=== PATIENT | female | born 1975 | race Caucasian/White ===

== ENCOUNTER 2017-08-19 08:02 | Inpatient (IN) | payer BC, OTHER ==
[2017-08-19 08:35] LABS: BASO % 0.8 % (0-2.0); EOS % 3.9 % (0-4.5); HEMATOCRIT 33.3 % (32.4-45.2); HEMOGLOBIN 10.4 GM/dL (10.7-15.3); LYMPH % 37.3 % (8-40); MCH 23.3 pg (25.7-33.7); MCHC 31.4 g/dl (32.0-36.0); MEAN CELL VOLUME 74.4 fl (80-96); MEAN PLT VOLUME 7.4 fl (7.5-11.1); MONO % 9.4 % (3.8-10.2); NEUT % 48.6 % (42.8-82.8); PLATELET COUNT 346 K/MM3 (134-434); RBC 4.48 M/mm3 (3.60-5.2); RDW 17.7 % (11.6-15.6); WHITE BLOOD COUNT 4.8 K/mm3 (4.0-10.0)
[2017-08-19 08:45] LABS: HCG,QUALITATIVE URINE NEGATIVE
[2017-08-19 08:53] LABS: URINE APPEARANCE CLEAR; URINE BILIRUBIN NEGATIVE (<2.0 mg/dL); URINE BLOOD 1+ (NEGATIVE); URINE COLOR YELLOW; URINE GLUCOSE (UA) NEGATIVE (NEGATIVE); URINE KETONE NEGATIVE (NEGATIVE); URINE LEUK ESTERASE TRACE (NEGATIVE); URINE NITRITE NEGATIVE (NEGATIVE); URINE PROTEIN NEGATIVE (NEGATIVE)
[2017-08-19 08:55] LABS: EPI CELLS RARE /HPF (FEW); INR 0.97 (0.82-1.09); URINE MUCUS RARE
[2017-08-19 08:59] LABS: ALBUMIN 3.3 g/dl (3.4-5.0); ALK PHOS 99 U/L (45-117); ANION GAP 4 (8-16); BILIRUBIN,TOTAL 0.3 mg/dL (0.2-1.0); BLOOD UREA NITROGEN 12 mg/dL (7-18); CHLORIDE 105 mmol/L (98-107); CO2 28 mmol/L (21-32); CREATININE 0.8 mg/dL (0.55-1.02); GLUCOSE,RANDOM 90 mg/dL (74-106); POTASSIUM 4.7 mmol/L (3.5-5.1); SGOT/AST 8 U/L (15-37); SGPT/ALT 10 U/L (12-78); SODIUM 137 mmol/L (136-145); TOT PROT 6.7 g/dl (6.4-8.2)
[2017-08-19] MEDS ORDERED: ROPIVACAINE HCL 0.5% 30ML VIAL ONE (09:32)
[2017-08-19] MEDS ORDERED: DEXAMETHASONE SOD PHOSPHATE/PF 10 MG/ML SDV ONE (09:32)
[2017-08-19] MEDS ORDERED: MIDAZOLAM HCL 2 MG/2 ML SINGLE DOSE VIAL ONE ×3 (09:35→10:29)
[2017-08-19] MEDS ORDERED: fentaNYL CITRATE 250 MCG/5 ML VIAL ONE ×2 (10:28)
[2017-08-19] MEDS ORDERED: ROCURONIUM BROMIDE 50 MG/5 ML VIAL ONE ×4 (10:29→13:02)
[2017-08-19] MEDS ORDERED: PROPOFOL 20 ML ONE ×2 (10:29)
[2017-08-19] MEDS ORDERED: ALBUTEROL SO4 18 GM HFA INHALER IH ONE (10:30)
[2017-08-19] MEDS ORDERED: KETOROLAC TROMETHAMINE 30 MG/1 ML VIAL ONE (10:32)
[2017-08-19] MEDS ORDERED: DEXAMETHASONE SOD PHOSPHATE 4 MG/1 ML VIAL ONE ×2 (10:32→16:07)
[2017-08-19] MEDS ORDERED: LIDOCAINE HCL/PF 2% SDV 5ML VIAL ONE (10:32)
[2017-08-19] MEDS ORDERED: ceFAZolin SODIUM 1 GM VIAL IVPB ONE (11:25)
--- NOTE | 2017-08-19 11:55 | EKG ---
Test Reason : Blood Pressure : / mmHG Vent. Rate : 073 BPM Atrial Rate : 073 BPM P-R Int : 132 ms QRS Dur : 084 ms QT Int : 408 ms P-R-T Axes : 074 078 056 degrees QTc Int : 449 ms NORMAL SINUS RHYTHM NORMAL ECG NO PREVIOUS ECGS AVAILABLE Confirmed by SAVANA ROWLAND, FERNANDO ([id number]) on 08/19/2017 11:55:04 AM Referred By: Atif Lehman Confirmed By:FERNANDO SAWANT MD
[2017-08-19] MEDS ORDERED: PHENYLEPHRINE HCL 10 MG/1 ML SINGLE DOSE VIAL ONE (14:28)
[2017-08-19] MEDS ORDERED: DESFLURANE GAS 240 ML BOTTLE IH ONE (14:50)
[2017-08-19] MEDS ORDERED: GLYCOPYRROLATE 0.2 MG/1 ML VIAL ONE ×2 (15:44→16:11)
[2017-08-19] MEDS ORDERED: NEOSTIGMINE METHYLSULFATE 0.5 MG/ML - 10 ML MDV ONE ×2 (15:44→16:09)
[2017-08-19] MEDS ORDERED: FUROSEMIDE 40 MG/4 ML INJECTABLE VIAL ONE (15:59)
[2017-08-19] MEDS ORDERED: ONDANSETRON 4 MG/2 ML VIAL IVPUSH PRN (16:34)
--- NOTE | 2017-08-19 16:44 | OP ---
Operative Note - Note: Operative Date: 08/19/17 Pre-Operative Diagnosis: Small Bowel Intussusception. Partial small dowel obstruction. Abdominal Pain Operation: Small Bowel Resection plus multiple anastomoses. Revision of Gastric Bypass. Resection of necrotic small bowel. Lysis of Adhesions. Feeding Jejunostomy. Exploratory Laparotomy. Placement of Abdominal drains Findings: Large amount of adhesions noted Small Bowel with multiple internal hernias and twisting of Biliary limb Dilated small bowel noted in biliary limb Necrotic Small bowel in multiple areas Post-Operative Diagnosis: Same as Pre-op (Necrotic Small bowel; Multiple internal hernias) Surgeon: Atif Lehman Apprentice/Lineman: Jacob Montes Anesthesia: General Specimens Removed: Small bowel anastomosis with intussusception from gastric bypass. necrotic biliary limb of small bowel Estimated Blood Loss (mls): 1,200 Blood Volume Replaced (mls): 4,200 Operative Report Dictated: Yes
[2017-08-19] MEDS ORDERED: PROMETHAZINE HCL 25 MG/1 ML VIAL IVPB PRN (16:47)
[2017-08-19] MEDS ORDERED: PROMETHAZINE HCL 25 MG/1 ML VIAL IVPUSH PRN (17:00)
[2017-08-19] MEDS ORDERED: HYDROmorphone *PCA* 10MG/50ML DISP.SYRIN PCA SCH ×2 (17:15→19:15)
[2017-08-19] MEDS ORDERED: DEXAMETHASONE SOD PHOSPHATE 4 MG/1 ML VIAL IVPUSH ONE (17:15)
[2017-08-19] MEDS ORDERED: ACETAMINOPHEN 1000 MG/100 ML VIAL (NON FORMULARY) IVPB ONE (17:15)
[2017-08-19 17:20] LABS: HEMATOCRIT 35.4 % (32.4-45.2); HEMOGLOBIN 11.4 GM/dL (10.7-15.3); MCH 24.1 pg (25.7-33.7); MCHC 32.1 g/dl (32.0-36.0); MEAN CELL VOLUME 75.1 fl (80-96); MEAN PLT VOLUME 7.7 fl (7.5-11.1); PLATELET COUNT 437 K/MM3 (134-434); RBC 4.71 M/mm3 (3.60-5.2); RDW 17.5 % (11.6-15.6)
[2017-08-19] MEDS ORDERED: HYDROmorphone *PCA* 10MG/50ML DISP.SYRIN PCA ONE (17:27)
[2017-08-19] MEDS: SODIUM CHLORIDE 1,000 ML IV SCH (17:35)
[2017-08-19 18:01] LABS: ALBUMIN 2.3 g/dl (3.4-5.0); ANION GAP 8 (8-16); BILIRUBIN,TOTAL 0.7 mg/dL (0.2-1.0); BLOOD UREA NITROGEN 13 mg/dL (7-18); CHLORIDE 108 mmol/L (98-107); CO2 24 mmol/L (21-32); GLUCOSE,RANDOM 180 mg/dL (74-106); POTASSIUM 5.3 mmol/L (3.5-5.1); SGPT/ALT 10 U/L (12-78); SODIUM 140 mmol/L (136-145); TOT PROT 4.9 g/dl (6.4-8.2)
[2017-08-19 18:04] LABS: ALK PHOS 74 U/L (45-117); SGOT/AST 15 U/L (15-37)
--- NOTE | 2017-08-19 19:50 | OP ---
DATE OF OPERATION: 08/19/2017 PREOPERATIVE DIAGNOSIS: 1. Small bowel intussusception. 2. Partial small bowel obstruction. 3. Abdominal pain. POSTOPERATIVE DIAGNOSIS: 1. Small bowel intussusception. 2. Small bowel obstruction. 3. Abdominal pain. 4. Necrotic small bowel. 5. Multiple internal hernias of small bowel. PROCEDURE PERFORMED: 1. Small bowel resection plus multiple anastomoses. 2. Revision of gastric bypass. 3. Resection of necrotic small bowel. 4. Lysis of adhesions. 5. . 6. Exploratory laparotomy. 7. Placement of abdominal drain. OPERATING SURGEON: Atif Lehman M.D. CONCRETE BATCHER SURGEON: Jacob Montes M.D. ANESTHESIA: General. OPERATIVE PROCEDURE: The patient was brought to the operating room, placed on OR table in supine position. All precautions were taken initially including padding for the back and the feet, and Venodyne boots placed on both lower extremities. At that point, the abdomen was prepped and draped in the usual manner. A midline incision was made extending from where her last incision left off in the upper abdomen around the umbilicus and below the umbilicus for about 6 cm. The incision was carried down through the skin and subcutaneous tissue. At that point, the assistant professor of archaeology surgeon and operating surgeon retracted the subcutaneous tissue to both sides, and this led to exposure of the midline fascia. The linea alba was then opened below the umbilicus with electrocautery, and the operating and assistant professor of archaeology surgeon both put their fingers in and swept away any scar tissue to the abdominal wall. With care being taken, the abdominal wall was opened more inferiorly and then also superiorly up towards the previous incision from the open gastric bypass. This continued carefully sweeping away any scar tissue, mostly omentum, until the transverse colon and the mesocolon were then identified. There were noted to be adhesions between the omentum and the anterior abdominal wall, and these were lysed in order to provide exposure to the rest of the abdominal cavity. At this point, the small bowel was noted, and there were adhesions between loops of bowel which were dissected free with sharp dissection with Metzenbaum scissors. Care was taken not to cause any injury to the bowel wall during this dissection. The small bowel then was run distally and the cecum and ileocecal valve were noted in the right lower quadrant. At that point, the small bowel was run retrograde, following all the way up to the right upper quadrant, where there appeared to be the anastomosis from the gastric bypass. There was noted what appeared to be the gastrojejunostomy limb and also the biliary limb, although it was difficult to tell each one apart. Attention was now directed to the mesocolon to lift it up to try to find the ligament of Treitz and the gastrojejunal limb going in a retrocolic, retrogastric direction up to the stomach. It was unsuccessful, because the patient was very deep, and exposure was difficult. There was noted to be a loop of small bowel which was extremely distended, and this appeared to be the bowel that had been partially or completely obstructed from the intussusception. Attempts to lift this bowel with the abdominal wall were difficult, as the bowel was stuck in many areas, first superiorly by the mesocolon, secondarily stuck laterally, especially in the left side of the abdomen, and then it was stuck posteriorly at the base of the mesentery. Attempts were made to lift this bowel up in a blunt dissection, but there was bleeding noted, and the bleeding was usually controlled with suture ligature. At this point, attention was now directed to the jejunojejunostomy. There was noted to be opening in the mesentery and piece of small bowel was through this, significant for an internal hernia. The adhesions between the small bowel and the internal hernia were lysed, and then the small bowel was reduced. Attention was now directed to the small bowel on the left side of the root of mesentery. This was attempted to be lifted up and followed to the jejunojejunostomy anastomosis where the intussusception was. However, it was difficult, and it was done mostly bluntly, and when it was lifted up, there was noted to be ischemia of the bowel as the mesentery was now devascularized. This small bowel was followed proximally until it led to what appeared to be the ligament of Treitz. This apparently was the biliary limb of the anastomosis, and this bowel was now defunctionalized and needed to be resected. A GIA60 stapler was placed across this biliary limb of the small bowel, and it was transected. The small bowel then ran proximally through which also went through an internal hernia, which could have been a partial cause of the partial obstruction and led to the root of the mesocolon. At this stage, the duodenum was identified, and a Karie maneuver was performed, so that the 4th and 3rd portion of the duodenum was now exposed, and that is where anastomosis would be. At this point, the necrotic small bowel which was the proximal jejunum link to the anastomosis was now resected with a TA55 staple, sent off the field as specimen to pathology. At this point, GIA60 blaire were placed across the gastrojejunal limb, the common limb, and also the biliary limb, and these were fired, and transecting the gastric bypass anastomosis. The Ligasure device was then used to dissect the mesentery off the small bowel, and the entire anastomosis was sent off the field as specimen to pathology. At this point, it was time for reconstruction, to reconstruct the anastomosis with the gastric bypass. First the alimentary limb was connected to the common channel which led distally to the ileocecal valve. These 2 limbs were brought together side by side and held with 3-0 silk sutures on the serosa. An opening was made with the electrocautery on both limbs, and then the GIA60 stapler was placed into the lumen and fired. When it was removed, the staple line was checked, and it was intact, and no bleeding was noted. A TIA55 was then placed across the opening, and the enterotomy was now closed. At this point, the piece of small bowel that was viable from the biliary limb was now connected distal to the proximal anastomosis between the common channel and the alimentary limb. This limb was placed side by side with 3-0 silk sutures, and in similar fashion, electrocautery was used to open up into the lumen of both limbs, and the GIA60 stapler was placed inside it. This staple line was checked, and it was intact, and the enterotomy was closed with the TA55 stapler. Attention was now directed to the biliary limb which needed to be anastomosed to the duodenum. The duodenum was exposed, and then a 2-layer anastomosis was performed with the piece of small bowel to the duodenum. First the first row with a 3-0 silk suture between the duodenum and the jejunum, and this was done in interrupted fashion for the posterior serosal layer. An opening of about 2 to 2.5 cm was made with electrocautery on both jejunum and on the duodenum. At that point, the inner layer was sewn with 3-0 Vicryl sutures in interrupted fashion first on the posterior wall, and then on the anterior wall connecting both the duodenum and the proximal small bowel. A final serosal layer was done with 3-0 silk in interrupted fashion on anterior wall. When it was completed, the repair was checked with 2 fingers that it was intact, no signs of biliary leakage was noted. At that point, a number 14 red rubber catheter was placed in the left lower quadrant and placed in the common channel as a feeding tube. A 2-0 silk suture was placed on the jejunum, and then electrocautery was used to open the lumen, and the red rubber catheter was placed. A Witzel technique was then used to close the serosa over the red rubber catheter for approximately 4 cm. The red rubber catheter was then tacked to the anterior abdominal wall. At that point, 2 Reiiner-Phillips drains were placed, 1 by the biliary jejunal anastomosis, and a 2nd one by the 3 anastomoses with the common channel, the biliary limb, and the alimentary limb . At that point, irrigation was placed throughout the abdominal cavity and suctioned until clear, and closure was performed with number 1 PDS in a continuous fashion on the fascia. This was followed by blaire placed a good distance apart in between the blaire. Packing was placed in order to prevent wound infection. Dressings were applied, patient woken from anesthesia and transferred out of the operating room to the recovery room in stable condition. Anesthesia in the case was general, surgeon Dr. Lehman, assistant professor of archaeology Dr. Jacob Montes, expected blood loss was 1200 mL. Patient transferred to recovery room, and then to be transferred to the ICU in stable condition. Juana [id number]
[2017-08-19] MEDS ORDERED: FAMOTIDINE 20 MG/50 ML IVPB 20 MG/50 ML MG IVPB ONE (20:48)
[2017-08-19] MEDS: FAMOTIDINE 20 MG/50 ML IVPB 20 MG/50 ML MG IVPB SCH (20:52)
--- NOTE | 2017-08-19 23:16 | CONSULT ---
Consult Consult Specialty:: Pulm/CCM Reason for Consultation:: s/p revision of gastric bypass - History of Present Illness Chief Complaint: Surgical site pain History of Present Illness: 41yow with PMHx of morbid obesity s/p gastric bypass c/b small bowel intussusception, partial small bowel obstruction and abdominal pain. Today she is s/p small bowel resection, revision of gastric bypass, resection of necrotic small bowel, lysis of adhesions, exploratory lap and feeding Jejunostomy tube placement. In the OR her EBL 1200cc, she received 4.2L, 2U PRBC, [id number]. She was transferred to ICU for further management. In ICU rec'd lethargic, easily aroused and oriented. HR 87, BP 97/59, o2 sat (3 % on 2lNC O2. c/o 9/10 pain. Dilaudid RESTAURANT SHIFT LEADER in place. Abd soft. Mid line abd incision with dressing d/i. Bilat BON to buld draing sero sang fluid. JT to bag drain with minimal drainage. - History Source History Provided By: Medical Record - Past Medical History ...LMP: 08/14/17 ...: No - Past Surgical History Past Surgical History: Yes: Bariatric Surgery - Alcohol/Substance Use Hx Alcohol Use: No (very rarely) - Smoking History Smoking history: Never smoked Home Medications - Allergies Allergies/Adverse Reactions: Allergies Allergy/AdvReac Type Severity Reaction Status Date / Time NSAIDS (Non-Steroidal Allergy Mild Verified 08/18/17 12:25 Anti-Inflamma metoclopramide [From Reglan] AdvReac Severe Verified 08/18/17 12:24 aspirin AdvReac Mild Verified 08/18/17 12:40 - Home Medications Home Medications: Ambulatory Orders Carisoprodol [Soma] 250 mg PO HS 08/18/17 Oxycodone HCl 15 mg PO BID 08/18/17 Pantoprazole Sodium [Protonix] 40 mg PO DAILY 08/18/17 Rizatriptan Benzoate [Maxalt] 10 mg PO PRN 08/18/17 oxyCODONE SR [Oxycontin] 10 mg PO BID 08/18/17 Eszopiclone [Lunesta] 3 mg PO HS 08/19/17 Family Disease History - Family Disease History Family History: Unremarkable Review of Systems Unable to obtain ROS, reason: Unable-lethargic Physical Exam Vital Signs: Vital Signs Temperature 99.2 F 08/19/17 22:30 Pulse Rate 89 08/19/17 22:30 Respiratory Rate 14 08/19/17 22:30 Blood Pressure 109/62 08/19/17 22:30 O2 Sat by Pulse Oximetry (%) 98 08/19/17 22:30 Intake & Output 08/16/17 08/17/17 08/18/17 08/19/17 23:59 23:59 23:59 23:59 Intake Total 6400 Output Total 2910 Balance 3490 Weight 115.666 kg Constitutional: Yes: Obese, Other (in pain) Eyes: Yes: Conjunctiva Clear, PERRL HENT: Yes: Atraumatic, Pharyngeal Erythema Neck: Yes: Supple, Trachea Midline Cardiovascular: Yes: Regular Rate and Rhythm, S1, S2 Respiratory: Yes: Regular, CTA Bilaterally Gastrointestinal: Yes: Soft, Hypoactive Bowel Sounds Renal/: Yes: Garcia Present Extremities: Yes: WNL Edema: No Peripheral Pulses WNL: Yes Integumentary: Yes: WNL Wound/Incision: Yes: Dressing Dry and Intact (Bilat BON to bulb with serosang fluid) Neurological: Yes: Oriented, Lethargy ...Motor Strength: WNL Labs: CBC,CMP WBC 10.0 K/mm3 (4.0-10.0) D 08/19/17 16:50 Corrected WBC (auto) Cancelled 08/19/17 22:50 RBC 4.71 M/mm3 (3.60-5.2) 08/19/17 16:50 Hgb 11.4 GM/dL (10.7-15.3) 08/19/17 16:50 Hct 35.4 % (32.4-45.2) 08/19/17 16:50 MCV 75.1 fl (80-96) L 08/19/17 16:50 MCH 24.1 pg (25.7-33.7) L 08/19/17 16:50 MCHC 32.1 g/dl (32.0-36.0) 08/19/17 16:50 RDW 17.5 % (11.6-15.6) H 08/19/17 16:50 Plt Count 437 K/MM3 (134-434) H D 08/19/17 16:50 MPV 7.7 fl (7.5-11.1) 08/19/17 16:50 Neutrophils % 48.6 % (42.8-82.8) 08/19/17 08:27 Lymphocytes % 37.3 % (8-40) 08/19/17 08:27 Monocytes % 9.4 % (3.8-10.2) 08/19/17 08:27 Eosinophils % 3.9 % (0-4.5) 08/19/17 08:27 Basophils % 0.8 % (0-2.0) 08/19/17 08:27 Manual Slide Review Cancelled 08/19/17 22:50 Platelet Comment Cancelled 08/19/17 22:50 Sodium 140 mmol/L (136-145) 08/19/17 16:50 Potassium 5.3 mmol/L (3.5-5.1) H 08/19/17 16:50 Chloride 108 mmol/L (98-107) H 08/19/17 16:50 Carbon Dioxide 24 mmol/L (21-32) 08/19/17 16:50 Anion Gap 8 (8-16) 08/19/17 16:50 BUN 13 mg/dL (7-18) 08/19/17 16:50 Creatinine 1.0 mg/dL (0.55-1.02) 08/19/17 16:50 Creat Clearance w eGFR > 60 (>60) 08/19/17 16:50 Random Glucose 180 mg/dL (74-106) H 08/19/17 16:50 Calcium 7.0 mg/dL (8.5-10.1) L 08/19/17 16:50 Total Bilirubin 0.7 mg/dL (0.2-1.0) D 08/19/17 16:50 AST 15 U/L (15-37) 08/19/17 16:50 ALT 10 U/L (12-78) L 08/19/17 16:50 Alkaline Phosphatase 74 U/L (45-117) 08/19/17 16:50 Total Protein 4.9 g/dl (6.4-8.2) L 08/19/17 16:50 Albumin 2.3 g/dl (3.4-5.0) L 08/19/17 16:50 Current Medications Hydromorphone HCl (Dilaudid Per Diem -) 10 mg RESTAURANT SHIFT LEADER RESTAURANT SHIFT LEADER CAROLINE PRN Reason: Protocol Stop: 08/26/17 19:06 Famotidine/Sodium Chloride (Pepcid 20 Mg Premixed Ivpb -) 20 mg in 50 mls @ 100 mls/hr IVPB BID CAROLINE Last Admin: 08/19/17 20:52 Dose: 50 mls Sodium Chloride (Normal Saline -) 1,000 mls @ 150 mls/hr IV ASDIR CAROLINE Last Admin: 08/19/17 17:35 Dose: 650 mls Lactated Ringer's (Lactated Ringers Solution) 1,000 mls @ 125 mls/hr IV ASDIR CAROLINE Ondansetron HCl (Zofran Injection) 4 mg IVPUSH Q4H PRN PRN Reason: NAUSEA AND/OR VOMITING Promethazine HCl (Phenergan Injection -) 12.5 mg IVPB Q6H PRN PRN Reason: NAUSEA AND/OR VOMITING Last Admin: 08/19/17 17:10 Dose: 12.5 mg Problem List - Problems (1) Obese Code(s): E66.9 - OBESITY, UNSPECIFIED (2) Status post gastric banding surgery Code(s): Z98.84 - BARIATRIC SURGERY STATUS Assessment/Plan 1yow with PMHx of morbid obesity s/p gastric bypass c/b small bowel intussusception, partial small bowel obstruction and abdominal pain. Today she is s/p small bowel resection, revision of gastric bypass, resection of necrotic small bowel, lysis of adhesions, exploratory lap and feeding Jejunostomy tube placement. In the OR her EBL 1200cc, she received 4.2L, 2U PRBC, UOP 600cc. She was transferred to ICU for further management. Plan: -Post op management as per surgery -Monitor BON output for bleeding -Pain management with RESTAURANT SHIFT LEADER dilaudid as per anesthesia -NPO -JT to bag drain -Continue IVF -Post op antibiotics -NC O2 for O2 sat >93% -Aspiration precautions -Incentive spirometer -SCDs MIKE Sprague CC time 35mins
[2017-08-20] LABS: HEMATOCRIT 35.4 % (32.4-45.2); HEMOGLOBIN 11.2 GM/dL (10.7-15.3); MCH 23.5 pg (25.7-33.7); MCHC 31.6 g/dl (32.0-36.0); MEAN CELL VOLUME 74.5 fl (80-96); MEAN PLT VOLUME 8.2 fl (7.5-11.1); PLATELET COUNT 301 K/MM3 (134-434); RBC 4.75 M/mm3 (3.60-5.2); RDW 17.2 % (11.6-15.6); WHITE BLOOD COUNT 13.7 K/mm3 (4.0-10.0)
[2017-08-20 00:06] LABS: ALBUMIN 2.5 g/dl (3.4-5.0); ANION GAP 9 (8-16); BILIRUBIN,TOTAL 0.5 mg/dL (0.2-1.0); BLOOD UREA NITROGEN 16 mg/dL (7-18); CALCIUM 7.1 mg/dL (8.5-10.1); CHLORIDE 108 mmol/L (98-107); CO2 23 mmol/L (21-32); CREATININE 0.9 mg/dL (0.55-1.02); GLUCOSE,RANDOM 155 mg/dL (74-106); POTASSIUM 4.9 mmol/L (3.5-5.1); SGOT/AST 19 U/L (15-37); SODIUM 140 mmol/L (136-145); TOT PROT 5.2 g/dl (6.4-8.2)
[2017-08-20 00:24] LABS: ALK PHOS 67 U/L (45-117); SGPT/ALT 11 U/L (12-78)
[2017-08-20] MEDS: ACETAMINOPHEN 1000 MG/100 ML VIAL (NON FORMULARY) IVPB PRN (01:07)
[2017-08-20] MEDS: ONDANSETRON 4 MG/2 ML VIAL IVPUSH PRN (07:24)
[2017-08-20] MEDS: HYDROmorphone *PCA* 10MG/50ML DISP.SYRIN PCA SCH (07:28)
--- NOTE | 2017-08-20 08:47 | PN ---
Progress Note (short form) - Note Progress Note: Anesthesia postop note and pain management follow up 41 y/o F s/p GA for gastric sleeve redo, dilaudid field education director for postop pain management. POD#1, admitted to ICU postop for monitoring, vss this am, aaox3, sitting in chair, no complaints, using field education director, settings increased by the icu team. Will continue field education director today. No anesthesia complications.
[2017-08-20] MEDS: FAMOTIDINE 20 MG/50 ML IVPB 20 MG/50 ML MG IVPB SCH ×2 (10:17→21:51)
[2017-08-20 10:18] LABS: HEMATOCRIT 38.3 % (32.4-45.2); MCH 23.7 pg (25.7-33.7); MCHC 31.4 g/dl (32.0-36.0); MEAN CELL VOLUME 75.2 fl (80-96); MEAN PLT VOLUME 8.1 fl (7.5-11.1); PLATELET COUNT 312 K/MM3 (134-434); RBC 5.09 M/mm3 (3.60-5.2); RDW 18.1 % (11.6-15.6)
[2017-08-20 10:42] LABS: ALBUMIN 2.5 g/dl (3.4-5.0); ALK PHOS 70 U/L (45-117); ANION GAP 8 (8-16); BILIRUBIN,TOTAL 0.3 mg/dL (0.2-1.0); BLOOD UREA NITROGEN 21 mg/dL (7-18); CALCIUM 7.3 mg/dL (8.5-10.1); CHLORIDE 109 mmol/L (98-107); CO2 22 mmol/L (21-32); CREATININE 1.1 mg/dL (0.55-1.02); GLUCOSE,RANDOM 117 mg/dL (74-106); POTASSIUM 4.8 mmol/L (3.5-5.1); SGOT/AST 26 U/L (15-37); SGPT/ALT 13 U/L (12-78); SODIUM 139 mmol/L (136-145); TOT PROT 5.5 g/dl (6.4-8.2)
--- NOTE | 2017-08-20 12:04 | PN ---
Progress Note (short form) - Note Progress Note: POD#1 Afebrile; P-90-95 BP-95/65 Pt c/o abdominal/incisional pain No N/V On AUDIOPROSTHOLOGIST WBC-16.0 H/H-12.0/38.3 BUN/Cr-21/1.1 (slight increase) J-P drain-240 cc/8 hours (sero-sanguinous) UO-approximately 40 cc/hr P- Begin IV antibiotics (secondary to SB necrosis)-discussed with ICU team, ID to be called Continue NPO Follow labs, WBC, H/H, BUN/Cr closely Cont Incentive spirometer Cont OOB-chair Cont SCD
--- NOTE | 2017-08-20 13:46 | PN ---
Teaching Attending Note Name of Resident: Marcela Johnson ATTENDING PHYSICIAN STATEMENT I saw and evaluated the patient. I reviewed the resident's note and discussed the case with the resident. I agree with the resident's findings and plan as documented. SUBJECTIVE: Patient seen and examined in the ICU. Awake and alert. Reports abdominal pain , but better than last night. No CP or SOB. Intake & Output 08/17/17 08/18/17 08/19/17 08/20/17 23:59 23:59 23:59 23:59 Intake Total 6400 1300 Output Total 2960 550 Balance 3440 750 Weight 255 lb Last Vital Signs Temp Pulse Resp BP Pulse Ox 99.2 F 95 H 18 95/65 98 08/19/17 22:30 08/20/17 03:30 08/20/17 09:00 08/20/17 03:30 08/20/17 09:00 Active Medications Acetaminophen (Ofirmev Injection -) 1,000 mg IVPB Q6H PRN PRN Reason: MODERATE PAIN Last Admin: 08/20/17 01:07 Dose: 1,000 mg Hydromorphone HCl (Dilaudid Quality Improvement Coordinator -) 10 mg PICCOLO MECHANIC PICCOLO MECHANIC CAROLINE PRN Reason: Protocol Stop: 08/26/17 19:06 Last Admin: 08/20/17 07:28 Dose: 10 mg Famotidine/Sodium Chloride (Pepcid 20 Mg Premixed Ivpb -) 20 mg in 50 mls @ 100 mls/hr IVPB BID CAROLINE Last Admin: 08/20/17 10:17 Dose: 100 mls/hr Sodium Chloride (Normal Saline -) 1,000 mls @ 150 mls/hr IV ASDIR CAROLINE Last Admin: 08/19/17 17:35 Dose: 650 mls Lactated Ringer's (Lactated Ringers Solution) 1,000 mls @ 125 mls/hr IV ASDIR CAROLINE Piperacillin Sod/Tazobactam (Sod 4.5 gm/ Dextrose) 100 mls @ 200 mls/hr IVPB ONCE ONE PRN Reason: Protocol Stop: 08/20/17 14:29 Ondansetron HCl (Zofran Injection) 4 mg IVPUSH Q4H PRN PRN Reason: NAUSEA AND/OR VOMITING Last Admin: 08/20/17 07:24 Dose: 4 mg Promethazine HCl (Phenergan Injection -) 12.5 mg IVPB Q6H PRN PRN Reason: NAUSEA AND/OR VOMITING Last Admin: 08/19/17 17:10 Dose: 12.5 mg Constitutional: Yes: Awake and alert, NAD, Obese Eyes: Yes: Conjunctiva Clear HENT: Yes: Atraumatic Neck: Yes: Supple, Trachea Midline Cardiovascular: Yes: Regular Rate and Rhythm, S1, S2 Respiratory: Yes: CTA Bilaterally, diminished at the bases Gastrointestinal: Yes: Soft, Hypoactive Bowel Sounds, intact dressings, (+) JTube Renal/: Yes: Garcia Present Extremities: Yes: WNL Edema: No Peripheral Pulses WNL: Yes Integumentary: Yes: WNL Wound/Incision: Yes: Dressing Dry and Intact (Bilat BON to bulb with serosang fluid) Neurological: Yes: Oriented, Non-focal ...Motor Strength: WNL Labs: Laboratory Results - last 24 hr 08/19/17 08/19/17 08/19/17 08:27 09:03 16:50 WBC 10.0 D Corrected WBC (auto) RBC 4.71 Hgb 11.4 Hct 35.4 MCV 75.1 L MCH 24.1 L MCHC 32.1 RDW 17.5 H Plt Count 437 H D MPV 7.7 Manual Slide Review Platelet Comment Sodium Potassium Chloride Carbon Dioxide Anion Gap BUN Creatinine Creat Clearance w eGFR Random Glucose Calcium Total Bilirubin AST ALT Alkaline Phosphatase Total Protein Albumin Blood Type A POSITIVE Antibody Screen Negative Crossmatch See Detail Crossmatch IS Only See Detail 08/19/17 08/19/17 08/19/17 16:50 22:50 22:50 WBC Cancelled Corrected WBC (auto) Cancelled RBC Cancelled Hgb Cancelled Hct Cancelled MCV Cancelled MCH Cancelled MCHC Cancelled RDW Cancelled Plt Count Cancelled MPV Cancelled Manual Slide Review Cancelled Platelet Comment Cancelled Sodium 140 140 Potassium 5.3 H 4.9 Chloride 108 H 108 H Carbon Dioxide 24 23 Anion Gap 8 9 BUN 13 16 Creatinine 1.0 0.9 Creat Clearance w eGFR > 60 > 60 Random Glucose 180 H 155 H Calcium 7.0 L 7.1 L Total Bilirubin 0.7 D 0.5 D AST 15 19 ALT 10 L 11 L Alkaline Phosphatase 74 67 Total Protein 4.9 L 5.2 L Albumin 2.3 L 2.5 L Blood Type Antibody Screen Crossmatch Crossmatch IS Only 08/19/17 08/20/17 08/20/17 23:49 09:45 09:45 WBC 13.7 H D 16.0 H Corrected WBC (auto) RBC 4.75 5.09 Hgb 11.2 12.0 Hct 35.4 38.3 MCV 74.5 L 75.2 L MCH 23.5 L 23.7 L MCHC 31.6 L 31.4 L RDW 17.2 H 18.1 H Plt Count 301 D 312 MPV 8.2 8.1 Manual Slide Review Platelet Comment Sodium 139 Potassium 4.8 Chloride 109 H Carbon Dioxide 22 Anion Gap 8 BUN 21 H Creatinine 1.1 H Creat Clearance w eGFR 54.21 Random Glucose 117 H Calcium 7.3 L Total Bilirubin 0.3 D AST 26 ALT 13 Alkaline Phosphatase 70 Total Protein 5.5 L Albumin 2.5 L Blood Type Antibody Screen Crossmatch Crossmatch IS Only Problem List - Problems (1) Obese Code(s): E66.9 - OBESITY, UNSPECIFIED (2) Status post gastric banding surgery Code(s): Z98.84 - BARIATRIC SURGERY STATUS Assessment/Plan POD #1: repair of a small bowel intussusception, partial small bowel obstruction , small bowel resection, revision of gastric bypass, resection of necrotic small bowel, lysis of adhesions, and feeding Jejunostomy tube placement PO when OK with surgery O2 as needed Incentive Spirometry VTE prophylaxis IVF ABX per ID: received Zosyn x 1 Pain control Aspiration precautions ICU monitoring Dr Escobar Critical care time spent in reviewing chart, evaluating patient and formulating plan - 36 minutes.
--- NOTE | 2017-08-20 13:52 | PN ---
Physical Exam: SUBJECTIVE: Patient awake, pain well controlled, IS @ bedside. Last BM pre- operative, patient passing flatus. OBJECTIVE: Vital Signs Period Temp Pulse Resp BP Sys/Lugo Pulse Ox Last 24 Hr 98.7 F-99.2 F 59-95 10-19 74-109/36-80 95-100 GENERAL: The patient is awake, A&O x3 Abdomen: soft, (+) bowel sounds CV: S1/S2, RRR Respiratory: CLTA B/L, no wheezes/crackles Extremities: 2+ DP pulses, SCD's in place Laboratory Results - last 24 hr 08/19/17 08/19/17 08/19/17 08:27 09:03 16:50 WBC 10.0 D Corrected WBC (auto) RBC 4.71 Hgb 11.4 Hct 35.4 MCV 75.1 L MCH 24.1 L MCHC 32.1 RDW 17.5 H Plt Count 437 H D MPV 7.7 Manual Slide Review Platelet Comment Sodium Potassium Chloride Carbon Dioxide Anion Gap BUN Creatinine Creat Clearance w eGFR Random Glucose Calcium Total Bilirubin AST ALT Alkaline Phosphatase Total Protein Albumin Blood Type A POSITIVE Antibody Screen Negative Crossmatch See Detail Crossmatch IS Only See Detail 08/19/17 08/19/17 08/19/17 16:50 22:50 22:50 WBC Cancelled Corrected WBC (auto) Cancelled RBC Cancelled Hgb Cancelled Hct Cancelled MCV Cancelled MCH Cancelled MCHC Cancelled RDW Cancelled Plt Count Cancelled MPV Cancelled Manual Slide Review Cancelled Platelet Comment Cancelled Sodium 140 140 Potassium 5.3 H 4.9 Chloride 108 H 108 H Carbon Dioxide 24 23 Anion Gap 8 9 BUN 13 16 Creatinine 1.0 0.9 Creat Clearance w eGFR > 60 > 60 Random Glucose 180 H 155 H Calcium 7.0 L 7.1 L Total Bilirubin 0.7 D 0.5 D AST 15 19 ALT 10 L 11 L Alkaline Phosphatase 74 67 Total Protein 4.9 L 5.2 L Albumin 2.3 L 2.5 L Blood Type Antibody Screen Crossmatch Crossmatch IS Only 08/19/17 08/20/17 08/20/17 23:49 09:45 09:45 WBC 13.7 H D 16.0 H Corrected WBC (auto) RBC 4.75 5.09 Hgb 11.2 12.0 Hct 35.4 38.3 MCV 74.5 L 75.2 L MCH 23.5 L 23.7 L MCHC 31.6 L 31.4 L RDW 17.2 H 18.1 H Plt Count 301 D 312 MPV 8.2 8.1 Manual Slide Review Platelet Comment Sodium 139 Potassium 4.8 Chloride 109 H Carbon Dioxide 22 Anion Gap 8 BUN 21 H Creatinine 1.1 H Creat Clearance w eGFR 54.21 Random Glucose 117 H Calcium 7.3 L Total Bilirubin 0.3 D AST 26 ALT 13 Alkaline Phosphatase 70 Total Protein 5.5 L Albumin 2.5 L Blood Type Antibody Screen Crossmatch Crossmatch IS Only Active Medications Generic Name Dose Route Start Last Admin Trade Name Freq PRN Reason Stop Dose Admin Acetaminophen 1,000 mg 08/20/17 00:49 08/20/17 01:07 Ofirmev Injection - IVPB 1,000 mg Q6H PRN Administration MODERATE PAIN Hydromorphone HCl 10 mg 08/20/17 07:18 08/20/17 07:28 Dilaudid [employer] - ELECTRICAL CONTINUITY INSPECTOR 08/26/17 19:06 10 mg ELECTRICAL CONTINUITY INSPECTOR CAROLINE Administration Protocol Famotidine/Sodium Chloride 20 mg in 50 mls @ 100 mls/hr 08/19/17 22:00 10:17 Pepcid 20 Mg Premixed Ivpb - IVPB 100 mls/hr BID CAROLINE Administration Sodium Chloride 1,000 mls @ 150 mls/hr 08/19/17 16:45 08/19/17 17:35 Normal Saline - IV 650 mls ASDIR CAROLINE Administration Lactated Ringer's 1,000 mls @ 125 mls/hr 08/19/17 17:00 Lactated Ringers Solution IV ASDIR CAROLINE Piperacillin Sod/Tazobactam 100 mls @ 200 mls/hr 08/20/17 14:00 Sod 4.5 gm/ Dextrose IVPB 08/20/17 14:29 ONCE ONE Protocol Ondansetron HCl 4 mg 08/19/17 17:13 08/20/17 07:24 Zofran Injection IVPUSH 4 mg Q4H PRN Administration NAUSEA AND/OR VOMITING Promethazine HCl 12.5 mg 08/19/17 16:47 08/19/17 17:10 Phenergan Injection - IVPB 12.5 mg Q6H PRN Administration NAUSEA AND/OR VOMITING ASSESSMENT/PLAN: 41 year old female with a PMH of gastric bypass (2003) c/o 6 week h/o abdominal pain presents for elective ex-lap. POD #1 resection of necrotic bowel, adhesion lysis, small bowel intussusception , and J tube placement. - Leukocytosis 16.4 - likely reactive as per written records no operative steroids - Continue Zosyn - Diet as per surgery - IS @ bedside - Pain control w/Dilaudid and Tylenol - Encourage ambulation - ID following, appreciate recs NEETU - likely 2/2 to hypoperfusion likely 2/2 to scheduled NPO - Cr 1.1 today <-- 0.8 @ presentation - Likely 2/2 to NPO - Continue IV hydration FEN - Monitor electrolytes - Currently NPO, diet as per surgery PROPHYLAXIS - SCD's, A/C as per surgery - GI prophylaxis not clinically indicated at this time. DISPOSITION: Patient stable for transfer to inpatient medicine floors Visit type - Emergency Visit Emergency Visit: No - New Patient This patient is new to me today: Yes Date on this admission: 08/20/17 - Critical Care Critical Care patient: No
[2017-08-20] MEDS ORDERED: PIPERACILLIN/TAZOB 4.5 GM 4.5 GM in DEXTROSE 5%-WATER 100 ML IVPB ONE (14:00)
--- NOTE | 2017-08-20 14:27 | PN ---
Teaching Attending Note Name of Resident: Moncho Cohen ATTENDING PHYSICIAN STATEMENT I saw and evaluated the patient. I reviewed the resident's note and discussed the case with the resident. I agree with the resident's findings and plan as documented. SUBJECTIVE: seen in ICU for perioperative antiibotics she has been having abdominal symptoms of pain, vomiting, and constipation/ diarrhea for last 6 weeks had a gastric bypass 14 years ago no fevers admitted yesterday for ex lap-s/p small bowel resectin, revision gastric bypas , resection necrotic small bowel IZABEL and feeding jejunostomy feels well OOB in chair OBJECTIVE: Vital Signs Period Temp Pulse Resp BP Sys/Lugo Pulse Ox Last 24 Hr 98.7 F-99.2 F 59-95 10-19 74-109/36-80 95-100 cor-rrr lungs clear abd soft, nt dressing intact 2 brandon drains third to nolan bag ext no edema +nolan CBC, BMP 08/20/ 09:45 08/20/18 09:45 ASSESSMENT AND PLAN: POD #1- s/p sb resection -necrotic small bowel and gastric bypass revision- cover for peritonitis leukocytosis noted blood cultures zosyn Problem List - Problems (1) Ischemic necrosis of small bowel Code(s): K55.029 - ACUTE INFARCTION OF SMALL INTESTINE, EXTENT UNSPECIFIED (2) S/P small bowel resection Code(s): Z90.49 - ACQUIRED ABSENCE OF OTHER SPECIFIED PARTS OF DIGESTIVE TRACT (3) H/O gastric bypass Code(s): Z98.84 - BARIATRIC SURGERY STATUS
--- NOTE | 2017-08-20 15:52 | CON.ID ---
Consult Consult Specialty:: Infectious disease Referred by:: Dr. Escobar Reason for Consultation:: ABX for bowel necrosis - History of Present Illness Chief Complaint: abdominal pain History of Present Illness: The patient is a 41 yo f w/PMH Morbid obesity s/p gastric bypass 14 yrs ago who is admitted to ICU POD1 Exlap for intussusception, SBO and bowel ischemia w/ lysis of adhesions and bowel resection. We were called to assess the patient for post-surgical ABX. Upon assessment, patient is A&O x3 c/o mild pain at incision site. Patient denies fevers, chills, diarrhea, constipation. - History Source History Provided By: Patient, Medical Record Limitations to Obtaining History: No Limitations - Past Medical History ...LMP: 08/14/17 ...: No - Past Surgical History Past Surgical History: Yes: Bariatric Surgery - Alcohol/Substance Use Hx Alcohol Use: No (very rarely) - Smoking History Smoking history: Never smoked Home Medications - Allergies Allergies/Adverse Reactions: Allergies Allergy/AdvReac Type Severity Reaction Status Date / Time NSAIDS (Non-Steroidal Allergy Mild Verified 08/18/17 12:25 Anti-Inflamma metoclopramide [From Reglan] AdvReac Severe Verified 08/18/17 12:24 aspirin AdvReac Mild Verified 08/18/17 12:40 - Home Medications Home Medications: Ambulatory Orders Carisoprodol [Soma] 250 mg PO HS 08/18/17 Oxycodone HCl 15 mg PO BID 08/18/17 Pantoprazole Sodium [Protonix] 40 mg PO DAILY 08/18/17 Rizatriptan Benzoate [Maxalt] 10 mg PO PRN 08/18/17 oxyCODONE SR [Oxycontin] 10 mg PO BID 08/18/17 Eszopiclone [Lunesta] 3 mg PO HS 08/19/17 Review of Systems - Review of Systems Constitutional: denies: Chills, Diaphoresis, Fever, Unintentional Wgt. Loss, Weakness Cardiovascular: denies: Chest Pain, Edema, Palpitations, Shortness of Breath Respiratory: denies: Cough, SOB, SOB on Exertion, Wheezing Gastrointestinal: reports: Abdominal Pain. denies: Constipation, Diarrhea, Nausea, Rectal Bleeding, Vomiting Genitourinary: denies: Burning, Discharge, Dysuria Physical Exam Vital Signs: Vital Signs Temperature 99.2 F 08/19/17 22:30 Pulse Rate 95 H 08/20/17 03:30 Respiratory Rate 18 08/20/17 09:00 Blood Pressure 95/65 08/20/17 03:30 O2 Sat by Pulse Oximetry (%) 98 08/20/17 09:00 Constitutional: Yes: Well Nourished, No Distress, Calm HENT: Yes: Atraumatic, Normocephalic Neck: Yes: Supple, Trachea Midline Cardiovascular: Yes: Regular Rate and Rhythm, S1, S2. No: JVD, Gallop, Murmur, Rub Respiratory: Yes: Regular, CTA Bilaterally Gastrointestinal: Yes: Normal Bowel Sounds, Soft, Other (surgical dressing in place; is clean dry and intact). No: Tenderness Edema: No Neurological: Yes: Alert, Oriented Psychiatric: Yes: Alert, Oriented Labs: CBC, BMP 08/20/17 09:45 08/20/17 09:45 Imaging - Results Chest X-ray: Report Reviewed, Image Reviewed Cat Scan: Report Reviewed Assessment/Plan The patient is a 41 yo f admitted to the ICU s/p bowel resection and lysing of adhesions. -Patient afebrile, well appearing. -will cover empirically with Zosyn 4.5g Q8h to cover gut microbes. -will order blood cultures -case d/w Dr. Damon
[2017-08-20] MEDS ORDERED: PT OWN MED DRAWER 7, Y5N ONE (16:49)
[2017-08-20] MEDS: SODIUM CHLORIDE 1,000 ML IV SCH ×2 (17:00→21:51)
[2017-08-20] MEDS ORDERED: PIPERACILLIN/TAZOB 4.5 GM 4.5 GM in DEXTROSE 5%-WATER 100 ML IVPB SCH (18:00)
[2017-08-20] MEDS ORDERED: PIPERACILLIN/TAZOBACTAM 4.5 GM VIAL IVPB ONE (18:06)
[2017-08-20] MEDS: PIPERACILLIN/TAZOB 4.5 GM 4.5 GM in DEXTROSE 5%-WATER 100 ML IVPB SCH (18:08)
[2017-08-21] MEDS ORDERED: DEXTROSE 5%-WATER 100 ML IVPB ONE ×3 (01:46→16:15)
[2017-08-21] MEDS ORDERED: PIPERACILLIN/TAZOBACTAM 4.5 GM VIAL IVPB ONE ×3 (01:46→16:15)
[2017-08-21] MEDS: PIPERACILLIN/TAZOB 4.5 GM 4.5 GM in DEXTROSE 5%-WATER 100 ML IVPB SCH ×3 (02:09→17:19)
[2017-08-21] MEDS: ONDANSETRON 4 MG/2 ML VIAL IVPUSH PRN (02:13)
[2017-08-21] MEDS: HYDROmorphone *PCA* 10MG/50ML DISP.SYRIN PCA SCH ×2 (02:13→09:14)
[2017-08-21 06:06] LABS: HEMATOCRIT 30.4 % (32.4-45.2); HEMOGLOBIN 9.8 GM/dL (10.7-15.3); MCH 24.1 pg (25.7-33.7); MCHC 32.2 g/dl (32.0-36.0); MEAN CELL VOLUME 74.8 fl (80-96); MEAN PLT VOLUME 8.1 fl (7.5-11.1); PLATELET COUNT 232 K/MM3 (134-434); RBC 4.06 M/mm3 (3.60-5.2); RDW 17.6 % (11.6-15.6); WHITE BLOOD COUNT 12.3 K/mm3 (4.0-10.0)
[2017-08-21 06:36] LABS: CHLORIDE 108 mmol/L (98-107); POTASSIUM 4.6 mmol/L (3.5-5.1); SODIUM 139 mmol/L (136-145)
[2017-08-21 06:49] LABS: ALBUMIN 2.1 g/dl (3.4-5.0); ALK PHOS 70 U/L (45-117); ANION GAP 6 (8-16); BILIRUBIN,TOTAL 0.5 mg/dL (0.2-1.0); BLOOD UREA NITROGEN 27 mg/dL (7-18); CALCIUM 7.2 mg/dL (8.5-10.1); CO2 25 mmol/L (21-32); CREATININE 1.1 mg/dL (0.55-1.02); GLUCOSE,RANDOM 108 mg/dL (74-106); SGOT/AST 20 U/L (15-37); SGPT/ALT 11 U/L (12-78)
--- NOTE | 2017-08-21 07:48 | PN ---
Progress Note, Physician Chief Complaint: ID Day 2 post op Stable pain adequately managed Zosyn - Current Medication List Current Medications: Active Medications Acetaminophen (Ofirmev Injection -) 1,000 mg IVPB Q6H PRN PRN Reason: MODERATE PAIN Last Admin: 08/20/17 01:07 Dose: 1,000 mg Hydromorphone HCl (Dilaudid Inspector Floor Sub Assembly -) 10 mg UNIVERSITY ADMINISTRATOR UNIVERSITY ADMINISTRATOR CAROLINE PRN Reason: Protocol Stop: 08/26/17 19:06 Last Admin: 08/21/17 02:13 Dose: 10 mg Famotidine/Sodium Chloride (Pepcid 20 Mg Premixed Ivpb -) 20 mg in 50 mls @ 100 mls/hr IVPB BID CAROLINE Last Admin: 08/20/17 21:51 Dose: 100 mls/hr Sodium Chloride (Normal Saline -) 1,000 mls @ 150 mls/hr IV ASDIR CAROLINE Last Admin: 08/20/17 21:51 Dose: 150 mls/hr Lactated Ringer's (Lactated Ringers Solution) 1,000 mls @ 125 mls/hr IV ASDIR CAROLINE Piperacillin Sod/Tazobactam (Sod 4.5 gm/ Dextrose) 100 mls @ 200 mls/hr IVPB Q8H-IV CAROLINE PRN Reason: Protocol Last Admin: 08/21/17 02:09 Dose: 200 mls/hr Ondansetron HCl (Zofran Injection) 4 mg IVPUSH Q4H PRN PRN Reason: NAUSEA AND/OR VOMITING Last Admin: 08/21/17 02:13 Dose: 4 mg Promethazine HCl (Phenergan Injection -) 12.5 mg IVPB Q6H PRN PRN Reason: NAUSEA AND/OR VOMITING Last Admin: 08/19/17 17:10 Dose: 12.5 mg - Objective Vital Signs: Vital Signs Temperature 98.7 F 08/21/17 06:00 Pulse Rate 94 H 08/21/17 06:00 Respiratory Rate 18 08/21/17 06:00 Blood Pressure 118/70 08/21/17 06:00 O2 Sat by Pulse Oximetry (%) 98 08/20/17 20:30 Constitutional: Yes: Well Nourished, No Distress Neck: Yes: WNL, Supple Cardiovascular: Yes: S1, S2 Respiratory: Yes: WNL, Regular, CTA Bilaterally Gastrointestinal: Yes: Soft, Other (surgical wound with drains) Labs: CBC, BMP 08/21/17 05:50 08/21/17 05:50 INR, PTT INR 0.97 (0.82-1.09) 08/19/17 08:27 Assessment/Plan Microbiology Laboratory Tests 08/21/17 08/21/17 05:50 05:50 WBC 12.3 H Plt Count 232 D BUN 27 H Assessment Small bowel resection necrotic bowel lysis of adhesions Plan Continue empiric intrabd coverage as ordered few more days Melvin ROWLAND
[2017-08-21] MEDS: FAMOTIDINE 20 MG/50 ML IVPB 20 MG/50 ML MG IVPB SCH ×2 (09:18→21:07)
--- NOTE | 2017-08-21 10:18 | PN ---
Progress Note (short form) - Note Progress Note: POD #2 on dilaudid TALENT DEVELOPMENT CONSULTANT for postop pain management. VSS. Pt. doing well, resting comfortably in bed. TALENT DEVELOPMENT CONSULTANT was increased yesterday with good response. Will continue present settings.
--- NOTE | 2017-08-21 11:13 | PN ---
Progress Note (short form) - Note Progress Note: PULMONARY/CCM Pt seen and examined in the ICU. Pain relative controlled on TELECOMMUNICATIONS EQUIPMENT INSTALLER. Some mild nausea but no vomiting. +belching, no flatus or BM. No fevers or chills. No shortness of breath or chest pain. Last Vital Signs Temp Pulse Resp BP Pulse Ox 98.7 F 98 H 15 110/69 98 08/21/17 06:00 08/21/17 09:14 08/21/17 09:14 08/21/17 09:14 08/20/17 20:30 Intake & Output 08/18/17 08/19/17 08/20/17 08/21/17 23:59 23:59 23:59 23:59 Intake Total 6400 3850 1050 Output Total 2960 1280 150 Balance 3440 2570 900 Weight 115.666 kg Gen: NAD at rest Heart: RRR Lung: decreased breath sounds at the bases Abd: soft, nontender, +BON with serosanguinous fluid Ext: no edema CBC, BMP 08/21/17 05:50 08/21/17 05:50 Active Medications Acetaminophen (Ofirmev Injection -) 1,000 mg IVPB Q6H PRN PRN Reason: MODERATE PAIN Last Admin: 08/20/17 01:07 Dose: 1,000 mg Hydromorphone HCl (Dilaudid Oil Well Perforator Operator -) 10 mg TELECOMMUNICATIONS EQUIPMENT INSTALLER TELECOMMUNICATIONS EQUIPMENT INSTALLER CAROLINE PRN Reason: Protocol Stop: 08/26/17 19:06 Last Admin: 08/21/17 09:14 Dose: 10 mg Famotidine/Sodium Chloride (Pepcid 20 Mg Premixed Ivpb -) 20 mg in 50 mls @ 100 mls/hr IVPB BID CAROLINE Last Admin: 08/21/17 09:18 Dose: 100 mls/hr Sodium Chloride (Normal Saline -) 1,000 mls @ 150 mls/hr IV ASDIR CAROLINE Last Admin: 08/20/17 21:51 Dose: 150 mls/hr Lactated Ringer's (Lactated Ringers Solution) 1,000 mls @ 125 mls/hr IV ASDIR CAROLINE Piperacillin Sod/Tazobactam (Sod 4.5 gm/ Dextrose) 100 mls @ 200 mls/hr IVPB Q8H-IV CAROLINE PRN Reason: Protocol Last Admin: 08/21/17 09:21 Dose: 200 mls/hr Ondansetron HCl (Zofran Injection) 4 mg IVPUSH Q4H PRN PRN Reason: NAUSEA AND/OR VOMITING Last Admin: 08/21/17 02:13 Dose: 4 mg Promethazine HCl (Phenergan Injection -) 12.5 mg IVPB Q6H PRN PRN Reason: NAUSEA AND/OR VOMITING Last Admin: 08/19/17 17:10 Dose: 12.5 mg A/P Small Bowel Intussusception/Partial Small Bowel Obstruction s/p ex-lap/necrotic bowel resection/IZABEL/J tube placement h/o Gastric Bypass Acute Kidney Injury Acute Blood Loss Anemia - continue empiric antibiotics - f/u cultures - pain control - incentive spirometry - monitor drain output - OOB to chair - IVF - monitor urine output, creatinine - await return of bowel function - DVT prophylaxis - disposition per surgery
--- NOTE | 2017-08-21 13:59 | PN ---
Progress Note (short form) - Note Progress Note: POD#2 Afebrile; P-95-102 BP-110/69 Pt with nolan removed Was OOB in bathroom Using incentive spirometer UO-1800 cc/24 hours J tube with drainage, slight liquid stool, possible bilious in nature P/E-Abd- dressing changed serous drainage between blaire with packing in place no cellulitis WBC-12.3 H/H-9.8/34 (decreased but baseline for patient BUN/CR- 27/1.1 (BUN increased, Cr-stable) P- PO sips of water slowly Cont SCD, OOB, incentive spirometer Renal consult for rising BUN, slightly elevated CR Moniter WBC, H/H , all labs closely
[2017-08-21] MEDS: SODIUM CHLORIDE 1,000 ML IV SCH (17:20)
[2017-08-22] MEDS ORDERED: DEXTROSE 5%-WATER 100 ML IVPB ONE ×2 (02:30→17:31)
[2017-08-22] MEDS ORDERED: PIPERACILLIN/TAZOBACTAM 4.5 GM VIAL IVPB ONE ×3 (02:30→17:31)
[2017-08-22] MEDS: PIPERACILLIN/TAZOB 4.5 GM 4.5 GM in DEXTROSE 5%-WATER 100 ML IVPB SCH ×3 (02:43→17:33)
[2017-08-22 06:08] LABS: BASO % 0.3 % (0-2.0); EOS % 0.8 % (0-4.5); HEMATOCRIT 24.5 % (32.4-45.2); HEMOGLOBIN 8.1 GM/dL (10.7-15.3); LYMPH % 11.1 % (8-40); MCH 24.3 pg (25.7-33.7); MCHC 32.9 g/dl (32.0-36.0); MONO % 5.4 % (3.8-10.2); NEUT % 82.4 % (42.8-82.8); PLATELET COUNT 201 K/MM3 (134-434); RBC 3.31 M/mm3 (3.60-5.2); RDW 17.8 % (11.6-15.6); WHITE BLOOD COUNT 8.5 K/mm3 (4.0-10.0)
[2017-08-22 06:41] LABS: CHLORIDE 106 mmol/L (98-107); SODIUM 137 mmol/L (136-145)
[2017-08-22 06:51] LABS: ALK PHOS 67 U/L (45-117); ANION GAP 7 (8-16); BILIRUBIN,TOTAL 0.4 mg/dL (0.2-1.0); BLOOD UREA NITROGEN 14 mg/dL (7-18); CALCIUM 7.2 mg/dL (8.5-10.1); CO2 24 mmol/L (21-32); CREATININE 0.7 mg/dL (0.55-1.02); GLUCOSE,RANDOM 86 mg/dL (74-106); PHOSPHOROUS 1.7 mg/dL (2.5-4.9); SGOT/AST 14 U/L (15-37); SGPT/ALT 11 U/L (12-78); TOT PROT 5.1 g/dl (6.4-8.2)
--- NOTE | 2017-08-22 07:23 | PN ---
Progress Note, Physician Chief Complaint: ID Post op day 3 Zosyn - Current Medication List Current Medications: Active Medications Acetaminophen (Ofirmev Injection -) 1,000 mg IVPB Q6H PRN PRN Reason: MODERATE PAIN Last Admin: 08/20/17 01:07 Dose: 1,000 mg Hydromorphone HCl (Dilaudid Sap Bw Developer -) 10 mg ACADEMIC ADVISER ACADEMIC ADVISER CAROLINE PRN Reason: Protocol Stop: 08/26/17 19:06 Last Admin: 08/21/17 09:14 Dose: 10 mg Famotidine/Sodium Chloride (Pepcid 20 Mg Premixed Ivpb -) 20 mg in 50 mls @ 100 mls/hr IVPB BID CAROLINE Last Admin: 08/21/17 21:07 Dose: 100 mls/hr Sodium Chloride (Normal Saline -) 1,000 mls @ 150 mls/hr IV ASDIR CAROLINE Last Admin: 08/21/17 17:20 Dose: 150 mls/hr Lactated Ringer's (Lactated Ringers Solution) 1,000 mls @ 125 mls/hr IV ASDIR CAROLINE Piperacillin Sod/Tazobactam (Sod 4.5 gm/ Dextrose) 100 mls @ 200 mls/hr IVPB Q8H-IV CAROLINE PRN Reason: Protocol Last Admin: 08/22/17 02:43 Dose: 200 mls/hr Ondansetron HCl (Zofran Injection) 4 mg IVPUSH Q4H PRN PRN Reason: NAUSEA AND/OR VOMITING Last Admin: 08/21/17 02:13 Dose: 4 mg Promethazine HCl (Phenergan Injection -) 12.5 mg IVPB Q6H PRN PRN Reason: NAUSEA AND/OR VOMITING Last Admin: 08/19/17 17:10 Dose: 12.5 mg - Objective Vital Signs: Vital Signs Temperature 98.1 F 08/22/17 07:08 Pulse Rate 101 H 08/22/17 07:08 Respiratory Rate 22 08/22/17 07:08 Blood Pressure 114/76 08/22/17 07:08 O2 Sat by Pulse Oximetry (%) 98 08/21/17 20:16 Constitutional: Yes: Well Nourished, No Distress Neck: Yes: WNL, Supple Cardiovascular: Yes: Regular Rate and Rhythm, S1, S2 Respiratory: Yes: WNL, Regular, CTA Bilaterally Gastrointestinal: Yes: Soft, Other (incision completely saturated dressing serous dark not pus no erythema or cellulitis) Labs: CBC, BMP 08/22/17 05:55 08/22/17 05:55 INR, PTT INR 0.97 (0.82-1.09) 08/19/17 08:27 Assessment/Plan Microbiology 08/20/17 17:15 Blood - Peripheral Venous Blood Culture - Preliminary NO GROWTH OBTAINED AFTER 24 HOURS, INCUBATION TO CONTINUE FOR 4 DAYS. 08/20/17 17:00 Blood - Peripheral Venous Blood Culture - Preliminary NO GROWTH OBTAINED AFTER 24 HOURS, INCUBATION TO CONTINUE FOR 4 DAYS. Laboratory Tests 08/22/17 08/22/17 05:55 05:55 WBC 8.5 D Hgb 8.1 L D Hct 24.5 L D Plt Count 201 BUN 14 Creatinine 0.7 Assessment Day 3 post op small bowel resections "necrotic bowel " per op note Plan Continue current antibiotics No fever normal WBC count
--- NOTE | 2017-08-22 09:12 | CONSULT ---
Consult - text type - Consultation Consultation Note: Renal Consult for NEETU This is a 41 year old woman with PMhx of Morbid obesity s/p gastric bypass (14 year ag0) who presented with complaints of abd distension and pain and found to have small bowel intussusception, partial small bowel obstruction with NEETU during the hospital course. Pt has about 1200 of blood loss during the procedure and has had blood transfusions. Garcia catheter was in place and removed yesterday. On advancing oral diet. No N/V/D. No flank pain. No fever, chills. Making urine. No NSAID administration. on IV contrast exposure. No sob, chest pain. has mild abd pain at the incision site. PMhx: As above Allergies: NSIAD, Reglan, ASA Family Hx: NC Social Hx: No T/A/D ROS: as per HPI Home Medications Medication Instructions Recorded Carisoprodol [Soma] 250 mg PO HS 08/18/17 Oxycodone HCl 15 mg PO BID 08/18/17 Pantoprazole Sodium [Protonix] 40 mg PO DAILY 08/18/17 Rizatriptan Benzoate [Maxalt] 10 mg PO PRN 08/18/17 oxyCODONE SR [Oxycontin] 10 mg PO BID 08/18/17 Eszopiclone [Lunesta] 3 mg PO HS 08/19/17 Vital Signs Temperature 98.1 F 08/22/17 07:08 Pulse Rate 101 H 08/22/17 07:08 Respiratory Rate 22 08/22/17 07:08 Blood Pressure 114/76 08/22/17 07:08 O2 Sat by Pulse Oximetry (%) 98 08/21/17 20:16 Intake & Output 08/19/17 08/20/17 08/21/17 08/22/17 23:59 23:59 23:59 23:59 Intake Total 6400 3850 3150 1050 Output Total 2960 1280 550 150 Balance 3440 2570 2600 900 Weight 115.666 kg NAD awake and alert RRR, No M/R CTA, no rales abd dressing in place, [address] No LE edema, cyanosis or clubbing no focal neurologic defects CBC, BMP 08/22/17 05:55 08/22/17 05:55 Laboratory Tests 08/19/17 08/19/17 08/19/17 08:27 08:27 22:50 Creatinine 0.8 0.9 Calcium Phosphorus Magnesium Urine Blood 1+ H Urine Urobilinogen 2.0 H 08/20/17 08/21/17 08/22/17 09:45 05:50 05:55 Creatinine 1.1 H 1.1 H 0.7 Calcium 7.2 L Phosphorus 1.7 L Magnesium 2.0 Urine Blood Urine Urobilinogen Current Medications Acetaminophen (Ofirmev Injection -) 1,000 mg IVPB Q6H PRN PRN Reason: MODERATE PAIN Last Admin: 08/20/17 01:07 Dose: 1,000 mg Hydromorphone HCl (Dilaudid It Audit Manager -) 10 mg WEB PROJECT MANAGER WEB PROJECT MANAGER CAROLINE PRN Reason: Protocol Stop: 08/26/17 19:06 Last Admin: 08/21/17 09:14 Dose: 10 mg Famotidine/Sodium Chloride (Pepcid 20 Mg Premixed Ivpb -) 20 mg in 50 mls @ 100 mls/hr IVPB BID CAROLINE Last Admin: 08/21/17 21:07 Dose: 100 mls/hr Sodium Chloride (Normal Saline -) 1,000 mls @ 150 mls/hr IV ASDIR CAROLINE Last Admin: 08/21/17 17:20 Dose: 150 mls/hr Lactated Ringer's (Lactated Ringers Solution) 1,000 mls @ 125 mls/hr IV ASDIR CAROLINE Piperacillin Sod/Tazobactam (Sod 4.5 gm/ Dextrose) 100 mls @ 200 mls/hr IVPB Q8H-IV CAROLINE PRN Reason: Protocol Last Admin: 08/22/17 02:43 Dose: 200 mls/hr Potassium Phosphate 30 mm/ (Dextrose) 260 mls @ 62.5 mls/hr IVPB ONCE ONE Stop: 08/22/17 14:09 Ondansetron HCl (Zofran Injection) 4 mg IVPUSH Q4H PRN PRN Reason: NAUSEA AND/OR VOMITING Last Admin: 08/21/17 02:13 Dose: 4 mg Promethazine HCl (Phenergan Injection -) 12.5 mg IVPB Q6H PRN PRN Reason: NAUSEA AND/OR VOMITING Last Admin: 08/19/17 17:10 Dose: 12.5 mg 41 year old woman with PMhx of Morbid obesity s/p gastric bypass who presented with complaints of abd distension and pain and found to have small bowel intussusception, partial small bowel obstruction with NEETU during the hospital course. #NEETU (likely due to intravascular volume depletion from blood loss +/- hemodynamic changes post surgery) #Necrotic bowel s/p resection #Acute Anemia #Hypophosphatemia #Hypocalcemia Renal function now improved to baseline Continue isotonic saline at present rate and titrate down as oral intake improved no acute indication for imaging studies of the abd UA showed some hematuria but likely due to catheter insertion/removal check UPCR Trend CBC and transfuse as needed will give IV K-phos x 1 today Corrected Ca is WNL thank you will follow Reinier Turcios DO
[2017-08-22] MEDS ORDERED: DEXTROSE 5%-WATER 200 ML IVPB ONE (09:13)
[2017-08-22] MEDS: FAMOTIDINE 20 MG/50 ML IVPB 20 MG/50 ML MG IVPB SCH ×2 (09:49→23:21)
[2017-08-22] MEDS ORDERED: POTASSIUM PHOSPHATE 30 MM in DEXTROSE 5%-WATER - 250 ML IVPB ONE (10:00)
--- NOTE | 2017-08-22 10:15 | PN ---
Progress Note (short form) - Note Progress Note: PULMONARY/CCM Pt seen and examined in the ICU. Pain controlled on EDGERMAN. Nausea improving. + belching, no flatus or BM. No fevers or chills. No shortness of breath or chest pain. Has been OOB. Last Vital Signs Temp Pulse Resp BP Pulse Ox 98.1 F 101 H 22 114/76 98 08/22/17 07:08 08/22/17 07:08 08/22/17 07:08 08/22/17 07:08 08/21/17 20:16 Intake & Output 08/19/17 08/20/17 08/21/17 08/22/17 23:59 23:59 23:59 23:59 Intake Total 6400 3850 3150 1050 Output Total 2960 1280 550 150 Balance 3440 2570 2600 900 Weight 115.666 kg Gen: NAD at rest Heart: RRR Lung: decreased breath sounds at the bases Abd: soft, nontender, +BON with serosanguinous fluid Ext: no edema CBC, BMP 08/22/17 05:55 08/22/17 05:55 Active Medications Acetaminophen (Ofirmev Injection -) 1,000 mg IVPB Q6H PRN PRN Reason: MODERATE PAIN Last Admin: 08/20/17 01:07 Dose: 1,000 mg Hydromorphone HCl (Dilaudid Pocketed Spring Machine Operator -) 10 mg EDGERMAN EDGERMAN CAROLINE PRN Reason: Protocol Stop: 08/26/17 19:06 Last Admin: 08/21/17 09:14 Dose: 10 mg Famotidine/Sodium Chloride (Pepcid 20 Mg Premixed Ivpb -) 20 mg in 50 mls @ 100 mls/hr IVPB BID CAROLINE Last Admin: 08/22/17 09:49 Dose: 100 mls/hr Sodium Chloride (Normal Saline -) 1,000 mls @ 150 mls/hr IV ASDIR CAROLINE Last Admin: 08/21/17 17:20 Dose: 150 mls/hr Lactated Ringer's (Lactated Ringers Solution) 1,000 mls @ 125 mls/hr IV ASDIR CAROLINE Piperacillin Sod/Tazobactam (Sod 4.5 gm/ Dextrose) 100 mls @ 200 mls/hr IVPB Q8H-IV CAROLINE PRN Reason: Protocol Last Admin: 08/22/17 09:49 Dose: 200 mls/hr Potassium Phosphate 30 mm/ (Dextrose) 260 mls @ 62.5 mls/hr IVPB ONCE ONE Stop: 08/22/17 14:09 Ondansetron HCl (Zofran Injection) 4 mg IVPUSH Q4H PRN PRN Reason: NAUSEA AND/OR VOMITING Last Admin: 08/21/17 02:13 Dose: 4 mg Promethazine HCl (Phenergan Injection -) 12.5 mg IVPB Q6H PRN PRN Reason: NAUSEA AND/OR VOMITING Last Admin: 08/19/17 17:10 Dose: 12.5 mg A/P Small Bowel Intussusception/Partial Small Bowel Obstruction s/p ex-lap/necrotic bowel resection/IZABEL/J tube placement h/o Gastric Bypass Acute Kidney Injury Acute Blood Loss Anemia - continue empiric antibiotics - f/u cultures - pain control - incentive spirometry - monitor drain output - OOB to chair - IVF - monitor urine output, creatinine - await return of bowel function - DVT prophylaxis - can transfer to floor when ok with surgery
[2017-08-22] MEDS: HYDROmorphone *PCA* 10MG/50ML DISP.SYRIN PCA SCH ×5 (14:03→23:47)
--- NOTE | 2017-08-22 17:10 | PN ---
Progress Note, Physician Chief Complaint: Patient seen at bedside s/p open revision of gastric bypass post op day 3 - Current Medication List Current Medications: Active Medications Acetaminophen (Ofirmev Injection -) 1,000 mg IVPB Q6H PRN PRN Reason: MODERATE PAIN Last Admin: 08/20/17 01:07 Dose: 1,000 mg Hydromorphone HCl (Dilaudid Photographer Assistant -) 10 mg CHOKER SETTER CHOKER SETTER CAROLINE PRN Reason: Protocol Stop: 08/26/17 19:06 Famotidine/Sodium Chloride (Pepcid 20 Mg Premixed Ivpb -) 20 mg in 50 mls @ 100 mls/hr IVPB BID CAROLINE Last Admin: 08/22/17 09:49 Dose: 100 mls/hr Sodium Chloride (Normal Saline -) 1,000 mls @ 150 mls/hr IV ASDIR CAROLINE Last Admin: 08/21/17 17:20 Dose: 150 mls/hr Lactated Ringer's (Lactated Ringers Solution) 1,000 mls @ 125 mls/hr IV ASDIR CAROLINE Piperacillin Sod/Tazobactam (Sod 4.5 gm/ Dextrose) 100 mls @ 200 mls/hr IVPB Q8H-IV CAROLINE PRN Reason: Protocol Last Admin: 08/22/17 09:49 Dose: 200 mls/hr Ondansetron HCl (Zofran Injection) 4 mg IVPUSH Q4H PRN PRN Reason: NAUSEA AND/OR VOMITING Last Admin: 08/21/17 02:13 Dose: 4 mg Promethazine HCl (Phenergan Injection -) 12.5 mg IVPB Q6H PRN PRN Reason: NAUSEA AND/OR VOMITING Last Admin: 08/19/17 17:10 Dose: 12.5 mg - Objective Vital Signs: Vital Signs Temperature 99.0 F 08/22/17 13:59 Pulse Rate 100 H 08/22/17 14:03 Respiratory Rate 20 08/22/17 14:03 Blood Pressure 131/80 08/22/17 14:03 O2 Sat by Pulse Oximetry (%) 97 08/22/17 09:00 Constitutional: Yes: Moderate Distress Cardiovascular: Yes: Tachycardia Respiratory: Yes: WNL Gastrointestinal: Yes: Tenderness Labs: CBC, BMP 08/22/17 05:55 08/22/17 05:55 INR, PTT INR 0.97 (0.82-1.09) 08/19/17 08:27 Assessment/Plan Patient complaining of recent increase in abdominal pain from the incision. Dressing clean and dry, BON drains with serous fluid, no obvious cause for increase in pain. Advised nurse to consult surgeon. Advised nurse to administer bolus dose of CHOKER SETTER andincreased boluses to 1mg and 4 hour limit to 12 mg. dept of anesthesia will continue to follow
--- NOTE | 2017-08-22 19:06 | PN ---
Progress Note (short form) - Note Progress Note: POD#3 Renal, ID, ICU notes appreciated Afebrile; P-100-106 BP-112/79 Pt unchanged No flatus, + belching P/E-Abd- dressing changed- incision clean, dry no cellulitis packing removed and replaced no purulent drainage no odor noted Ext- no swelling or edema WBC-8.5 H/H-8.1/24.5 BUN/CR-14/0.7 R,L drains- 200 cc/24 hours J tube- dark, bilious liquid drainage P- Encourage OOB, incentive spirometer Cont SCD Transfuse 2 units PRBC PO clear liquids
[2017-08-22] MEDS ORDERED: HYDROmorphone *PCA* 10MG/50ML DISP.SYRIN PCA ONE ×2 (19:16→23:28)
[2017-08-22] MEDS: SODIUM CHLORIDE 1,000 ML IV SCH (20:00)
[2017-08-23] MEDS ORDERED: PIPERACILLIN/TAZOBACTAM 4.5 GM VIAL IVPB ONE ×3 (01:25→17:50)
[2017-08-23] MEDS ORDERED: DEXTROSE 5%-WATER 100 ML IVPB ONE ×3 (01:25→17:50)
[2017-08-23] MEDS: PIPERACILLIN/TAZOB 4.5 GM 4.5 GM in DEXTROSE 5%-WATER 100 ML IVPB SCH ×3 (01:25→17:59)
[2017-08-23] MEDS ORDERED: HYDROmorphone *PCA* 10MG/50ML DISP.SYRIN PCA ONE (06:53)
[2017-08-23] MEDS: HYDROmorphone *PCA* 10MG/50ML DISP.SYRIN PCA SCH ×2 (07:36→17:59)
[2017-08-23 08:11] LABS: BASO % 0.3 % (0-2.0); EOS % 0.3 % (0-4.5); HEMATOCRIT 32.8 % (32.4-45.2); HEMOGLOBIN 10.6 GM/dL (10.7-15.3); LYMPH % 6.2 % (8-40); MCH 24.4 pg (25.7-33.7); MCHC 32.4 g/dl (32.0-36.0); MEAN CELL VOLUME 75.5 fl (80-96); MEAN PLT VOLUME 8.5 fl (7.5-11.1); MONO % 7.8 % (3.8-10.2); NEUT % 85.4 % (42.8-82.8); PLATELET COUNT 218 K/MM3 (134-434); RBC 4.34 M/mm3 (3.60-5.2); RDW 17.5 % (11.6-15.6); WHITE BLOOD COUNT 9.8 K/mm3 (4.0-10.0)
--- NOTE | 2017-08-23 08:12 | PN ---
Progress Note (short form) - Note Progress Note: Anesthesia Post op Pt seen and examined S:Alert and awake Comfortable O: Vital Signs Temperature 98.4 F 08/23/17 06:00 Pulse Rate 90 08/23/17 07:36 Respiratory Rate 18 08/23/17 07:36 Blood Pressure 146/82 08/23/17 07:36 O2 Sat by Pulse Oximetry (%) 97 08/22/17 22:00 A/P:Current Active Problems H/O gastric bypass (Acute) Intussusception of small intestine (Acute) Ischemic necrosis of small bowel (Acute) Obese (Acute) S/P small bowel resection (Acute) Status post gastric banding surgery (Acute) Doing well post op Continue MEDIA ASSOCIATE in reduced dose Anthony Bo MD
[2017-08-23 08:33] LABS: CHLORIDE 104 mmol/L (98-107); POTASSIUM 3.9 mmol/L (3.5-5.1); SODIUM 137 mmol/L (136-145)
[2017-08-23] MEDS ORDERED: HYDROmorphone *PCA* 10MG/50ML DISP.SYRIN PCA SCH ×2 (08:45→13:21)
[2017-08-23 08:47] LABS: ALBUMIN 2.1 g/dl (3.4-5.0); ALK PHOS 207 U/L (45-117); ANION GAP 8 (8-16); BILIRUBIN,TOTAL 2.7 mg/dL (0.2-1.0); BLOOD UREA NITROGEN 7 mg/dL (7-18); CALCIUM 7.7 mg/dL (8.5-10.1); CO2 25 mmol/L (21-32); CREATININE 0.6 mg/dL (0.55-1.02); GLUCOSE,RANDOM 98 mg/dL (74-106); PHOSPHOROUS 2.3 mg/dL (2.5-4.9); SGOT/AST 16 U/L (15-37); SGPT/ALT 13 U/L (12-78); TOT PROT 5.3 g/dl (6.4-8.2)
--- NOTE | 2017-08-23 08:52 | PN ---
Progress Note, Physician Chief Complaint: ID Pip Tazobactam - Current Medication List Current Medications: Active Medications Acetaminophen (Ofirmev Injection -) 1,000 mg IVPB Q6H PRN PRN Reason: MODERATE PAIN Last Admin: 08/20/17 01:07 Dose: 1,000 mg Hydromorphone HCl (Dilaudid Lead Rider -) 10 mg WET ROOM WORKER WET ROOM WORKER CAROLINE PRN Reason: Protocol Stop: 08/26/17 08:44 Famotidine/Sodium Chloride (Pepcid 20 Mg Premixed Ivpb -) 20 mg in 50 mls @ 100 mls/hr IVPB BID CAROLINE Last Admin: 08/22/17 23:21 Dose: 100 mls/hr Sodium Chloride (Normal Saline -) 1,000 mls @ 150 mls/hr IV ASDIR CAROLINE Last Admin: 08/22/17 20:00 Dose: 150 mls/hr Lactated Ringer's (Lactated Ringers Solution) 1,000 mls @ 125 mls/hr IV ASDIR CAROLINE Piperacillin Sod/Tazobactam (Sod 4.5 gm/ Dextrose) 100 mls @ 200 mls/hr IVPB Q8H-IV CAROLINE PRN Reason: Protocol Last Admin: 08/23/17 01:25 Dose: 200 mls/hr Ondansetron HCl (Zofran Injection) 4 mg IVPUSH Q4H PRN PRN Reason: NAUSEA AND/OR VOMITING Last Admin: 08/21/17 02:13 Dose: 4 mg Promethazine HCl (Phenergan Injection -) 12.5 mg IVPB Q6H PRN PRN Reason: NAUSEA AND/OR VOMITING Last Admin: 08/19/17 17:10 Dose: 12.5 mg - Objective Vital Signs: Vital Signs Temperature 98.4 F 08/23/17 06:00 Pulse Rate 96 H 08/23/17 08:00 Respiratory Rate 16 08/23/17 08:00 Blood Pressure 152/80 08/23/17 08:00 O2 Sat by Pulse Oximetry (%) 97 08/22/17 22:00 Constitutional: Yes: No Distress Cardiovascular: Yes: S1, S2 Respiratory: Yes: WNL, Regular, CTA Bilaterally Gastrointestinal: Yes: WNL, Normal Bowel Sounds, Soft, Other (wound clean). No : Tenderness Labs: CBC, BMP 08/23/17 07:40 INR, PTT INR 0.97 (0.82-1.09) 08/19/17 08:27 Assessment/Plan Microbiology 08/20/17 17:15 Blood - Peripheral Venous Blood Culture - Preliminary NO GROWTH OBTAINED AFTER 48 HOURS, INCUBATION TO CONTINUE FOR 3 DAYS. 08/20/17 17:00 Blood - Peripheral Venous Blood Culture - Preliminary NO GROWTH OBTAINED AFTER 48 HOURS, INCUBATION TO CONTINUE FOR 3 DAYS. Laboratory Tests 08/22/17 08/23/17 05:55 07:40 WBC 9.8 Hgb 10.6 L D Plt Count 218 BUN 14 Creatinine 0.7 Assessment Day 4 post op doing well on antibiotic Plan Will check with surgery but I would consider stopping antibiotic by tomorrow if Dr Lehman in agreement Kindly recall as needed Melvin ROWLAND
[2017-08-23] MEDS: FAMOTIDINE 20 MG/50 ML IVPB 20 MG/50 ML MG IVPB SCH ×2 (09:16→21:21)
[2017-08-23] MEDS: ACETAMINOPHEN 1000 MG/100 ML VIAL (NON FORMULARY) IVPB PRN (11:24)
[2017-08-23] MEDS: ONDANSETRON 4 MG/2 ML VIAL IVPUSH PRN (11:24)
--- NOTE | 2017-08-23 13:26 | PN ---
Physical Exam: SUBJECTIVE: Patient awake, continue to c/o abdominal pain. Ambulatory. IS @ bedside. OBJECTIVE: GENERAL: The patient is awake, A&O x3 Abdomen: soft, (+) bowel sounds, clear serosangineous fluid in drains CV: S1/S2, RRR Respiratory: CLTA B/L, no wheezes/crackles Extremities: 2+ DP pulses, SCD's in place Vital Signs Period Temp Pulse Resp BP Sys/Lugo Pulse Ox Last 24 Hr 98.4 F-99.2 F 89-106 12-22 112-163/79-95 97 Laboratory Results - last 24 hr 08/19/17 08/22/17 08/23/17 08:27 20:10 07:40 WBC 9.8 RBC 4.34 D Hgb 10.6 L D Hct 32.8 D MCV 75.5 L MCH 24.4 L MCHC 32.4 RDW 17.5 H Plt Count 218 MPV 8.5 Neutrophils % 85.4 H Lymphocytes % 6.2 L D Monocytes % 7.8 Eosinophils % 0.3 Basophils % 0.3 Sodium Potassium Chloride Carbon Dioxide Anion Gap BUN Creatinine Creat Clearance w eGFR Random Glucose Calcium Phosphorus Magnesium Total Bilirubin AST ALT Alkaline Phosphatase Total Protein Albumin Blood Type A POSITIVE A POSITIVE Antibody Screen Negative Negative Crossmatch See Detail See Detail 08/23/17 07:40 WBC RBC Hgb Hct MCV MCH MCHC RDW Plt Count MPV Neutrophils % Lymphocytes % Monocytes % Eosinophils % Basophils % Sodium 137 Potassium 3.9 Chloride 104 Carbon Dioxide 25 Anion Gap 8 BUN 7 Creatinine 0.6 Creat Clearance w eGFR > 60 Random Glucose 98 Calcium 7.7 L Phosphorus 2.3 L Magnesium 2.0 Total Bilirubin 2.7 H D AST 16 ALT 13 Alkaline Phosphatase 207 H Total Protein 5.3 L Albumin 2.1 L Blood Type Antibody Screen Crossmatch Active Medications Generic Name Dose Route Start Last Admin Trade Name Freq PRN Reason Stop Dose Admin Acetaminophen 1,000 mg 08/20/17 00:49 08/23/17 11:24 Ofirmev Injection - IVPB 1,000 mg Q6H PRN Administration MODERATE PAIN Acetaminophen 325 mg 08/23/17 13:45 Tylenol - PO 08/23/17 13:46 ONCE ONE Hydromorphone HCl 10 mg 08/23/17 13:21 Dilaudid Licensed Clinical Psychologist - ANIMAL SITTER 08/26/17 08:44 ANIMAL SITTER CAROLINE Protocol Famotidine/Sodium Chloride 20 mg in 50 mls @ 100 mls/hr 08/19/17 22:00 09:16 Pepcid 20 Mg Premixed Ivpb - IVPB 100 mls/hr BID CAROLINE Administration Sodium Chloride 1,000 mls @ 150 mls/hr 08/19/17 16:45 08/22/17 20:00 Normal Saline - IV 150 mls/hr ASDIR CAROLINE Administration Lactated Ringer's 1,000 mls @ 125 mls/hr 08/19/17 17:00 Lactated Ringers Solution IV ASDIR CAROLINE Piperacillin Sod/Tazobactam 100 mls @ 200 mls/hr 08/20/17 18:00 08/23/17 09: 16 Sod 4.5 gm/ Dextrose IVPB 200 mls/hr Q8H-IV CAROLINE Administration Protocol Ondansetron HCl 4 mg 08/19/17 17:13 08/23/17 11:24 Zofran Injection IVPUSH 4 mg Q4H PRN Administration NAUSEA AND/OR VOMITING Oxycodone HCl 5 mg 08/23/17 13:45 Roxicodone - PO 08/23/17 13:46 ONCE ONE Promethazine HCl 12.5 mg 08/19/17 16:47 08/19/17 17:10 Phenergan Injection - IVPB 12.5 mg Q6H PRN Administration NAUSEA AND/OR VOMITING ASSESSMENT/PLAN: 41 year old female with a PMH of gastric bypass (2003) c/o 6 week h/o abdominal pain presents for elective ex-lap. POD # 4 resection of necrotic bowel, adhesion lysis, small bowel intussusception, and J tube placement. - Patient s/p 2 unit PRBC following Hb 8, repeat Hb 9 today (08/23) - Leukocytosis (likely post-operative reactive) resolved, afebrile, tolerating CLD, ambulatory. - Continue Zosyn - Diet as per surgery - IS @ bedside - Pain control w/Dilaudid and Tylenol; OTD of Percocet this a.m. (08/23) - ID following, appreciate recs FEN - Monitor electrolytes - CLD diet as per surgery PROPHYLAXIS - SCD's, A/C as per surgery - GI prophylaxis not clinically indicated at this time. DISPOSITION: Patient stable for transfer to inpatient medicine floors pending approval by surgery Visit type - Emergency Visit Emergency Visit: No - New Patient This patient is new to me today: No - Critical Care Critical Care patient: No
[2017-08-23] MEDS ORDERED: ACETAMINOPHEN 325 MG TABLET (FP) PO ONE (13:45)
--- NOTE | 2017-08-23 14:22 | PN ---
Teaching Attending Note Name of Resident: Marcela Johnson ATTENDING PHYSICIAN STATEMENT I saw and evaluated the patient. I reviewed the resident's note and discussed the case with the resident. I agree with the resident's findings and plan as documented. SUBJECTIVE: Patient seen and examined in the ICU. Pain upon moving, but better than yesterday. No CP or SOB. Noted that she received 2 units pRBCs. (+) belching. No flatus or BM. Intake & Output 08/20/17 08/21/17 08/22/17 08/23/17 23:59 23:59 23:59 23:59 Intake Total 3850 3150 2830 1150 Output Total 1280 550 735 270 Balance 2570 2600 2095 880 Weight 255 lb 301 lb Last Vital Signs Temp Pulse Resp BP Pulse Ox 99.2 F 96 H 18 150/90 97 08/23/17 10:00 08/23/17 12:00 08/23/17 12:00 08/23/17 12:00 08/22/17 22:00 Active Medications Acetaminophen (Ofirmev Injection -) 1,000 mg IVPB Q6H PRN PRN Reason: MODERATE PAIN Last Admin: 08/23/17 11:24 Dose: 1,000 mg Hydromorphone HCl (Dilaudid Joint Cleaning Machine Operator -) 10 mg TINT LAYER TINT LAYER CAROLINE PRN Reason: Protocol Stop: 08/26/17 08:44 Famotidine/Sodium Chloride (Pepcid 20 Mg Premixed Ivpb -) 20 mg in 50 mls @ 100 mls/hr IVPB BID CAROLINE Last Admin: 08/23/17 09:16 Dose: 100 mls/hr Sodium Chloride (Normal Saline -) 1,000 mls @ 150 mls/hr IV ASDIR CAROLINE Last Admin: 08/22/17 20:00 Dose: 150 mls/hr Lactated Ringer's (Lactated Ringers Solution) 1,000 mls @ 125 mls/hr IV ASDIR CAROLINE Piperacillin Sod/Tazobactam (Sod 4.5 gm/ Dextrose) 100 mls @ 200 mls/hr IVPB Q8H-IV CAROLINE PRN Reason: Protocol Last Admin: 08/23/17 09:16 Dose: 200 mls/hr Ondansetron HCl (Zofran Injection) 4 mg IVPUSH Q4H PRN PRN Reason: NAUSEA AND/OR VOMITING Last Admin: 08/23/17 11:24 Dose: 4 mg Promethazine HCl (Phenergan Injection -) 12.5 mg IVPB Q6H PRN PRN Reason: NAUSEA AND/OR VOMITING Last Admin: 08/19/17 17:10 Dose: 12.5 mg Gen: NAD at rest Heart: RRR Lung: decreased breath sounds at the bases Abd: soft, nontender, +BON with serosanguinous fluid Ext: no edema Laboratory Results - last 24 hr 08/22/17 08/23/17 08/23/17 20:10 07:40 07:40 WBC 9.8 RBC 4.34 D Hgb 10.6 L D Hct 32.8 D MCV 75.5 L MCH 24.4 L MCHC 32.4 RDW 17.5 H Plt Count 218 MPV 8.5 Neutrophils % 85.4 H Lymphocytes % 6.2 L D Monocytes % 7.8 Eosinophils % 0.3 Basophils % 0.3 Sodium 137 Potassium 3.9 Chloride 104 Carbon Dioxide 25 Anion Gap 8 BUN 7 Creatinine 0.6 Creat Clearance w eGFR > 60 Random Glucose 98 Calcium 7.7 L Phosphorus 2.3 L Magnesium 2.0 Total Bilirubin 2.7 H D AST 16 ALT 13 Alkaline Phosphatase 207 H Total Protein 5.3 L Albumin 2.1 L Blood Type A POSITIVE Antibody Screen Negative Crossmatch See Detail A/P Small Bowel Intussusception/Partial Small Bowel Obstruction s/p ex-lap/necrotic bowel resection/IZABEL/J tube placement h/o Gastric Bypass Acute Kidney Injury Acute Blood Loss Anemia - ABX per ID - f/u final cultures - pain control - incentive spirometry - monitor drain output - OOB to chair - IVF - monitor urine output, creatinine - await return of bowel function - DVT prophylaxis - Transfer to floor when ok with surgery Dr Escobar Critical care time spent in reviewing chart, evaluating patient and formulating plan - 36 minutes.
[2017-08-23] MEDS ORDERED: oxyCODONE HCL 5 MG TABLET PO PRN (14:43)
[2017-08-23] MEDS ORDERED: SODIUM CHLORIDE 0.45% 1,000 ML IV SCH (14:45)
[2017-08-23] MEDS: oxyCODONE HCL 5 MG TABLET PO ONE (14:51)
--- NOTE | 2017-08-23 14:52 | PROC ---
Procedure Note Procedure: POD#4 Afebrile; P-90-98 BP-146-160/80-90 Pt doing better + flatus Still with incisional pain, worse when moving P/E-Abd- dressing changed, packing removed and replaced incision clean,dry slight drainage on dressing dependant position drainage is serous, not purulent no cellulitis WBC-9.8 H/H-10.6/32.8 BUN/CR-7/0.6 Jacob-2.7 AP-[address] Charles- if WBC down and no fever, will stop antibiotics 08/24 P- Continue PO clear liquids Decrease IV fluid to 75 ml/hr Cont [id number] Transfer to floor
--- NOTE | 2017-08-23 17:27 | PATH ---
Surgical Pathology Report Patient Name: CORI KELLEY [facility]. Rec. #: [id number] /Age/Gender: 1975 (Age: 41) / F Account: [id number] Location: ICU CONSULTING HR PROFESSIONAL Taken: 08/19/2017 Received: 08/20/2017 Reported: 08/23/2017 Physicians: Atif Lehman M.D. Specimen(s) Received A: SMALL BOWEL B: JEJUNO ANASTOMOSIS Clinical History Partial intestinal obstruction Final Diagnosis A. SMALL BOWEL, RESECTION: SEGMENT OF SMALL BOWEL WITH VASCULAR CONGESTION, MUCOSAL ISCHEMIC NECROSIS, AND SEROSAL ADHESIONS. SURGICAL MARGINS ARE VIABLE. B. JEJUNO-JEJUNO ANASTOMOSIS, RESECTION: SEGMENT OF SMALL BOWEL WITH VASCULAR CONGESTION, MILD CHRONIC INFLAMMATION CONSISTENT WITH ANASTOMOTIC SITE, AND SEROSAL ADHESIONS. SURGICAL MARGINS ARE VIABLE. Electronically Signed Katt Ordonez M.D. Gross Description A. Received in formalin labeled "small bowel," is a 25 cm in length portion of small bowel with one stapled and one open mucosal margin. The specimen displays minimal attached fat. The serosa is house purple with a dusky appearance. The mucosa is brown and dusky with focally flattened folds. No mucosal masses are identified. Inventory Taker sections are submitted in 5 cassettes as follows: 1-open mucosal margin; 2-stapled mucosal margin; 1-6-obxsrfrxijxlcq mucosa. B. Received in formalin labeled "jejuno-jejuno anastomosis," is a 13 cm in length small bowel anastomosis specimen with 3 stapled mucosal margins and minimal attached fat. The serosa is roberson-shipley with a focal dusky appearance. The mucosa is hyperemic with normal folds. No mucosal masses are identified. There is a staple line at the anastomosis site. Inventory Taker sections are submitted in 6 cassettes as follows: 0-2-qwlwajmibuwu stapled mucosal margins; 4-anastomosis site; 3-3-rkzancmmepolub bowel. 08/20/201708/20/2017
[2017-08-23] MEDS ORDERED: ONDANSETRON 4 MG/2 ML VIAL IVPUSH PRN (17:31)
[2017-08-23] MEDS ORDERED: PROMETHAZINE HCL 25 MG/1 ML VIAL IVPB PRN (17:31)
[2017-08-23] MEDS: SODIUM CHLORIDE 0.45% 1,000 ML IV SCH (17:59)
[2017-08-23] MEDS: oxyCODONE HCL 5 MG TABLET PO PRN (20:19)
[2017-08-24] MEDS: oxyCODONE HCL 5 MG TABLET PO PRN ×4 (00:54→16:43)
[2017-08-24] MEDS ORDERED: DEXTROSE 5%-WATER 100 ML IVPB ONE ×3 (02:22→17:43)
[2017-08-24] MEDS ORDERED: PIPERACILLIN/TAZOBACTAM 4.5 GM VIAL IVPB ONE ×3 (02:22→17:43)
[2017-08-24] MEDS: PIPERACILLIN/TAZOB 4.5 GM 4.5 GM in DEXTROSE 5%-WATER 100 ML IVPB SCH ×3 (02:27→18:00)
[2017-08-24] MEDS ORDERED: HYDROmorphone *PCA* 10MG/50ML DISP.SYRIN PCA ONE (04:11)
[2017-08-24] MEDS: HYDROmorphone *PCA* 10MG/50ML DISP.SYRIN PCA SCH ×4 (05:32→16:54)
[2017-08-24 07:20] LABS: HEMATOCRIT 28.1 % (32.4-45.2); HEMOGLOBIN 9.3 GM/dL (10.7-15.3); MCH 24.9 pg (25.7-33.7); MCHC 32.9 g/dl (32.0-36.0); MEAN CELL VOLUME 75.6 fl (80-96); MEAN PLT VOLUME 8.1 fl (7.5-11.1); PLATELET COUNT 204 K/MM3 (134-434); RBC 3.72 M/mm3 (3.60-5.2); RDW 17.9 % (11.6-15.6); WHITE BLOOD COUNT 9.1 K/mm3 (4.0-10.0)
[2017-08-24 07:58] LABS: CHLORIDE 100 mmol/L (98-107); SODIUM 135 mmol/L (136-145)
[2017-08-24 08:16] LABS: ALBUMIN 1.8 g/dl (3.4-5.0); ALK PHOS 284 U/L (45-117); ANION GAP 10 (8-16); BILIRUBIN,TOTAL 1.8 mg/dL (0.2-1.0); BLOOD UREA NITROGEN 5 mg/dL (7-18); CALCIUM 7.5 mg/dL (8.5-10.1); CO2 25 mmol/L (21-32); CREATININE 0.5 mg/dL (0.55-1.02); GLUCOSE,RANDOM 67 mg/dL (74-106); SGPT/ALT 11 U/L (12-78); TOT PROT 4.9 g/dl (6.4-8.2)
[2017-08-24 08:19] LABS: POTASSIUM 3.6 mmol/L (3.5-5.1)
[2017-08-24 08:20] LABS: SGOT/AST 20 U/L (15-37)
[2017-08-24] MEDS: FAMOTIDINE 20 MG/50 ML IVPB 20 MG/50 ML MG IVPB SCH ×2 (10:37→23:04)
[2017-08-24] MEDS: SODIUM CHLORIDE 0.45% 1,000 ML IV SCH ×2 (10:38→12:32)
--- NOTE | 2017-08-24 12:23 | PN ---
Teaching Attending Note Name of Resident: Marcela Johnson ATTENDING PHYSICIAN STATEMENT I saw and evaluated the patient. I reviewed the resident's note and discussed the case with the resident. I agree with the resident's findings and plan as documented. SUBJECTIVE: Patient seen and examined in the ICU. Pain is better today. (+) BM No CP or SOB. No occult bleeding. Intake & Output 08/21/17 08/22/17 08/23/17 08/24/17 23:59 23:59 23:59 23:59 Intake Total 3150 2830 1750 1000 Output Total 550 735 585 275 Balance 2600 2095 1165 725 Weight 255 lb 301 lb 300 lb 4 oz Last Vital Signs Temp Pulse Resp BP Pulse Ox 98.8 F 94 H 18 162/98 98 08/24/17 10:00 08/24/17 11:47 08/24/17 10:00 08/24/17 10:00 08/24/17 11:47 Active Medications Hydromorphone HCl (Dilaudid Svp Group Director -) 10 mg PACKING INSPECTOR PACKING INSPECTOR CAROLINE PRN Reason: Protocol Stop: 08/26/17 08:44 Last Admin: 08/24/17 05:32 Dose: 10 mg Famotidine/Sodium Chloride (Pepcid 20 Mg Premixed Ivpb -) 20 mg in 50 mls @ 100 mls/hr IVPB BID CAROLINE Last Admin: 08/24/17 10:37 Dose: 100 mls/hr Piperacillin Sod/Tazobactam (Sod 4.5 gm/ Dextrose) 100 mls @ 200 mls/hr IVPB Q8H-IV CAROLINE PRN Reason: Protocol Last Admin: 08/24/17 10:37 Dose: 200 mls/hr Sodium Chloride (1/2 Normal Saline) 1,000 mls @ 42 mls/hr IV ASDIR CAROLINE Ondansetron HCl (Zofran Injection) 4 mg IVPUSH Q4H PRN PRN Reason: NAUSEA AND/OR VOMITING Oxycodone HCl (Roxicodone -) 5 mg PO Q4H PRN PRN Reason: PAIN LEVEL 6-10 Last Admin: 08/24/17 10:42 Dose: 5 mg Promethazine HCl (Phenergan Injection -) 12.5 mg IVPB Q6H PRN PRN Reason: NAUSEA AND/OR VOMITING Gen: NAD at rest Heart: RRR Lung: decreased breath sounds at the bases Abd: soft, nontender, +BON with serosanguinous fluid Ext: no edema Laboratory Results - last 24 hr 08/24/17 08/24/17 06:17 06:17 WBC 9.1 RBC 3.72 Hgb 9.3 L D Hct 28.1 L MCV 75.6 L MCH 24.9 L MCHC 32.9 RDW 17.9 H Plt Count 204 MPV 8.1 Sodium 135 L Potassium 3.6 Chloride 100 Carbon Dioxide 25 Anion Gap 10 BUN 5 L Creatinine 0.5 L Creat Clearance w eGFR > 60 Random Glucose 67 L Calcium 7.5 L Total Bilirubin 1.8 H D AST 20 ALT 11 L Alkaline Phosphatase 284 H Total Protein 4.9 L Albumin 1.8 L A/P Small Bowel Intussusception/Partial Small Bowel Obstruction s/p ex-lap/necrotic bowel resection/IZABEL/J tube placement h/o Gastric Bypass Acute Kidney Injury Acute Blood Loss Anemia - ABX per ID - pain control - incentive spirometry - monitor drain output - OOB to chair - Decrease IVF - monitor urine output, creatinine - Advance diet - DVT prophylaxis - Transfer to floor when ok with surgery Dr Escobar Critical care time spent in reviewing chart, evaluating patient and formulating plan - 36 minutes.
--- NOTE | 2017-08-24 12:29 | PN ---
Progress Note (short form) - Note Progress Note: Renal follow up for NEETU Pt seen and examined in the ICU awake and alert no acute complaints making urine no sob, chest pain Vital Signs Temperature 98.8 F 08/24/17 10:00 Pulse Rate 94 H 08/24/17 11:47 Respiratory Rate 18 08/24/17 10:00 Blood Pressure 162/98 08/24/17 10:00 O2 Sat by Pulse Oximetry (%) 98 08/24/17 11:47 Intake & Output 08/21/17 08/22/17 08/23/17 08/24/17 23:59 23:59 23:59 23:59 Intake Total 3150 2830 1750 1000 Output Total 550 735 585 275 Balance 2600 2095 1165 725 Weight 115.666 kg 136.531 kg 136.191 kg NAD awake and alert No Le edema CBC, BMP 08/24/17 06:17 08/24/17 06:17 Current Medications Hydromorphone HCl (Dilaudid Escalator Installer -) 10 mg SLOPE HOIST OPERATOR SLOPE HOIST OPERATOR CAROLINE PRN Reason: Protocol Stop: 08/26/17 08:44 Last Admin: 08/24/17 05:32 Dose: 10 mg Famotidine/Sodium Chloride (Pepcid 20 Mg Premixed Ivpb -) 20 mg in 50 mls @ 100 mls/hr IVPB BID CAROLINE Last Admin: 08/24/17 10:37 Dose: 100 mls/hr Piperacillin Sod/Tazobactam (Sod 4.5 gm/ Dextrose) 100 mls @ 200 mls/hr IVPB Q8H-IV CAROLINE PRN Reason: Protocol Last Admin: 08/24/17 10:37 Dose: 200 mls/hr Sodium Chloride (1/2 Normal Saline) 1,000 mls @ 42 mls/hr IV ASDIR CAROLINE Ondansetron HCl (Zofran Injection) 4 mg IVPUSH Q4H PRN PRN Reason: NAUSEA AND/OR VOMITING Oxycodone HCl (Roxicodone -) 5 mg PO Q4H PRN PRN Reason: PAIN LEVEL 6-10 Last Admin: 08/24/17 10:42 Dose: 5 mg Promethazine HCl (Phenergan Injection -) 12.5 mg IVPB Q6H PRN PRN Reason: NAUSEA AND/OR VOMITING 41 year old woman with PMhx of Morbid obesity s/p gastric bypass who presented with complaints of abd distension and pain and found to have small bowel intussusception, partial small bowel obstruction with NEETU during the hospital course. #NEETU (likely due to intravascular volume depletion from blood loss +/- hemodynamic changes post surgery) #Necrotic bowel s/p resection #Acute Anemia #Hypophosphatemia #Hypocalcemia Renal function is improved and stable continue IVF at low rate as needed per surgery Hgb improved s/p transfusion Phos levels added to am labs, supplement as needed with oral Neutra-phos Corrected Ca is WNL Will sign off case at this time please call back with any questions or concerns Reinier Turcios DO
--- NOTE | 2017-08-24 12:34 | PN ---
Physical Exam: SUBJECTIVE: Patient awake, notes soft bowel movement this morning. Pain well controlled. Ambulatory. Tolerating CLD. OBJECTIVE: GENERAL: The patient is awake, A&O x3 Abdomen: soft, (+) bowel sounds, mostly serosangineous some bile tinged fluid in drains CV: S1/S2, RRR Respiratory: CLTA B/L, no wheezes/crackles Extremities: 2+ DP pulses, SCD's in place Vital Signs Period Temp Pulse Resp BP Sys/Lugo Pulse Ox Last 24 Hr 98.7 F-99.9 F 80-109 16-21 130-162/81-101 98-99 Laboratory Results - last 24 hr 08/24/17 08/24/17 06:17 06:17 WBC 9.1 RBC 3.72 Hgb 9.3 L D Hct 28.1 L MCV 75.6 L MCH 24.9 L MCHC 32.9 RDW 17.9 H Plt Count 204 MPV 8.1 Sodium 135 L Potassium 3.6 Chloride 100 Carbon Dioxide 25 Anion Gap 10 BUN 5 L Creatinine 0.5 L Creat Clearance w eGFR > 60 Random Glucose 67 L Calcium 7.5 L Total Bilirubin 1.8 H D AST 20 ALT 11 L Alkaline Phosphatase 284 H Total Protein 4.9 L Albumin 1.8 L Active Medications Generic Name Dose Route Start Last Admin Trade Name Freq PRN Reason Stop Dose Admin Hydromorphone HCl 10 mg 08/23/17 17:31 08/24/17 05:32 Dilaudid Lozenge Dough Mixer - TAXICAB STARTER 08/26/17 08:44 10 mg TAXICAB STARTER CAROLINE Administration Protocol Famotidine/Sodium Chloride 20 mg in 50 mls @ 100 mls/hr 08/23/17 22:00 10:37 Pepcid 20 Mg Premixed Ivpb - IVPB 100 mls/hr BID CAROLINE Administration Piperacillin Sod/Tazobactam 100 mls @ 200 mls/hr 08/23/17 18:00 08/24/17 10: 37 Sod 4.5 gm/ Dextrose IVPB 200 mls/hr Q8H-IV CAROLINE Administration Protocol Sodium Chloride 1,000 mls @ 42 mls/hr 08/24/17 12:08 1/2 Normal Saline IV ASDIR CAROLINE Ondansetron HCl 4 mg 08/23/17 17:31 Zofran Injection IVPUSH Q4H PRN NAUSEA AND/OR VOMITING Oxycodone HCl 5 mg 08/23/17 17:31 08/24/17 10:42 Roxicodone - PO 5 mg Q4H PRN Administration PAIN LEVEL 6-10 Promethazine HCl 12.5 mg 08/23/17 17:31 Phenergan Injection - IVPB Q6H PRN NAUSEA AND/OR VOMITING ASSESSMENT/PLAN: 41 year old female with a PMH of gastric bypass (2003) c/o 6 week h/o abdominal pain presents for elective ex-lap. POD # 5 resection of necrotic bowel, adhesion lysis, small bowel intussusception, and J tube placement. - Patient s/p 2 unit PRBC following Hb 8, repeat Hb 9 today (08/23) - BON drain 275 overnight (08/23) - Leukocytosis (likely post-operative reactive) resolved, afebrile, tolerating CLD, ambulatory. - Continue Zosyn - S/p BM, will advance diet from CL to soft - IS @ bedside - Pain control w/Dilaudid and Tylenol; OTD of Percocet this a.m. (08/23) - ID following, appreciate recs FEN - Monitor electrolytes - Advance diet to soft as tolerated PROPHYLAXIS - SCD's, A/C as per surgery - GI prophylaxis not clinically indicated at this time. DISPOSITION: Patient to be transferred to inpatient medical floor today. Visit type - Emergency Visit Emergency Visit: No - New Patient This patient is new to me today: No - Critical Care Critical Care patient: No
--- NOTE | 2017-08-24 12:45 | PN ---
Progress Note (short form) - Note Progress Note: POD#5 Afebrile; P-92-102 BP-142-160/90-98 Pt unchanged Had BM No N/V P/E-ABD- dressing, packing changed dressing with serous drainage and bile tint J-P drain- Right with 275 cc overnight (sero-sanguinous plus bile-tinged) WBC-9.1 H/H-9.3/28.1(decreased from 10.6) Jacob-1.8(decreased from 2.7) BUN/CR- 10/0.5 P- Cont PO clear liquids Nutrition consult to start J-tube feedings in AM-08/25/17 Encourage OOB Cont SCD
[2017-08-24 13:27] LABS: PHOSPHOROUS 2.3 mg/dL (2.5-4.9)
[2017-08-24] MEDS ORDERED: PROMETHAZINE HCL 25 MG/1 ML VIAL IVPB PRN (15:53)
[2017-08-24] MEDS: LACTATED RINGERS SOLUTION 1,000 ML IV SCH (16:02)
[2017-08-24] MEDS ORDERED: ONDANSETRON 4 MG/2 ML VIAL IVPUSH PRN (16:06)
--- NOTE | 2017-08-24 23:44 | PN ---
Progress Note (short form) - Note Progress Note: Anesthesia/pain management Patient on printing specialist, pod#5, tolerating po liquids now but would like to keep printing specialist one more day, no nausea/vomiting, had bowel movement this morning. Patient encouraged to walk and explained the side effects of opioid pain medication, seems to understand. Will reevaluate tomorrow planning to discontinue printing specialist, patient tolerating po pain meds now.
[2017-08-25] MEDS ORDERED: PIPERACILLIN/TAZOBACTAM 4.5 GM VIAL IVPB ONE ×4 (01:11→21:18)
[2017-08-25] MEDS ORDERED: DEXTROSE 5%-WATER 100 ML IVPB ONE ×4 (01:11→21:18)
[2017-08-25] MEDS: PIPERACILLIN/TAZOB 4.5 GM 4.5 GM in DEXTROSE 5%-WATER 100 ML IVPB SCH ×3 (01:56→17:09)
[2017-08-25] MEDS: oxyCODONE HCL 5 MG TABLET PO PRN ×5 (01:58→21:21)
[2017-08-25 08:00] LABS: HEMATOCRIT 26.9 % (32.4-45.2); HEMOGLOBIN 8.9 GM/dL (10.7-15.3); MCH 24.6 pg (25.7-33.7); MEAN CELL VOLUME 74.6 fl (80-96); MEAN PLT VOLUME 7.7 fl (7.5-11.1); PLATELET COUNT 240 K/MM3 (134-434); RDW 17.5 % (11.6-15.6); WHITE BLOOD COUNT 8.9 K/mm3 (4.0-10.0)
[2017-08-25 08:33] LABS: ALBUMIN 1.6 g/dl (3.4-5.0); ANION GAP 7 (8-16); BLOOD UREA NITROGEN 4 mg/dL (7-18); CALCIUM 7.3 mg/dL (8.5-10.1); CHLORIDE 99 mmol/L (98-107); CO2 29 mmol/L (21-32); GLUCOSE,RANDOM 78 mg/dL (74-106); POTASSIUM 3.3 mmol/L (3.5-5.1); SODIUM 135 mmol/L (136-145)
[2017-08-25 08:36] LABS: ALK PHOS 330 U/L (45-117); BILIRUBIN,TOTAL 0.9 mg/dL (0.2-1.0); CREATININE 0.6 mg/dL (0.55-1.02); SGOT/AST 11 U/L (15-37); SGPT/ALT 11 U/L (12-78); TOT PROT 4.7 g/dl (6.4-8.2)
[2017-08-25] MEDS: FAMOTIDINE 20 MG/50 ML IVPB 20 MG/50 ML MG IVPB SCH ×2 (10:40→21:22)
[2017-08-25] MEDS: SODIUM CHLORIDE 0.45% 1,000 ML IV SCH ×2 (12:41→17:09)
[2017-08-25] MEDS: HYDROmorphone *PCA* 10MG/50ML DISP.SYRIN PCA SCH (12:41)
[2017-08-25] MEDS ORDERED: POTASSIUM CHLORIDE TABS 10 MEQ TABLET.ER (FP) PO ONE (12:45)
--- NOTE | 2017-08-25 13:52 | PN ---
Progress Note (short form) - Note Progress Note: Anesthesia post op Pt seen and examined S:alert and awake comfortable O: Vital Signs Temperature 99.0 F 08/25/17 10:00 Pulse Rate 100 H 08/25/17 10:00 Respiratory Rate 20 08/25/17 10:00 Blood Pressure 150/98 08/25/17 10:00 O2 Sat by Pulse Oximetry (%) 98 08/25/17 09:00 CBC, BMP 08/25/17 07:00 08/25/17 07:00 A/P:Laparotomy, revision of gastric bypass On DENTISTRY PROFESSOR Doing well Takes PO Pt wants to d/c IV DENTISTRY PROFESSOR Will d/c DENTISTRY PROFESSOR Pt on oxycodone Continue current care Anthony Bo MD
[2017-08-25] MEDS ORDERED: ALBUTEROL SO4 18 GM HFA INHALER IH PRN ×2 (19:34→19:35)
[2017-08-26] MEDS: PIPERACILLIN/TAZOB 4.5 GM 4.5 GM in DEXTROSE 5%-WATER 100 ML IVPB SCH ×3 (01:38→17:07)
[2017-08-26] MEDS: oxyCODONE HCL 5 MG TABLET PO PRN ×6 (02:11→23:43)
[2017-08-26 08:37] LABS: HEMATOCRIT 29.1 % (32.4-45.2); HEMOGLOBIN 9.5 GM/dL (10.7-15.3); MCH 24.6 pg (25.7-33.7); MCHC 32.7 g/dl (32.0-36.0); MEAN CELL VOLUME 75.1 fl (80-96); MEAN PLT VOLUME 7.9 fl (7.5-11.1); PLATELET COUNT 300 K/MM3 (134-434); RBC 3.87 M/mm3 (3.60-5.2); RDW 17.8 % (11.6-15.6); WHITE BLOOD COUNT 8.8 K/mm3 (4.0-10.0)
[2017-08-26 08:52] LABS: CHLORIDE 98 mmol/L (98-107); POTASSIUM 3.5 mmol/L (3.5-5.1); SODIUM 137 mmol/L (136-145)
[2017-08-26 09:11] LABS: ALBUMIN 1.9 g/dl (3.4-5.0); ALK PHOS 270 U/L (45-117); ANION GAP 9 (8-16); BILIRUBIN,TOTAL 0.7 mg/dL (0.2-1.0); BLOOD UREA NITROGEN 3 mg/dL (7-18); CALCIUM 7.4 mg/dL (8.5-10.1); CO2 30 mmol/L (21-32); CREATININE 0.7 mg/dL (0.55-1.02); GLUCOSE,RANDOM 79 mg/dL (74-106); SGOT/AST 12 U/L (15-37); SGPT/ALT 11 U/L (12-78); TOT PROT 5.2 g/dl (6.4-8.2)
[2017-08-26] MEDS ORDERED: PIPERACILLIN/TAZOBACTAM 4.5 GM VIAL IVPB ONE ×3 (09:24→21:34)
[2017-08-26] MEDS ORDERED: PT OWN MED DRAWER 7, Y5N ONE (09:24)
[2017-08-26] MEDS ORDERED: DEXTROSE 5%-WATER 100 ML IVPB ONE ×3 (09:24→21:34)
[2017-08-26] MEDS: FAMOTIDINE 20 MG/50 ML IVPB 20 MG/50 ML MG IVPB SCH ×2 (09:30→21:54)
--- NOTE | 2017-08-26 11:47 | PN ---
Progress Note (short form) - Note Progress Note: POD#7 Afebrile;VSS P-96-106 BP-111/63 Pt doing well Tolerating PO clear liquids P/E-Abd- dressing, packing changed slight drainage (clear) lower part of incision packing re-applied no cellulitis WBC-8.8 H/H-9.5/29.1 Ap-270 (decreased) Jacob-0.7 (decreased) P- Cont SCD, incentive Check labs daily Advance diet slowly
[2017-08-26] MEDS ORDERED: POTASSIUM CHLORIDE TABS 10 MEQ TABLET.ER (FP) PO ONE (12:30)
[2017-08-26 16:27] LABS: HEMOGLOBIN 9.3 GM/dL (10.7-15.3); MCHC 31.8 g/dl (32.0-36.0); MEAN CELL VOLUME 75.2 fl (80-96); MEAN PLT VOLUME 8.2 fl (7.5-11.1); PLATELET COUNT 327 K/MM3 (134-434); RBC 3.86 M/mm3 (3.60-5.2); RDW 17.8 % (11.6-15.6); WHITE BLOOD COUNT 9.3 K/mm3 (4.0-10.0)
[2017-08-26 16:50] LABS: ALBUMIN 1.8 g/dl (3.4-5.0); ALK PHOS 231 U/L (45-117); ANION GAP 8 (8-16); BILIRUBIN,TOTAL 0.6 mg/dL (0.2-1.0); BLOOD UREA NITROGEN 3 mg/dL (7-18); CALCIUM 7.6 mg/dL (8.5-10.1); CHLORIDE 100 mmol/L (98-107); CO2 31 mmol/L (21-32); CREATININE 0.6 mg/dL (0.55-1.02); GLUCOSE,RANDOM 87 mg/dL (74-106); POTASSIUM 3.7 mmol/L (3.5-5.1); SGOT/AST 9 U/L (15-37); SGPT/ALT 10 U/L (12-78); SODIUM 139 mmol/L (136-145); TOT PROT 5.2 g/dl (6.4-8.2)
[2017-08-26] MEDS ORDERED: METHOCARBAMOL 750 MG TABLET PO SCH (22:00)
[2017-08-27] MEDS: PIPERACILLIN/TAZOB 4.5 GM 4.5 GM in DEXTROSE 5%-WATER 100 ML IVPB SCH ×2 (01:09→10:42)
[2017-08-27] MEDS: oxyCODONE HCL 5 MG TABLET PO PRN ×4 (04:36→21:57)
[2017-08-27] MEDS ORDERED: PIPERACILLIN/TAZOBACTAM 4.5 GM VIAL IVPB ONE (10:36)
[2017-08-27] MEDS ORDERED: DEXTROSE 5%-WATER 100 ML IVPB ONE (10:37)
[2017-08-27] MEDS ORDERED: PT OWN MED DRAWER 7, Y5N ONE (10:37)
[2017-08-27] MEDS: METHOCARBAMOL 500 MG TABLET PO SCH ×2 (10:41→21:56)
[2017-08-27] MEDS: FAMOTIDINE 20 MG/50 ML IVPB 20 MG/50 ML MG IVPB SCH ×2 (10:43→21:56)
[2017-08-27 14:17] LABS: HEMATOCRIT 26.5 % (32.4-45.2); HEMOGLOBIN 8.5 GM/dL (10.7-15.3); MCH 24.2 pg (25.7-33.7); MEAN CELL VOLUME 75.7 fl (80-96); MEAN PLT VOLUME 7.8 fl (7.5-11.1); PLATELET COUNT 328 K/MM3 (134-434); RBC 3.51 M/mm3 (3.60-5.2); RDW 17.6 % (11.6-15.6); WHITE BLOOD COUNT 9.2 K/mm3 (4.0-10.0)
[2017-08-27 14:24] LABS: AMYLASE-BF 16
[2017-08-27 14:32] LABS: GLUCOSE,BODY FLUID 83 mg/dl
[2017-08-27 14:39] LABS: WBC & OTHER NUCLEATED CELLS 318 /mm3
[2017-08-27 14:45] LABS: ALBUMIN 1.8 g/dl (3.4-5.0); ANION GAP 5 (8-16); BILIRUBIN,TOTAL 0.9 mg/dL (0.2-1.0); BLOOD UREA NITROGEN 4 mg/dL (7-18); CALCIUM 7.5 mg/dL (8.5-10.1); CHLORIDE 100 mmol/L (98-107); CO2 33 mmol/L (21-32); CREATININE 0.6 mg/dL (0.55-1.02); GLUCOSE,RANDOM 86 mg/dL (74-106); SGOT/AST 8 U/L (15-37); SGPT/ALT 8 U/L (12-78); SODIUM 138 mmol/L (136-145)
[2017-08-27 14:46] LABS: ALK PHOS 188 U/L (45-117)
[2017-08-27 15:35] LABS: PLEURAL FLD EOSINOPHIL 14 %; PLEURAL FLUID BASOPHIL 5 %; PLEURAL FLUID MONOCYTE 13 %
[2017-08-28] MEDS: oxyCODONE HCL 5 MG TABLET PO PRN ×5 (03:49→21:34)
[2017-08-28 07:50] LABS: HEMATOCRIT 27.5 % (32.4-45.2); HEMOGLOBIN 8.8 GM/dL (10.7-15.3); MCHC 31.8 g/dl (32.0-36.0); MEAN CELL VOLUME 75.4 fl (80-96); MEAN PLT VOLUME 8.1 fl (7.5-11.1); PLATELET COUNT 319 K/MM3 (134-434); RBC 3.65 M/mm3 (3.60-5.2); RDW 18.8 % (11.6-15.6); WHITE BLOOD COUNT 10.4 K/mm3 (4.0-10.0)
[2017-08-28 08:01] LABS: ALBUMIN 1.8 g/dl (3.4-5.0); ANION GAP 8 (8-16); BLOOD UREA NITROGEN 4 mg/dL (7-18); CALCIUM 7.6 mg/dL (8.5-10.1); CHLORIDE 101 mmol/L (98-107); CO2 31 mmol/L (21-32); GLUCOSE,RANDOM 76 mg/dL (74-106); SODIUM 140 mmol/L (136-145)
[2017-08-28 08:06] LABS: ALK PHOS 172 U/L (45-117); BILIRUBIN,TOTAL 0.8 mg/dL (0.2-1.0); CREATININE 0.6 mg/dL (0.55-1.02); SGOT/AST 12 U/L (15-37); SGPT/ALT 9 U/L (12-78); TOT PROT 5.3 g/dl (6.4-8.2)
[2017-08-28] MEDS: METHOCARBAMOL 500 MG TABLET PO SCH ×2 (09:29→21:35)
[2017-08-28] MEDS: FAMOTIDINE 20 MG/50 ML IVPB 20 MG/50 ML MG IVPB SCH ×2 (09:29→21:34)
--- NOTE | 2017-08-28 12:19 | PN ---
Progress Note (short form) - Note Progress Note: POD#9 Afebrile P-85-97 BP-126/71 Pt unchanged; on PO clear liquids No N/V P/E-Abd- dressing and packing changed drainage from incision- not purulent J-P drain-227 cc/24 hours (decreasing) appears bile-stained on Tube feedings-will increase WBC-10.4 H/H-8.8/27.5 Jacob-0.8 P- Increase tube feedings Continue daily dressing changes PO clear liquids
[2017-08-29] MEDS: oxyCODONE HCL 5 MG TABLET PO PRN ×5 (02:43→21:51)
[2017-08-29 07:53] LABS: HEMATOCRIT 26.9 % (32.4-45.2); HEMOGLOBIN 8.6 GM/dL (10.7-15.3); MCH 24.1 pg (25.7-33.7); MCHC 31.8 g/dl (32.0-36.0); MEAN CELL VOLUME 75.8 fl (80-96); MEAN PLT VOLUME 7.6 fl (7.5-11.1); PLATELET COUNT 354 K/MM3 (134-434); RBC 3.55 M/mm3 (3.60-5.2)
[2017-08-29 08:59] LABS: CHLORIDE 102 mmol/L (98-107); POTASSIUM 3.8 mmol/L (3.5-5.1); SODIUM 137 mmol/L (136-145)
[2017-08-29 09:14] LABS: ALBUMIN 1.8 g/dl (3.4-5.0); ALK PHOS 150 U/L (45-117); ANION GAP 8 (8-16); BLOOD UREA NITROGEN 6 mg/dL (7-18); CALCIUM 7.5 mg/dL (8.5-10.1); CO2 27 mmol/L (21-32); CREATININE 0.7 mg/dL (0.55-1.02); GLUCOSE,RANDOM 82 mg/dL (74-106); SGOT/AST 12 U/L (15-37); SGPT/ALT 8 U/L (12-78)
[2017-08-29] MEDS ORDERED: PT OWN MED DRAWER 7, Y5N ONE ×2 (10:01→20:42)
[2017-08-29] MEDS: METHOCARBAMOL 500 MG TABLET PO SCH ×2 (10:06→21:06)
[2017-08-29] MEDS: FAMOTIDINE 20 MG/50 ML IVPB 20 MG/50 ML MG IVPB SCH ×2 (10:06→21:06)
--- NOTE | 2017-08-29 12:24 | PN ---
Progress Note (short form) - Note Progress Note: POD#10 T-100.3-100.6 VSS Pt unchaged Tolerating TF- now up to 30 /hr P/E-Abd- slight decreased drainage packing re-applied WBC-12.0 (increased) H/H-8.6/26.9 (no change) P- Re-consult ID Blood cultures Cont TF
--- NOTE | 2017-08-29 14:27 | PN ---
Progress Note (short form) - Note Progress Note: zosyn d/mirza two days ago now with low grade temps and leukocytosis feels well no cough normal BM no dysuria no nolan Vital Signs Period Temp Pulse Resp BP Sys/Lugo Pulse Ox Last 24 Hr 98.6 F-100.6 F 85-101 18-20 112-137/67-89 98 cor-rrr lungs clear no phlebitis abd wound 2 brandon drains one with clear yellow fluid, one with dark brown fluid incision with minimal dranage serous lower aspect no erythema no purulence ext no edema, no tenderness CBC, BMP 08/29/17 06:00 08/29/17 06:00 a/p fevers/leukocytosis- ?intraabdominal abscess s/p surgery 08/19 d/w Dr Lehman- will send cultures of brandon drains (left and right), also wound culture blood cultures sent Ct scan abd/pelvis per Dr Lehman cxray resume zosyn esr/crp Problem List - Problems (1) Ischemic necrosis of small bowel Code(s): K55.029 - ACUTE INFARCTION OF SMALL INTESTINE, EXTENT UNSPECIFIED (2) S/P small bowel resection Code(s): Z90.49 - ACQUIRED ABSENCE OF OTHER SPECIFIED PARTS OF DIGESTIVE TRACT (3) H/O gastric bypass Code(s): Z98.84 - BARIATRIC SURGERY STATUS
[2017-08-29] MEDS ORDERED: DEXTROSE 5%-WATER 100 ML IVPB ONE (15:24)
[2017-08-29] MEDS ORDERED: PIPERACILLIN/TAZOBACTAM 4.5 GM VIAL IVPB ONE (15:24)
[2017-08-29] MEDS: PIPERACILLIN/TAZOB 4.5 GM 4.5 GM in DEXTROSE 5%-WATER 100 ML IVPB SCH ×2 (16:14→18:31)
[2017-08-29 17:10] LABS: ALBUMIN 1.9 g/dl (3.4-5.0); ALK PHOS 152 U/L (45-117); ANION GAP 6 (8-16); BILIRUBIN,TOTAL 0.9 mg/dL (0.2-1.0); BLOOD UREA NITROGEN 7 mg/dL (7-18); CALCIUM 7.6 mg/dL (8.5-10.1); CHLORIDE 101 mmol/L (98-107); CO2 30 mmol/L (21-32); CREATININE 0.7 mg/dL (0.55-1.02); GLUCOSE,RANDOM 97 mg/dL (74-106); POTASSIUM 4.1 mmol/L (3.5-5.1); SGOT/AST 12 U/L (15-37); SGPT/ALT 9 U/L (12-78); SODIUM 137 mmol/L (136-145); TOT PROT 5.4 g/dl (6.4-8.2)
[2017-08-29] MEDS: ZOLPIDEM TARTRATE 5 MG TABLET PO PRN (21:51)
[2017-08-30] MEDS ORDERED: PIPERACILLIN/TAZOBACTAM 4.5 GM VIAL IVPB ONE ×3 (00:36→17:27)
[2017-08-30] MEDS ORDERED: DEXTROSE 5%-WATER 100 ML IVPB ONE ×3 (00:36→17:27)
[2017-08-30] MEDS: PIPERACILLIN/TAZOB 4.5 GM 4.5 GM in DEXTROSE 5%-WATER 100 ML IVPB SCH ×3 (01:04→18:29)
[2017-08-30] MEDS ORDERED: oxyCODONE HCL 5 MG TABLET PO ONE (03:24)
[2017-08-30 07:46] LABS: HEMATOCRIT 26.3 % (32.4-45.2); HEMOGLOBIN 8.4 GM/dL (10.7-15.3); MCH 24.2 pg (25.7-33.7); MCHC 32.2 g/dl (32.0-36.0); MEAN CELL VOLUME 75.1 fl (80-96); MEAN PLT VOLUME 7.8 fl (7.5-11.1); PLATELET COUNT 372 K/MM3 (134-434); RDW 18.8 % (11.6-15.6); WHITE BLOOD COUNT 12.6 K/mm3 (4.0-10.0)
[2017-08-30 08:01] LABS: CHLORIDE 102 mmol/L (98-107); POTASSIUM 4.3 mmol/L (3.5-5.1); SODIUM 136 mmol/L (136-145)
[2017-08-30 08:06] LABS: ALBUMIN 1.9 g/dl (3.4-5.0); ALK PHOS 134 U/L (45-117); ANION GAP 7 (8-16); BILIRUBIN,TOTAL 0.9 mg/dL (0.2-1.0); BLOOD UREA NITROGEN 9 mg/dL (7-18); CALCIUM 7.4 mg/dL (8.5-10.1); CO2 27 mmol/L (21-32); CREATININE 0.7 mg/dL (0.55-1.02); GLUCOSE,RANDOM 83 mg/dL (74-106); SGOT/AST 17 U/L (15-37); SGPT/ALT 9 U/L (12-78); TOT PROT 5.1 g/dl (6.4-8.2)
--- NOTE | 2017-08-30 08:19 | PN ---
Progress Note (short form) - Note Progress Note: low grade temp overnight feels well no cough normal BM no dysuria no nolan Vital Signs Period Temp Pulse Resp BP Sys/Lugo Pulse Ox Last 24 Hr 98.6 F-100.3 F 94-103 18-20 90-137/65-89 98-100 cor-rrr lungs clear abd soft, dressing and JPs intact ext no edema CBC, BMP 08/30/17 07:00 Microbiology 08/20/17 17:15 Blood - Peripheral Venous Blood Culture - Final NO GROWTH AFTER 5 DAYS INCUBATION 08/20/17 17:00 Blood - Peripheral Venous Blood Culture - Final NO GROWTH AFTER 5 DAYS INCUBATION a/p fevers/leukocytosis- ?intraabdominal abscess s/p surgery 08/19 d/w Dr Lehman- will send cultures of brandon drains (left and right), also wound culture blood cultures sent Ct scan abd/pelvis per Dr Lehman cxray-NAD resume zosyn esr/crp Problem List - Problems (1) Ischemic necrosis of small bowel Code(s): K55.029 - ACUTE INFARCTION OF SMALL INTESTINE, EXTENT UNSPECIFIED (2) S/P small bowel resection Code(s): Z90.49 - ACQUIRED ABSENCE OF OTHER SPECIFIED PARTS OF DIGESTIVE TRACT (3) H/O gastric bypass Code(s): Z98.84 - BARIATRIC SURGERY STATUS
[2017-08-30] MEDS: FAMOTIDINE 20 MG/50 ML IVPB 20 MG/50 ML MG IVPB SCH ×2 (09:00→21:57)
[2017-08-30] MEDS ORDERED: oxyCODONE HCL 5 MG TABLET ONE ×2 (09:21→09:54)
[2017-08-30] MEDS: oxyCODONE HCL 5 MG TABLET PO ONE ×2 (09:29→09:56)
[2017-08-30] MEDS: METHOCARBAMOL 500 MG TABLET PO SCH ×2 (09:30→22:00)
[2017-08-30] MEDS ORDERED: oxyCODONE HCL 5 MG TABLET PO PRN (09:52)
--- NOTE | 2017-08-30 13:56 | PN ---
Progress Note (short form) - Note Progress Note: POD#11 Afebrile this AM P-92-103 BP-130/81 Pt with no change ON TF @30 ml/hr P/E-Abd- dressing changed- no cellulitis no purulent drainage incision re-packed with iodoform packing WBC-12.6 -Slight increase H/H-8.4/26.3 J-p drains- RLQ-80/24 hours LLQ-135 /24 hours- bilious in color and increased drainage P- CT scan in AM of Abdomen Cont antibiotics Cont TF
[2017-08-30] MEDS: oxyCODONE HCL 5 MG TABLET PO PRN ×3 (14:20→22:49)
[2017-08-30] MEDS ORDERED: PT OWN MED DRAWER 7, Y5N ONE ×2 (21:56→21:59)
[2017-08-30] MEDS: ZOLPIDEM TARTRATE 5 MG TABLET PO PRN (21:57)
[2017-08-31] MEDS ORDERED: PIPERACILLIN/TAZOBACTAM 4.5 GM VIAL IVPB ONE ×2 (01:34→09:05)
[2017-08-31] MEDS ORDERED: DEXTROSE 5%-WATER 100 ML IVPB ONE ×3 (01:35→12:06)
[2017-08-31] MEDS: PIPERACILLIN/TAZOB 4.5 GM 4.5 GM in DEXTROSE 5%-WATER 100 ML IVPB SCH ×2 (02:01→09:50)
[2017-08-31] MEDS: oxyCODONE HCL 5 MG TABLET PO PRN ×4 (06:52→21:37)
[2017-08-31 08:31] LABS: HEMATOCRIT 25.1 % (32.4-45.2); HEMOGLOBIN 7.9 GM/dL (10.7-15.3); MCH 24.1 pg (25.7-33.7); MCHC 31.6 g/dl (32.0-36.0); MEAN CELL VOLUME 76.1 fl (80-96); MEAN PLT VOLUME 8.1 fl (7.5-11.1); PLATELET COUNT 394 K/MM3 (134-434); RDW 19.4 % (11.6-15.6); WHITE BLOOD COUNT 11.6 K/mm3 (4.0-10.0)
[2017-08-31 08:49] LABS: CHLORIDE 103 mmol/L (98-107); POTASSIUM 4.2 mmol/L (3.5-5.1); SODIUM 137 mmol/L (136-145)
[2017-08-31] MEDS: FAMOTIDINE 20 MG/50 ML IVPB 20 MG/50 ML MG IVPB SCH ×2 (09:00→21:40)
[2017-08-31 09:01] LABS: ALBUMIN 1.9 g/dl (3.4-5.0); ALK PHOS 119 U/L (45-117); ANION GAP 5 (8-16); BILIRUBIN,TOTAL 0.7 mg/dL (0.2-1.0); BLOOD UREA NITROGEN 8 mg/dL (7-18); CALCIUM 7.5 mg/dL (8.5-10.1); CO2 29 mmol/L (21-32); CREATININE 0.7 mg/dL (0.55-1.02); GLUCOSE,RANDOM 77 mg/dL (74-106); SGOT/AST 18 U/L (15-37); SGPT/ALT 9 U/L (12-78); TOT PROT 5.1 g/dl (6.4-8.2)
[2017-08-31] MEDS: METHOCARBAMOL 500 MG TABLET PO SCH ×2 (09:58→21:39)
--- NOTE | 2017-08-31 10:53 | PN ---
Progress Note (short form) - Note Progress Note: intermittent low grade temps feels well no cough, no sob normal BM no dysuria no nolan drinking contrast for ct scan today Vital Signs Period Temp Pulse Resp BP Sys/Lugo Pulse Ox Last 24 Hr 98.7 F-100.4 F 90-100 20-20 96-128/58-74 100 cor-rrr lungs clear abd soft,nt lower part of incision with minimal drainage serous, +malodor right BON clear fluid, left BON with bilious fluid that remains cloudy CBC, BMP 08/31/17 06:43 08/31/17 06:43 Microbiology 08/29/17 14:15 Abdomen Gram Stain - Final 08/29/17 14:15 Abdomen Body Fluid Culture - Preliminary NO AEROBIC GROWTH, 24 HRS 08/29/17 14:15 Abdomen Gram Stain - Final 08/29/17 14:15 Abdomen Wound Culture - Preliminary Group D Strep Or Entero Coccus Yeast Like Organism Pending Organism 08/29/17 14:15 Abdomen Gram Stain - Final 08/29/17 14:15 Abdomen Body Fluid Culture - Preliminary Escherichia Coli Group D Strep Or Entero Coccus Pending Organism 08/29/17 12:50 Blood - Peripheral Venous Blood Culture - Preliminary NO GROWTH OBTAINED AFTER 24 HOURS, INCUBATION TO CONTINUE FOR 4 DAYS. 08/29/17 12:25 Blood - Peripheral Venous Blood Culture - Preliminary NO GROWTH OBTAINED AFTER 24 HOURS, INCUBATION TO CONTINUE FOR 4 DAYS. 08/20/17 17:15 Blood - Peripheral Venous Blood Culture - Final NO GROWTH AFTER 5 DAYS INCUBATION 08/20/17 17:00 Blood - Peripheral Venous Blood Culture - Final NO GROWTH AFTER 5 DAYS INCUBATION Laboratory Tests 08/30/17 08/30/17 07:00 07:00 ESR 56 H C-Reactive Protein 11.1 H a/p fevers/leukocytosis- ?intraabdominal abscess s/p surgery 08/19 Ct scan abd/pelvis today cxray-NAD ecoli is zosyn resistant, switch to rocephin/flagyl/vanco/cancidas- wound culture with yeast Problem List - Problems (1) Ischemic necrosis of small bowel Code(s): K55.029 - ACUTE INFARCTION OF SMALL INTESTINE, EXTENT UNSPECIFIED (2) S/P small bowel resection Code(s): Z90.49 - ACQUIRED ABSENCE OF OTHER SPECIFIED PARTS OF DIGESTIVE TRACT (3) H/O gastric bypass Code(s): Z98.84 - BARIATRIC SURGERY STATUS
[2017-08-31] MEDS: CEFTRIAXONE 2 GM in DEXTROSE 5%-WATER 100 ML IVPB SCH (12:08)
[2017-08-31] MEDS: VANCOMYCIN 1,250 MG in DEXTROSE 5%-WATER - 250 ML IVPB SCH ×2 (13:35→23:04)
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
[2017-08-31] MEDS ORDERED: CASPOFUNGIN ACETATE 70 MG in SODIUM CHLORIDE 250 ML IVPB ONE (17:00)
--- NOTE | 2017-08-31 17:32 | PROC ---
Procedure Note Procedure: POD#12 Afebrile P-77-100 BP-104/54 Pt unchanged ID, GI notes appreciated remains on tube feedings Right J-P-115 cc (gold color) Left BON- 275 cc (bile color) CT scan results reviewed WBC-11.6 (decreased) H/H-7.9/25.1 P- Resume TF Will F/U CT scan with UGI, HIDA Scan Cont abx per ID
[2017-08-31] MEDS ORDERED: PT OWN MED DRAWER 7, Y5N ONE (21:25)
[2017-08-31] MEDS: ZOLPIDEM TARTRATE 5 MG TABLET PO PRN (21:36)
[2017-08-31] MEDS: OCTREOTIDE ACETATE 50 MCG/1 ML - 1 ML VIAL SQ SCH (21:43)
[2017-09-01] MEDS: oxyCODONE HCL 5 MG TABLET PO PRN ×4 (04:02→23:45)
[2017-09-01] MEDS: OCTREOTIDE ACETATE 50 MCG/1 ML - 1 ML VIAL SQ SCH ×3 (06:26→22:54)
[2017-09-01 07:16] LABS: HEMATOCRIT 25.9 % (32.4-45.2); HEMOGLOBIN 8.4 GM/dL (10.7-15.3); MCH 24.6 pg (25.7-33.7); MCHC 32.4 g/dl (32.0-36.0); MEAN CELL VOLUME 75.9 fl (80-96); MEAN PLT VOLUME 7.7 fl (7.5-11.1); PLATELET COUNT 443 K/MM3 (134-434); RBC 3.42 M/mm3 (3.60-5.2); RDW 19.7 % (11.6-15.6); WHITE BLOOD COUNT 8.4 K/mm3 (4.0-10.0)
[2017-09-01 07:58] LABS: CHLORIDE 102 mmol/L (98-107); POTASSIUM 4.4 mmol/L (3.5-5.1); SODIUM 136 mmol/L (136-145)
[2017-09-01 08:14] LABS: ALBUMIN 2.1 g/dl (3.4-5.0); ALK PHOS 118 U/L (45-117); ANION GAP 7 (8-16); BILIRUBIN,TOTAL 0.5 mg/dL (0.2-1.0); BLOOD UREA NITROGEN 6 mg/dL (7-18); CO2 27 mmol/L (21-32); CREATININE 0.8 mg/dL (0.55-1.02); GLUCOSE,RANDOM 107 mg/dL (74-106); SGOT/AST 15 U/L (15-37); SGPT/ALT 9 U/L (12-78); TOT PROT 5.7 g/dl (6.4-8.2)
[2017-09-01] MEDS ORDERED: DEXTROSE 5%-WATER 100 ML IVPB ONE (08:41)
[2017-09-01] MEDS: VANCOMYCIN 1,250 MG in DEXTROSE 5%-WATER - 250 ML IVPB SCH (11:40)
[2017-09-01] MEDS ORDERED: PT OWN MED DRAWER 7, Y5N ONE ×5 (11:44→22:48)
[2017-09-01] MEDS: METHOCARBAMOL 500 MG TABLET PO SCH ×2 (11:47→22:43)
[2017-09-01] MEDS: FAMOTIDINE 20 MG/50 ML IVPB 20 MG/50 ML MG IVPB SCH ×2 (11:57→22:44)
[2017-09-01] MEDS: CEFTRIAXONE 2 GM in DEXTROSE 5%-WATER 100 ML IVPB SCH (11:57)
--- NOTE | 2017-09-01 16:51 | PN ---
Progress Note (short form) - Note Progress Note: no fevers feels well no cough, no sob normal BM no dysuria no nolan up and walking Laboratory Tests 08/30/17 08/30/17 07:00 07:00 ESR 56 H C-Reactive Protein 11.1 H cor-rrr llungs clear abd soft,nt bilious fluid in brandon no longer malodorous other drain with clear fluid midline dressing intact ext no edema CBC, BMP 09/01/17 06:00 09/01/17 06:00 Microbiology 08/29/17 14:15 Abdomen Gram Stain - Final 08/29/17 14:15 Abdomen Body Fluid Culture - Preliminary Escherichia Coli Enterococcus Faecium Staphylococcus Epidermidis 08/29/17 14:15 Abdomen Anaerobic Culture - Preliminary Pending Organism 08/29/17 14:15 Abdomen Gram Stain - Final 08/29/17 14:15 Abdomen Wound Culture - Final Enterococcus Durans/Hirae Yeast Like Organism Morganella Morganii 08/29/17 12:50 Blood - Peripheral Venous Blood Culture - Preliminary NO GROWTH OBTAINED AFTER 72 HOURS, INCUBATION TO CONTINUE FOR 2 DAYS. 08/29/17 12:25 Blood - Peripheral Venous Blood Culture - Preliminary NO GROWTH OBTAINED AFTER 72 HOURS, INCUBATION TO CONTINUE FOR 2 DAYS. 08/29/17 14:15 Abdomen Gram Stain - Final 08/29/17 14:15 Abdomen Body Fluid Culture - Final NO GROWTH OF AEROBIC ORGANISMS AFTER 48 HOURS INCUBATION 08/29/17 14:15 Abdomen Anaerobic Culture - Final NO ANAEROBES WERE ISOLATED 08/20/17 17:15 Blood - Peripheral Venous Blood Culture - Final NO GROWTH AFTER 5 DAYS INCUBATION 08/20/17 17:00 Blood - Peripheral Venous Blood Culture - Final NO GROWTH AFTER 5 DAYS INCUBATION a/p fevers/leukocytosis- ?bile leak, ?superficial wound infection s/p surgery 08/19 Ct scan abd/pelvis noted- further management per dr angie quintana is zosyn resistant, switch to rocephin/flagyl/vanco/cancidas- wound culture with yeast continue antibiotics-fevers and wbc are resolving consider picc line as peripheral ivs are becoming difficult Problem List - Problems (1) Ischemic necrosis of small bowel Code(s): K55.029 - ACUTE INFARCTION OF SMALL INTESTINE, EXTENT UNSPECIFIED (2) S/P small bowel resection Code(s): Z90.49 - ACQUIRED ABSENCE OF OTHER SPECIFIED PARTS OF DIGESTIVE TRACT (3) H/O gastric bypass Code(s): Z98.84 - BARIATRIC SURGERY STATUS
[2017-09-01] MEDS: CASPOFUNGIN ACETATE 50 MG in SODIUM CHLORIDE 250 ML IVPB SCH (22:44)
[2017-09-01] MEDS ORDERED: oxyCODONE HCL 5 MG TABLET PO PRN (23:22)
[2017-09-01] MEDS: ZOLPIDEM TARTRATE 5 MG TABLET PO PRN (23:46)
[2017-09-02] MEDS: VANCOMYCIN 1,250 MG in DEXTROSE 5%-WATER - 250 ML IVPB SCH ×3 (01:27→22:59)
[2017-09-02] MEDS: oxyCODONE HCL 5 MG TABLET PO PRN ×4 (05:58→19:54)
[2017-09-02] MEDS: OCTREOTIDE ACETATE 50 MCG/1 ML - 1 ML VIAL SQ SCH ×3 (06:05→21:58)
[2017-09-02] MEDS ORDERED: DEXTROSE 5%-WATER 100 ML IVPB ONE (09:00)
[2017-09-02] MEDS: FAMOTIDINE 20 MG/50 ML IVPB 20 MG/50 ML MG IVPB SCH ×2 (09:08→21:54)
[2017-09-02] MEDS: CEFTRIAXONE 2 GM in DEXTROSE 5%-WATER 100 ML IVPB SCH (09:15)
[2017-09-02] MEDS: METHOCARBAMOL 500 MG TABLET PO SCH ×2 (09:24→21:57)
--- NOTE | 2017-09-02 11:48 | PN ---
Progress Note, Physician Chief Complaint: ID vancomycin Cancidas Metronidazole Ceftriaxone - Current Medication List Current Medications: Active Medications Albuterol Sulfate (Ventolin Hfa Inhaler -) 1 puff IH Q8H PRN PRN Reason: SHORTNESS OF BREATH Albuterol Sulfate (Ventolin Hfa Inhaler -) 2 puff IH Q8H PRN PRN Reason: SHORTNESS OF BREATH Famotidine/Sodium Chloride (Pepcid 20 Mg Premixed Ivpb -) 20 mg in 50 mls @ 100 mls/hr IVPB BID [facility] Last Admin: 09/02/17 09:08 Dose: 100 mls/hr Ceftriaxone Sodium 2 gm/ (Dextrose) 100 mls @ 100 mls/hr IVPB DAILY [facility]; Protocol Last Admin: 09/02/17 09:15 Dose: 100 mls/hr Metronidazole (Flagyl 500mg Premixed Ivpb -) 500 mg in 100 mls @ 100 mls/hr IVPB Q8H-IV CAROLINE Last Admin: 09/02/17 09:14 Dose: 100 mls/hr Vancomycin HCl 1,250 mg/ (Dextrose) 250 mls @ 166.667 mls/hr IVPB Q12H [facility]; Protocol Last Admin: 09/02/17 01:27 Dose: 166.667 mls/hr Caspofungin 50 mg/ Sodium (Chloride) 250 mls @ 250 mls/hr IVPB Q24H [facility] Last Admin: 09/01/17 22:44 Dose: 250 mls/hr Methocarbamol (Robaxin -) 750 mg PO BID [facility] Last Admin: 09/02/17 09:24 Dose: 750 mg Octreotide Acetate (Sandostatin -) 50 mcg SQ TID [facility] Last Admin: 09/02/17 06:05 Dose: 50 mcg Ondansetron HCl (Zofran Injection) 4 mg IVPUSH Q4H PRN PRN Reason: NAUSEA AND/OR VOMITING Oxycodone HCl (Roxicodone -) 5 mg PO Q4H PRN PRN Reason: PAIN LEVEL 3-5 Oxycodone HCl (Roxicodone -) 10 mg PO Q4H PRN PRN Reason: PAIN LEVEL 5-8 Last Admin: 09/02/17 09:05 Dose: 10 mg Promethazine HCl (Phenergan Injection -) 12.5 mg IVPB Q6H PRN PRN Reason: NAUSEA AND/OR VOMITING Zolpidem Tartrate (Ambien -) 10 mg PO HS PRN PRN Reason: INSOMNIA Last Admin: 09/01/17 23:46 Dose: 10 mg - Objective Vital Signs: Vital Signs Temperature 98.5 F 09/02/17 05:52 Pulse Rate 88 09/02/17 05:52 Respiratory Rate 18 09/02/17 05:52 Blood Pressure 110/60 09/02/17 05:52 O2 Sat by Pulse Oximetry (%) 97 08/31/17 21:00 Constitutional: Yes: Well Nourished, No Distress Neck: Yes: WNL, Supple Cardiovascular: Yes: Regular Rate and Rhythm, S1, S2 Respiratory: Yes: WNL, Regular, CTA Bilaterally Gastrointestinal: Yes: Soft, Tenderness (Drain greeninsh copious amount of drainage) Labs: CBC, BMP 09/01/17 06:00 09/01/17 06:00 INR, PTT INR 0.97 (0.82-1.09) 08/19/17 08:27 Assessment/Plan Microbiology 08/29/17 14:15 Abdomen Gram Stain - Final 08/29/17 14:15 Abdomen Wound Culture - Final Enterococcus Durans/Hirae Yeast Like Organism Morganella Morganii Laboratory Tests 08/30/17 09/01/17 09/01/17 07:00 06:00 06:00 WBC 8.4 RBC 3.42 L Hgb 8.4 L Plt Count 443 H ESR 56 H BUN 6 L Creatinine 0.8 Creat Clearance w eGFR > 60 Assessment 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 The infection well controlled and basically treating a polymicrobial culture with no signs of active infection Dr Lehman in agreement that surgery may have to be performed Will await his recommendations as to how to proceed For now continue current meds
[2017-09-02] MEDS ORDERED: PT OWN MED DRAWER 7, Y5N ONE (15:59)
--- NOTE | 2017-09-02 17:58 | PN ---
Progress Note (short form) - Note Progress Note: POD#14 Afebrile; VSS Pt unchanged TLC in place on TF @ 30ml/hr P/E- Abd- incision clean, dry, healing well Ext- no swelling noted WBC-8.4 H/H-8.4/25.9 LLQ drain- 885 cc/24 hours (Bilious) Rec- increase TF to 45 cc/hr Cont abx Cont OOB, ambulate
[2017-09-02] MEDS: CASPOFUNGIN ACETATE 50 MG in SODIUM CHLORIDE 250 ML IVPB SCH (19:30)
[2017-09-02] MEDS: ZOLPIDEM TARTRATE 5 MG TABLET PO PRN (22:58)
[2017-09-03] MEDS: oxyCODONE HCL 5 MG TABLET PO PRN ×5 (05:20→21:59)
[2017-09-03] MEDS: OCTREOTIDE ACETATE 50 MCG/1 ML - 1 ML VIAL SQ SCH ×3 (05:21→21:26)
[2017-09-03 07:29] LABS: HEMATOCRIT 24.7 % (32.4-45.2); HEMOGLOBIN 8.1 GM/dL (10.7-15.3); MCH 24.8 pg (25.7-33.7); MCHC 32.7 g/dl (32.0-36.0); MEAN CELL VOLUME 75.6 fl (80-96); MEAN PLT VOLUME 7.6 fl (7.5-11.1); PLATELET COUNT 482 K/MM3 (134-434); RBC 3.27 M/mm3 (3.60-5.2); RDW 20.6 % (11.6-15.6); WHITE BLOOD COUNT 5.8 K/mm3 (4.0-10.0)
--- NOTE | 2017-09-03 08:07 | PN ---
Progress Note, Physician Chief Complaint: ID Feels well NO signs of infection or sepsis Antibiotics as outline includes antifungal therapy Discussed with Dr Lehman - Current Medication List Current Medications: Active Medications Albuterol Sulfate (Ventolin Hfa Inhaler -) 1 puff IH Q8H PRN PRN Reason: SHORTNESS OF BREATH Albuterol Sulfate (Ventolin Hfa Inhaler -) 2 puff IH Q8H PRN PRN Reason: SHORTNESS OF BREATH Famotidine/Sodium Chloride (Pepcid 20 Mg Premixed Ivpb -) 20 mg in 50 mls @ 100 mls/hr IVPB BID [facility] Last Admin: 09/02/17 21:54 Dose: 100 mls/hr Ceftriaxone Sodium 2 gm/ (Dextrose) 100 mls @ 100 mls/hr IVPB DAILY [facility]; Protocol Last Admin: 09/02/17 09:15 Dose: 100 mls/hr Metronidazole (Flagyl 500mg Premixed Ivpb -) 500 mg in 100 mls @ 100 mls/hr IVPB Q8H-IV CAROLINE Last Admin: 09/03/17 01:29 Dose: 100 mls/hr Vancomycin HCl 1,250 mg/ (Dextrose) 250 mls @ 166.667 mls/hr IVPB Q12H [facility]; Protocol Last Admin: 09/02/17 22:59 Dose: 166.667 mls/hr Caspofungin 50 mg/ Sodium (Chloride) 250 mls @ 250 mls/hr IVPB Q24H [facility] Last Admin: 09/02/17 19:30 Dose: 250 mls/hr Methocarbamol (Robaxin -) 750 mg PO BID [facility] Last Admin: 09/02/17 21:57 Dose: 750 mg Octreotide Acetate (Sandostatin -) 50 mcg SQ TID [facility] Last Admin: 09/03/17 05:21 Dose: 50 mcg Ondansetron HCl (Zofran Injection) 4 mg IVPUSH Q4H PRN PRN Reason: NAUSEA AND/OR VOMITING Oxycodone HCl (Roxicodone -) 5 mg PO Q4H PRN PRN Reason: PAIN LEVEL 3-5 Oxycodone HCl (Roxicodone -) 10 mg PO Q4H PRN PRN Reason: PAIN LEVEL 5-8 Last Admin: 09/03/17 05:20 Dose: 10 mg Promethazine HCl (Phenergan Injection -) 12.5 mg IVPB Q6H PRN PRN Reason: NAUSEA AND/OR VOMITING Zolpidem Tartrate (Ambien -) 10 mg PO HS PRN PRN Reason: INSOMNIA Last Admin: 09/02/17 22:58 Dose: 10 mg - Objective Vital Signs: Vital Signs Temperature 98 F 09/03/17 06:00 Pulse Rate 92 H 09/03/17 06:00 Respiratory Rate 18 09/03/17 06:00 Blood Pressure 119/68 09/03/17 06:00 O2 Sat by Pulse Oximetry (%) 97 08/31/17 21:00 Constitutional: Yes: No Distress, Obese Neck: Yes: Other (Centralline) Cardiovascular: Yes: S1, S2 Respiratory: Yes: WNL, Regular, CTA Bilaterally Gastrointestinal: Yes: Soft, Other (2 drains bilious drainage and othe with ellow colored drainage) Labs: CBC, BMP 09/03/17 07:00 INR, PTT INR 0.97 (0.82-1.09) 08/19/17 08:27 Assessment/Plan Microbiology 08/29/17 14:15 Abdomen Gram Stain - Final 08/29/17 14:15 Abdomen Wound Culture - Final Enterococcus Durans/Hirae Yeast Like Organism Morganella Morganii Laboratory Tests 09/01/17 09/03/17 06:00 07:00 WBC 5.8 D RBC 3.27 L Hgb 8.1 L Plt Count 482 H BUN 6 L Creat Clearance w eGFR > 60 Assessment Abd fistulae post op. Polymicrobial rodolfo suggest bowel origin No evidence for active infection Plan For now continue current therapy Surgical management plan being worked on by Dr Lehman regarding surgery and best options for the patient Melvin ROWLAND
[2017-09-03] MEDS ORDERED: DEXTROSE 5%-WATER 100 ML IVPB ONE (09:36)
[2017-09-03] MEDS ORDERED: PT OWN MED DRAWER 7, Y5N ONE ×3 (09:36→17:04)
[2017-09-03] MEDS: METHOCARBAMOL 500 MG TABLET PO SCH ×2 (09:40→21:25)
[2017-09-03 10:23] LABS: ALBUMIN 2.1 g/dl (3.4-5.0); ANION GAP 8 (8-16); BILIRUBIN,TOTAL 0.3 mg/dL (0.2-1.0); BLOOD UREA NITROGEN 5 mg/dL (7-18); CALCIUM 7.8 mg/dL (8.5-10.1); CHLORIDE 104 mmol/L (98-107); CO2 26 mmol/L (21-32); CREATININE 0.8 mg/dL (0.55-1.02); GLUCOSE,RANDOM 130 mg/dL (74-106); POTASSIUM 3.9 mmol/L (3.5-5.1); SGOT/AST 6 U/L (15-37); SODIUM 138 mmol/L (136-145); TOT PROT 5.3 g/dl (6.4-8.2)
[2017-09-03 10:45] LABS: ALK PHOS 93 U/L (45-117); SGPT/ALT 9 U/L (12-78)
[2017-09-03] MEDS: FAMOTIDINE 20 MG/50 ML IVPB 20 MG/50 ML MG IVPB SCH ×2 (12:01→21:25)
[2017-09-03 12:05] VITALS: BMI 41.3
[2017-09-03] MEDS: CEFTRIAXONE 2 GM in DEXTROSE 5%-WATER 100 ML IVPB SCH (12:46)
[2017-09-03] MEDS: VANCOMYCIN 1,250 MG in DEXTROSE 5%-WATER - 250 ML IVPB SCH (12:46)
--- NOTE | 2017-09-03 13:42 | PN ---
GI Progress Note Subjective: No acute events Left BON drain draining 1170 of turbid bilious fluid over the last 24 hours No abdominal pain HIDA - Objective Vital Signs: Vital Signs Temperature 98.8 F 09/03/17 09:31 Pulse Rate 88 09/03/17 09:31 Respiratory Rate 20 09/03/17 09:31 Blood Pressure 143/52 09/03/17 09:31 O2 Sat by Pulse Oximetry (%) 96 09/03/17 09:00 Constitutional: Calm Cardiovascular: Yes: Regular Rate and Rhythm Respiratory: Yes: Diminished (at bases bilaterally with poor insp effort) Gastrointestinal Inspection: Yes: Other (surgical dressing in mid abdomen, midline BON drain with minimal drainage, left sided BON drain as noted above) ...Auscultate: Yes: Normoactive Bowel Sounds Labs: CBC, BMP 09/03/17 07:00 09/03/17 07:00 INR, PTT INR 0.97 (0.82-1.09) 08/19/17 08:27 Problem List - Problems (1) Duodenal anastomotic leak Assessment/Plan: HIDA negative however still with significant high output drainage from BON drain. Leak still suspected. Octreotide did not seem to help decrease output Ms. Fernandez stated that she was told of potential transfer to tertiary care center by Dr. Lehman. Agree with transfer as noted in previous note. On Abx per ID UGIS/SBS Care per surgery Code(s): K91.89 - OTH POSTPROCEDURAL COMPLICATIONS AND DISORDERS OF DGSTV SYS
--- NOTE | 2017-09-03 17:26 | PN ---
Progress Note (short form) - Note Progress Note: POD#15 Afebrile; VSS ID, GI notes appreciated Pt unchanged P/E- Abd- packing changed- incision clean,dry packing placed into lower abd incision WBC-5.8 H/H-8.1/24.7 UGI- no leak, no obstruction J-P- drain-right- 45 cc/24 hours Left JP_ 1080 cc (increasing) remains bilious Rec- Cont abx [facility] contacted for possible transfer (awaiting response) Cont dressing changes Cont tube feedings
[2017-09-03] MEDS: CASPOFUNGIN ACETATE 50 MG in SODIUM CHLORIDE 250 ML IVPB SCH (18:03)
[2017-09-03] MEDS: ZOLPIDEM TARTRATE 5 MG TABLET PO PRN (21:59)
[2017-09-04] MEDS: OCTREOTIDE ACETATE 50 MCG/1 ML - 1 ML VIAL SQ SCH ×3 (05:56→21:30)
[2017-09-04] MEDS ORDERED: PT OWN MED DRAWER 7, Y5N ONE (08:02)
[2017-09-04] MEDS: oxyCODONE HCL 5 MG TABLET PO PRN ×3 (08:18→20:18)
[2017-09-04 08:23] LABS: HEMATOCRIT 25.2 % (32.4-45.2); HEMOGLOBIN 8.2 GM/dL (10.7-15.3); MCH 24.6 pg (25.7-33.7); MCHC 32.4 g/dl (32.0-36.0); MEAN PLT VOLUME 7.7 fl (7.5-11.1); PLATELET COUNT 461 K/MM3 (134-434); RBC 3.32 M/mm3 (3.60-5.2); RDW 21.4 % (11.6-15.6)
[2017-09-04 08:32] LABS: CHLORIDE 104 mmol/L (98-107); POTASSIUM 4.1 mmol/L (3.5-5.1); SODIUM 139 mmol/L (136-145)
[2017-09-04 08:41] LABS: ALBUMIN 2.2 g/dl (3.4-5.0); ALK PHOS 88 U/L (45-117); ANION GAP 8 (8-16); BILIRUBIN,TOTAL 0.2 mg/dL (0.2-1.0); BLOOD UREA NITROGEN 6 mg/dL (7-18); CO2 27 mmol/L (21-32); CREATININE 0.7 mg/dL (0.55-1.02); GLUCOSE,RANDOM 100 mg/dL (74-106); SGOT/AST 8 U/L (15-37); SGPT/ALT 7 U/L (12-78); TOT PROT 5.3 g/dl (6.4-8.2)
[2017-09-04 09:02] LABS: CALCIUM 8.1 mg/dL (8.5-10.1)
[2017-09-04] MEDS ORDERED: DEXTROSE 5%-WATER 100 ML IVPB ONE (09:12)
--- NOTE | 2017-09-04 09:13 | PN ---
Progress Note (short form) - Note Progress Note: ID In good spiritis Vancomycin Cancidas Metrodnidazole Ceftriaxone Selected Entries 09/03/17 09/04/17 22:00 06:00 Temperature 100.1 F H 98.1 F Pulse Rate 85 Respiratory 20 Rate Blood Pressure 102/53 Abd Drains x 2 Wound clean Microbiology 08/29/17 14:15 Abdomen Gram Stain - Final 08/29/17 14:15 Abdomen Anaerobic Culture - Final Escherichia Coli Enterococcus Faecium Staphylococcus Epidermidis Bacteroides Fragilis Laboratory Tests 09/03/17 09/04/17 09/04/17 09:30 06:50 06:50 WBC 6.0 Hgb 8.2 L Hct 25.2 L Plt Count 461 H BUN 6 L Creatinine 0.7 Vancomycin Pre-Dose 17.978 H* Assessment Bile leak plus 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
[2017-09-04] MEDS: CEFTRIAXONE 2 GM in DEXTROSE 5%-WATER 100 ML IVPB SCH (09:19)
[2017-09-04] MEDS: METHOCARBAMOL 500 MG TABLET PO SCH ×2 (09:20→21:30)
[2017-09-04] MEDS ORDERED: VANCOMYCIN 1,250 MG in DEXTROSE 5%-WATER - 250 ML IVPB SCH (10:00)
[2017-09-04] MEDS: FAMOTIDINE 20 MG/50 ML IVPB 20 MG/50 ML MG IVPB SCH ×2 (10:41→21:30)
[2017-09-04] MEDS: VANCOMYCIN 1 GM PREMIX - 1 GM/200 ML BAG IVPB SCH ×2 (11:32→21:30)
--- NOTE | 2017-09-04 14:56 | PN ---
Progress Note (short form) - Note Progress Note: POD#16 Afebrile; VSS Pt unchanged Sondra PO clear liquids P/E-Abd- dressing dry packing re-applied WBC-6.0 H/H-8.2/25.2 Right J-P-190 cc/24 hours (decreased) P- cont po liquids cont abx cont daily labs
[2017-09-04] MEDS: CASPOFUNGIN ACETATE 50 MG in SODIUM CHLORIDE 250 ML IVPB SCH (17:06)
[2017-09-04] MEDS: ZOLPIDEM TARTRATE 5 MG TABLET PO PRN (23:54)
[2017-09-05] MEDS: OCTREOTIDE ACETATE 50 MCG/1 ML - 1 ML VIAL SQ SCH ×3 (06:22→23:12)
[2017-09-05] MEDS: oxyCODONE HCL 5 MG TABLET PO PRN ×3 (08:33→19:46)
[2017-09-05 08:49] LABS: HEMATOCRIT 28.3 % (32.4-45.2); HEMOGLOBIN 9.1 GM/dL (10.7-15.3); MCH 24.7 pg (25.7-33.7); MCHC 32.2 g/dl (32.0-36.0); MEAN CELL VOLUME 76.7 fl (80-96); MEAN PLT VOLUME 7.7 fl (7.5-11.1); PLATELET COUNT 560 K/MM3 (134-434); RBC 3.68 M/mm3 (3.60-5.2); RDW 22.1 % (11.6-15.6); WHITE BLOOD COUNT 6.1 K/mm3 (4.0-10.0)
[2017-09-05 09:09] LABS: ALBUMIN 2.5 g/dl (3.4-5.0); ANION GAP 7 (8-16); BLOOD UREA NITROGEN 4 mg/dL (7-18); CHLORIDE 103 mmol/L (98-107); CO2 27 mmol/L (21-32); CREATININE 0.8 mg/dL (0.55-1.02); GLUCOSE,RANDOM 112 mg/dL (74-106); POTASSIUM 4.3 mmol/L (3.5-5.1); SGOT/AST 8 U/L (15-37); SGPT/ALT 8 U/L (12-78); SODIUM 137 mmol/L (136-145)
[2017-09-05 09:10] LABS: ALK PHOS 96 U/L (45-117); BILIRUBIN,TOTAL 0.4 mg/dL (0.2-1.0); TOT PROT 5.8 g/dl (6.4-8.2)
[2017-09-05] MEDS: FAMOTIDINE 20 MG/50 ML IVPB 20 MG/50 ML MG IVPB SCH ×2 (09:30→22:08)
[2017-09-05] MEDS ORDERED: DEXTROSE 5%-WATER 100 ML IVPB ONE (09:39)
[2017-09-05] MEDS: METHOCARBAMOL 500 MG TABLET PO SCH ×2 (09:50→22:08)
[2017-09-05] MEDS: CEFTRIAXONE 2 GM in DEXTROSE 5%-WATER 100 ML IVPB SCH (09:55)
[2017-09-05] MEDS: VANCOMYCIN 1 GM PREMIX - 1 GM/200 ML BAG IVPB SCH ×2 (11:15→22:08)
[2017-09-05] MEDS: CASPOFUNGIN ACETATE 50 MG in SODIUM CHLORIDE 250 ML IVPB SCH ×2 (14:57→16:48)
--- NOTE | 2017-09-05 19:50 | PN ---
Progress Note (short form) - Note Progress Note: POD#17 Afebrile;VSS Pt doing well Ambulating well TF-on held secondary to clogged J-tube (just unclogged at bedside) P/E-Abd- clean, dry incision re-packed WBC-6.1 H/H-9.1/28.3 Left J-P-175 ml/24 hours (decreased from 37 ml) P-Restart TF Cont abx Check labs daily
[2017-09-05] MEDS: ZOLPIDEM TARTRATE 5 MG TABLET PO PRN (22:09)
[2017-09-06] MEDS: OCTREOTIDE ACETATE 50 MCG/1 ML - 1 ML VIAL SQ SCH ×2 (05:42→14:24)
[2017-09-06] MEDS: oxyCODONE HCL 5 MG TABLET PO PRN ×3 (08:29→17:43)
[2017-09-06 08:56] LABS: HEMATOCRIT 25.3 % (32.4-45.2); HEMOGLOBIN 8.2 GM/dL (10.7-15.3); MCH 24.8 pg (25.7-33.7); MCHC 32.2 g/dl (32.0-36.0); MEAN CELL VOLUME 76.9 fl (80-96); MEAN PLT VOLUME 7.1 fl (7.5-11.1); PLATELET COUNT 435 K/MM3 (134-434); RBC 3.29 M/mm3 (3.60-5.2)
[2017-09-06] MEDS: FAMOTIDINE 20 MG/50 ML IVPB 20 MG/50 ML MG IVPB SCH (09:04)
[2017-09-06] MEDS: METHOCARBAMOL 500 MG TABLET PO SCH (09:04)
[2017-09-06 09:22] LABS: ALBUMIN 2.1 g/dl (3.4-5.0); ALK PHOS 84 U/L (45-117); ANION GAP 6 (8-16); BILIRUBIN,TOTAL 0.3 mg/dL (0.2-1.0); BLOOD UREA NITROGEN 4 mg/dL (7-18); CALCIUM 7.7 mg/dL (8.5-10.1); CHLORIDE 104 mmol/L (98-107); CO2 29 mmol/L (21-32); CREATININE 0.8 mg/dL (0.55-1.02); GLUCOSE,RANDOM 128 mg/dL (74-106); POTASSIUM 3.8 mmol/L (3.5-5.1); SGOT/AST 7 U/L (15-37); SGPT/ALT 8 U/L (12-78); SODIUM 139 mmol/L (136-145); TOT PROT 5.1 g/dl (6.4-8.2)
[2017-09-06] MEDS ORDERED: DEXTROSE 5%-WATER 100 ML IVPB ONE (09:48)
[2017-09-06] MEDS: CEFTRIAXONE 2 GM in DEXTROSE 5%-WATER 100 ML IVPB SCH (09:50)
[2017-09-06] MEDS: VANCOMYCIN 1 GM PREMIX - 1 GM/200 ML BAG IVPB SCH (12:30)
--- NOTE | 2017-09-06 13:33 | PN ---
Progress Note (short form) - Note Progress Note: no fevers feels well no cough, no sob ambulating Vital Signs Period Temp Pulse Resp BP Sys/Lugo Pulse Ox Last 24 Hr 97.6 F-98.9 F 79-88 18-20 96-110/56-68 98-98 cor-rrr lungs clear abd soft, open incision lower aspect, clean [address] CBC, BMP 09/06/17 08:20 09/06/17 08:20 Microbiology 08/29/17 12:50 Blood - Peripheral Venous Blood Culture - Final NO GROWTH AFTER 5 DAYS INCUBATION 08/29/17 12:25 Blood - Peripheral Venous Blood Culture - Final NO GROWTH AFTER 5 DAYS INCUBATION 08/29/17 14:15 Abdomen Gram Stain - Final 08/29/17 14:15 Abdomen Body Fluid Culture - Final Escherichia Coli Enterococcus Faecium Staphylococcus Epidermidis 08/29/17 14:15 Abdomen Anaerobic Culture - Final Bacteroides Fragilis 08/29/17 14:15 Abdomen Gram Stain - Final 08/29/17 14:15 Abdomen Wound Culture - Final Enterococcus Durans/Hirae Yeast Like Organism Morganella Morganii 08/29/17 14:15 Abdomen Gram Stain - Final 08/29/17 14:15 Abdomen Body Fluid Culture - Final NO GROWTH OF AEROBIC ORGANISMS AFTER 48 HOURS INCUBATION 08/29/17 14:15 Abdomen Anaerobic Culture - Final NO ANAEROBES WERE ISOLATED 08/20/17 17:15 Blood - Peripheral Venous Blood Culture - Final NO GROWTH AFTER 5 DAYS INCUBATION 08/20/17 17:00 Blood - Peripheral Venous Blood Culture - Final NO GROWTH AFTER 5 DAYS INCUBATION a/p fevers/leukocytosis-resolved on antibiotics ?bile leak, ?superficial wound infection s/p surgery 08/19 Ct scan abd/pelvis noted- further management per dr adams continue vancomycin, rocephin/flagyl cancidas repeat vancomycin trough Problem List - Problems (1) Ischemic necrosis of small bowel Code(s): K55.029 - ACUTE INFARCTION OF SMALL INTESTINE, EXTENT UNSPECIFIED (2) S/P small bowel resection Code(s): Z90.49 - ACQUIRED ABSENCE OF OTHER SPECIFIED PARTS OF DIGESTIVE TRACT (3) H/O gastric bypass Code(s): Z98.84 - BARIATRIC SURGERY STATUS
--- NOTE | 2017-09-06 13:59 | PN ---
GI Progress Note Subjective: 915cc dark brown / bilious output from left BON drain since wednesday including 100cc from today No focal complaints HIDA and UGIS/SBS unrevealing - Objective Vital Signs: Vital Signs Temperature 98.6 F 09/06/17 10:00 Pulse Rate 84 09/06/17 10:00 Respiratory Rate 20 09/06/17 10:00 Blood Pressure 100/56 09/06/17 10:00 O2 Sat by Pulse Oximetry (%) 98 09/06/17 09:00 Constitutional: Calm Eyes: No: Sclera Icterus Cardiovascular: Yes: Regular Rate and Rhythm Respiratory: Yes: CTA Bilaterally Gastrointestinal Inspection: No: Distention ...Auscultate: Yes: Normoactive Bowel Sounds Neurological: Yes: Alert, Oriented Labs: CBC, BMP 09/06/17 08:20 09/06/17 08:20 INR, PTT INR 0.97 (0.82-1.09) 08/19/17 08:27 Problem List - Problems (1) Duodenal anastomotic leak Assessment/Plan: Some decreased output from BON drain: Continue octreotide for now ? Transfer to [facility] in the works for continued treatment and evaluation. Plan per Dr. Lehman Code(s): K91.89 - OTH POSTPROCEDURAL COMPLICATIONS AND DISORDERS OF DGSTV SYS
[2017-09-06] MEDS ORDERED: PT OWN MED DRAWER 7, Y5N ONE (14:14)
[2017-09-06 14:59] VITALS: BP 96/57; PULSE 92; TEMP 99.1
[2017-09-06] MEDS ORDERED: ALPRAZolam 0.25 MG TABLET PO PRN (15:22)
[2017-09-06] MEDS: CASPOFUNGIN ACETATE 50 MG in SODIUM CHLORIDE 250 ML IVPB SCH (16:26)
== END 2017-09-06 19:00 | disposition short-term general hospital (02) | DRG 326 ==
LOC: JSAMEDAYSX 08:02 → EDSTATUS 12:00 → JICU 22:30 → J8W 08-24 15:48
PROVIDERS: ADMIT Surgery; ATTEND Surgery
PROC: 0D160ZA Bypass Stomach to Jejunum, Open Approach (ICD-10-PCS; 2017-08-19)
PROC: 0DNU0ZZ Release Omentum, Open Approach (ICD-10-PCS; 2017-08-19)
PROC: 0W9F00Z Drainage of Abdominal Wall with Drainage Device, Open Approach (ICD-10-PCS; 2017-08-19)
PROC: 0DQV0ZZ Repair Mesentery, Open Approach (ICD-10-PCS; 2017-08-19)
PROC: 0DHA3UZ Insertion of Feeding Device into Jejunum, Percutaneous Approach (ICD-10-PCS; 2017-08-19)
PROC: 3E0H76Z Introduction of Nutritional Substance into Lower GI, Via Natural or Artificial Opening (ICD-10-PCS; 2017-08-19)
PROC: 30233N1 Transfusion of Nonautologous Red Blood Cells into Peripheral Vein, Percutaneous Approach (ICD-10-PCS; 2017-08-19)
PROC: 0DT80ZZ Resection of Small Intestine, Open Approach (ICD-10-PCS; principal; 2017-08-19 10:00)
PROC: 02HV33Z Insertion of Infusion Device into Superior Vena Cava, Percutaneous Approach (ICD-10-PCS; 2017-09-02)
PROC: B548ZZA Ultrasonography of Superior Vena Cava, Guidance (ICD-10-PCS; 2017-09-02)
DX: K91.31 Postprocedural partial intestinal obstruction (principal); K55.029 Acute infarction of small intestine, extent unspecified; N17.9 Acute kidney failure, unspecified; Z68.41 Body mass index [BMI] 40.0-44.9, adult; D62 Acute posthemorrhagic anemia; K91.89 Other postprocedural complications and disorders of digestive system; K46.0 Unspecified abdominal hernia with obstruction, without gangrene; E66.01 Morbid (severe) obesity due to excess calories; E83.39 Other disorders of phosphorus metabolism; E83.51 Hypocalcemia; Y83.8 Other surgical procedures as the cause of abnormal reaction of the patient, or of later complication, without mention of misadventure at the time of the procedure; Z98.84 Bariatric surgery status
CPT/HCPCS: 36415; 36430; 36556; 71045-TC-FY; 74176-TC; 74247-TC-FY; 74251-TC-FY; 77001-TC-FY; 78226-TC; 80053; 81003; 81015; 82150; 82945; 83615; 83735; 84100; 84157; 84703; 85025; 85027; 85610; 85651; 86140; 86850; 86860; 86870; 86880; 86900; 86901; 86902; 86922; 87040; 87070; 87075; 87186; 87205; 88307-TC; 89050; 93005; 93010; 94010; 94760; A9537; C1751; G0480; J0131; J0637; J7030; P9038; P9058

== ENCOUNTER 2018-09-13 13:56 | Inpatient (IN) | payer BC, OTHER ==
[2018-09-14] MEDS ORDERED: oxyCODONE HCL 5 MG TABLET PO PRN (12:31)
[2018-09-14] MEDS ORDERED: SUMAtriptan SUCCINATE 25 MG TABLET PO PRN (12:41)
[2018-09-14] MEDS: LACTATED RINGERS SOLUTION 1,000 ML IV SCH (14:16)
[2018-09-14] MEDS: SUCRALFATE 1 GM/10 ML UNIT DOSE CUPS PO SCH ×3 (14:16→21:50)
[2018-09-14] MEDS: PANTOPRAZOLE SODIUM 40 MG VIAL IVPUSH SCH ×2 (14:17→21:50)
[2018-09-14] MEDS: morphine SO4 SUSTAINED ACTING 15 MG TABLET.SA PO SCH ×2 (14:18→21:49)
[2018-09-14 14:38] LABS: BASO % 0.6 % (0-2.0); EOS % 4.5 % (0-4.5); HEMOGLOBIN 9.1 GM/dL (10.7-15.3); MCH 28.1 pg (25.7-33.7); MCHC 32.5 g/dl (32.0-36.0); MEAN CELL VOLUME 86.6 fl (80-96); MEAN PLT VOLUME 9.1 fl (7.5-11.1); MONO % 5.7 % (3.8-10.2); NEUT % 56.2 % (42.8-82.8); PLATELET COUNT 281 K/MM3 (134-434); RBC 3.23 M/mm3 (3.60-5.2); WHITE BLOOD COUNT 5.1 K/mm3 (4.0-10.0)
[2018-09-14 14:39] LABS: INR 1.21 (0.83-1.09); PROTHROMBIN TIME (PATIENT) 14.3 SEC (9.7-13.0)
[2018-09-14 15:15] LABS: ALBUMIN 1.6 g/dl (3.4-5.0); BILIRUBIN,TOTAL 0.3 mg/dL (0.2-1); CALCIUM 7.7 mg/dL (8.5-10.1); CREATININE 0.5 mg/dL (0.55-1.3); POTASSIUM 4.8 mmol/L (3.5-5.1); TOT PROT 4.5 g/dl (6.4-8.2)
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
[2018-09-14] MEDS: CHOLESTYRAMINE/ASPARTAME 4 GM PACKET PO SCH ×2 (16:31→21:50)
[2018-09-14] MEDS: HYDROmorphone HCl 2 MG/ML VIAL IVPUSH PRN ×2 (16:32→20:32)
[2018-09-14] MEDS ORDERED: PT OWN MED DRAWER 7, Y5N ONE (18:26)
[2018-09-14] MEDS: TOPIRAMATE 25 MG TABLET (FP) PO SCH (21:50)
[2018-09-14] MEDS: ZOLPIDEM TARTRATE 5 MG TABLET PO PRN (21:50)
[2018-09-15] MEDS: HYDROmorphone HCl 2 MG/ML VIAL IVPUSH PRN ×6 (01:33→21:17)
[2018-09-15] MEDS: LACTATED RINGERS SOLUTION 1,000 ML IV SCH ×2 (03:10→17:16)
[2018-09-15] MEDS: CHOLESTYRAMINE/ASPARTAME 4 GM PACKET PO SCH ×3 (05:22→21:16)
[2018-09-15 08:44] LABS: BASO % 0.6 % (0-2.0); HEMATOCRIT 31.6 % (32.4-45.2); HEMOGLOBIN 10.6 GM/dL (10.7-15.3); LYMPH % 34.1 % (8-40); MCH 29.2 pg (25.7-33.7); MCHC 33.5 g/dl (32.0-36.0); MEAN CELL VOLUME 87.2 fl (80-96); MEAN PLT VOLUME 8.3 fl (7.5-11.1); MONO % 5.5 % (3.8-10.2); NEUT % 55.8 % (42.8-82.8); RBC 3.62 M/mm3 (3.60-5.2); RDW 15.1 % (11.6-15.6)
[2018-09-15 08:57] LABS: ALBUMIN 1.8 g/dl (3.4-5.0); BILIRUBIN,TOTAL 0.4 mg/dL (0.2-1); BLOOD UREA NITROGEN 5.6 mg/dL (7-18); CALCIUM 7.7 mg/dL (8.5-10.1); CREATININE 0.6 mg/dL (0.55-1.3); POTASSIUM 4.2 mmol/L (3.5-5.1)
[2018-09-15] MEDS: PANTOPRAZOLE SODIUM 40 MG VIAL IVPUSH SCH ×2 (09:05→21:15)
[2018-09-15 09:18] LABS: PLATELET COUNT 372 K/MM3 (134-434)
[2018-09-15] MEDS: morphine SO4 SUSTAINED ACTING 15 MG TABLET.SA PO SCH ×3 (10:22→21:16)
[2018-09-15] MEDS: SUCRALFATE 1 GM/10 ML UNIT DOSE CUPS PO SCH ×4 (10:22→21:16)
--- NOTE | 2018-09-15 11:47 | PN ---
Progress Note, Physician Chief Complaint: patient seen and examined awaiting to go to OR for surgery just got pain medication and says abdominal pain in LLQ is better - Current Medication List Current Medications: Active Medications Cholestyramine Resin (Questran Light Packet -) 4 gm PO TID [facility] Last Admin: 09/15/18 05:22 Dose: Not Given Hydromorphone HCl (Dilaudid Vial -) 1 mg IVPUSH Q3H PRN PRN Reason: PAIN LEVEL 7 - 10 Last Admin: 09/15/18 09:00 Dose: 1 mg Lactated Ringer's (Lactated Ringers Solution) 1,000 mls @ 75 mls/hr IV ASDIR [facility] Last Admin: 09/15/18 03:10 Dose: 75 mls/hr Morphine Sulfate (Ms Contin -) 15 mg PO BID [facility] Last Admin: 09/15/18 10:22 Dose: Not Given Ondansetron HCl (Zofran Injection) 8 mg IVPUSH Q8H PRN PRN Reason: NAUSEA Oxycodone HCl (Roxicodone -) 10 mg PO TID PRN PRN Reason: PAIN LEVEL 6-10 Pantoprazole Sodium (Protonix Iv) 40 mg IVPUSH BID [facility] Last Admin: 09/15/18 09:05 Dose: 40 mg Sucralfate (Carafate Oral Suspension -) 1 gm PO QID [facility] Last Admin: 09/15/18 10:22 Dose: Not Given Sumatriptan Succinate (Imitrex -) 25 mg PO BID PRN PRN Reason: MIGRAINE HEADACHE Topiramate (Topamax -) 25 mg PO HS [facility] Last Admin: 09/14/18 21:50 Dose: 25 mg Zolpidem Tartrate (Ambien -) 10 mg PO HS PRN PRN Reason: INSOMNIA Last Admin: 09/14/18 21:50 Dose: 10 mg - Objective Vital Signs: Vital Signs Temperature 97.8 F 09/15/18 09:00 Pulse Rate 67 09/15/18 09:00 Respiratory Rate 20 09/15/18 09:00 Blood Pressure 111/71 09/15/18 09:00 O2 Sat by Pulse Oximetry (%) Constitutional: Yes: Calm Cardiovascular: Yes: Regular Rate and Rhythm, S1, S2 Respiratory: Yes: CTA Bilaterally Gastrointestinal: Yes: Soft, Hypoactive Bowel Sounds Edema: No Neurological: Yes: Alert, Oriented Labs: CBC, BMP 09/15/18 06:35 09/15/18 06:35 INR, PTT INR 1.21 (0.83-1.09) H 09/14/18 13:48 Problem List - Problems (1) Abdominal pain Assessment/Plan: NPO to go to OR today pain medication IV PPI Code(s): R10.9 - UNSPECIFIED ABDOMINAL PAIN (2) Peptic ulcer disease Assessment/Plan: sucralfate iv ppi Code(s): K27.9 - PEPTIC ULC, SITE UNSP, UNSP AC OR CHR, W/O HEMOR OR PERF (3) Migraine Assessment/Plan: imitrex and topiramate Code(s): G43.909 - MIGRAINE, UNSP, NOT INTRACTABLE, WITHOUT STATUS MIGRAINOSUS
[2018-09-15] MEDS ORDERED: HYDROmorphone HCl 2 MG/ML VIAL IVPB ONE (13:06)
--- NOTE | 2018-09-15 16:40 | PN ---
Progress Note (short form) - Note Progress Note: Pt well-known to me. 15 years S/P open Gastric Bypass and 1 year S/P reconstruction of jejuno-jejunostomy for intussusception. Pt has 6 month history of worsening Gastro-jejunal ulcer. Ulcer has bled intermittently requiring multiple ER visits for transfusions and has caused pain and vomiting leading to dehydration and weight loss. Pt transferred from [facility] for definitive care of Anastomotic ulcer. PMH- Back Pain, Anastomotic Ulcer PSH- L4-L5;L5-S1 fusion Gastric Bypass Small Bowel resection plus anastomosis Meds- Oxycodone Oxycontin Ambien Protonix Maxalt Zofran Octrotide Robaxin Xanax Lunesta Albuterol inhaler ALL- NSAID Aspirin Reglan P/E- Gen- Awake, alert, pale-looking, NAD Abd- midline incision well-healed soft, non-tender on palpation Ext- no swelling (TEDS in place) WBC-5.0 H/H-10.6/31.6 ALB-1.8 I- Gastro-jejunal anastomotic ulcer S/P Gastric Bypass P- OR to be scheduled early next week Resection of anastomotic ulcer and Reversal of Gastric Bypass Pt to be on PO regular diet with protein supplements to improve nutritional status prior to surgery Discussed with pt, , and family and all agree.
[2018-09-15] MEDS: TOPIRAMATE 25 MG TABLET (FP) PO SCH (21:16)
[2018-09-15] MEDS: ONDANSETRON 4 MG/2 ML VIAL IVPUSH PRN (21:42)
[2018-09-15] MEDS: ZOLPIDEM TARTRATE 5 MG TABLET PO PRN (21:59)
[2018-09-16] MEDS: HYDROmorphone HCl 2 MG/ML VIAL IVPUSH PRN ×5 (04:06→21:30)
[2018-09-16 04:20] LABS: SERUM IRON SATURATION 22 % (15-55); TOTAL IRON BINDING CAPACITY 151 ug/dL (250-450); UIBC 118 ug/dL (131-425)
[2018-09-16] MEDS: ONDANSETRON 4 MG/2 ML VIAL IVPUSH PRN ×2 (07:57→20:18)
[2018-09-16] MEDS: CHOLESTYRAMINE/ASPARTAME 4 GM PACKET PO SCH ×3 (08:06→21:28)
[2018-09-16 08:09] LABS: ALBUMIN 1.8 g/dl (3.4-5.0); BILIRUBIN,TOTAL 0.3 mg/dL (0.2-1); BLOOD UREA NITROGEN 6.6 mg/dL (7-18); CALCIUM 7.9 mg/dL (8.5-10.1); CREATININE 0.6 mg/dL (0.55-1.3); POTASSIUM 4.2 mmol/L (3.5-5.1); TOT PROT 4.9 g/dl (6.4-8.2)
[2018-09-16 08:16] LABS: BASO % 0.3 % (0-2.0); EOS % 3.4 % (0-4.5); HEMATOCRIT 29.2 % (32.4-45.2); HEMOGLOBIN 9.8 GM/dL (10.7-15.3); LYMPH % 29.7 % (8-40); MCH 28.7 pg (25.7-33.7); MCHC 33.6 g/dl (32.0-36.0); MEAN CELL VOLUME 85.6 fl (80-96); MEAN PLT VOLUME 7.9 fl (7.5-11.1); NEUT % 60.6 % (42.8-82.8); PLATELET COUNT 354 K/MM3 (134-434); RDW 15.3 % (11.6-15.6); WHITE BLOOD COUNT 4.4 K/mm3 (4.0-10.0)
[2018-09-16] MEDS: morphine SO4 SUSTAINED ACTING 15 MG TABLET.SA PO SCH ×2 (09:23→21:29)
[2018-09-16] MEDS: SUCRALFATE 1 GM/10 ML UNIT DOSE CUPS PO SCH ×4 (09:24→21:29)
[2018-09-16] MEDS: PANTOPRAZOLE SODIUM 40 MG VIAL IVPUSH SCH ×2 (09:24→21:28)
--- NOTE | 2018-09-16 13:45 | PROC ---
Procedure Note Procedure: Pt doing well No N/V Tolerating PO regular diet plus protein supplements Pt ambulating well P/E- Abd- midline incision well-healed WBC-4.4 H/H- 9.8/29.2 Alb-1.8 P- Continue regular diet plus protein supplements to improve nutrition prior to surgery Continue pain meds for continuous pain from anastomotic ulcer Continue anti-nausea meds as needed
--- NOTE | 2018-09-16 14:26 | PN ---
Progress Note, Physician Chief Complaint: patient to get surgery next week - Current Medication List Current Medications: Active Medications Amino Acids (Prosource No Carb Liquid Pkt) 30 ml PO BID@0800,1730 [facility] Cholestyramine Resin (Questran Light Packet -) 4 gm PO TID [facility] Last Admin: 09/16/18 13:11 Dose: 4 gm Hydromorphone HCl (Dilaudid Vial -) 2 mg IVPUSH Q4H PRN PRN Reason: PAIN LEVEL 6-10 Last Admin: 09/16/18 12:38 Dose: 2 mg Lactated Ringer's (Lactated Ringers Solution) 1,000 mls @ 75 mls/hr IV ASDIR [facility] Last Admin: 09/15/18 17:16 Dose: 75 mls/hr Morphine Sulfate (Ms Contin -) 15 mg PO BID [facility] Last Admin: 09/16/18 09:23 Dose: 15 mg Ondansetron HCl (Zofran Injection) 8 mg IVPUSH Q8H PRN PRN Reason: NAUSEA Last Admin: 09/16/18 07:57 Dose: 8 mg Oxycodone HCl (Roxicodone -) 10 mg PO TID PRN PRN Reason: PAIN LEVEL 6-10 Pantoprazole Sodium (Protonix Iv) 40 mg IVPUSH BID [facility] Last Admin: 09/16/18 09:24 Dose: 40 mg Sucralfate (Carafate Oral Suspension -) 1 gm PO QID [facility] Last Admin: 09/16/18 13:11 Dose: 1 gm Sumatriptan Succinate (Imitrex -) 25 mg PO BID PRN PRN Reason: MIGRAINE HEADACHE Topiramate (Topamax -) 25 mg PO HS [facility] Last Admin: 09/15/18 21:16 Dose: 25 mg Zolpidem Tartrate (Ambien -) 10 mg PO HS PRN PRN Reason: INSOMNIA Last Admin: 09/15/18 21:59 Dose: 10 mg - Objective Vital Signs: Vital Signs Temperature 98.0 F 09/16/18 14:04 Pulse Rate 70 09/16/18 14:04 Respiratory Rate 20 09/16/18 09:00 Blood Pressure 107/67 09/16/18 14:04 O2 Sat by Pulse Oximetry (%) Constitutional: Yes: Calm Cardiovascular: Yes: Regular Rate and Rhythm, S1, S2 Respiratory: Yes: CTA Bilaterally Gastrointestinal: Yes: Normal Bowel Sounds, Soft Neurological: Yes: Alert, Oriented Labs: CBC, BMP 09/16/18 06:58 09/16/18 06:58 INR, PTT INR 1.21 (0.83-1.09) H 09/14/18 13:48 Problem List - Problems (1) Abdominal pain Assessment/Plan: regular diet to go to OR next week pain control Code(s): R10.9 - UNSPECIFIED ABDOMINAL PAIN (2) Peptic ulcer disease Assessment/Plan: sucralfate iv ppi Code(s): K27.9 - PEPTIC ULC, SITE UNSP, UNSP AC OR CHR, W/O HEMOR OR PERF (3) Migraine Assessment/Plan: imitrex and topiramate Code(s): G43.909 - MIGRAINE, UNSP, NOT INTRACTABLE, WITHOUT STATUS MIGRAINOSUS
[2018-09-16] MEDS: AMINO ACIDS/PROTEIN HYDROLYS 30 ML LIQUID.PKT PO SCH (18:09)
[2018-09-16] MEDS: LACTATED RINGERS SOLUTION 1,000 ML IV SCH (21:29)
[2018-09-16] MEDS: ZOLPIDEM TARTRATE 5 MG TABLET PO PRN (21:29)
[2018-09-16] MEDS: TOPIRAMATE 25 MG TABLET (FP) PO SCH (21:29)
[2018-09-17] MEDS: HYDROmorphone HCl 2 MG/ML VIAL IVPUSH PRN (03:42)
[2018-09-17] MEDS: CHOLESTYRAMINE/ASPARTAME 4 GM PACKET PO SCH ×3 (06:04→21:18)
[2018-09-17 07:51] LABS: ALBUMIN 1.5 g/dl (3.4-5.0); BILIRUBIN,TOTAL 0.3 mg/dL (0.2-1); BLOOD UREA NITROGEN 8.5 mg/dL (7-18); CALCIUM 7.7 mg/dL (8.5-10.1); CREATININE 0.7 mg/dL (0.55-1.3); TOT PROT 4.2 g/dl (6.4-8.2)
[2018-09-17 08:07] LABS: BASO % 0.5 % (0-2.0); EOS % 2.4 % (0-4.5); HEMATOCRIT 26.5 % (32.4-45.2); LYMPH % 37.7 % (8-40); MCH 29.1 pg (25.7-33.7); MCHC 34.1 g/dl (32.0-36.0); MEAN CELL VOLUME 85.3 fl (80-96); MEAN PLT VOLUME 7.9 fl (7.5-11.1); MONO % 7.5 % (3.8-10.2); NEUT % 51.9 % (42.8-82.8); PLATELET COUNT 259 K/MM3 (134-434); RDW 15.2 % (11.6-15.6); WHITE BLOOD COUNT 3.5 K/mm3 (4.0-10.0)
[2018-09-17] MEDS: AMINO ACIDS/PROTEIN HYDROLYS 30 ML LIQUID.PKT PO SCH ×2 (08:47→17:06)
[2018-09-17] MEDS: HYDROmorphone HCl 2 MG/ML VIAL IVPB PRN ×4 (08:51→23:02)
[2018-09-17] MEDS: morphine SO4 SUSTAINED ACTING 15 MG TABLET.SA PO SCH ×2 (09:30→21:17)
[2018-09-17] MEDS: SUCRALFATE 1 GM/10 ML UNIT DOSE CUPS PO SCH ×4 (09:30→23:02)
[2018-09-17] MEDS: PANTOPRAZOLE SODIUM 40 MG VIAL IVPUSH SCH ×2 (09:31→21:18)
--- NOTE | 2018-09-17 09:39 | PN ---
Progress Note, Physician Chief Complaint: AWAKE ALERT DENIES CP OR SOB NO N/V EVENTS AND NOTES REVIEWED - Current Medication List Current Medications: Active Medications Amino Acids (Prosource No Carb Liquid Pkt) 30 ml PO BID@0800,1730 [facility] Last Admin: 09/17/18 08:47 Dose: 30 ml Cholestyramine Resin (Questran Light Packet -) 4 gm PO TID [facility] Last Admin: 09/17/18 06:04 Dose: 4 gm Hydromorphone HCl (Dilaudid Vial -) 2 mg IVPB Q4H PRN PRN Reason: PAIN LEVEL 6-10 Last Admin: 09/17/18 08:51 Dose: 2 mg Lactated Ringer's (Lactated Ringers Solution) 1,000 mls @ 75 mls/hr IV ASDIR [facility] Last Admin: 09/16/18 21:29 Dose: 75 mls/hr Morphine Sulfate (Ms Contin -) 15 mg PO BID [facility] Last Admin: 09/17/18 09:30 Dose: 15 mg Ondansetron HCl (Zofran Injection) 8 mg IVPUSH Q8H PRN PRN Reason: NAUSEA Last Admin: 09/16/18 20:18 Dose: 8 mg Oxycodone HCl (Roxicodone -) 10 mg PO TID PRN PRN Reason: PAIN LEVEL 6-10 Last Admin: 09/16/18 20:20 Dose: 10 mg Pantoprazole Sodium (Protonix Iv) 40 mg IVPUSH BID [facility] Last Admin: 09/17/18 09:31 Dose: 40 mg Sucralfate (Carafate Oral Suspension -) 1 gm PO QID [facility] Last Admin: 09/17/18 09:30 Dose: 1 gm Sumatriptan Succinate (Imitrex -) 25 mg PO BID PRN PRN Reason: MIGRAINE HEADACHE Topiramate (Topamax -) 25 mg PO HS [facility] Last Admin: 09/16/18 21:29 Dose: 25 mg Zolpidem Tartrate (Ambien -) 10 mg PO HS PRN PRN Reason: INSOMNIA Last Admin: 09/16/18 21:29 Dose: 10 mg - Objective Vital Signs: Vital Signs Temperature 98.6 F 09/17/18 05:23 Pulse Rate 62 09/17/18 05:23 Respiratory Rate 18 09/17/18 05:23 Blood Pressure 96/54 L 09/17/18 05:23 O2 Sat by Pulse Oximetry (%) Constitutional: Yes: No Distress Eyes: Yes: WNL HENT: Yes: WNL Neck: Yes: WNL Cardiovascular: Yes: WNL Respiratory: Yes: WNL Gastrointestinal: Yes: WNL Genitourinary: Yes: WNL Musculoskeletal: Yes: WNL Extremities: Yes: WNL Edema: No Peripheral Pulses WNL: Yes Integumentary: Yes: WNL Wound/Incision: Yes: Clean/Dry Neurological: Yes: WNL ...Motor Strength: WNL Psychiatric: Yes: WNL Labs: CBC, BMP 09/17/18 06:40 09/17/18 06:40 INR, PTT INR 1.21 (0.83-1.09) H 09/14/18 13:48 Problem List - Problems (1) Abdominal pain Code(s): R10.9 - UNSPECIFIED ABDOMINAL PAIN (2) Anemia Code(s): D64.9 - ANEMIA, UNSPECIFIED (3) Peptic ulcer disease Code(s): K27.9 - PEPTIC ULC, SITE UNSP, UNSP AC OR CHR, W/O HEMOR OR PERF (4) Duodenal anastomotic leak Code(s): K91.89 - OTH POSTPROCEDURAL COMPLICATIONS AND DISORDERS OF DGSTV SYS (5) H/O gastric bypass Code(s): Z98.84 - BARIATRIC SURGERY STATUS Assessment/Plan SURGERY NEXT WEEK REVERSE GASTRIC BYPASS WITH DR PHILIP IV PPI IVF PAIN CONTROL DVT PROPHYLAXIS
[2018-09-17] MEDS: ONDANSETRON 4 MG/2 ML VIAL IVPUSH PRN ×2 (12:58→23:05)
[2018-09-17] MEDS: LACTATED RINGERS SOLUTION 1,000 ML IV SCH ×2 (15:35→15:40)
[2018-09-17 18:46] LABS: URINE APPEARANCE CLEAR; URINE BILIRUBIN NEGATIVE (NEGATIVE); URINE COLOR YELLOW; URINE GLUCOSE (UA) NEGATIVE (NEGATIVE); URINE KETONE NEGATIVE (NEGATIVE); URINE LEUK ESTERASE NEGATIVE (NEGATIVE); URINE NITRITE NEGATIVE (NEGATIVE); URINE PROTEIN NEGATIVE (NEGATIVE); URINE UROBILINOGEN 0.2 mg/dL (0.2-1.0)
[2018-09-17] MEDS: TOPIRAMATE 25 MG TABLET (FP) PO SCH (21:17)
[2018-09-17] MEDS: ZOLPIDEM TARTRATE 5 MG TABLET PO PRN (23:56)
[2018-09-18] MEDS: CHOLESTYRAMINE/ASPARTAME 4 GM PACKET PO SCH ×3 (05:16→21:12)
[2018-09-18] MEDS: HYDROmorphone HCl 2 MG/ML VIAL IVPB PRN ×5 (05:16→20:41)
[2018-09-18] MEDS: LACTATED RINGERS SOLUTION 1,000 ML IV SCH ×2 (05:18→13:23)
[2018-09-18] MEDS: AMINO ACIDS/PROTEIN HYDROLYS 30 ML LIQUID.PKT PO SCH ×2 (09:07→17:01)
[2018-09-18] MEDS: PANTOPRAZOLE SODIUM 40 MG VIAL IVPUSH SCH ×2 (10:05→21:10)
[2018-09-18] MEDS: SUCRALFATE 1 GM/10 ML UNIT DOSE CUPS PO SCH ×4 (10:06→21:10)
[2018-09-18] MEDS: morphine SO4 SUSTAINED ACTING 15 MG TABLET.SA PO SCH ×2 (10:07→21:11)
--- NOTE | 2018-09-18 11:26 | PN ---
Progress Note, Physician Chief Complaint: AWAKE FAMILY BEDSIDE REPORTS PAIN OVERNIGHT RELIEVED WITH DILAUDID NO FEVER, N/V - Current Medication List Current Medications: Active Medications Amino Acids (Prosource No Carb Liquid Pkt) 30 ml PO BID@0800,1730 [facility] Last Admin: 09/18/18 09:07 Dose: 30 ml Cholestyramine Resin (Questran Light Packet -) 4 gm PO TID [facility] Last Admin: 09/18/18 05:16 Dose: 4 gm Hydromorphone HCl (Dilaudid Vial -) 2 mg IVPB Q3H PRN PRN Reason: PAIN LEVEL 6-10 Lactated Ringer's (Lactated Ringers Solution) 1,000 mls @ 75 mls/hr IV ASDIR [facility] Last Admin: 09/18/18 05:18 Dose: 75 mls/hr Morphine Sulfate (Ms Contin -) 15 mg PO BID [facility] Last Admin: 09/18/18 10:07 Dose: 15 mg Ondansetron HCl (Zofran Injection) 8 mg IVPUSH Q8H PRN PRN Reason: NAUSEA Last Admin: 09/17/18 23:05 Dose: 8 mg Oxycodone HCl (Roxicodone -) 10 mg PO TID PRN PRN Reason: PAIN LEVEL 6-10 Last Admin: 09/16/18 20:20 Dose: 10 mg Pantoprazole Sodium (Protonix Iv) 40 mg IVPUSH BID [facility] Last Admin: 09/18/18 10:05 Dose: 40 mg Sucralfate (Carafate Oral Suspension -) 1 gm PO QID [facility] Last Admin: 09/18/18 10:06 Dose: 1 gm Sumatriptan Succinate (Imitrex -) 25 mg PO BID PRN PRN Reason: MIGRAINE HEADACHE Topiramate (Topamax -) 25 mg PO HS [facility] Last Admin: 09/17/18 21:17 Dose: 25 mg Zolpidem Tartrate (Ambien -) 10 mg PO HS PRN PRN Reason: INSOMNIA Last Admin: 09/17/18 23:56 Dose: 10 mg - Objective Vital Signs: Vital Signs Temperature 98.5 F 09/18/18 06:00 Pulse Rate 69 09/18/18 06:00 Respiratory Rate 18 09/18/18 06:00 Blood Pressure 100/59 L 09/18/18 06:00 O2 Sat by Pulse Oximetry (%) 98 09/17/18 22:00 Constitutional: Yes: Mild Distress Eyes: Yes: WNL HENT: Yes: WNL Neck: Yes: WNL Cardiovascular: Yes: Regular Rate and Rhythm Respiratory: Yes: WNL Gastrointestinal: Yes: Tenderness Genitourinary: Yes: WNL Musculoskeletal: Yes: WNL Extremities: Yes: WNL Edema: No Peripheral Pulses WNL: Yes Integumentary: Yes: WNL Wound/Incision: Yes: Clean/Dry Neurological: Yes: WNL ...Motor Strength: WNL Psychiatric: Yes: WNL Labs: CBC, BMP 09/17/18 06:40 09/17/18 06:40 INR, PTT INR 1.21 (0.83-1.09) H 09/14/18 13:48 Problem List - Problems (1) Abdominal pain Code(s): R10.9 - UNSPECIFIED ABDOMINAL PAIN (2) Anemia Code(s): D64.9 - ANEMIA, UNSPECIFIED (3) Peptic ulcer disease Code(s): K27.9 - PEPTIC ULC, SITE UNSP, UNSP AC OR CHR, W/O HEMOR OR PERF (4) Duodenal anastomotic leak Code(s): K91.89 - OTH POSTPROCEDURAL COMPLICATIONS AND DISORDERS OF DGSTV SYS (5) H/O gastric bypass Code(s): Z98.84 - BARIATRIC SURGERY STATUS Assessment/Plan SURGERY NEXT WEEK REVERSE GASTRIC BYPASS WITH DR PHILIP IV PPI IVF PAIN CONTROL EVERY 3HRS DVT PROPHYLAXIS
[2018-09-18] MEDS: TOPIRAMATE 25 MG TABLET (FP) PO SCH (21:10)
[2018-09-18] MEDS: ZOLPIDEM TARTRATE 5 MG TABLET PO PRN (21:11)
[2018-09-19] MEDS: HYDROmorphone HCl 2 MG/ML VIAL IVPB PRN ×7 (00:24→21:27)
[2018-09-19] MEDS: LACTATED RINGERS SOLUTION 1,000 ML IV SCH ×3 (03:46→12:51)
[2018-09-19] MEDS: CHOLESTYRAMINE/ASPARTAME 4 GM PACKET PO SCH ×3 (05:47→21:26)
[2018-09-19] MEDS: AMINO ACIDS/PROTEIN HYDROLYS 30 ML LIQUID.PKT PO SCH ×2 (07:54→17:12)
[2018-09-19] MEDS: morphine SO4 SUSTAINED ACTING 15 MG TABLET.SA PO SCH ×2 (09:28→21:26)
[2018-09-19] MEDS: ONDANSETRON 4 MG/2 ML VIAL IVPUSH PRN (09:28)
[2018-09-19] MEDS: PANTOPRAZOLE SODIUM 40 MG VIAL IVPUSH SCH ×2 (09:28→21:26)
[2018-09-19] MEDS: SUCRALFATE 1 GM/10 ML UNIT DOSE CUPS PO SCH ×4 (09:28→21:25)
--- NOTE | 2018-09-19 13:19 | PN ---
Progress Note (short form) - Note Progress Note: Afebrile;VSS Pt unchanged C/O pain near epigastrium, receiving IV Dilaudid Tolerating PO diet, protein shakes WBC-3.5 H/H- 9.0/26.5 Alb-1.5 P- Discussed with pt surgical procedure tomorrow. All questions answered. Discussed intra-operative technique and post-op recovery. Pt understands and agrees.
--- NOTE | 2018-09-19 14:01 | PN ---
Progress Note, Physician Chief Complaint: patient seen and examined NPO midnight for OR in AM - Current Medication List Current Medications: Active Medications Amino Acids (Prosource No Carb Liquid Pkt) 30 ml PO BID@0800,1730 [facility] Last Admin: 09/19/18 07:54 Dose: 30 ml Cholestyramine Resin (Questran Light Packet -) 4 gm PO TID [facility] Last Admin: 09/19/18 13:55 Dose: 4 gm Hydromorphone HCl (Dilaudid Vial -) 2 mg IVPB Q3H PRN PRN Reason: PAIN LEVEL 6-10 Last Admin: 09/19/18 12:18 Dose: 2 mg Lactated Ringer's (Lactated Ringers Solution) 1,000 mls @ 75 mls/hr IV ASDIR [facility] Last Admin: 09/19/18 12:51 Dose: Not Given Morphine Sulfate (Ms Contin -) 15 mg PO BID [facility] Last Admin: 09/19/18 09:28 Dose: 15 mg Ondansetron HCl (Zofran Injection) 8 mg IVPUSH Q8H PRN PRN Reason: NAUSEA Last Admin: 09/19/18 09:28 Dose: 8 mg Oxycodone HCl (Roxicodone -) 10 mg PO TID PRN PRN Reason: PAIN LEVEL 6-10 Last Admin: 09/16/18 20:20 Dose: 10 mg Pantoprazole Sodium (Protonix Iv) 40 mg IVPUSH BID [facility] Last Admin: 09/19/18 09:28 Dose: 40 mg Sucralfate (Carafate Oral Suspension -) 1 gm PO QID [facility] Last Admin: 09/19/18 13:55 Dose: 1 gm Sumatriptan Succinate (Imitrex -) 25 mg PO BID PRN PRN Reason: MIGRAINE HEADACHE Topiramate (Topamax -) 25 mg PO HS [facility] Last Admin: 09/18/18 21:10 Dose: 25 mg Zolpidem Tartrate (Ambien -) 10 mg PO HS PRN PRN Reason: INSOMNIA Last Admin: 09/18/18 21:11 Dose: 10 mg - Objective Vital Signs: Vital Signs Temperature 98.5 F 09/19/18 10:00 Pulse Rate 70 09/19/18 10:00 Respiratory Rate 20 09/19/18 10:00 Blood Pressure 97/55 L 09/19/18 10:00 O2 Sat by Pulse Oximetry (%) 98 09/18/18 21:00 Constitutional: Yes: Calm Cardiovascular: Yes: Regular Rate and Rhythm, S1, S2 Respiratory: Yes: CTA Bilaterally Gastrointestinal: Yes: Normal Bowel Sounds, Soft Edema: No Neurological: Yes: Alert, Oriented Labs: CBC, BMP 09/17/18 06:40 09/17/18 06:40 INR, PTT INR 1.21 (0.83-1.09) H 09/14/18 13:48 Problem List - Problems (1) Abdominal pain Assessment/Plan: NPO tonight OR in AM on iv dilaudid and ms contin Code(s): R10.9 - UNSPECIFIED ABDOMINAL PAIN (2) Peptic ulcer disease Assessment/Plan: sucralfate iv ppi Code(s): K27.9 - PEPTIC ULC, SITE UNSP, UNSP AC OR CHR, W/O HEMOR OR PERF (3) Migraine Assessment/Plan: imitrex and topiramate Code(s): G43.909 - MIGRAINE, UNSP, NOT INTRACTABLE, WITHOUT STATUS MIGRAINOSUS
[2018-09-19] MEDS: TOPIRAMATE 25 MG TABLET (FP) PO SCH (21:26)
[2018-09-19] MEDS: ZOLPIDEM TARTRATE 5 MG TABLET PO PRN (23:58)
[2018-09-20] MEDS: HYDROmorphone HCl 2 MG/ML VIAL IVPB PRN ×7 (00:17→21:41)
[2018-09-20] MEDS: LACTATED RINGERS SOLUTION 1,000 ML IV SCH ×3 (02:41→15:37)
[2018-09-20] MEDS: CHOLESTYRAMINE/ASPARTAME 4 GM PACKET PO SCH ×3 (06:14→21:41)
[2018-09-20 07:51] LABS: BASO % 0.8 % (0-2.0); EOS % 3.1 % (0-4.5); HEMATOCRIT 29.9 % (32.4-45.2); HEMOGLOBIN 9.9 GM/dL (10.7-15.3); MCH 28.6 pg (25.7-33.7); MEAN CELL VOLUME 86.5 fl (80-96); MEAN PLT VOLUME 7.9 fl (7.5-11.1); NEUT % 47.1 % (42.8-82.8); PLATELET COUNT 267 K/MM3 (134-434); RBC 3.46 M/mm3 (3.60-5.2); RDW 15.8 % (11.6-15.6); WHITE BLOOD COUNT 4.3 K/mm3 (4.0-10.0)
[2018-09-20 08:04] LABS: ALBUMIN 1.6 g/dl (3.4-5.0); BILIRUBIN,TOTAL 0.2 mg/dL (0.2-1); CALCIUM 8.2 mg/dL (8.5-10.1); CREATININE 0.7 mg/dL (0.55-1.3); POTASSIUM 4.8 mmol/L (3.5-5.1); TOT PROT 4.5 g/dl (6.4-8.2)
[2018-09-20] MEDS: AMINO ACIDS/PROTEIN HYDROLYS 30 ML LIQUID.PKT PO SCH ×2 (08:32→16:36)
--- NOTE | 2018-09-20 09:26 | PN ---
Progress Note (short form) - Note Progress Note: Patient going to OR today for reversal of gastric bypass. Type and Screen ordered. PRCB x 2 on hold for OR
--- NOTE | 2018-09-20 09:27 | PN ---
Progress Note, Physician - Current Medication List Current Medications: Active Medications Amino Acids (Prosource No Carb Liquid Pkt) 30 ml PO BID@0800,1730 [facility] Last Admin: 09/20/18 08:32 Dose: Not Given Cholestyramine Resin (Questran Light Packet -) 4 gm PO TID [facility] Last Admin: 09/20/18 06:14 Dose: Not Given Hydromorphone HCl (Dilaudid Vial -) 2 mg IVPB Q3H PRN PRN Reason: PAIN LEVEL 6-10 Last Admin: 09/20/18 06:13 Dose: 2 mg Lactated Ringer's (Lactated Ringers Solution) 1,000 mls @ 75 mls/hr IV ASDIR [facility] Last Admin: 09/20/18 02:41 Dose: 75 mls/hr Morphine Sulfate (Ms Contin -) 15 mg PO BID [facility] Last Admin: 09/19/18 21:26 Dose: 15 mg Ondansetron HCl (Zofran Injection) 8 mg IVPUSH Q8H PRN PRN Reason: NAUSEA Last Admin: 09/19/18 09:28 Dose: 8 mg Pantoprazole Sodium (Protonix Iv) 40 mg IVPUSH BID [facility] Last Admin: 09/19/18 21:26 Dose: 40 mg Sucralfate (Carafate Oral Suspension -) 1 gm PO QID [facility] Last Admin: 09/19/18 21:25 Dose: 1 gm Sumatriptan Succinate (Imitrex -) 25 mg PO BID PRN PRN Reason: MIGRAINE HEADACHE Topiramate (Topamax -) 25 mg PO HS [facility] Last Admin: 09/19/18 21:26 Dose: 25 mg Zolpidem Tartrate (Ambien -) 10 mg PO HS PRN PRN Reason: INSOMNIA Last Admin: 09/19/18 23:58 Dose: 10 mg - Objective Vital Signs: Vital Signs Temperature 98.5 F 09/20/18 09:00 Pulse Rate 75 09/20/18 09:00 Respiratory Rate 20 09/20/18 09:00 Blood Pressure 84/54 L 09/20/18 09:00 O2 Sat by Pulse Oximetry (%) 98 09/19/18 21:00 Cardiovascular: Yes: Regular Rate and Rhythm Respiratory: Yes: Regular, CTA Bilaterally Gastrointestinal: Yes: Normal Bowel Sounds, Soft Labs: CBC, BMP 09/20/18 06:52 09/20/18 06:52 INR, PTT INR 1.21 (0.83-1.09) H 09/14/18 13:48 Assessment/Plan - Problems (1) Abdominal pain Assessment/Plan: NPO OR for revision of bypass on iv dilaudid and ms contin Code(s): R10.9 - UNSPECIFIED ABDOMINAL PAIN (2) Peptic ulcer disease Assessment/Plan: sucralfate iv ppi Code(s): K27.9 - PEPTIC ULC, SITE UNSP, UNSP AC OR CHR, W/O HEMOR OR PERF (3) Migraine Assessment/Plan: imitrex and topiramate Code(s): G43.909 - MIGRAINE, UNSP, NOT INTRACTABLE, WITHOUT STATUS MIGRAINOSUS
[2018-09-20] MEDS: SUCRALFATE 1 GM/10 ML UNIT DOSE CUPS PO SCH ×4 (09:34→21:40)
[2018-09-20] MEDS: morphine SO4 SUSTAINED ACTING 15 MG TABLET.SA PO SCH ×2 (09:34→21:40)
[2018-09-20] MEDS: PANTOPRAZOLE SODIUM 40 MG VIAL IVPUSH SCH ×2 (09:34→21:40)
--- NOTE | 2018-09-20 10:33 | EKG ---
Test Reason : Blood Pressure : / mmHG Vent. Rate : 056 BPM Atrial Rate : 056 BPM P-R Int : 130 ms QRS Dur : 082 ms QT Int : 428 ms P-R-T Axes : 055 068 055 degrees QTc Int : 413 ms SINUS BRADYCARDIA OTHERWISE NORMAL ECG Confirmed by MD MERLIN, SHELBY ([id number]) on 09/20/2018 10:33:14 AM Referred By: Belle GARG Confirmed By:SHELBY BOYER MD
[2018-09-20] MEDS ORDERED: BUPIVACAINE HCL/PF 0.5% (5MG/ML) 10 ML VIAL ONE (12:51)
[2018-09-20] MEDS ORDERED: MIDAZOLAM HCL 2 MG/2 ML SINGLE DOSE VIAL ONE ×2 (12:53)
[2018-09-20] MEDS ORDERED: HYDROmorphone HCl 2 MG/ML VIAL IVPB ONE (16:30)
--- NOTE | 2018-09-20 16:49 | PN ---
Progress Note (short form) - Note Progress Note: Pt unchanged Still with epigastric pain- treated with IV Dilaudid No N/V Pt with antibodies in T&S Blood not available at time of surgery Due to expected adhesions and complexity of the surgery, it was decided to postpone surgery till Discussed with pt and family members. Although disappointed they agree with decision. Will place on PO diet tonight and keep NPO Wednesday evening for surgery P- OR in AM on
[2018-09-20] MEDS: TOPIRAMATE 25 MG TABLET (FP) PO SCH (21:40)
[2018-09-21] MEDS: HYDROmorphone HCl 2 MG/ML VIAL IVPB PRN ×8 (00:29→22:13)
[2018-09-21] MEDS: ZOLPIDEM TARTRATE 5 MG TABLET PO PRN ×2 (00:32→22:28)
[2018-09-21] MEDS: ONDANSETRON 4 MG/2 ML VIAL IVPUSH PRN (03:17)
[2018-09-21] MEDS: LACTATED RINGERS SOLUTION 1,000 ML IV SCH ×2 (06:10→13:44)
[2018-09-21] MEDS: CHOLESTYRAMINE/ASPARTAME 4 GM PACKET PO SCH ×3 (06:11→22:13)
--- NOTE | 2018-09-21 08:10 | SPA.PREOP ---
- PRE-OP NOTE Dx: Gastro-jejunal anastomotic ulcer s/p Gastric Bypass Planned Procedure: Resection of gastro-jejunal ulcer and reversal of gastric bypass to restore normal alimentary continuity Surgeon: Fallon Last Vital Signs Temp Pulse Resp BP Pulse Ox 98.0 F 61 18 102/57 L 98 09/21/18 06:00 09/21/18 06:00 09/21/18 06:00 09/21/18 06:00 09/19/18 21:00 Lab Results WBC 4.3 K/mm3 (4.0-10.0) 09/20/18 06:52 RBC 3.46 M/mm3 (3.60-5.2) L 09/20/18 06:52 Hgb 9.9 GM/dL (10.7-15.3) L 09/20/18 06:52 Hct 29.9 % (32.4-45.2) L 09/20/18 06:52 MCV 86.5 fl (80-96) 09/20/18 06:52 MCHC 33.0 g/dl (32.0-36.0) 09/20/18 06:52 RDW 15.8 % (11.6-15.6) H 09/20/18 06:52 Plt Count 267 K/MM3 (134-434) 09/20/18 06:52 Sodium 137 mmol/L (136-145) 09/20/18 06:52 Potassium 4.8 mmol/L (3.5-5.1) 09/20/18 06:52 Chloride 102 mmol/L (98-107) 09/20/18 06:52 Carbon Dioxide 33 mmol/L (21-32) H 09/20/18 06:52 Anion Gap 2 MMOL/L (8-16) L 09/20/18 06:52 BUN 13.0 mg/dL (7-18) 09/20/18 06:52 Creatinine 0.7 mg/dL (0.55-1.3) 09/20/18 06:52 Random Glucose 68 mg/dL (74-106) L 09/20/18 06:52 Calcium 8.2 mg/dL (8.5-10.1) L 09/20/18 06:52 Blood Type A POSITIVE 09/20/18 10:00 Antibody Screen Positive 09/20/18 10:00 INR 1.21 (0.83-1.09) H 09/14/18 13:48 - IMAGING Chest X-ray: Report Reviewed, Image Reviewed - ASSESSMENT/PLAN 1. Cont PO regular diet with protein supplements today 2. Make NPO after midnight except PO meds 3. GI/DVT PPX 4. Medical optimization / clearance 5. Consent to be obtained by surgeon after risks, benefits and alternatives discussed with patient and or Health Care Proxy. Problem List - Problems (1) Gastrojejunal ulcer Code(s): K28.9 - GASTROJEJUNAL ULCER, UNSP ACUTE OR CHR, W/O HEMOR OR PERF (2) Abdominal pain Code(s): R10.9 - UNSPECIFIED ABDOMINAL PAIN (3) Anemia Code(s): D64.9 - ANEMIA, UNSPECIFIED (4) H/O gastric bypass Code(s): Z98.84 - BARIATRIC SURGERY STATUS Visit type - Case Type Case Type: ED Admission - Emergency Emergency Visit: Yes ED Registration Date: 09/14/18 Care time: The patient presented to the Emergency Department on the above date and was hospitalized for further evaluation of their emergent condition. - New patient This patient is new to me today: Yes Date on this admission: 09/21/18
[2018-09-21] MEDS: AMINO ACIDS/PROTEIN HYDROLYS 30 ML LIQUID.PKT PO SCH ×2 (08:54→17:20)
[2018-09-21] MEDS: SUCRALFATE 1 GM/10 ML UNIT DOSE CUPS PO SCH ×4 (09:12→22:13)
[2018-09-21] MEDS: PANTOPRAZOLE SODIUM 40 MG VIAL IVPUSH SCH ×2 (09:12→22:52)
[2018-09-21] MEDS: morphine SO4 SUSTAINED ACTING 15 MG TABLET.SA PO SCH ×2 (09:12→22:12)
--- NOTE | 2018-09-21 12:31 | PN ---
Progress Note, Physician - Current Medication List Current Medications: Active Medications Amino Acids (Prosource No Carb Liquid Pkt) 30 ml PO BID@0800,1730 [facility] Last Admin: 09/21/18 08:54 Dose: 30 ml Cholestyramine Resin (Questran Light Packet -) 4 gm PO TID [facility] Last Admin: 09/21/18 06:11 Dose: 4 gm Hydromorphone HCl (Dilaudid Vial -) 2 mg IVPB Q3H PRN PRN Reason: PAIN LEVEL 6-10 Last Admin: 09/21/18 12:16 Dose: 2 mg Lactated Ringer's (Lactated Ringers Solution) 1,000 mls @ 75 mls/hr IV ASDIR [facility] Last Admin: 09/21/18 06:10 Dose: 75 mls/hr Morphine Sulfate (Ms Contin -) 15 mg PO BID [facility] Last Admin: 09/21/18 09:12 Dose: 15 mg Ondansetron HCl (Zofran Injection) 8 mg IVPUSH Q8H PRN PRN Reason: NAUSEA Last Admin: 09/21/18 03:17 Dose: 8 mg Pantoprazole Sodium (Protonix Iv) 40 mg IVPUSH BID [facility] Last Admin: 09/21/18 09:12 Dose: 40 mg Sucralfate (Carafate Oral Suspension -) 1 gm PO QID [facility] Last Admin: 09/21/18 09:12 Dose: 1 gm Sumatriptan Succinate (Imitrex -) 25 mg PO BID PRN PRN Reason: MIGRAINE HEADACHE Topiramate (Topamax -) 25 mg PO HS [facility] Last Admin: 09/20/18 21:40 Dose: 25 mg Zolpidem Tartrate (Ambien -) 10 mg PO HS PRN PRN Reason: INSOMNIA Last Admin: 09/21/18 00:32 Dose: 10 mg - Objective Vital Signs: Vital Signs Temperature 98.4 F 09/21/18 10:00 Pulse Rate 61 09/21/18 10:00 Respiratory Rate 18 09/21/18 10:00 Blood Pressure 90/54 L 09/21/18 10:00 O2 Sat by Pulse Oximetry (%) 95 09/21/18 10:00 Cardiovascular: Yes: Regular Rate and Rhythm Respiratory: Yes: Regular, CTA Bilaterally Gastrointestinal: Yes: Normal Bowel Sounds, Soft Labs: CBC, BMP 09/20/18 06:52 09/20/18 06:52 INR, PTT INR 1.21 (0.83-1.09) H 09/14/18 13:48 Assessment/Plan - Problems (1) Abdominal pain Assessment/Plan: OR for revision of bypass on iv dilaudid and ms contin Code(s): R10.9 - UNSPECIFIED ABDOMINAL PAIN (2) Peptic ulcer disease Assessment/Plan: sucralfate iv ppi Code(s): K27.9 - PEPTIC ULC, SITE UNSP, UNSP AC OR CHR, W/O HEMOR OR PERF (3) Migraine Assessment/Plan: imitrex and topiramate Code(s): G43.909 - MIGRAINE, UNSP, NOT INTRACTABLE, WITHOUT STATUS MIGRAINOSUS
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
--- NOTE | 2018-09-21 15:51 | ECHO ---
Name: CORI KELLEY Exam:Adult Echocardiogram Study Date: 09/21/2018 02:20 PM Age: 42 yrs Reason For Study: hypotension Height: 66 in Weight: 177 lb BSA: 1.9 m2 MMode/2D Measurements & Calculations IVSd: 0.85 cm Ao root diam: 2.6 cm LVIDd: 4.4 cm LA dimension: 3.4 cm LVIDs: 2.8 cm LVPWd: 0.70 cm EDV(Teich): 89.2 ml LVOT diam: 2.2 cm ESV(Teich): 28.8 ml Doppler Measurements & Calculations MV E max ruddy: 92.3 cm/sec Ao V2 max: 151.3 cm/sec MV A max ruddy: 46.9 cm/sec Ao max P.2 mmHg MV E/A: 2.0 Ao V2 mean: 108.9 cm/sec MV dec time: 0.24 sec Ao mean P.3 mmHg Ao V2 VTI: 32.6 cm YANIQUE(I,D): 2.2 cm2 YANIQUE(V,D): 2.4 cm2 LV V1 max P.7 mmHg MR max ruddy: 342.5 cm/sec LV V1 mean P.7 mmHg MR max P.9 mmHg LV V1 max: 96.6 cm/sec LV V1 mean: 59.2 cm/sec LV V1 VTI: 19.2 cm SV(LVOT): 72.8 ml TV V2 max: 200.4 cm/sec TV max P.2 mmHg TR max ruddy: 200.2 cm/sec Med Peak E' Ruddy: 11.9 cm/sec TR max P.0 mmHg Med E/e': 7.8 Lat Peak E' Ruddy: 15.5 cm/sec Lat E/e': 6.0 Procedure A two-dimensional transthoracic echocardiogram with color flow and Doppler was performed. Left Ventricle The left ventricular size, thickness and function are normal. The left ventricular ejection fraction is normal. Left Ventricular Filling pattern is normal for age. The left ventricular wall motion is mckenzie l. Right Ventricle The right ventricle is normal in size and function. Atria Normal left and right atrial size and function. The atrial septum is aneurysmal. Mitral Valve There is mild mitral valve thickening. There is no mitral valve stenosis. There is trace to mild mitr al regurgitation. Tricuspid Valve There is mild tricuspid valve thickening. There is no tricuspid stenosis. There is mild tricuspid regurgitation. Right ventricular systolic pressure is normal. Aortic Valve The aortic valve is normal in structure and function. No hemodynamically significant valvular aortic stenosis. No aortic regurgitation is present. Pulmonic Valve The pulmonic valve is not well visualized. Great Vessels The aortic root is normal size. Pericardium/Pleura There is no pericardial effusion. Interpretation Summary The left ventricular size, thickness and function are normal The left ventricular ejection fraction is normal. There is mild tricuspid regurgitation. Right ventricular systolic pressure is normal. The atrial septum is aneurysmal. The left ventricular wall motion is normal. Left Ventricular Filling pattern is normal for age. There is trace to mild mitral regurgitation. MD Ryan Abraham 09/21/2018 03:51 PM
[2018-09-21] MEDS: TOPIRAMATE 25 MG TABLET (FP) PO SCH (22:13)
[2018-09-22] MEDS: HYDROmorphone HCl 2 MG/ML VIAL IVPB PRN (05:11)
[2018-09-22] MEDS: CHOLESTYRAMINE/ASPARTAME 4 GM PACKET PO SCH ×3 (05:40→21:21)
[2018-09-22] MEDS: AMINO ACIDS/PROTEIN HYDROLYS 30 ML LIQUID.PKT PO SCH ×2 (07:37→21:20)
[2018-09-22] MEDS ORDERED: BUPIVACAINE HCL/PF 0.5% (5MG/ML) 10 ML VIAL ONE (07:57)
[2018-09-22] MEDS ORDERED: ceFAZolin SODIUM 1 GM VIAL ONE ×3 (08:10→15:35)
[2018-09-22] MEDS ORDERED: MIDAZOLAM HCL 2 MG/2 ML SINGLE DOSE VIAL ONE ×3 (08:10→17:52)
[2018-09-22] MEDS ORDERED: fentaNYL CITRATE 250 MCG/5 ML VIAL ONE ×4 (08:10→20:48)
[2018-09-22] MEDS ORDERED: LIDOCAINE HCL/PF 2% SDV 5ML VIAL ONE (08:10)
[2018-09-22] MEDS ORDERED: PROPOFOL 20 ML ONE (08:10)
[2018-09-22] MEDS ORDERED: ROCURONIUM BROMIDE 50 MG/5 ML SYRINGE ONE ×4 (08:10→16:49)
[2018-09-22] MEDS ORDERED: ceFAZolin SODIUM 1 GM VIAL IVPB ONE (08:35)
[2018-09-22] MEDS: SUCRALFATE 1 GM/10 ML UNIT DOSE CUPS PO SCH ×3 (09:11→21:20)
[2018-09-22] MEDS: morphine SO4 SUSTAINED ACTING 15 MG TABLET.SA PO SCH ×2 (09:11→21:20)
[2018-09-22] MEDS: PANTOPRAZOLE SODIUM 40 MG VIAL IVPUSH SCH ×2 (09:12→21:32)
[2018-09-22] MEDS ORDERED: PROMETHAZINE HCL 25 MG/1 ML VIAL IVPB PRN (09:18)
[2018-09-22] MEDS ORDERED: DEXAMETHASONE SOD PHOSPHATE 4 MG/1 ML VIAL ONE (09:30)
[2018-09-22] MEDS: LACTATED RINGERS SOLUTION 1,000 ML IV SCH ×2 (13:24→19:27)
[2018-09-22] MEDS ORDERED: ALBUMIN HUMAN 5% 250 ML IV SOLUTION IVPB ONE ×2 (15:10→15:45)
[2018-09-22] MEDS ORDERED: SODIUM CHLORIDE 0.9% P/F 10 ML VIAL IJ ONE (15:34)
[2018-09-22] MEDS ORDERED: MINERAL OIL/PETROLATUM,WHITE 3.5 GM TUBE ONE (15:34)
--- NOTE | 2018-09-22 15:50 | PN ---
Progress Note (short form) - Note Progress Note: patient in the OR since morning not able to see her as yet Problem List - Problems (1) Abdominal pain Code(s): R10.9 - UNSPECIFIED ABDOMINAL PAIN (2) Peptic ulcer disease Code(s): K27.9 - PEPTIC ULC, SITE UNSP, UNSP AC OR CHR, W/O HEMOR OR PERF (3) Migraine Code(s): G43.909 - MIGRAINE, UNSP, NOT INTRACTABLE, WITHOUT STATUS MIGRAINOSUS
[2018-09-22] MEDS ORDERED: PROMETHAZINE HCL 25 MG/1 ML VIAL IVPUSH PRN (18:36)
[2018-09-22] MEDS ORDERED: ONDANSETRON 4 MG/2 ML VIAL IVPUSH PRN (18:36)
[2018-09-22] MEDS: PROPOFOL 1,000,000 MCG/100 ML VIAL IVPB SCH (19:25)
--- NOTE | 2018-09-22 19:27 | OP ---
Operative Note - Note: Operative Date: 09/22/18 Pre-Operative Diagnosis: Gastro-jejunal anastomotic ulcer. Epigastric Pain. Vomiting Operation: Resection of Gastro-jejunal anastomotic ulcer. Reversal of Gastric Bypass. Gastro-gastrostomy. Small Bowel Resection. Lysis of Adhesions. Diagnostic Laparoscopy. Control of intra-abdominal hemorrhage Findings: Massive adhesions in abdomen from previous surgery lysed carefully Gastrojejunostomy with significant scarring from previous surgery Liver scarred to proximal stomach and gastro-jejunostomy Proximal stomach with significant bleeding noted during preparation for gastro- jejunal anastomosis Post-Operative Diagnosis: Same as Pre-op (Abdominal Adhesions) Surgeon: Atif Lehman Business Affairs Manager: Mik Arizmendi (Raji Gipson -intra-op presales consultant) Anesthesia: General Specimens Removed: Gastro-jejunal anastomosis. Small Le Estimated Blood Loss (mls): 3,500 Drains & Tubes with Location: 1 J-P drain in RUQ over gastrogastric anastomosis. 1 J-P drain in LUQ near resected small bowel Operative Report Dictated: Yes
[2018-09-22 19:49] LABS: HEMATOCRIT 20.7 % (32.4-45.2); HEMOGLOBIN 7.2 GM/dL (10.7-15.3); MCH 30.7 pg (25.7-33.7); MCHC 34.6 g/dl (32.0-36.0); MEAN CELL VOLUME 88.5 fl (80-96); MEAN PLT VOLUME 7.8 fl (7.5-11.1); PLATELET COUNT 124 K/MM3 (134-434); RBC 2.34 M/mm3 (3.60-5.2); RDW 13.9 % (11.6-15.6); WHITE BLOOD COUNT 8.3 K/mm3 (4.0-10.0)
--- NOTE | 2018-09-22 19:51 | CONSULT ---
Consultation: REQUESTING PROVIDER: CONSULT REQUEST: We have been asked to medically evaluate this patient for ICU. HISTORY OF PRESENT ILLNESS: Pt is a 42 y/o F with migraine, PUD (marginal ulcers at gastroenteric anastamosis), SBO 2018, Chronic low back pain, anxiety, Bariatric surgery (Kinza en Y 2003), L4-S1 fusion, C/S x 2. Pt brought to ICU from OR for laparoscopy converted to exploratory ex-lap. History primarily taken from records. Pt currently sedated, intubated. Unresponsive to voice, touch, pain. REVIEW OF SYSTEMS: Unable to assess. PHYSICAL EXAMINATION Vital Signs - 24 hr 09/21/18 09/22/18 09/22/18 23:13 05:00 18:52 Temperature 98.0 F 97.8 F Pulse Rate 60 56 L 122 H Respiratory 18 11 Rate Blood Pressure 101/60 98/57 L O2 Sat by Pulse 100 Oximetry (%) Gen: intubated sedated unresponsive HEENT: NCAT, PERRL, Intermittent R beating nystagmus Neck: No bruits Cardio: tachycardic, regular, s1s2, no mrg Pulm: limited exam. Cta b/l No rales appreciated Abd: Nondistended. Large dressing cdi Ext: no edema Laboratory Results - last 24 hr 09/20/18 10:00 Blood Type A POSITIVE Antibody Screen Positive Antibody Identification Lc, e Antigen Identification c Antigen - NEGATIVE Crossmatch See Detail Crossmatch IS Only See Detail Active Medications Generic Name Dose Route Start Last Admin Trade Name Freq PRN Reason Stop Dose Admin Amino Acids 30 ml 09/16/18 17:30 09/22/18 07:37 Prosource No Carb Liquid Pkt PO Not Given BID@0800,1730 [facility] Cholestyramine Resin 4 gm 09/14/18 14:00 09/22/18 13:24 Questran Light Packet - PO Not Given TID CAROLINE Fentanyl 50 mcg 09/22/18 18:36 Sublimaze Injection - IVPUSH 09/23/18 02:00 [id number] PRN PAIN-PACU ORDER X 4 DOSES ONLY Lactated Ringer's 1,000 mls @ 125 mls/hr 09/22/18 18:45 Lactated Ringers Solution IV ASDIR CAROLINE Propofol 1,000,000 mcg in 100 mls @ 4.817 mls/hr 09/22/18 18:45 Diprivan - IVPB TITR CAROLINE Protocol 10 MCG/KG/MIN Morphine Sulfate 15 mg 09/14/18 12:45 09/22/18 09:11 Ms Contin - PO Not Given BID [facility] Ondansetron HCl 4 mg 09/22/18 18:36 Zofran Injection IVPUSH Q6H PRN NAUSEA AND/OR VOMITING Pantoprazole Sodium 40 mg 09/14/18 12:30 09/22/18 09:12 Protonix Iv IVPUSH Not Given BID [facility] Promethazine HCl 12.5 mg 09/22/18 18:36 Phenergan Injection - IVPUSH Q6H PRN NAUSEA-FOR RESCUE AFTER 15 MIN Sucralfate 1 gm 09/14/18 14:00 09/22/18 13:24 Carafate Oral Suspension - PO Not Given QID [facility] Sumatriptan Succinate 25 mg 09/14/18 12:41 Imitrex - PO BID PRN MIGRAINE HEADACHE Topiramate 25 mg 09/14/18 22:00 09/21/18 22:13 Topamax - PO 25 mg HS [facility] Administration ASSESSMENT/PLAN: Pt is a 42 y/o F with PMH migraine, PUD (marginal ulcers at gastroenteric anastamosis), SBO 2018, Chronic low back pain, anxiety, Bariatric surgery (Kinza en Y 2003), L4-S1 fusion, C/S x 2 who presented to ICU s/p ex lap this afternoon. Surgery began as a laparascopic but was converted to ex-lap Kinza en Y reversal. Pt had many adhesion. ? gastric artery bleed. EBL 3.5L. Pt received 6 PRBC 2 FFP, 1 leukoreduced plts. #POD0 ex lap -Resection of Gastro-jejunal anastomotic ulcer. Reversal of Gastric Bypass. Gastro-gastrostomy. Small Bowel Resection. Lysis of Adhesions. Diagnostic Laparoscopy. Control of intra-abdominal hemorrhage -Monitor for bleeding -pt still sedated. reassess once alert after anesthesia -anticipate bloody drain from NGT #sinus tachycardia -likely 2/2 procedure and blood loss -BP stable -f/u repeat CBC -Transfuse to Hb10 per cardiology #Pt had Ab in blood -will order coags Dispo: We will continue to follow the patient. Thank you for this consultative opportunity. Visit type - Emergency Visit Emergency Visit: No - New Patient This patient is new to me today: Yes Date on this admission: 09/22/18 - Critical Care Critical Care patient: Yes Total Critical Care Time (in minutes): 45 Critical Care Statement: The care of this patient involved high complexity decision making to prevent further life threatening deterioration of the patient 's condition and/or to evaluate & treat vital organ system(s) failure or risk of failure.
[2018-09-22 20:11] LABS: ALBUMIN 2.4 g/dl (3.4-5.0); BILIRUBIN,TOTAL 1.5 mg/dL (0.2-1); BLOOD UREA NITROGEN 11.7 mg/dL (7-18); CREATININE 0.5 mg/dL (0.55-1.3); POTASSIUM 3.7 mmol/L (3.5-5.1); TOT PROT 3.6 g/dl (6.4-8.2)
--- NOTE | 2018-09-22 20:15 | SURG ---
Surgery Crm Technical Lead Note Crm Technical Lead: Mik Arizmendi PA-C Date of Service: 09/22/18 Diagnosis: Gastro-jejunal anastomotic ulcer. Epigastric Pain. Vomiting Procedure: Diagnostic Laparoscopy. Converted to open resection of Gastro-jejunal anastomotic ulcer. Reversal of Gastric Bypass. Gastro-gastrostomy. Small Bowel Resection. Extensive Lysis of Adhesions. Control of intra-abdominal hemorrhage I was present for the entirety of the operative procedure. For further detail, please refer to operative report. Visit type - Case Type Case Type: ED Admission
[2018-09-22 20:20] LABS: CALCIUM 6.8 mg/dL (8.5-10.1)
[2018-09-22] MEDS ORDERED: FENTANYL INJECTION 500 MCG in DEXTROSE 5%-WATER - 90 ML IVPB SCH (21:00)
[2018-09-22] MEDS: FENTANYL INJECTION 500 MCG in DEXTROSE 5%-WATER - 90 ML IVPB SCH (21:19)
[2018-09-22] MEDS: TOPIRAMATE 25 MG TABLET (FP) PO SCH (21:21)
[2018-09-22 22:14] LABS: INR 1.49 (0.83-1.09); PROTHROMBIN TIME (PATIENT) 17.7 SEC (9.7-13.0)
[2018-09-23] MEDS ORDERED: ACETAMINOPHEN 1000 MG/100 ML VIAL (NON FORMULARY) IVPB ONE ×2 (04:41→14:33)
[2018-09-23] MEDS: CHOLESTYRAMINE/ASPARTAME 4 GM PACKET PO SCH (05:41)
[2018-09-23 06:29] LABS: BASO % 0.1 % (0-2.0); HEMATOCRIT 28.9 % (32.4-45.2); HEMOGLOBIN 10.1 GM/dL (10.7-15.3); LYMPH % 8.7 % (8-40); MCH 30.1 pg (25.7-33.7); MEAN CELL VOLUME 86.1 fl (80-96); MEAN PLT VOLUME 8.5 fl (7.5-11.1); MONO % 4.5 % (3.8-10.2); NEUT % 86.7 % (42.8-82.8); PLATELET COUNT 97 K/MM3 (134-434); RBC 3.35 M/mm3 (3.60-5.2); RDW 13.9 % (11.6-15.6); WHITE BLOOD COUNT 8.3 K/mm3 (4.0-10.0)
[2018-09-23 07:03] LABS: ALBUMIN 2.1 g/dl (3.4-5.0); BILIRUBIN,TOTAL 1.3 mg/dL (0.2-1); BLOOD UREA NITROGEN 14.2 mg/dL (7-18); CREATININE 0.6 mg/dL (0.55-1.3); MAGNESIUM 1.3 mg/dL (1.8-2.4); PHOSPHOROUS 3.2 mg/dL (2.5-4.9); POTASSIUM 3.4 mmol/L (3.5-5.1); TOT PROT 3.2 g/dl (6.4-8.2)
--- NOTE | 2018-09-23 07:56 | PN ---
Physical Exam: SUBJECTIVE: Patient seen and examined at bedside no acute events overnight; patient was in a lot of pain overnight- requiring fentanyl to help with pain reduction- she still remains intubated and will extubate this AM- ROS unobtainable since patient is intubated OBJECTIVE: Vital Signs Period Temp Pulse Resp BP Sys/Lugo Pulse Ox Last 24 Hr 97.4 F-100.9 F 89-127 8-27 96-142/54-95 100-100 GENERAL: The patient is intubated and sedated EYES: PEERLA: EOMI; no scleral icterus NECK: no JVD; no lymphadenopathy LUNGS:CTA B/L; no rales, rhonchi or wheezing HEART: Regular rate and rhythm, S1, S2 without murmur, rub or gallop. ABDOMEN: Soft,tenderness upon palpation; dressing clean/dry/intact with 2 BON drains draining sanguinous fluid EXTREMITIES: 2+ pulses, warm, well-perfused, no edema, SCDS in place. NEUROLOGICAL: Cranial nerves II through XII grossly intact. Normal speech, gait not observed. PSYCH: Normal mood, normal affect. SKIN: Warm, dry, normal turgor, no rashes or lesions noted Laboratory Results - last 24 hr 09/20/18 09/22/18 09/22/18 10:00 19:25 19:25 WBC 8.3 RBC 2.34 L Hgb 7.2 L Hct 20.7 L D MCV 88.5 MCH 30.7 MCHC 34.6 RDW 13.9 D Plt Count 124 L D MPV 7.8 Absolute Neuts (auto) Neutrophils % Lymphocytes % Monocytes % Eosinophils % Basophils % Nucleated RBC % PT with INR INR PTT (Actin FS) Sodium 141 Potassium 3.7 Chloride 110 H Carbon Dioxide 25 Anion Gap 6 L BUN 11.7 Creatinine 0.5 L Est GFR (CKD-EPI)AfAm 136.42 Est GFR (CKD-EPI)NonAf 117.71 Random Glucose 194 H Calcium 6.8 L* Phosphorus Magnesium Total Bilirubin 1.5 H AST 32 ALT 16 Alkaline Phosphatase 38 L Total Protein 3.6 L Albumin 2.4 L Blood Type A POSITIVE Antibody Screen Positive Antibody Identification Lc, e Antigen Identification c Antigen - NEGATIVE Crossmatch See Detail Crossmatch IS Only See Detail 09/22/18 09/22/18 09/23/18 20:00 20:00 05:30 WBC 8.3 RBC 3.35 L Hgb 10.1 L Hct 28.9 L D MCV 86.1 MCH 30.1 MCHC 35.0 RDW 13.9 Plt Count 97 L D MPV 8.5 Absolute Neuts (auto) 7.2 Neutrophils % 86.7 H D Lymphocytes % 8.7 D Monocytes % 4.5 Eosinophils % 0.0 D Basophils % 0.1 Nucleated RBC % 0 PT with INR 17.70 H INR 1.49 H PTT (Actin FS) 35.4 Sodium Potassium Chloride Carbon Dioxide Anion Gap BUN Creatinine Est GFR (CKD-EPI)AfAm Est GFR (CKD-EPI)NonAf Random Glucose Calcium Phosphorus Magnesium Total Bilirubin AST ALT Alkaline Phosphatase Total Protein Albumin Blood Type Antibody Screen Antibody Identification Antigen Identification Crossmatch Crossmatch IS Only 09/23/18 05:30 WBC RBC Hgb Hct MCV MCH MCHC RDW Plt Count MPV Absolute Neuts (auto) Neutrophils % Lymphocytes % Monocytes % Eosinophils % Basophils % Nucleated RBC % PT with INR INR PTT (Actin FS) Sodium 143 Potassium 3.4 L Chloride 110 H Carbon Dioxide 24 Anion Gap 9 BUN 14.2 Creatinine 0.6 Est GFR (CKD-EPI)AfAm 128.48 Est GFR (CKD-EPI)NonAf 110.86 Random Glucose 115 H Calcium Phosphorus 3.2 Magnesium 1.3 L Total Bilirubin 1.3 H AST 26 ALT 14 Alkaline Phosphatase 35 L Total Protein 3.2 L Albumin 2.1 L Blood Type Antibody Screen Antibody Identification Antigen Identification Crossmatch Crossmatch IS Only Active Medications Generic Name Dose Route Start Last Admin Trade Name Freq PRN Reason Stop Dose Admin Amino Acids 30 ml 09/16/18 17:30 09/22/18 21:20 Prosource No Carb Liquid Pkt PO Not Given BID@0800,1730 [facility] Cholestyramine Resin 4 gm 09/14/18 14:00 09/23/18 05:41 Questran Light Packet - PO Not Given TID CAROLINE Lactated Ringer's 1,000 mls @ 125 mls/hr 09/22/18 18:45 09/22/18 19:27 Lactated Ringers Solution IV 125 mls/hr ASDIR CAROLINE Administration Propofol 1,000,000 mcg in 100 mls @ 4.817 mls/hr 09/22/18 18:45 09/23/18 05: 55 Diprivan - IVPB 50 mcg/kg/min TITR CAROLINE 24.086 mls/hr Titration Protocol 10 MCG/KG/MIN Fentanyl 500 mcg/ Dextrose 100 mls @ 2 mls/hr 09/22/18 21:00 09/23/18 02:00 IVPB 75 mcg/hr TITR CAROLINE 15 mls/hr Titration Protocol 10 MCG/HR Morphine Sulfate 15 mg 09/14/18 12:45 09/22/18 21:20 Ms Contin - PO Not Given BID [facility] Ondansetron HCl 4 mg 09/22/18 18:36 Zofran Injection IVPUSH Q6H PRN NAUSEA AND/OR VOMITING Pantoprazole Sodium 40 mg 09/14/18 12:30 09/22/18 21:32 Protonix Iv IVPUSH 40 mg BID [facility] Administration Promethazine HCl 12.5 mg 09/22/18 18:36 Phenergan Injection - IVPUSH Q6H PRN NAUSEA-FOR RESCUE AFTER 15 MIN Sucralfate 1 gm 09/14/18 14:00 09/22/18 21:20 Carafate Oral Suspension - PO Not Given QID [facility] Sumatriptan Succinate 25 mg 09/14/18 12:41 Imitrex - PO BID PRN MIGRAINE HEADACHE Topiramate 25 mg 09/14/18 22:00 09/22/18 21:21 Topamax - PO Not Given [facility] ASSESSMENT/PLAN: Pt is a 42 y/o F with PMH migraine, PUD, SBO 2017, Chronic low back pain, anxiety, Bariatric surgery (Kinza en Y 2003), L4-S1 fusion, C/S x 2 who presented to ICU s/p ex lap procedure #Neuro patient was intubated and sedated -patient was extubated at around 10:45 this AM -patient has history of migraines; c/w home medications #Cardiovascular patient has been slightly hypotensive however there has been improvement with fluids likely 2/2 fluid loss - monitor hemodynamics #GI patient is POD #1 reversal of gastric bypass/lysis of adhesions/resection of G- J anastomotic ulcer/ -patient needed 8 units of PRBCS; 2 units of FFP; 1 leukoreduced platelet -zofran PRN for nasusea -IV dilaudid PRN for pain -protonix 40 BID -LR @125mls/hr #Heme patient lost around 3.5 L of blood; received 8 units of PRBCS; 2 FFPS; 1 leukocreduced platelet and has 2 BON drains -most recent Hgb was 9.5 ] -CBC's q6H -monitor for signs of bleeding -monitor hemodynamics #ID patient currently started on Zosyn (day 1) -ID on board #Pulmonary patient was extubated this AM; currently on venti mask -will monitor O2 saturations F/E/N LR @125mls/hr monitor electrolytes NPO with NGT in place currently dispo: continue ICU monitoring Problem List - Problems (1) Gastrojejunal ulcer Code(s): K28.9 - GASTROJEJUNAL ULCER, UNSP ACUTE OR CHR, W/O HEMOR OR PERF (2) Migraine Code(s): G43.909 - MIGRAINE, UNSP, NOT INTRACTABLE, WITHOUT STATUS MIGRAINOSUS (3) Duodenal anastomotic leak Code(s): K91.89 - OTH POSTPROCEDURAL COMPLICATIONS AND DISORDERS OF DGSTV SYS (4) H/O gastric bypass Code(s): Z98.84 - BARIATRIC SURGERY STATUS (5) S/P small bowel resection Code(s): Z90.49 - ACQUIRED ABSENCE OF OTHER SPECIFIED PARTS OF DIGESTIVE TRACT (6) Status post gastric banding surgery Code(s): Z98.84 - BARIATRIC SURGERY STATUS Visit type - Emergency Visit Emergency Visit: Yes ED Registration Date: 09/14/18 Care time: The patient presented to the Emergency Department on the above date and was hospitalized for further evaluation of their emergent condition. - New Patient This patient is new to me today: Yes Date on this admission: 09/23/18 - Critical Care Critical Care patient: Yes Total Critical Care Time (in minutes): 35 Critical Care Statement: The care of this patient involved high complexity decision making to prevent further life threatening deterioration of the patient 's condition and/or to evaluate & treat vital organ system(s) failure or risk of failure.
[2018-09-23 08:03] LABS: CALCIUM 6.8 mg/dL (8.5-10.1)
--- NOTE | 2018-09-23 08:47 | OP ---
DATE OF OPERATION: 09/22/2018 PREOPERATIVE DIAGNOSIS: 1. Gastrojejunal anastomotic ulcer. 2. Epigastric pain. 3. Vomiting. POSTOPERATIVE DIAGNOSIS: 1. Gastrojejunal anastomotic ulcer. 2. Epigastric pain. 3. Vomiting. 4. Abdominal adhesions. PROCEDURE PERFORMED: 1. Resection of gastrojejunal anastomotic ulcer. 2. Reversal of gastric bypass. 3. Creation of gastrogastrostomy. 4. Lysis of adhesions. 5. Control of intraabdominal hemorrhage. 6. Exploratory laparotomy. 7. Diagnostic laparoscopy. OPERATING SURGEON: Atif Lehman MD MACHINE STAPLER: CALE Smart INTRAOPERATIVE MRB ENGINEER: Raji Gipson DO ANESTHESIA: General. OPERATIVE PROCEDURE: The patient was brought into the operating room, placed on the OR table in the supine position. All precautions were taken initially including padding for the back and the feet, and Venodyne boots were placed on both lower extremities. At that point, the abdomen was prepped and draped in the usual manner. A Veress needle was placed in the right lower quadrant and a pneumoperitoneum was established. Under direct vision with the laparoscopic camera, a No. 5 bladeless trocar was then inserted into the right upper quadrant. Through that trocar then a laparoscopic camera was placed. Immediately upon placing the camera, there was noted to be clearing in the pelvis. However, more proximal to that and superior there was noted to be a massive amount of adhesions. It was unable to get these adhesions to get a view where further trocars could be placed. It was therefore decided that exploratory laparotomy would be performed. The laparoscopic incision was started to get above the symphysis pubis in the midline and continued to the umbilicus. Incision was carried down through skin and subcutaneous tissue, down the linear alba in the midline. The midline was opened, and the peritoneum was entered. Once the peritoneum was entered, there were adhesions noted to be superior from where the initial incision was made in [place]. These adhesions were lysed with a Metzenbaum scissors. As the machine assistant surgeon retracted the anterior abdominal wall superiorly, the operating surgeon retracted the adhesions inferiorly, and this made it easier to lyse the adhesions all the way up to the umbilical area. It then continued every 3 to 4 cm making the skin incision more superior and then lysing the adhesions so that the midline fissure could be extended. This continued all the way up to the upper part of the abdomen, the epigastrium, and up to the xiphoid. At this point, Bookwalter Retaining Retractor was placed into the upper part of the abdomen, and the wall was retracted on both sides. Attention was now directed to the liver, which was stuck to the proximal stomach and the area of the anastomosis. As the liver was retracted upwards, it was held with a Tuthill clamp, and then, Metzenbaum scissors were used to dissect the liver off of the anterior stomach wall. A combination of blunt dissection with finger dissection and also with the scissors was used, and this continued in a superior direction and also laterally towards the greater curve. Great care was taken to limit injury to the liver, so there would not be much bleeding, but most importantly was not to injure the stomach. The dissection continued until the liver could be lifted up and then self-retaining retractor from the Bookwalter was used to retract the liver. The patient was then placed in 20-degree reverse Trendelenburg position by Anesthesia. Attention was now directed to the stomach area where proximal stomach had the liver removed, although some liver still remained on it, and this was the area of the gastrojejunal anastomosis. Attention therefore was directed to distal stomach or the remnant stomach, and the short gastric vessels were dissected and clamped and then the lesser sac was entered on the greater curvature of the stomach. There was a lot of scar tissue here, and this was lysed mostly with Metzenbaum scissors between the posterior wall of the remnant stomach and the enio limb of the small bowel. This was followed all the way to the area where the proximal stomach and distal stomach were fused. This area was opened on the lesser curve, and it continued across the stomach with great care being taken not to damage either the proximal or distal stomach. Right angle clamp was used to dissect the scar tissue between the 2 stomachs, and these were then tied off. In the area of the gastrojejunal anastomosis, however, the scar tissue was extremely thick, and this was more difficult.. With the remnant stuck to the stomach being held upward, posteriorly, the gastrojejunostomy was approached, and the scar tissue was dissected off of the small bowel. Dissection continued between the proximal stomach and distal stomach all the way to the greater curve until the gastrojejunal anastomosis was completely from the distal stomach. At this point, the enio limb was dissected just at the takeoff to the mesocolon, and this was then removed and sent off the field as specimen to Pathology. Attention was now directed to the proximal stomach and the rest of the gastrojejunostomy. With scar tissue removed on the posterior portion of stomach, a TA 90 stapler was placed across the stomach about 1 to 0.5 cm above the anastomosis and fired. When it was fired, the stapler was then opened, and the distal stomach and the proximal jejunum, the anastomosis was then sent off the field as specimen to Pathology. At this point, attempts were made to now do a gastrogastrostomy between the proximal and distal stomach. An opening was made in the distal stomach and the lumen was entered. The same was done in the proximal stomach. However, some significant bleeding was noted coming from this area. It took multiple sutures, and even then could not be controlled completely. An intraoperative consultation was obtained and answered by Dr. Raji Gipson, a vascular surgeon. He was able to place multiple sutures to stop the bleeding from the proximal stomach pouch. At that point, the opening in the distal stomach was then closed with first with Vicryl on the mucosal serosa and then just silk sutures on the serosa. At this point, the staple line of the proximal stomach was then opened and stretched, and a 25 anvil was placed and a pursestring suture was placed around the serosing mucosa and tied to the anvil. On the distal stomach, an area was taken posteriorly, which was opened with electrocautery and then, the EEA instrument was then introduced and continued into the lumen. It was then turned, and the point was then connected from the distal stomach to the proximal stomach and it was turned until it was tightened and then it was fired. As the anvil was moved, both donuts were noted coming from the distal and proximal stomach intact. Just to be certain, some sutures were placed on the serosa on the proximal and distal stomach to do a serosal closure on the EEA anastomosis. At this juncture, Anesthesia inserted methylene blue into the NG tube, which showed no signs of leakage from the new gastrogastrostomy anastomosis. One Reinier-Phillips drain was placed from the right upper quadrant over the anterior portion of the gastrogastrostomy and a second Reinier-Phillips drain was placed in the left upper quadrant and placed by the resected small bowel just above the mesocolon. This Reinier-Phillips also controlled the posterior portion of the gastrogastrostomy. At this point, closure was performed with No. 1 PDS in continuous fashion on the fascia, the subcutaneous tissue was closed with 3-0 Vicryl, and then, the skin was closed with blaire. Dressings were applied. Patient awoke from anesthesia and transferred out of the operating room to the intensive care unit in critical condition. ANESTHESIA CASE: General. SURGEON: Atif Lehman MD MACHINE STAPLER: CALE Smart INTRAOPERATIVE MRB ENGINEER: Raji Gipson DO EXPECTED BLOOD LOSS: 3500 mL. Patient transferred to the recovery room in stable condition. Juana DIXON/[id number]
[2018-09-23] MEDS: AMINO ACIDS/PROTEIN HYDROLYS 30 ML LIQUID.PKT PO SCH (08:53)
--- NOTE | 2018-09-23 09:16 | PN ---
Progress Note, Physician - Current Medication List Current Medications: Active Medications Amino Acids (Prosource No Carb Liquid Pkt) 30 ml PO BID@0800,1730 [facility] Last Admin: 09/23/18 08:53 Dose: Not Given Cholestyramine Resin (Questran Light Packet -) 4 gm PO TID [facility] Last Admin: 09/23/18 05:41 Dose: Not Given Lactated Ringer's (Lactated Ringers Solution) 1,000 mls @ 125 mls/hr IV ASDIR [facility] Last Admin: 09/22/18 19:27 Dose: 125 mls/hr Propofol (Diprivan -) 1,000,000 mcg in 100 mls @ 4.817 mls/hr IVPB TITR [facility]; Protocol Last Titration: 09/23/18 05:55 Dose: 50 mcg/kg/min, 24.086 mls/hr Fentanyl 500 mcg/ Dextrose 100 mls @ 2 mls/hr IVPB TITR [facility]; Protocol Last Titration: 09/23/18 02:00 Dose: 75 mcg/hr, 15 mls/hr Morphine Sulfate (Ms Contin -) 15 mg PO BID [facility] Last Admin: 09/22/18 21:20 Dose: Not Given Ondansetron HCl (Zofran Injection) 4 mg IVPUSH Q6H PRN PRN Reason: NAUSEA AND/OR VOMITING Pantoprazole Sodium (Protonix Iv) 40 mg IVPUSH BID [facility] Last Admin: 09/22/18 21:32 Dose: 40 mg Promethazine HCl (Phenergan Injection -) 12.5 mg IVPUSH Q6H PRN PRN Reason: NAUSEA-FOR RESCUE AFTER 15 MIN Sucralfate (Carafate Oral Suspension -) 1 gm PO QID [facility] Last Admin: 09/22/18 21:20 Dose: Not Given Sumatriptan Succinate (Imitrex -) 25 mg PO BID PRN PRN Reason: MIGRAINE HEADACHE Topiramate (Topamax -) 25 mg PO HS [facility] Last Admin: 09/22/18 21:21 Dose: Not Given - Objective Vital Signs: Vital Signs Temperature 99.5 F 09/23/18 08:00 Pulse Rate 100 H 09/23/18 08:00 Respiratory Rate 20 09/23/18 08:00 Blood Pressure 102/49 L 09/23/18 08:00 O2 Sat by Pulse Oximetry (%) 100 09/23/18 08:00 Labs: CBC, BMP 09/23/18 05:30 09/23/18 05:30 INR, PTT INR 1.49 (0.83-1.09) H 09/22/18 20:00 Assessment/Plan - Problems (1) Abdominal pain Assessment/Plan: Operative Date: 09/22/18 Pre-Operative Diagnosis: Gastro-jejunal anastomotic ulcer. Epigastric Pain. Vomiting Operation: Resection of Gastro-jejunal anastomotic ulcer. Reversal of Gastric Bypass. Gastro-gastrostomy. Small Bowel Resection. Lysis of Adhesions. Diagnostic Laparoscopy. Control of intra-abdominal hemorrhage Findings: FURTHER PLAN PER SURGERY Code(s): R10.9 - UNSPECIFIED ABDOMINAL PAIN (2) Peptic ulcer disease Assessment/Plan: iv ppi Code(s): K27.9 - PEPTIC ULC, SITE UNSP, UNSP AC OR CHR, W/O HEMOR OR PERF (3) Migraine Assessment/Plan: home meds===imitrex and topiramate Code(s): G43.909 - MIGRAINE, UNSP, NOT INTRACTABLE, WITHOUT STATUS MIGRAINOSUS (4) Anemia Assessment/Plan: s/p prbc monitor and transfuse (5) Mecahnical Ventilation Assessment/Plan: Wean off sedation--trail of extubation if tolerated
--- NOTE | 2018-09-23 09:28 | PN ---
Progress Note (short form) - Note Progress Note: POD 1, s/p Resection of Gastro-jejunal anastomotic ulcer. Reversal of Gastric Bypass. Gastro-gastrostomy. Small Bowel Resection. Lysis of Adhesions. Diagnostic Laparoscopy. Control of intra-abdominal hemorrhage Pt seen and examined. Remains intubated/sedated. Per ICU residents pt stable overnight with no issues. Planned for extubation today. Vital Signs Temp 99.5 F 09/23/18 08:00 Pulse 100 H 09/23/18 08:00 Resp 20 09/23/18 08:00 BP 102/49 L 09/23/18 08:00 Pulse Ox 100 09/23/18 08:00 Intake & Output 09/22/18 09/22/18 09/23/18 11:59 23:59 11:59 Intake Total 8450 2600 2740 Output Total 4870 870 Balance 8450 -2270 1870 Weight 201 lb 15.095 oz Intake: IV 8000 2040 DIPRIVAN - 1,000,000 mcg 360 In 100 ml @ 10 MCG/KG/MIN 4.817 mls/hr IVPB TITR CAROLINE Rx#:[id number] Lactated Ringers Solution 1500 1,000 ml @ 125 mls/hr IV ASDIR CAROLINE Rx#: [id number] Sublimaze Injection - 500 180 Mcg In D5w - 90 ml @ 10 MCG/HR 2 mls/hr IVPB TITR CAROLINE Rx#:[id number] IVPB 100 Blood Product 350 2600 Packed Cells 700 Output: Gastric Drainage 30 50 Drainage 440 520 Left Abdomen 160 220 Right Abdomen 280 300 Urine 900 300 Garcia 300 300 Estimated Blood Loss 3500 Other: Voiding Method Indwelling Catheter Indwelling Catheter # Unmeasured Voids Void 2 Weight Measurement Method Built in [facility] CBC, BMP 09/23/18 05:30 09/23/18 05:30 Gen: intubated, sedated Abdo: soft, dressing c/d/i, b/l BON drain in place with minimal serosanguinous drainage in reservoir. Tubing stripped. NG tube in place with approx 250ml dark drainage in reservoir. : Garcia in place with approx 100ml greenish urine (pt received methylene blue in OR) A/P: 42 y/o F w/ PMHx migraine, PUD (marginal ulcers at gastroenteric anastamosis), SBO 2018, Chronic low back pain, anxiety, Bariatric surgery (Kinza en Y 2003), h/o lumbar stenosis, s/p L4-S1 fusion, admitted 09/12 with abdominal pain secondary to ulcers, now POD 1, s/p Resection of Gastro-jejunal anastomotic ulcer. Reversal of Gastric Bypass. Gastro-gastrostomy. Small Bowel Resection. Lysis of Adhesions. Diagnostic Laparoscopy. Control of intra -abdominal hemorrhage. Intubated, sedated, no issues overnight. BON output: R 300ml, L 220ml Garcia 300ml overnight -Plan for extubation today -Keep drains in place, monitor and record output -Strict I&OS -Keep ngt in place, low intermitted suction -Zosyn 3.375mg q6hrs ordered, ID consult placed (Bobde for continuation of abx/ reccs) -NPO -Monitor labs -Monitor VS per protocol -Continue b/l scds -Continue IVF -Call surgery immediately with any issues above d/w attending Dr Lehman
[2018-09-23] MEDS: KCL 10 MEQ IVPB 10 MEQ/100 ML INFUS.BAG IVPB SCH ×2 (09:47→11:01)
[2018-09-23] MEDS ORDERED: PIPERACILLIN/TAZOB 3.375 GM 3.375 GM in DEXTROSE 5%-WATER - 50 ML IVPB SCH ×2 (10:00→15:00)
[2018-09-23] MEDS: PANTOPRAZOLE SODIUM 40 MG VIAL IVPUSH SCH ×2 (10:09→21:01)
[2018-09-23] MEDS ORDERED: DEXTROSE 5%-WATER - 50 ML IVPB ONE ×3 (10:16→17:43)
[2018-09-23] MEDS ORDERED: PIPERACILLIN/TAZOBACTAM 3.375 GM VIAL IVPB ONE ×3 (10:16→17:42)
[2018-09-23] MEDS ORDERED: SODIUM CHLORIDE 500 ML IV STA ×2 (10:38→13:23)
[2018-09-23] MEDS: SUCRALFATE 1 GM/10 ML UNIT DOSE CUPS PO SCH ×5 (10:39→22:28)
[2018-09-23] MEDS: PIPERACILLIN/TAZOB 3.375 GM 3.375 GM in DEXTROSE 5%-WATER - 50 ML IVPB SCH ×4 (10:40→18:31)
--- NOTE | 2018-09-23 10:41 | PN ---
Teaching Attending Note Name of Resident: Kayleen Kevin ATTENDING PHYSICIAN STATEMENT I saw and evaluated the patient. I reviewed the resident's note and discussed the case with the resident. I agree with the resident's findings and plan as documented. SUBJECTIVE: Patient seen and examined in the ICU. Events from yesterday noted. Required 6 units pRBCS in total. No pressors. Intubated and awake. AC Mode of vent, 50% FiO2. Intake & Output 09/20/18 09/21/18 09/22/18 09/23/18 23:59 23:59 23:59 23:59 Intake Total 550 1989 92612 2740 Output Total 4870 870 Balance 550 1989 6180 1870 Weight 201 lb 15.095 oz Last Vital Signs Temp Pulse Resp BP Pulse Ox 99.5 F 100 H 20 102/49 L 100 09/23/18 08:00 09/23/18 08:00 09/23/18 08:00 09/23/18 08:00 09/23/18 08:00 Active Medications Lactated Ringer's (Lactated Ringers Solution) 1,000 mls @ 125 mls/hr IV ASDIR CAROLINE Last Admin: 09/22/18 19:27 Dose: 125 mls/hr Propofol (Diprivan -) 1,000,000 mcg in 100 mls @ 4.817 mls/hr IVPB TITR CAROLINE; Protocol Last Titration: 09/23/18 05:55 Dose: 50 mcg/kg/min, 24.086 mls/hr Fentanyl 500 mcg/ Dextrose 100 mls @ 2 mls/hr IVPB TITR CAROLINE; Protocol Last Titration: 09/23/18 02:00 Dose: 75 mcg/hr, 15 mls/hr Potassium Chloride (Potassium Chloride 10 Meq Premix Ivpb -) 10 meq in 100 mls @ 100 mls/hr IVPB Q60M CAROLINE Stop: 09/23/18 11:29 Last Admin: 09/23/18 09:47 Dose: 100 mls/hr Piperacillin Sod/Tazobactam (Sod 3.375 gm/ Dextrose) 50 mls @ 100 mls/hr IVPB Q6H-IV CAROLINE; Protocol Piperacillin Sod/Tazobactam (Sod 3.375 gm/ Dextrose) 50 mls @ 100 mls/hr IVPB Q6H-IV CAROLINE Stop: 09/24/18 09:59 Ondansetron HCl (Zofran Injection) 4 mg IVPUSH Q6H PRN PRN Reason: NAUSEA AND/OR VOMITING Pantoprazole Sodium (Protonix Iv) 40 mg IVPUSH BID [facility] Last Admin: 09/23/18 10:09 Dose: 40 mg Promethazine HCl (Phenergan Injection -) 12.5 mg IVPUSH Q6H PRN PRN Reason: NAUSEA-FOR RESCUE AFTER 15 MIN Sucralfate (Carafate Oral Suspension -) 1 gm PO QID [facility] Last Admin: 09/23/18 10:39 Dose: Not Given Sumatriptan Succinate (Imitrex -) 25 mg PO BID PRN PRN Reason: MIGRAINE HEADACHE Topiramate (Topamax -) 25 mg PO HS [facility] Last Admin: 09/22/18 21:21 Dose: Not Given Gen: intubated, awake and alert HEENT: NCAT, PERRL, (-) Icterus Neck: No bruits Cardio: S1S2, tachycardia Pulm: vented, few scattered rhonchi Abd: Soft, (+) BON x 2, hypoactive BS, (+) Large dressing CDI Ext: no edema RESEARCH CONSULTANT: non-focal Laboratory Results - last 24 hr 09/20/18 09/22/18 09/22/18 10:00 19:25 19:25 WBC 8.3 RBC 2.34 L Hgb 7.2 L Hct 20.7 L D MCV 88.5 MCH 30.7 MCHC 34.6 RDW 13.9 D Plt Count 124 L D MPV 7.8 Absolute Neuts (auto) Neutrophils % Lymphocytes % Monocytes % Eosinophils % Basophils % Nucleated RBC % PT with INR INR PTT (Actin FS) Sodium 141 Potassium 3.7 Chloride 110 H Carbon Dioxide 25 Anion Gap 6 L BUN 11.7 Creatinine 0.5 L Est GFR (CKD-EPI)AfAm 136.42 Est GFR (CKD-EPI)NonAf 117.71 Random Glucose 194 H Calcium 6.8 L* Phosphorus Magnesium Total Bilirubin 1.5 H AST 32 ALT 16 Alkaline Phosphatase 38 L Total Protein 3.6 L Albumin 2.4 L Blood Type A POSITIVE Antibody Screen Positive Antibody Identification Lc, e Antigen Identification c Antigen - NEGATIVE Crossmatch See Detail Crossmatch IS Only See Detail 09/22/18 09/22/18 09/23/18 20:00 20:00 05:30 WBC 8.3 RBC 3.35 L Hgb 10.1 L Hct 28.9 L D MCV 86.1 MCH 30.1 MCHC 35.0 RDW 13.9 Plt Count 97 L D MPV 8.5 Absolute Neuts (auto) 7.2 Neutrophils % 86.7 H D Lymphocytes % 8.7 D Monocytes % 4.5 Eosinophils % 0.0 D Basophils % 0.1 Nucleated RBC % 0 PT with INR 17.70 H INR 1.49 H PTT (Actin FS) 35.4 Sodium Potassium Chloride Carbon Dioxide Anion Gap BUN Creatinine Est GFR (CKD-EPI)AfAm Est GFR (CKD-EPI)NonAf Random Glucose Calcium Phosphorus Magnesium Total Bilirubin AST ALT Alkaline Phosphatase Total Protein Albumin Blood Type Antibody Screen Antibody Identification Antigen Identification Crossmatch Crossmatch IS Only 09/23/18 05:30 WBC RBC Hgb Hct MCV MCH MCHC RDW Plt Count MPV Absolute Neuts (auto) Neutrophils % Lymphocytes % Monocytes % Eosinophils % Basophils % Nucleated RBC % PT with INR INR PTT (Actin FS) Sodium 143 Potassium 3.4 L Chloride 110 H Carbon Dioxide 24 Anion Gap 9 BUN 14.2 Creatinine 0.6 Est GFR (CKD-EPI)AfAm 128.48 Est GFR (CKD-EPI)NonAf 110.86 Random Glucose 115 H Calcium 6.8 L* Phosphorus 3.2 Magnesium 1.3 L Total Bilirubin 1.3 H AST 26 ALT 14 Alkaline Phosphatase 35 L Total Protein 3.2 L Albumin 2.1 L Blood Type Antibody Screen Antibody Identification Antigen Identification Crossmatch Crossmatch IS Only ASSESSMENT/PLAN: POD #1: Resection of Gastro-jejunal anastomotic ulcer. Reversal of Gastric Bypass. Gastro-gastrostomy. Small Bowel Resection. Lysis of Adhesions. Diagnostic Laparoscopy. Control of intra-abdominal hemorrhage Migraines PUD (marginal ulcers at gastroenteric anastamosis) SBO 2018 Chronic low back pain Anxiety Bariatric surgery (Kinza en Y 2004) L4-S1 fusion C/S x 2 Acute blood loss anemia Follow H & H Normal transfusion thresholds Wean trials to hopeful extubation VTE prophylaxis IVF Strict I & O Requires ICU monitoring Dr Escobar Critical care time spent in reviewing chart, evaluating patient and formulating plan - 36 minutes.
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
[2018-09-23] MEDS ORDERED: CARVEDILOL 6.25 MG TABLET (FP) PO ONE (12:17)
[2018-09-23] MEDS ORDERED: MORPHINE SULFATE 2 MG/ML VIAL IVPUSH PRN (13:07)
--- NOTE | 2018-09-23 13:15 | PN ---
Progress Note (short form) - Note Progress Note: 42F POD1 s/p open resection G-J ulcer, reversal gastric bypass, small bowel resection under GA-ETT. Pt required several units pRBCs intra op, and IVF boluses post op. Pt now c/o severe abdominal pain that is not controlled. Consulted by ICU for management of post operative pain. Will order dilaudid IV PROGRAM CLINICIAN. No known anesthetic complications. Will follow.
[2018-09-23 13:46] LABS: BASO % 0.1 % (0-2.0); HEMATOCRIT 27.3 % (32.4-45.2); HEMOGLOBIN 9.5 GM/dL (10.7-15.3); LYMPH % 9.3 % (8-40); MCH 30.3 pg (25.7-33.7); MEAN CELL VOLUME 86.5 fl (80-96); MEAN PLT VOLUME 8.7 fl (7.5-11.1); MONO % 4.6 % (3.8-10.2); PLATELET COUNT 90 K/MM3 (134-434); RBC 3.15 M/mm3 (3.60-5.2); RDW 14.8 % (11.6-15.6); WHITE BLOOD COUNT 10.3 K/mm3 (4.0-10.0)
[2018-09-23 14:16] LABS: BLOOD UREA NITROGEN 17.5 mg/dL (7-18); CREATININE 0.7 mg/dL (0.55-1.3); MAGNESIUM 1.7 mg/dL (1.8-2.4); POTASSIUM 3.8 mmol/L (3.5-5.1)
[2018-09-23 14:29] LABS: ANISOCYTOSIS 0; MACROCYTOSIS 0; PLATELET ESTIMATE DECREASED
[2018-09-23 14:44] LABS: CALCIUM 6.7 mg/dL (8.5-10.1)
[2018-09-23] MEDS: HYDROmorphone *PCA* 10MG/50ML DISP.SYRIN PCA SCH ×2 (15:00→19:30)
[2018-09-23] MEDS ORDERED: fentaNYL CITRATE 250 MCG/5 ML VIAL ONE (15:50)
--- NOTE | 2018-09-23 16:42 | PN ---
Progress Note (short form) - Note Progress Note: Called by RN due to lack of NGT output since overnight shift. Pt successfully extubated this AM. Laying in bed with non-rebreather in place, endorses significant abdominal pain. NG tube noted to not be suctioning, unit malfunction? Unit moved to Right side of bed and reconnected to medium intermittent suction, dark brown thick drainage noted immediately upon connecting NG tube. Approx 20mls drained over 10 minutes of observation. Pt seen by anesthesia for change in pain meds (was on Fentanyl 75mcg per hr and Ofirmev 1g q6h), changed to Dilaudid GLASSIE Above d/w residents and RN, message sent to attending Dr Lehman Please page surgery or call attending immediately if pt is noted to have increase in pain and/or malfunctioning of NG tube Dr Lehman to be by this evening
--- NOTE | 2018-09-23 16:49 | PN ---
Progress Note (short form) - Note Progress Note: POD#1 Afebrile P-100-108 BP-109/61 Pt extubated, awake, alert, and conversing C/O abdominal pain Nausea improved NGT- mimimal drainage (blue secondary to dye) P/E-Abd- midline dressing in place Right J-P- sero-sanguinous drainage (280 cc overnight) Left J-P- more bloody (160 cc overnight) WBC-10.3 (increased) H/H-9.5/27.3 Plt-90 BUN/CR-17.5/0.7 P- Keep NPO, NGT Strict I/O Follow H/H frequently (Q6-8 H) Follow Labs Scd's (No Lovenox or sub-Q Heparin) Continue ICU care
[2018-09-23] MEDS: LACTATED RINGERS SOLUTION 1,000 ML IV SCH (18:34)
[2018-09-23] MEDS: PROPOFOL 1,000,000 MCG/100 ML VIAL IVPB SCH (19:06)
[2018-09-23] MEDS: TOPIRAMATE 25 MG TABLET (FP) PO SCH (22:28)
[2018-09-23] MEDS: FENTANYL INJECTION 500 MCG in DEXTROSE 5%-WATER - 90 ML IVPB SCH (22:28)
[2018-09-24] MEDS ORDERED: DEXTROSE 5%-WATER - 50 ML IVPB ONE ×3 (03:01→17:18)
[2018-09-24] MEDS ORDERED: PIPERACILLIN/TAZOBACTAM 3.375 GM VIAL IVPB ONE ×3 (03:01→17:16)
[2018-09-24] MEDS: PIPERACILLIN/TAZOB 3.375 GM 3.375 GM in DEXTROSE 5%-WATER - 50 ML IVPB SCH ×3 (03:06→17:56)
[2018-09-24] MEDS ORDERED: ACETAMINOPHEN 1000 MG/100 ML VIAL (NON FORMULARY) IVPB ONE ×2 (03:50→21:16)
[2018-09-24] MEDS ORDERED: SODIUM CHLORIDE 500 ML IV STA ×2 (04:31→06:03)
[2018-09-24 06:31] LABS: BASO % 0.2 % (0-2.0); HEMATOCRIT 24.9 % (32.4-45.2); HEMOGLOBIN 8.7 GM/dL (10.7-15.3); LYMPH % 8.6 % (8-40); MCH 30.2 pg (25.7-33.7); MCHC 35.1 g/dl (32.0-36.0); MEAN CELL VOLUME 86.1 fl (80-96); MEAN PLT VOLUME 9.3 fl (7.5-11.1); MONO % 4.4 % (3.8-10.2); NEUT % 86.8 % (42.8-82.8); PLATELET COUNT 67 K/MM3 (134-434); RBC 2.89 M/mm3 (3.60-5.2); RDW 15.3 % (11.6-15.6); WHITE BLOOD COUNT 6.6 K/mm3 (4.0-10.0)
[2018-09-24 06:45] LABS: BLOOD UREA NITROGEN 18.5 mg/dL (7-18); CREATININE 0.7 mg/dL (0.55-1.3); MAGNESIUM 1.2 mg/dL (1.8-2.4); PHOSPHOROUS 3.3 mg/dL (2.5-4.9); POTASSIUM 3.5 mmol/L (3.5-5.1)
[2018-09-24] MEDS ORDERED: MAGNESIUM SULF 50% (8.12 MEQ/2 ML-1 GM VIAL) IVPB ONE (07:38)
[2018-09-24] MEDS: HYDROmorphone *PCA* 10MG/50ML DISP.SYRIN PCA SCH ×2 (08:18→21:33)
[2018-09-24] MEDS: KCL 10 MEQ IVPB 10 MEQ/100 ML INFUS.BAG IVPB SCH ×2 (08:27→09:03)
--- NOTE | 2018-09-24 08:44 | PN ---
Progress Note, Physician Chief Complaint: PUD Abdominal Pain Anemia History of Present Illness: Previous notes and events reviewed awake and alert patient extubated yesterday NAD complain of abdominal pain but sts feeling better after SHEEP AND WHEAT FARMER pump started NGT to LCS BON x 2 A-line - Current Medication List Current Medications: Active Medications Hydromorphone HCl (Hydromorphone 10 Mg/50 Ml-Ns) 10 mg SHEEP AND WHEAT FARMER SHEEP AND WHEAT FARMER [facility]; Protocol Stop: 09/30/18 13:11 Last Admin: 09/24/18 08:18 Dose: 10 mg Lactated Ringer's (Lactated Ringers Solution) 1,000 mls @ 125 mls/hr IV ASDIR CAROLINE Last Admin: 09/23/18 18:34 Dose: 125 mls/hr Propofol (Diprivan -) 1,000,000 mcg in 100 mls @ 4.817 mls/hr IVPB TITR CAROLINE; Protocol Last Admin: 09/23/18 19:06 Dose: Not Given Fentanyl 500 mcg/ Dextrose 100 mls @ 2 mls/hr IVPB TITR CAROLINE; Protocol Last Admin: 09/23/18 22:28 Dose: Not Given Piperacillin Sod/Tazobactam (Sod 3.375 gm/ Dextrose) 50 mls @ 100 mls/hr IVPB Q8H-IV [facility]; Protocol Last Admin: 09/24/18 03:06 Dose: 100 mls/hr Potassium Chloride (Potassium Chloride 10 Meq Premix Ivpb -) 10 meq in 100 mls @ 100 mls/hr IVPB Q60M [facility] Stop: 09/24/18 10:44 Last Admin: 09/24/18 08:27 Dose: 100 mls/hr Ondansetron HCl (Zofran Injection) 4 mg IVPUSH Q4H PRN PRN Reason: NAUSEA AND/OR VOMITING Pantoprazole Sodium (Protonix Iv) 40 mg IVPUSH BID [facility] Last Admin: 09/23/18 21:01 Dose: 40 mg Promethazine HCl (Phenergan Injection -) 12.5 mg IVPUSH Q6H PRN PRN Reason: NAUSEA-FOR RESCUE AFTER 15 MIN Sucralfate (Carafate Oral Suspension -) 1 gm PO QID [facility] Last Admin: 09/23/18 22:28 Dose: Not Given Sumatriptan Succinate (Imitrex -) 25 mg PO BID PRN PRN Reason: MIGRAINE HEADACHE Topiramate (Topamax -) 25 mg PO HS [facility] Last Admin: 09/23/18 22:28 Dose: Not Given - Objective Vital Signs: Vital Signs Temperature 98.5 F 09/24/18 08:30 Pulse Rate 126 H 09/24/18 08:18 Respiratory Rate 18 09/24/18 08:18 Blood Pressure 101/59 L 09/24/18 08:18 O2 Sat by Pulse Oximetry (%) 100 09/24/18 08:18 Constitutional: Yes: No Distress, Calm Eyes: Yes: Conjunctiva Clear HENT: Yes: Atraumatic Cardiovascular: Yes: Tachycardia Respiratory: Yes: Regular, CTA Bilaterally Gastrointestinal: Yes: Normal Bowel Sounds, Soft, Other (BON x 2) Genitourinary: Yes: Garcia Present Musculoskeletal: Yes: Muscle Weakness Extremities: Yes: WNL Edema: No Wound/Incision: Yes: Dressing Dry and Intact Neurological: Yes: Alert, Oriented Psychiatric: Yes: Alert, Oriented Labs: CBC, BMP 09/24/18 05:35 09/24/18 05:35 INR, PTT INR 1.49 (0.83-1.09) H 09/22/18 20:00 Problem List - Problems (1) Abdominal pain Assessment/Plan: -Pain control--SHEEP AND WHEAT FARMER pump -POD #2 s/p resection of gastro-jejunal anastomotic ulcer, reversal gastric bypass, gastro-gastrostomy, small bowel resection, lysis of adhesions, diagnostic laparoscopy, intra abdominal hemorrhage -NGT to LCS--<100cc noted in cannister, blue contents -IV Hydration -NPO -Surgery on board Code(s): R10.9 - UNSPECIFIED ABDOMINAL PAIN (2) Anemia Assessment/Plan: -monitor Hg daily -current Hg 8.7 -transfuse for Hg <8.0 Code(s): D64.9 - ANEMIA, UNSPECIFIED (3) Gastrojejunal ulcer Assessment/Plan: -Surgery on board -POD #2 s/p resection of gastro-jejunal anastomotic ulcer, reversal gastric bypass, gastro-gastrostomy, small bowel resection, lysis of adhesions, diagnostic laparoscopy, intra abdominal hemorrhage BON x 2--R BON bloody output, L BON serosanguinous output -NGT to LCS <100cc output -Pantoprazole Code(s): K28.9 - GASTROJEJUNAL ULCER, UNSP ACUTE OR CHR, W/O HEMOR OR PERF (4) Migraine Assessment/Plan: -Sumatriptan and Topamax Code(s): G43.909 - MIGRAINE, UNSP, NOT INTRACTABLE, WITHOUT STATUS MIGRAINOSUS (5) Peptic ulcer disease Assessment/Plan: -Pantoprazole Code(s): K27.9 - PEPTIC ULC, SITE UNSP, UNSP AC OR CHR, W/O HEMOR OR PERF Assessment/Plan see problem list SCDs
[2018-09-24] MEDS: PANTOPRAZOLE SODIUM 40 MG VIAL IVPUSH SCH ×2 (09:01→21:33)
[2018-09-24] MEDS: SUCRALFATE 1 GM/10 ML UNIT DOSE CUPS PO SCH ×4 (09:02→21:34)
--- NOTE | 2018-09-24 09:55 | PN ---
Physical Exam: SUBJECTIVE: Patient seen and examined at bedside. Reports decreased pain once SUPERVISOR [employer] was added. Fentanyl was held by night nurse OBJECTIVE: Vital Signs Period Temp Pulse Resp BP Sys/Lugo Pulse Ox Last 24 Hr 98.5 F-99.8 F 101-128 17-26 101-120/52-73 98-100 GENERAL: A&Ox3, no acute distress EYES: PERRLA, EOMI ENT: Dry mucus membranes NECK: No JVD LUNGS: CTA, no wheezes HEART: RRR, no murmurs ABDOMEN: Soft, ttp in epigastrum, BS difficult to auscultate, surgical dressing dry and intact on abdomen. Two drains in place draining moderate amount of serosanguinous drainage MUSCULOSKELETAL: No CVA Tenderness EXTREMITIES: 2+ pulses, no edema. NEUROLOGICAL: Cranial nerves II-XII intact. Laboratory Results - last 24 hr 09/23/18 09/23/18 09/24/18 13:15 13:15 05:35 WBC 10.3 H 6.6 RBC 3.15 L 2.89 L Hgb 9.5 L 8.7 L Hct 27.3 L 24.9 L MCV 86.5 86.1 MCH 30.3 30.2 MCHC 35.0 35.1 RDW 14.8 15.3 Plt Count 90 L 67 L D MPV 8.7 9.3 Absolute Neuts (auto) 8.8 H 5.7 Neutrophils % 86.0 H 86.8 H Neutrophils % (Manual) 78.0 Band Neutrophils % 4.0 Lymphocytes % 9.3 8.6 Lymphocytes % (Manual) 12.0 Monocytes % 4.6 4.4 Monocytes % (Manual) 4 Eosinophils % 0.0 0.0 Eosinophils % (Manual) 0.0 Basophils % 0.1 0.2 Basophils % (Manual) 0.0 Myelocytes % (Man) 0 Promyelocytes % (Man) 0 Blast Cells % (Manual) 0 Nucleated RBC % 0 0 Metamyelocytes 2 Hypochromia 0 Platelet Estimate Decreased Polychromasia 0 Poikilocytosis 0 Anisocytosis 0 Microcytosis 0 Macrocytosis 0 Sodium 141 Potassium 3.8 Chloride 110 H Carbon Dioxide 23 Anion Gap 8 BUN 17.5 Creatinine 0.7 Est GFR (CKD-EPI)AfAm 122.13 Est GFR (CKD-EPI)NonAf 105.37 Random Glucose 94 Calcium 6.7 L* Phosphorus Magnesium 1.7 L 09/24/18 05:35 WBC RBC Hgb Hct MCV MCH MCHC RDW Plt Count MPV Absolute Neuts (auto) Neutrophils % Neutrophils % (Manual) Band Neutrophils % Lymphocytes % Lymphocytes % (Manual) Monocytes % Monocytes % (Manual) Eosinophils % Eosinophils % (Manual) Basophils % Basophils % (Manual) Myelocytes % (Man) Promyelocytes % (Man) Blast Cells % (Manual) Nucleated RBC % Metamyelocytes Hypochromia Platelet Estimate Polychromasia Poikilocytosis Anisocytosis Microcytosis Macrocytosis Sodium 140 Potassium 3.5 Chloride 109 H Carbon Dioxide 26 Anion Gap 5 L BUN 18.5 H Creatinine 0.7 Est GFR (CKD-EPI)AfAm 122.13 Est GFR (CKD-EPI)NonAf 105.37 Random Glucose 74 Calcium 7.0 L Phosphorus 3.3 Magnesium 1.2 L Active Medications Generic Name Dose Route Start Last Admin Trade Name Freq PRN Reason Stop Dose Admin Hydromorphone HCl 10 mg 09/23/18 13:15 09/24/18 08:18 Hydromorphone 10 Mg/50 Ml-Ns [employer] 09/30/18 13:11 10 mg [employer] CAROLINE Administration Protocol Lactated Ringer's 1,000 mls @ 125 mls/hr 09/22/18 18:45 09/23/18 18:34 Lactated Ringers Solution IV 125 mls/hr ASDIR CAROLINE Administration Piperacillin Sod/Tazobactam 50 mls @ 100 mls/hr 09/23/18 18:00 09/24/18 09:02 Sod 3.375 gm/ Dextrose IVPB 100 mls/hr Q8H-IV CAROLINE Administration Protocol Potassium Chloride 10 meq in 100 mls @ 100 mls/hr 09/24/18 07:45 09/24/18 09: 03 Potassium Chloride 10 Meq Premix Ivpb - IVPB 09/24/18 10:44 100 mls/hr Q60M CAROLINE Administration Ondansetron HCl 4 mg 09/23/18 13:07 Zofran Injection IVPUSH Q4H PRN NAUSEA AND/OR VOMITING Pantoprazole Sodium 40 mg 09/14/18 12:30 09/24/18 09:01 Protonix Iv IVPUSH 40 mg BID CAROLINE Administration Promethazine HCl 12.5 mg 06/20/19 18:36 Phenergan Injection - IVPUSH Q6H PRN NAUSEA-FOR RESCUE AFTER 15 MIN Sucralfate 1 gm 09/14/18 14:00 09/24/18 09:02 Carafate Oral Suspension - PO Not Given QID [facility] Sumatriptan Succinate 25 mg 09/14/18 12:41 Imitrex - PO BID PRN MIGRAINE HEADACHE Topiramate 25 mg 09/14/18 22:00 09/23/18 22:28 Topamax - PO Not Given HS [facility] ASSESSMENT/PLAN: 42 year old female with past medical history of migraine, PUD, SBO 2018, bariatric surgery (Kinza en Y 2003), L4-S1 fusion, C/S x 2 admitted to the ICU s/ p reversal of kinza-en-Y procedure. #Neurologic -patient not on sedation, neurologically intact -c/w home medications for migraines #Cardiovascular -patient continues to be mildly hypotensive with MAPs between 62-70. She appears to be volume depleted -will give D5-LR at 150cc/hr -will check H&H Q12h and transfuse to a goal Hgb of 8.5 -monitor BP #Gastrointestinal -patient is POD #2 reversal of gastric bypass/lysis of adhesions/resection of G- J anastomotic ulcer -monitor H&H and transfuse to Hgb 8.5 -out of bed today -zofran PRN for nasusea -[employer] for pain seems to be working -protonix 40 BID -LR increased to 150cc/hr #ID -Continue zosyn -ID on board #Pulmonary -monitor respiratory status while on [employer] -no acute issues F/E/N LR @150mls/hr monitor electrolytes continue NPO dispo: continue ICU monitoring Visit type - Emergency Visit Emergency Visit: No - New Patient This patient is new to me today: No - Critical Care Critical Care patient: Yes Total Critical Care Time (in minutes): 35 Critical Care Statement: The care of this patient involved high complexity decision making to prevent further life threatening deterioration of the patient 's condition and/or to evaluate & treat vital organ system(s) failure or risk of failure.
--- NOTE | 2018-09-24 09:58 | PN ---
Progress Note (short form) - Note Progress Note: POD#2 Afebrile P-114-128 (presently 116) BP-108/57 Pt awake, alert Abdominal pain decreased No N/V NGT- minimal blue drainage Right BON-400cc overnight (sero-sanguinous) Left BON- 240 cc overnight (sero-sanguinous) WBC-6.6 H/H-8.7/24.9 (decreased) BUN/CR-18.5/0.7 P/E- Abd- non-distended soft, non-tender on palpation P- Cont management per ICU OOB-chair Check H/H, labs U.O- 50 cc/hr (green from methylene blue) Cont SCD's
[2018-09-24] MEDS ORDERED: LACTATED RINGERS SOLUTION 1,000 ML/1,000 ML INFUS.BAG IV SCH (10:00)
--- NOTE | 2018-09-24 10:10 | PN ---
Teaching Attending Note Name of Resident: Anthony Medina ATTENDING PHYSICIAN STATEMENT I saw and evaluated the patient. I reviewed the resident's note and discussed the case with the resident. I agree with the resident's findings and plan as documented. SUBJECTIVE: Patient seen and examined in the ICU. Remains extubated. Appropriate abdominal pain. Continued bloody drainage from BON drains. No pressors. No SOB. Intake & Output 09/21/18 09/22/18 09/23/18 09/24/18 23:59 23:59 23:59 23:59 Intake Total 1989 80265 5278 2550 Output Total 4870 1740 870 Balance 1989 9280 3538 1680 Weight 201 lb 15.095 oz Last Vital Signs Temp Pulse Resp BP Pulse Ox 98.5 F 118 H 18 108/57 L 100 09/24/18 08:30 09/24/18 09:00 09/24/18 09:00 09/24/18 09:00 09/24/18 08:18 Active Medications Hydromorphone HCl (Hydromorphone 10 Mg/50 Ml-Ns) 10 mg SKEIN YARN DRIER SKEIN YARN DRIER CAROLINE; Protocol Stop: 09/30/18 13:11 Last Admin: 09/24/18 08:18 Dose: 10 mg Lactated Ringer's (Lactated Ringers Solution) 1,000 mls @ 125 mls/hr IV ASDIR CAROLINE Last Admin: 09/23/18 18:34 Dose: 125 mls/hr Piperacillin Sod/Tazobactam (Sod 3.375 gm/ Dextrose) 50 mls @ 100 mls/hr IVPB Q8H-IV CAROLINE; Protocol Last Admin: 09/24/18 09:02 Dose: 100 mls/hr Potassium Chloride (Potassium Chloride 10 Meq Premix Ivpb -) 10 meq in 100 mls @ 100 mls/hr IVPB Q60M CAROLINE Stop: 09/24/18 10:44 Last Admin: 09/24/18 09:03 Dose: 100 mls/hr Lactated Ringer's (Lactated Ringers Solution) 1,000 ml in 1,000 mls @ 1,000 mls /hr IV ASDIR CAROLINE Ondansetron HCl (Zofran Injection) 4 mg IVPUSH Q4H PRN PRN Reason: NAUSEA AND/OR VOMITING Pantoprazole Sodium (Protonix Iv) 40 mg IVPUSH BID [facility] Last Admin: 09/24/18 09:01 Dose: 40 mg Promethazine HCl (Phenergan Injection -) 12.5 mg IVPUSH Q6H PRN PRN Reason: NAUSEA-FOR RESCUE AFTER 15 MIN Sucralfate (Carafate Oral Suspension -) 1 gm PO QID [facility] Last Admin: 09/24/18 09:02 Dose: Not Given Sumatriptan Succinate (Imitrex -) 25 mg PO BID PRN PRN Reason: MIGRAINE HEADACHE Topiramate (Topamax -) 25 mg PO HS [facility] Last Admin: 09/23/18 22:28 Dose: Not Given Gen: Extubated, awake and alert HEENT: NCAT, PERRL, (-) Icterus Neck: No bruits Cardio: S1S2, tachycardia Pulm: vented, few scattered rhonchi Abd: Soft, (+) BON x 2, hypoactive BS, (+) Large dressing CDI Ext: no edema PHOTOGRAPHER SCIENTIFIC: non-focal Laboratory Results - last 24 hr 09/23/18 09/23/18 09/24/18 13:15 13:15 05:35 WBC 10.3 H 6.6 RBC 3.15 L 2.89 L Hgb 9.5 L 8.7 L Hct 27.3 L 24.9 L MCV 86.5 86.1 MCH 30.3 30.2 MCHC 35.0 35.1 RDW 14.8 15.3 Plt Count 90 L 67 L D MPV 8.7 9.3 Absolute Neuts (auto) 8.8 H 5.7 Neutrophils % 86.0 H 86.8 H Neutrophils % (Manual) 78.0 Band Neutrophils % 4.0 Lymphocytes % 9.3 8.6 Lymphocytes % (Manual) 12.0 Monocytes % 4.6 4.4 Monocytes % (Manual) 4 Eosinophils % 0.0 0.0 Eosinophils % (Manual) 0.0 Basophils % 0.1 0.2 Basophils % (Manual) 0.0 Myelocytes % (Man) 0 Promyelocytes % (Man) 0 Blast Cells % (Manual) 0 Nucleated RBC % 0 0 Metamyelocytes 2 Hypochromia 0 Platelet Estimate Decreased Polychromasia 0 Poikilocytosis 0 Anisocytosis 0 Microcytosis 0 Macrocytosis 0 Sodium 141 Potassium 3.8 Chloride 110 H Carbon Dioxide 23 Anion Gap 8 BUN 17.5 Creatinine 0.7 Est GFR (CKD-EPI)AfAm 122.13 Est GFR (CKD-EPI)NonAf 105.37 Random Glucose 94 Calcium 6.7 L* Phosphorus Magnesium 1.7 L 09/24/18 05:35 WBC RBC Hgb Hct MCV MCH MCHC RDW Plt Count MPV Absolute Neuts (auto) Neutrophils % Neutrophils % (Manual) Band Neutrophils % Lymphocytes % Lymphocytes % (Manual) Monocytes % Monocytes % (Manual) Eosinophils % Eosinophils % (Manual) Basophils % Basophils % (Manual) Myelocytes % (Man) Promyelocytes % (Man) Blast Cells % (Manual) Nucleated RBC % Metamyelocytes Hypochromia Platelet Estimate Polychromasia Poikilocytosis Anisocytosis Microcytosis Macrocytosis Sodium 140 Potassium 3.5 Chloride 109 H Carbon Dioxide 26 Anion Gap 5 L BUN 18.5 H Creatinine 0.7 Est GFR (CKD-EPI)AfAm 122.13 Est GFR (CKD-EPI)NonAf 105.37 Random Glucose 74 Calcium 7.0 L Phosphorus 3.3 Magnesium 1.2 L ASSESSMENT/PLAN: POD #2: Resection of Gastro-jejunal anastomotic ulcer. Reversal of Gastric Bypass. Gastro-gastrostomy. Small Bowel Resection. Lysis of Adhesions. Diagnostic Laparoscopy. Control of intra-abdominal hemorrhage Migraines PUD (marginal ulcers at gastroenteric anastamosis) SBO 2018 Chronic low back pain Anxiety Bariatric surgery (Kinza en Y 2004) L4-S1 fusion C/S x 2 Acute blood loss anemia Follow H & H Normal transfusion thresholds: D/W surgery: goal 8.5 to 9 O2 as needed to maintain saturation Mechanical VTE prophylaxis Change IVF to D5LR Strict I & O Requires ICU monitoring for tenuous overall status Dr Escobar Critical care time spent in reviewing chart, evaluating patient and formulating plan - 36 minutes.
[2018-09-24] MEDS: LACTATED RINGERS SOLUTION 1,000 ML IV SCH (10:11)
[2018-09-24] MEDS: DEXTROSE 5%-LACTATED RINGERS 1,000 ML IV SCH ×2 (10:13→22:00)
[2018-09-24 10:48] LABS: HEMATOCRIT 23.2 % (32.4-45.2); HEMOGLOBIN 8.1 GM/dL (10.7-15.3); MCH 30.2 pg (25.7-33.7); MEAN CELL VOLUME 86.3 fl (80-96); MEAN PLT VOLUME 8.8 fl (7.5-11.1); PLATELET COUNT 58 K/MM3 (134-434); RBC 2.69 M/mm3 (3.60-5.2); RDW 15.4 % (11.6-15.6); WHITE BLOOD COUNT 5.3 K/mm3 (4.0-10.0)
[2018-09-24] MEDS: ONDANSETRON 4 MG/2 ML VIAL IVPUSH PRN (14:54)
--- NOTE | 2018-09-24 20:06 | PN ---
Progress Note, Physician History of Present Illness: Pt seen and examined. Records reviewed, labs/imaging results noted. Pt is extubated, currently with mild temp elevation. Denies SOB/cough, CP, has some abd pain. - Current Medication List Current Medications: Active Medications Hydromorphone HCl (Hydromorphone 10 Mg/50 Ml-Ns) 10 mg PACKAGE WINDER PACKAGE WINDER CAROLINE; Protocol Stop: 09/30/18 13:11 Last Admin: 09/24/18 08:18 Dose: 10 mg Piperacillin Sod/Tazobactam (Sod 3.375 gm/ Dextrose) 50 mls @ 100 mls/hr IVPB Q8H-IV CAROLINE; Protocol Last Admin: 09/24/18 17:56 Dose: 100 mls/hr Dextrose/Lactated Ringer's (D5-Lr -) 1,000 mls @ 150 mls/hr IV ASDIR CAROLINE Last Admin: 09/24/18 10:13 Dose: 150 mls/hr Ondansetron HCl (Zofran Injection) 4 mg IVPUSH Q4H PRN PRN Reason: NAUSEA AND/OR VOMITING Last Admin: 09/24/18 14:54 Dose: 4 mg Pantoprazole Sodium (Protonix Iv) 40 mg IVPUSH BID [facility] Last Admin: 09/24/18 09:01 Dose: 40 mg Promethazine HCl (Phenergan Injection -) 12.5 mg IVPUSH Q6H PRN PRN Reason: NAUSEA-FOR RESCUE AFTER 15 MIN Sucralfate (Carafate Oral Suspension -) 1 gm PO QID [facility] Last Admin: 09/24/18 17:15 Dose: Not Given Sumatriptan Succinate (Imitrex -) 25 mg PO BID PRN PRN Reason: MIGRAINE HEADACHE Topiramate (Topamax -) 25 mg PO HS [facility] Last Admin: 09/23/18 22:28 Dose: Not Given - Objective Vital Signs: Vital Signs Temperature 99.5 F 09/24/18 16:44 Pulse Rate 124 H 09/24/18 20:00 Respiratory Rate 20 09/24/18 20:00 Blood Pressure 115/77 09/24/18 20:00 O2 Sat by Pulse Oximetry (%) 100 09/24/18 19:57 Constitutional: Yes: No Distress, Calm Eyes: Yes: Conjunctiva Clear HENT: Yes: Atraumatic Neck: Yes: Supple Cardiovascular: Yes: Tachycardia Respiratory: Yes: Regular Gastrointestinal: Yes: Soft, Hypoactive Bowel Sounds, Tenderness (upper abd pain ) Genitourinary: Yes: WNL Musculoskeletal: Yes: WNL Extremities: Yes: WNL Wound/Incision: Yes: Dressing Dry and Intact, Other (BON drain x 2) Neurological: Yes: Alert, Oriented Labs: CBC, BMP 09/24/18 10:15 09/24/18 05:35 INR, PTT INR 1.49 (0.83-1.09) H 09/22/18 20:00 - ....Imaging X-ray: Report Reviewed Problem List - Problems (1) Abdominal pain Code(s): R10.9 - UNSPECIFIED ABDOMINAL PAIN (2) Gastrojejunal ulcer Code(s): K28.9 - GASTROJEJUNAL ULCER, UNSP ACUTE OR CHR, W/O HEMOR OR PERF (3) H/O gastric bypass Code(s): Z98.84 - BARIATRIC SURGERY STATUS (4) S/P small bowel resection Code(s): Z90.49 - ACQUIRED ABSENCE OF OTHER SPECIFIED PARTS OF DIGESTIVE TRACT (5) Status post gastric banding surgery Code(s): Z98.84 - BARIATRIC SURGERY STATUS Assessment/Plan 42 y.o. female with PMH of morbid obesity s/p gastric bypass who developed a gastric ulcer now s/p resection of gastrojejunalulcer/reversal of gastric bypass /SB resection and IZABEL -- records reviewed/labs and imaging results noted -- Pt was extubated, currently alert, still with some abd pain, no distress -- continue current antibiotics -- current temp of 99.5F, continue monitor -- pain control -- surgical follow up cc time: 38 min
[2018-09-24] MEDS ORDERED: ACETAMINOPHEN 325 MG TABLET (FP) PO ONE (21:10)
[2018-09-24] MEDS: TOPIRAMATE 25 MG TABLET (FP) PO SCH (21:34)
[2018-09-25 02:10] LABS: HEMOGLOBIN 10.3 GM/dL (10.7-15.3); PLATELET COUNT 45 K/MM3 (134-434); RDW 15.3 % (11.6-15.6)
[2018-09-25] MEDS ORDERED: PIPERACILLIN/TAZOBACTAM 3.375 GM VIAL IVPB ONE ×3 (02:13→13:48)
[2018-09-25] MEDS ORDERED: DEXTROSE 5%-WATER - 50 ML IVPB ONE ×3 (02:14→13:48)
[2018-09-25 02:15] LABS: HEMATOCRIT 30.5 % (32.4-45.2); MCH 29.9 pg (25.7-33.7); MCHC 33.7 g/dl (32.0-36.0); MEAN CELL VOLUME 88.7 fl (80-96); MEAN PLT VOLUME 9.5 fl (7.5-11.1); RBC 3.44 M/mm3 (3.60-5.2)
[2018-09-25] MEDS: PIPERACILLIN/TAZOB 3.375 GM 3.375 GM in DEXTROSE 5%-WATER - 50 ML IVPB SCH ×3 (02:16→17:00)
[2018-09-25] MEDS: DEXTROSE 5%-LACTATED RINGERS 1,000 ML IV SCH ×3 (06:12→21:00)
[2018-09-25 06:31] LABS: HEMATOCRIT 29.7 % (32.4-45.2); HEMOGLOBIN 10.2 GM/dL (10.7-15.3); MCH 30.1 pg (25.7-33.7); MCHC 34.3 g/dl (32.0-36.0); MEAN CELL VOLUME 87.9 fl (80-96); PLATELET COUNT 46 K/MM3 (134-434); RBC 3.37 M/mm3 (3.60-5.2); RDW 15.3 % (11.6-15.6)
[2018-09-25 06:49] LABS: MAGNESIUM 1.7 mg/dL (1.8-2.4); PHOSPHOROUS 2.9 mg/dL (2.5-4.9)
[2018-09-25 06:58] LABS: ALBUMIN 1.5 g/dl (3.4-5.0); BILIRUBIN,TOTAL 0.7 mg/dL (0.2-1); BLOOD UREA NITROGEN 17.8 mg/dL (7-18); CALCIUM 7.2 mg/dL (8.5-10.1); CREATININE 0.5 mg/dL (0.55-1.3); POTASSIUM 3.8 mmol/L (3.5-5.1); TOT PROT 3.2 g/dl (6.4-8.2)
[2018-09-25] MEDS ORDERED: PT OWN MED DRAWER 7, Y5N ONE ×2 (08:04→16:54)
[2018-09-25] MEDS ORDERED: SODIUM CHLORIDE 1,000 ML IV STA (08:42)
[2018-09-25] MEDS ORDERED: ACETAMINOPHEN 1000 MG/100 ML VIAL (NON FORMULARY) IVPB ONE (08:43)
[2018-09-25] MEDS: SUCRALFATE 1 GM/10 ML UNIT DOSE CUPS PO SCH ×4 (09:01→21:17)
[2018-09-25] MEDS: PANTOPRAZOLE SODIUM 40 MG VIAL IVPUSH SCH ×2 (09:01→21:21)
--- NOTE | 2018-09-25 09:39 | PN ---
Teaching Attending Note Name of Resident: Ruben Sosa ATTENDING PHYSICIAN STATEMENT I saw and evaluated the patient. I reviewed the resident's note and discussed the case with the resident. I agree with the resident's findings and plan as documented. SUBJECTIVE: Patient seen and examined in the ICU. Remains extubated. Tachypneic on NC but reports increased abdominal pain. Continued bloody drainage from BON drains, but H & H stable. No pressors. Intake & Output 09/22/18 09/23/18 09/24/18 09/25/18 23:59 23:59 23:59 23:59 Intake Total 45972 5278 4800 3250 Output Total 4870 1740 1920 540 Balance 6180 3538 2880 2710 Weight 201 lb 15.095 oz 222 lb Last Vital Signs Temp Pulse Resp BP Pulse Ox 97.7 F 148 H 19 135/72 100 09/25/18 08:23 09/25/18 09:00 09/25/18 09:00 09/25/18 09:00 09/25/18 07:38 Active Medications Hydromorphone HCl (Hydromorphone 10 Mg/50 Ml-Ns) 10 mg ASSISTANT DIRECTOR OF SECURITY ASSISTANT DIRECTOR OF SECURITY CAROLINE; Protocol Stop: 09/30/18 13:11 Last Admin: 09/24/18 21:33 Dose: 10 mg Piperacillin Sod/Tazobactam (Sod 3.375 gm/ Dextrose) 50 mls @ 100 mls/hr IVPB Q8H-IV CAROLINE; Protocol Last Admin: 09/25/18 09:01 Dose: 100 mls/hr Dextrose/Lactated Ringer's (D5-Lr -) 1,000 mls @ 150 mls/hr IV ASDIR CAROLINE Last Admin: 09/25/18 06:12 Dose: 150 mls/hr Sodium Chloride (Normal Saline -) 1,000 mls @ 1,000 mls/hr IV ASDIR STA Stop: 09/25/18 09:41 Last Admin: 09/25/18 08:54 Dose: 1,000 mls/hr Ondansetron HCl (Zofran Injection) 4 mg IVPUSH Q4H PRN PRN Reason: NAUSEA AND/OR VOMITING Last Admin: 09/24/18 14:54 Dose: 4 mg Pantoprazole Sodium (Protonix Iv) 40 mg IVPUSH BID [facility] Last Admin: 09/25/18 09:01 Dose: 40 mg Promethazine HCl (Phenergan Injection -) 12.5 mg IVPUSH Q6H PRN PRN Reason: NAUSEA-FOR RESCUE AFTER 15 MIN Sucralfate (Carafate Oral Suspension -) 1 gm PO QID [facility] Last Admin: 09/25/18 09:01 Dose: Not Given Sumatriptan Succinate (Imitrex -) 25 mg PO BID PRN PRN Reason: MIGRAINE HEADACHE Topiramate (Topamax -) 25 mg PO HS [facility] Last Admin: 09/24/18 21:34 Dose: Not Given Gen: Tachypneic, awake and alert HEENT: NCAT, PERRL, (-) Icterus Neck: No bruits Cardio: S1S2, tachycardia Pulm: vented, few scattered rhonchi Abd: Soft, (+) BON x 2, hypoactive BS, (+) Large dressing CDI Ext: no edema SPORTSPERSONS: non-focal Laboratory Results - last 24 hr 09/24/18 09/24/18 09/25/18 10:15 16:10 01:45 WBC 5.3 6.0 RBC 2.69 L 3.44 L Hgb 8.1 L 10.3 L Hct 23.2 L 30.5 L D MCV 86.3 88.7 MCH 30.2 29.9 MCHC 35.0 33.7 RDW 15.4 15.3 Plt Count 58 L 45 L D MPV 8.8 9.5 Sodium Potassium Chloride Carbon Dioxide Anion Gap BUN Creatinine Est GFR (CKD-EPI)AfAm Est GFR (CKD-EPI)NonAf Random Glucose Calcium Phosphorus Magnesium Total Bilirubin AST ALT Alkaline Phosphatase Total Protein Albumin Blood Type A POSITIVE Antibody Screen Positive Antibody Identification Anti-c Antigen Identification No Result Required. Crossmatch See Detail 09/25/18 09/25/18 09/25/18 05:40 05:40 05:40 WBC 6.0 RBC 3.37 L Hgb 10.2 L Hct 29.7 L MCV 87.9 MCH 30.1 MCHC 34.3 RDW 15.3 Plt Count 46 L MPV 10.0 Sodium 141 Potassium 3.8 Chloride 110 H Carbon Dioxide 27 Anion Gap 4 L BUN 17.8 Creatinine 0.5 L Est GFR (CKD-EPI)AfAm 136.42 Est GFR (CKD-EPI)NonAf 117.71 Random Glucose 87 Calcium 7.2 L Phosphorus 2.9 Magnesium 1.7 L Total Bilirubin 0.7 AST 23 ALT 13 Alkaline Phosphatase 61 Total Protein 3.2 L Albumin 1.5 L Blood Type Antibody Screen Antibody Identification Antigen Identification Crossmatch ASSESSMENT/PLAN: POD #3: Resection of Gastro-jejunal anastomotic ulcer. Reversal of Gastric Bypass. Gastro-gastrostomy. Small Bowel Resection. Lysis of Adhesions. Diagnostic Laparoscopy. Control of intra-abdominal hemorrhage Sustained sinus tachycardia: Low clinical suspicion of VTE Migraines PUD (marginal ulcers at gastroenteric anastamosis) SBO 2018 Chronic low back pain Anxiety Bariatric surgery (Kinza en Y 2004) L4-S1 fusion C/S x 2 Acute blood loss anemia Will increase pain control Follow H & H Normal transfusion thresholds: D/W surgery: goal 8.5 to 9 O2 as needed to maintain saturation Mechanical VTE prophylaxis IVF: D5LR Strict I & O If sustained tachycardia will consider CTA Requires ICU monitoring for tenuous overall status Dr Escobar Critical care time spent in reviewing chart, evaluating patient and formulating plan - 36 minutes.
[2018-09-25] MEDS: ONDANSETRON 4 MG/2 ML VIAL IVPUSH PRN ×2 (10:15→21:21)
[2018-09-25] MEDS: HYDROmorphone *PCA* 10MG/50ML DISP.SYRIN PCA SCH (10:16)
--- NOTE | 2018-09-25 10:47 | PN ---
Physical Exam: SUBJECTIVE: Patient seen and examined at bedside. Pt complains of pain. Has been persistently tachycardic. BON lines intact and draining 200-300 cc each overnight. OBJECTIVE: Vital Signs Period Temp Pulse Resp BP Sys/Lugo Pulse Ox Last 24 Hr 97.7 F-100 F 106-152 12-21 105-160/63-100 100-100 Gen: uncomfortable appearing HEENT: NCAT, EOMI Neck: supple, no jvd Cardio: tachycardic, regular, normal s1s2, no mrg appreciated Pulm: limited exam, cta b/l Abd: large laparotomy site cdi, drains functional with serosang b/l Ext: scds in place. 2+ pulses Laboratory Results - last 24 hr 09/24/18 09/24/18 09/25/18 10:15 16:10 01:45 WBC 5.3 6.0 RBC 2.69 L 3.44 L Hgb 8.1 L 10.3 L Hct 23.2 L 30.5 L D MCV 86.3 88.7 MCH 30.2 29.9 MCHC 35.0 33.7 RDW 15.4 15.3 Plt Count 58 L 45 L D MPV 8.8 9.5 Sodium Potassium Chloride Carbon Dioxide Anion Gap BUN Creatinine Est GFR (CKD-EPI)AfAm Est GFR (CKD-EPI)NonAf Random Glucose Calcium Phosphorus Magnesium Total Bilirubin AST ALT Alkaline Phosphatase Total Protein Albumin Blood Type A POSITIVE Antibody Screen Positive Antibody Identification Anti-c Antigen Identification No Result Required. Crossmatch See Detail 09/25/18 09/25/18 09/25/18 05:40 05:40 05:40 WBC 6.0 RBC 3.37 L Hgb 10.2 L Hct 29.7 L MCV 87.9 MCH 30.1 MCHC 34.3 RDW 15.3 Plt Count 46 L MPV 10.0 Sodium 141 Potassium 3.8 Chloride 110 H Carbon Dioxide 27 Anion Gap 4 L BUN 17.8 Creatinine 0.5 L Est GFR (CKD-EPI)AfAm 136.42 Est GFR (CKD-EPI)NonAf 117.71 Random Glucose 87 Calcium 7.2 L Phosphorus 2.9 Magnesium 1.7 L Total Bilirubin 0.7 AST 23 ALT 13 Alkaline Phosphatase 61 Total Protein 3.2 L Albumin 1.5 L Blood Type Antibody Screen Antibody Identification Antigen Identification Crossmatch Active Medications Generic Name Dose Route Start Last Admin Trade Name Freq PRN Reason Stop Dose Admin Hydromorphone HCl 10 mg 09/23/18 13:15 09/25/18 10:16 Hydromorphone 10 Mg/50 Ml-Ns [employer] 09/30/18 13:11 10 mg [employer] CAROLINE Administration Protocol Piperacillin Sod/Tazobactam 50 mls @ 100 mls/hr 09/23/18 18:00 09/25/18 09:01 Sod 3.375 gm/ Dextrose IVPB 100 mls/hr Q8H-IV [facility] Administration Protocol Dextrose/Lactated Ringer's 1,000 mls @ 150 mls/hr 09/24/18 10:15 09/25/18 06: 12 D5-Lr - IV 150 mls/hr ASDIR CAROLINE Administration Ondansetron HCl 4 mg 09/23/18 13:07 09/25/18 10:15 Zofran Injection IVPUSH 4 mg Q4H PRN Administration NAUSEA AND/OR VOMITING Pantoprazole Sodium 40 mg 09/14/18 12:30 09/25/18 09:01 Protonix Iv IVPUSH 40 mg BID [facility] Administration Promethazine HCl 12.5 mg 09/22/18 18:36 Phenergan Injection - IVPUSH Q6H PRN NAUSEA-FOR RESCUE AFTER 15 MIN Sucralfate 1 gm 09/14/18 14:00 09/25/18 09:01 Carafate Oral Suspension - PO Not Given QID [facility] Sumatriptan Succinate 25 mg 09/14/18 12:41 Imitrex - PO BID PRN MIGRAINE HEADACHE Topiramate 25 mg 09/14/18 22:00 09/24/18 21:34 Topamax - PO Not Given HS [facility] ASSESSMENT/PLAN: Pt is a 42 y/o F with PMH migraine, PUD (marginal ulcers at gastroenteric anastamosis), SBO 2018, Chronic low back pain, anxiety, Bariatric surgery (Kinza en Y 2003), L4-S1 fusion, C/S x 2 who presented to ICU s/p ex lap this afternoon. Surgery began as a laparascopic but was converted to ex-lap Kinza en Y reversal. Pt had many adhesion. ? gastric artery bleed. EBL 3.5L. Pt received 6 PRBC 2 FFP, 1 leukoreduced plts. #ex lap 09/22/2018 -Resection of Gastro-jejunal anastomotic ulcer. Reversal of Gastric Bypass. Gastro-gastrostomy. Small Bowel Resection. Lysis of Adhesions. Diagnostic Laparoscopy. Control of intra-abdominal hemorrhage -Pt has required PRBCs post op. target Hb > 8.5 -protonix -D5LR -[employer] pump #sinus tachycardia persistent -likely 2/2 procedure and blood loss -will r/o CTA vs intraabdominal bleed. CTA chest and CTAP with IV & PO contrast -BP stable -f/u repeat CBC #prophylactic abx -on zosyn Dispo: We will continue to follow the patient. Thank you for this consultative opportunity. Visit type - Emergency Visit Emergency Visit: No - New Patient This patient is new to me today: No - Critical Care Critical Care patient: Yes Total Critical Care Time (in minutes): 45 Critical Care Statement: The care of this patient involved high complexity decision making to prevent further life threatening deterioration of the patient 's condition and/or to evaluate & treat vital organ system(s) failure or risk of failure.
--- NOTE | 2018-09-25 12:19 | PN ---
Progress Note, Physician Chief Complaint: POD3 s/p reversal gastric bypass - Current Medication List Current Medications: Active Medications Hydromorphone HCl (Hydromorphone 10 Mg/50 Ml-Ns) 10 mg COMMUNICATIONS SENIOR ASSOCIATE COMMUNICATIONS SENIOR ASSOCIATE [facility]; Protocol Stop: 09/30/18 13:11 Last Admin: 09/25/18 10:16 Dose: 10 mg Piperacillin Sod/Tazobactam (Sod 3.375 gm/ Dextrose) 50 mls @ 100 mls/hr IVPB Q8H-IV [facility]; Protocol Last Admin: 09/25/18 09:01 Dose: 100 mls/hr Dextrose/Lactated Ringer's (D5-Lr -) 1,000 mls @ 150 mls/hr IV ASDIR [facility] Last Admin: 09/25/18 06:12 Dose: 150 mls/hr Ondansetron HCl (Zofran Injection) 4 mg IVPUSH Q4H PRN PRN Reason: NAUSEA AND/OR VOMITING Last Admin: 09/25/18 10:15 Dose: 4 mg Pantoprazole Sodium (Protonix Iv) 40 mg IVPUSH BID [facility] Last Admin: 09/25/18 09:01 Dose: 40 mg Promethazine HCl (Phenergan Injection -) 12.5 mg IVPUSH Q6H PRN PRN Reason: NAUSEA-FOR RESCUE AFTER 15 MIN Sucralfate (Carafate Oral Suspension -) 1 gm PO QID [facility] Last Admin: 09/25/18 09:01 Dose: Not Given Sumatriptan Succinate (Imitrex -) 25 mg PO BID PRN PRN Reason: MIGRAINE HEADACHE Topiramate (Topamax -) 25 mg PO HS [facility] Last Admin: 09/24/18 21:34 Dose: Not Given - Objective Vital Signs: Vital Signs Temperature 97.4 F L 09/25/18 10:00 Pulse Rate 144 H 09/25/18 11:49 Respiratory Rate 20 09/25/18 11:49 Blood Pressure 124/76 09/25/18 11:49 O2 Sat by Pulse Oximetry (%) 100 09/25/18 10:16 Labs: CBC, BMP 09/25/18 05:40 09/25/18 05:40 INR, PTT INR 1.49 (0.83-1.09) H 09/22/18 20:00 Assessment/Plan Pt's pain is under good control with COMMUNICATIONS SENIOR ASSOCIATE, will keep for now. Pt is tachycardic , possibly still hypovolemic from blood loss during surgery. Otherwise recovering well from anesthesia.
[2018-09-25 13:18] LABS: EPI CELLS 2.1 /HPF (0-5/HPF); HYALINE CASTS 11 /lpf (0-8); PH,URINE 5.5 (5.0-8.0); URINE APPEARANCE CLOUDY; URINE BACTERIA 4.2 /hpf (NEGATIVE); URINE BILIRUBIN NEGATIVE (NEGATIVE); URINE COLOR DK YELLOW; URINE GLUCOSE (UA) NEGATIVE (NEGATIVE); URINE KETONE NEGATIVE (NEGATIVE); URINE LEUK ESTERASE TRACE (NEGATIVE); URINE NITRITE NEGATIVE (NEGATIVE); URINE PROTEIN 1+ (NEGATIVE); URINE RBC 430 /hpf (0-4); URINE WBC 3 /hpf (0-5)
--- NOTE | 2018-09-25 13:24 | PN ---
Progress Note, Physician History of Present Illness: Pt seen and events noted. She remains persistently tachycardic, c/o severe abd pain earlier which is better controlled now on INSTRUCTOR GROUND SERVICES pump. Remains alert, without distress but still with recent low grade fevers. CT A/P and CTA results noted. - Current Medication List Current Medications: Active Medications Hydromorphone HCl (Hydromorphone 10 Mg/50 Ml-Ns) 10 mg [employer]CTOR [employer] IN[employer]CTOR [employer]OUND SERVICES [facility]; Protocol Stop: 09/30/18 13:11 Last Admin: 09/25/18 10:16 Dose: 10 mg Piperacillin Sod/Tazobactam (Sod 3.375 gm/ Dextrose) 50 mls @ 100 mls/hr IVPB Q8H-IV [facility]; Protocol Last Admin: 09/25/18 09:01 Dose: 100 mls/hr Dextrose/Lactated Ringer's (D5-Lr -) 1,000 mls @ 150 mls/hr IV ASDIR [facility] Last Admin: 09/25/18 06:12 Dose: 150 mls/hr Ondansetron HCl (Zofran Injection) 4 mg IVPUSH Q4H PRN PRN Reason: NAUSEA AND/OR VOMITING Last Admin: 09/25/18 10:15 Dose: 4 mg Pantoprazole Sodium (Protonix Iv) 40 mg IVPUSH BID [facility] Last Admin: 09/25/18 09:01 Dose: 40 mg Promethazine HCl (Phenergan Injection -) 12.5 mg IVPUSH Q6H PRN PRN Reason: NAUSEA-FOR RESCUE AFTER 15 MIN Sucralfate (Carafate Oral Suspension -) 1 gm PO QID [facility] Last Admin: 09/25/18 09:01 Dose: Not Given Sumatriptan Succinate (Imitrex -) 25 mg PO BID PRN PRN Reason: MIGRAINE HEADACHE Topiramate (Topamax -) 25 mg PO HS [facility] Last Admin: 09/24/18 21:34 Dose: Not Given - Objective Vital Signs: Vital Signs Temperature 97.4 F L 09/25/18 10:00 Pulse Rate 144 H 09/25/18 11:49 Respiratory Rate 20 09/25/18 11:49 Blood Pressure 124/76 09/25/18 11:49 O2 Sat by Pulse Oximetry (%) 100 09/25/18 10:16 Constitutional: Yes: No Distress, Calm Eyes: Yes: Conjunctiva Clear HENT: Yes: Other (NGT) Cardiovascular: Yes: Tachycardia Respiratory: Yes: Regular Gastrointestinal: Yes: Hypoactive Bowel Sounds, Tenderness (epigastrium), Other (BON drains x 2 , abd dressing c/d/i) Extremities: Yes: WNL Integumentary: Yes: WNL Neurological: Yes: Alert, Oriented Labs: CBC, BMP 09/25/18 05:40 09/25/18 05:40 INR, PTT INR 1.49 (0.83-1.09) H 09/22/18 20:00 - ....Imaging Cat Scan: Report Reviewed Problem List - Problems (1) Abdominal pain Code(s): R10.9 - UNSPECIFIED ABDOMINAL PAIN (2) Gastrojejunal ulcer Code(s): K28.9 - GASTROJEJUNAL ULCER, UNSP ACUTE OR CHR, W/O HEMOR OR PERF (3) H/O gastric bypass Code(s): Z98.84 - BARIATRIC SURGERY STATUS (4) S/P small bowel resection Code(s): Z90.49 - ACQUIRED ABSENCE OF OTHER SPECIFIED PARTS OF DIGESTIVE TRACT (5) Status post gastric banding surgery Code(s): Z98.84 - BARIATRIC SURGERY STATUS (6) Anemia Code(s): D64.9 - ANEMIA, UNSPECIFIED (7) Ischemic necrosis of small bowel Code(s): K55.029 - ACUTE INFARCTION OF SMALL INTESTINE, EXTENT UNSPECIFIED (8) Obese Code(s): E66.9 - OBESITY, UNSPECIFIED Assessment/Plan 42 y.o. female with PMH of morbid obesity s/p gastric bypass who developed a gastric ulcer now s/p resection of gastrojejunalulcer/reversal of gastric bypass /SB resection and IZABEL POD#3 Hx of Morbid obesity s/p gastric bypass PUD s/p resection of gastro-jejunal ulcer/reversal of bypass/SB resection and IZABEL s/p extubation Blood loss anemia Tachycardia Abd pain Low grade Fevers -- Pt with low grade fevers, c/o severe abd pain -- CTAP reveals 12x9x7 cm retrogastric collection possible extravasation of IV contrast -- continue Zosyn, will add antifungal coverage empirically for now -- surgical f/u -- if fevers persist send blood cultures -- monitor hb/hct -- rest of care per CCU, case d/w team cc time: 40
[2018-09-25 13:33] LABS: ACTIVATED PTT 37.3 SECONDS (25.2-36.5)
[2018-09-25 13:41] LABS: INR 1.4 (0.83-1.09); PROTHROMBIN TIME (PATIENT) 16.6 SEC (9.7-13.0)
[2018-09-25 13:46] LABS: BASO % 0.1 % (0-2.0); EOS % 0.4 % (0-4.5); HEMATOCRIT 30.8 % (32.4-45.2); HEMOGLOBIN 10.4 GM/dL (10.7-15.3); LYMPH % 3.1 % (8-40); MCH 29.9 pg (25.7-33.7); MCHC 33.9 g/dl (32.0-36.0); MEAN CELL VOLUME 88.2 fl (80-96); MEAN PLT VOLUME 8.7 fl (7.5-11.1); MONO % 1.9 % (3.8-10.2); NEUT % 94.5 % (42.8-82.8); RBC 3.49 M/mm3 (3.60-5.2); RDW 15.4 % (11.6-15.6); WHITE BLOOD COUNT 4.8 K/mm3 (4.0-10.0)
[2018-09-25] MEDS ORDERED: CASPOFUNGIN ACETATE 70 MG in SODIUM CHLORIDE 250 ML IVPB ONE (14:00)
--- NOTE | 2018-09-25 14:13 | PN ---
Progress Note, Physician Chief Complaint: PUD Abdominal Pain Anemia History of Present Illness: Previous notes and events reviewed awake and alert patient extubated yesterday NAD complain of abdominal pain but sts feeling better after LABELING MACHINE OPERATOR pump started NGT to LCS BON x 2 A-line Tachycardic with HR to 150s--Abdomen and Pelvic CT scan and Chest CTA done - Current Medication List Current Medications: Active Medications Hydromorphone HCl (Hydromorphone 10 Mg/50 Ml-Ns) 10 mg LABELING MACHINE OPERATOR LABELING MACHINE OPERATOR [facility]; Protocol Stop: 09/30/18 13:11 Last Admin: 09/25/18 10:16 Dose: 10 mg Piperacillin Sod/Tazobactam (Sod 3.375 gm/ Dextrose) 50 mls @ 100 mls/hr IVPB Q8H-IV [facility]; Protocol Last Admin: 09/25/18 09:01 Dose: 100 mls/hr Dextrose/Lactated Ringer's (D5-Lr -) 1,000 mls @ 150 mls/hr IV ASDIR [facility] Last Admin: 09/25/18 06:12 Dose: 150 mls/hr Caspofungin 70 mg/ Sodium (Chloride) 250 mls @ 250 mls/hr IVPB ONCE ONE Stop: 09/25/18 14:59 Caspofungin 50 mg/ Sodium (Chloride) 250 mls @ 250 mls/hr IVPB DAILY@1400 [facility] Ondansetron HCl (Zofran Injection) 4 mg IVPUSH Q4H PRN PRN Reason: NAUSEA AND/OR VOMITING Last Admin: 09/25/18 10:15 Dose: 4 mg Pantoprazole Sodium (Protonix Iv) 40 mg IVPUSH BID [facility] Last Admin: 09/25/18 09:01 Dose: 40 mg Promethazine HCl (Phenergan Injection -) 12.5 mg IVPUSH Q6H PRN PRN Reason: NAUSEA-FOR RESCUE AFTER 15 MIN Sucralfate (Carafate Oral Suspension -) 1 gm PO QID [facility] Last Admin: 09/25/18 13:27 Dose: Not Given Sumatriptan Succinate (Imitrex -) 25 mg PO BID PRN PRN Reason: MIGRAINE HEADACHE Topiramate (Topamax -) 25 mg PO HS [facility] Last Admin: 09/24/18 21:34 Dose: Not Given - Objective Vital Signs: Vital Signs Temperature 97.4 F L 09/25/18 10:00 Pulse Rate 146 H 09/25/18 13:00 Respiratory Rate 20 09/25/18 13:00 Blood Pressure 109/73 09/25/18 13:00 O2 Sat by Pulse Oximetry (%) 100 09/25/18 10:16 Constitutional: Yes: No Distress, Calm Eyes: Yes: Conjunctiva Clear HENT: Yes: Atraumatic Cardiovascular: Yes: Tachycardia Respiratory: Yes: Regular, CTA Bilaterally Gastrointestinal: Yes: Normal Bowel Sounds, Soft, Tenderness Musculoskeletal: Yes: Muscle Weakness Extremities: Yes: WNL Edema: No Wound/Incision: Yes: Dressing Dry and Intact Neurological: Yes: Alert, Oriented Psychiatric: Yes: Alert, Oriented Labs: CBC, BMP 09/25/18 13:36 09/25/18 05:40 INR, PTT INR 1.40 (0.83-1.09) H 09/25/18 12:30 Problem List - Problems (1) Abdominal pain Assessment/Plan: -Pain control--LABELING MACHINE OPERATOR pump -POD #2 s/p resection of gastro-jejunal anastomotic ulcer, reversal gastric bypass, gastro-gastrostomy, small bowel resection, lysis of adhesions, diagnostic laparoscopy, intra abdominal hemorrhage -NGT to [facility] -IV Hydration -NPO -Surgery on board -Abdominal CT shows large [id number] multioculated retrogastric fluid collection seen, which represents possible extravasation Code(s): R10.9 - UNSPECIFIED ABDOMINAL PAIN (2) Anemia Assessment/Plan: -current Hg 10.4 -transfuse for Hg <8.0 -Abdominal CT shows large [id number] multioculated retrogastric fluid collection seen, which represents possible extravasation -CBC q6h Code(s): D64.9 - ANEMIA, UNSPECIFIED (3) Gastrojejunal ulcer Assessment/Plan: -Surgery on board -POD #2 s/p resection of gastro-jejunal anastomotic ulcer, reversal gastric bypass, gastro-gastrostomy, small bowel resection, lysis of adhesions, diagnostic laparoscopy, intra abdominal hemorrhage BON x 2--R BON bloody output, L BON serosanguinous output -NGT to LCS -Pantoprazole Code(s): K28.9 - GASTROJEJUNAL ULCER, UNSP ACUTE OR CHR, W/O HEMOR OR PERF (4) Migraine Assessment/Plan: -Sumatriptan and Topamax Code(s): G43.909 - MIGRAINE, UNSP, NOT INTRACTABLE, WITHOUT STATUS MIGRAINOSUS (5) Peptic ulcer disease Assessment/Plan: -Pantoprazole Code(s): K27.9 - PEPTIC ULC, SITE UNSP, UNSP AC OR CHR, W/O HEMOR OR PERF (6) Tachycardia Assessment/Plan: -HR 150s -tele monitoring -cardiology consult Code(s): R00.0 - TACHYCARDIA, UNSPECIFIED Assessment/Plan see problem list
[2018-09-25 14:56] LABS: ANISOCYTOSIS 3+; MACROCYTOSIS 0; PLATELET ESTIMATE DECREASED
--- NOTE | 2018-09-25 15:03 | PN ---
Progress Note, Physician Chief Complaint: Called to evaluate for tachycardia History of Present Illness: Pt is POD 3 after laperotomy and revision of gastric bypass. She developed severe pain when getting out of bed and started to become tachycardic to about 140s. Pain has improved with PCI. CT chest with contrast shows no evidence of PE. CT with contrast of the abdomen shows possible extravisation of IV contrast concerning for a post op bleed. She is currently comfortable. No dyspnea, pain controlled. No CP or palpitations. - Current Medication List Current Medications: Active Medications Hydromorphone HCl (Hydromorphone 10 Mg/50 Ml-Ns) 10 mg ASSISTANT CUSTOMER SERVICE MANAGER ASSISTANT CUSTOMER SERVICE MANAGER [facility]; Protocol Stop: 09/30/18 13:11 Last Admin: 09/25/18 10:16 Dose: 10 mg Piperacillin Sod/Tazobactam (Sod 3.375 gm/ Dextrose) 50 mls @ 100 mls/hr IVPB Q8H-IV [facility]; Protocol Last Admin: 09/25/18 09:01 Dose: 100 mls/hr Dextrose/Lactated Ringer's (D5-Lr -) 1,000 mls @ 150 mls/hr IV ASDIR [facility] Last Admin: 09/25/18 06:12 Dose: 150 mls/hr Caspofungin 70 mg/ Sodium (Chloride) 250 mls @ 250 mls/hr IVPB ONCE ONE Stop: 09/25/18 14:59 Caspofungin 50 mg/ Sodium (Chloride) 250 mls @ 250 mls/hr IVPB DAILY@1400 [facility] Ondansetron HCl (Zofran Injection) 4 mg IVPUSH Q4H PRN PRN Reason: NAUSEA AND/OR VOMITING Last Admin: 09/25/18 10:15 Dose: 4 mg Pantoprazole Sodium (Protonix Iv) 40 mg IVPUSH BID [facility] Last Admin: 09/25/18 09:01 Dose: 40 mg Promethazine HCl (Phenergan Injection -) 12.5 mg IVPUSH Q6H PRN PRN Reason: NAUSEA-FOR RESCUE AFTER 15 MIN Sucralfate (Carafate Oral Suspension -) 1 gm PO QID [facility] Last Admin: 09/25/18 13:27 Dose: Not Given Sumatriptan Succinate (Imitrex -) 25 mg PO BID PRN PRN Reason: MIGRAINE HEADACHE Topiramate (Topamax -) 25 mg PO HS [facility] Last Admin: 09/24/18 21:34 Dose: Not Given - Objective Vital Signs: Vital Signs Temperature 98.0 F 09/25/18 14:00 Pulse Rate 146 H 09/25/18 14:00 Respiratory Rate 20 09/25/18 14:00 Blood Pressure 98/70 09/25/18 14:28 O2 Sat by Pulse Oximetry (%) 100 09/25/18 10:16 Constitutional: Yes: Well Nourished, No Distress Eyes: Yes: Conjunctiva Clear HENT: Yes: Atraumatic, Normocephalic Neck: Yes: Supple, Trachea Midline Cardiovascular: Yes: Tachycardia, S1, S2. No: JVD, Murmur, Rub Respiratory: Yes: Regular, CTA Bilaterally Gastrointestinal: Yes: Normal Bowel Sounds Edema: No Labs: CBC, BMP 09/25/18 13:36 09/25/18 05:40 INR, PTT INR 1.40 (0.83-1.09) H 09/25/18 12:30 - ....Imaging EKG: Image Reviewed (Sinus tach low voltage nl axis and interval.) Problem List - Problems (1) Tachycardia Code(s): R00.0 - TACHYCARDIA, UNSPECIFIED Assessment/Plan POD 3 laperotomy nd revision of gastric bypass. Significant sinus tachycardia after developing pain. No hypoxia borderline BP. Abd CT showed extavesation of IV contrast-?possible bleeding. Surgery aware and frequent CBCs are being checked. So far stable. No sign of PE or heart failure. Recent echocardiogram showed normal biventricular function without valvulopathy or pulmonary HTN. Continue to monitor for bleeding Continue pain management IV fluid hydration Replace Mg Monitor UO closely. No role for AV merle blockers in this setting and in fact can cause hypotension. Will sign off.
[2018-09-25 15:04] LABS: PLATELET COUNT 44 K/MM3 (134-434)
[2018-09-25 18:49] LABS: HEMATOCRIT 29.6 % (32.4-45.2); HEMOGLOBIN 9.8 GM/dL (10.7-15.3); MCH 29.7 pg (25.7-33.7); MCHC 33.2 g/dl (32.0-36.0); MEAN CELL VOLUME 89.3 fl (80-96); MEAN PLT VOLUME 9.5 fl (7.5-11.1); RBC 3.31 M/mm3 (3.60-5.2); RDW 15.7 % (11.6-15.6); WHITE BLOOD COUNT 7.3 K/mm3 (4.0-10.0)
[2018-09-25 20:17] LABS: PLATELET COUNT 28 K/MM3 (134-434)
[2018-09-25] MEDS: TOPIRAMATE 25 MG TABLET (FP) PO SCH (21:17)
[2018-09-25 21:43] LABS: ANISOCYTOSIS 1+; MACROCYTOSIS 1+; OVALOCYTE 1+
[2018-09-25 21:44] LABS: PLATELET ESTIMATE DECREASED
--- NOTE | 2018-09-25 22:51 | PN ---
Progress Note (short form) - Note Progress Note: POD#3 Tmax-100; presently afebrile P-128-150 ([id number]) BP-105/70 Pt awake, alert, states abd pain lessened P/E-Abd- incision examines + purulent fluid expressed in upper 1/3 of wound Approximately 8 blaire removed purulent fluid expressed and C/S done packing applied WBC-7.3 H/H-9.8/29.6 BUN/CR-17/0.5 Plt-28K U.O-50-60 cc/hr CT scan- venous extravasation retro-gastric [id number] hematoma P- PLt transfusion Cont antibiotics Check wound C/S Cont NPO, NGT Cont ICU care
[2018-09-26] MEDS ORDERED: DEXTROSE 5%-WATER - 50 ML IVPB ONE ×4 (01:07→20:13)
[2018-09-26] MEDS ORDERED: PIPERACILLIN/TAZOBACTAM 3.375 GM VIAL IVPB ONE ×2 (01:07→09:46)
[2018-09-26] MEDS: HYDROmorphone *PCA* 10MG/50ML DISP.SYRIN PCA SCH ×3 (01:09→18:22)
[2018-09-26] MEDS: PIPERACILLIN/TAZOB 3.375 GM 3.375 GM in DEXTROSE 5%-WATER - 50 ML IVPB SCH ×2 (01:16→09:47)
[2018-09-26 04:55] LABS: BASO % 0.2 % (0-2.0); EOS % 3.6 % (0-4.5); HEMATOCRIT 26.3 % (32.4-45.2); LYMPH % 9.3 % (8-40); MCH 29.9 pg (25.7-33.7); MEAN CELL VOLUME 87.8 fl (80-96); MEAN PLT VOLUME 9.9 fl (7.5-11.1); MONO % 7.8 % (3.8-10.2); NEUT % 79.1 % (42.8-82.8); RDW 15.8 % (11.6-15.6); WHITE BLOOD COUNT 8.2 K/mm3 (4.0-10.0)
[2018-09-26 05:00] LABS: PLATELET COUNT 25 K/MM3 (134-434)
[2018-09-26 05:22] LABS: ALBUMIN 1.5 g/dl (3.4-5.0); BILIRUBIN,TOTAL 1.4 mg/dL (0.2-1); BLOOD UREA NITROGEN 15.5 mg/dL (7-18); CALCIUM 7.3 mg/dL (8.5-10.1); CREATININE 0.6 mg/dL (0.55-1.3); POTASSIUM 3.2 mmol/L (3.5-5.1); TOT PROT 3.3 g/dl (6.4-8.2)
[2018-09-26 05:44] LABS: PLATELET ESTIMATE DECREASED
[2018-09-26] MEDS: KCL 10 MEQ IVPB 10 MEQ/100 ML INFUS.BAG IVPB SCH ×3 (05:59→08:16)
--- NOTE | 2018-09-26 06:48 | SPA.POSTOP ---
- POST-OP NOTE POD #4 s/p Diagnostic Laparoscopy. Converted to open resection of Gastro-jejunal anastomotic ulcer. Reversal of Gastric Bypass. Gastro-gastrostomy. Small Bowel Resection. Extensive Lysis of Adhesions. Control of intra-abdominal hemorrhage. Patient tachycardic over the weekend to 140s. A Cx CT done and r/o PE. An ABD CT with IV contrast also completed and identified retro-gastric venous extravasation ~ 12 x 9 x 7cm hematoma. Alert. Doing well. No acute events over past 24hours per RN notes. Patient resting comfortably. Still c/o incisional tenderness. Adequate pain control via Dilaudid SUPERVISOR SANDBLASTER. Garcia remains in place (clear). Attempted to get OOB to chair but too much pain. Denies n/v/f/c, CP, palpitations, SOB or GARCIA. Denies flatus or BM. Denies feeling weak or dizzy. To date, patient has received (intraop & postop): PRBC = 9 FFP = 2 PLTs = 3 Last Vital Signs Temp Pulse Resp BP Pulse Ox 98.3 F 124 H 19 93/62 100 09/26/18 06:00 09/26/18 06:00 09/26/18 06:00 09/26/18 06:00 09/26/18 06:00 WBC / HH / PLT TRENDS (24 hours) 09/25/18 09/25/18 09/25/1809/26/18 01:45 05:40 13:36 18:10 04:00 WBC 6.0 6.0 4.8 7.3 8.2 Hgb 10.3 L 10.2 L 10.4 L 9.8 9.0 Hct 30.5 L D 29.7 L 30.8 L 29.6 26.3 Plt Count 45 L D 46 L 44 L 28 25 BMP 09/25/18 09/26/18 05:40 04:00 Potassium 3.2 L Calcium 7.3 L Magnesium 1.7 L Total Protein 3.3 L Albumin 1.5 L BON DRAINS (24 hrs) 09/25/18 09/25/18 09/25/18 09/25/18 09/25/18 09/25/18 09/26/18 06:00 09:07 09:50 100 40 20 75 Left 80 20 40 120 60 75 100 Right 100 40 40 Garcia Output 24 hrs 06/23/19 06/23/19 06/23/19 06/24/19 06:00 14:00 23:00 05:45 Garcia 300 250 200 300 GASTRIC DRAINAGE 24hrs 09/25/18 09/26/18 16:51 05:45 NGT 100 250 PE General: No acute distress. Using her Incentive spirometer as directed. Pulm: CTA bilat Cor: Tachy at rate of 124 Abd: Midline blaire intact. (few blaire removed opening wound about 5cm from proximal pole)...deep fascia intact. No purulent drainage. BON drains x2 on bulb suction (serous > sanguine). Hypoactive bowel sounds. : Garcia to gravity (clear) LE: Soft, non-tender bilat. SCD's bilat. No edema bilat Problem List - Problems (1) Gastrojejunal ulcer Assessment/Plan: PLT transfusion PRN IV ABX f/u wound C/S Strict NPO NGT to intermittent LWCS --> record ouput q Shift Monitor & record BON output q Shift Serial H/H Garcia to remain until patient OOB and ambulating Correct elyte deficiencies --> Potassiusm, Magnesium, Calcium Spoke with IR/Dr. Saini regarding most recent CT study. He wants to repeat the CTA study w/ and without contrast (No oral). Based on current study, he needs to r/o splenic artery bleed as the cause. Cont ICU management Above plan discussed with Dr. Ramires and agrees Code(s): K28.9 - GASTROJEJUNAL ULCER, UNSP ACUTE OR CHR, W/O HEMOR OR PERF (2) Abdominal pain Code(s): R10.9 - UNSPECIFIED ABDOMINAL PAIN (3) Anemia Code(s): D64.9 - ANEMIA, UNSPECIFIED (4) H/O gastric bypass Code(s): Z98.84 - BARIATRIC SURGERY STATUS Visit type - Case Type Case Type: ED Admission
--- NOTE | 2018-09-26 07:52 | PN ---
Physical Exam: SUBJECTIVE: Patient seen and examined at bedside- overnight patient received 1 unit of platelets ; her MAPS have been ranging in the 60's-70 's she continues to be tachycardic (120's's-130's) CTA was done yesterday which was negative for PE CT ab/pelvis was done which showed a 12x9x7 multiloculated retrogastric fluid collection which appears to be extravasated IV contrast; her pain is well controlled with dilaudid CLOTH DYEING RANGE TENDER ; she denies any CP/SOB/v she has been having off and on nausea - OBJECTIVE: Vital Signs Period Temp Pulse Resp BP Sys/Lugo Pulse Ox Last 24 Hr 97.4 F-98.6 F 121-152 12-21 85-160/55-100 99-100 GENERAL: The patient is awake, alert, and fully oriented, in no acute distress.. EYES: PEERLA: EOMI no scleral icterus NECK: no JVD; no lymphadenopathy LUNGS: diminshed breath sounds B/L HEART: tachycardic, S1, S2 without murmur, rub or gallop. ABDOMEN: Soft,slight tenderness upon palaption; midline blaire intact; no purulent drainage- hypoactive BS; [address] EXTREMITIES: 2+ pulses, warm, well-perfused, trace edema, SCDS in place . PSYCH: Normal mood, normal affect. SKIN: Warm, dry, normal turgor, no rashes or lesions noted Laboratory Results - last 24 hr 09/20/18 09/25/18 09/25/18 10:00 12:30 12:30 WBC RBC Hgb Hct MCV MCH MCHC RDW Plt Count MPV Absolute Neuts (auto) Total Counted Neutrophils % Neutrophils % (Manual) Band Neutrophils % Lymphocytes % Lymphocytes % (Manual) Monocytes % Monocytes % (Manual) Eosinophils % Eosinophils % (Manual) Basophils % Basophils % (Manual) Myelocytes % (Man) Promyelocytes % (Man) Blast Cells % (Manual) Nucleated RBC % Metamyelocytes Differential Comment Hypochromia Platelet Estimate Platelet Comment Polychromasia Poikilocytosis Anisocytosis Microcytosis Macrocytosis Ovalocytes PT with INR 16.60 H Cancelled INR 1.40 H Cancelled PTT (Actin FS) 37.3 H Sodium Potassium Chloride Carbon Dioxide Anion Gap BUN Creatinine Est GFR (CKD-EPI)AfAm Est GFR (CKD-EPI)NonAf Random Glucose Calcium Total Bilirubin AST ALT Alkaline Phosphatase Total Protein Albumin Urine Color Urine Appearance Urine pH Ur Specific [place] Urine Protein Urine Glucose (UA) Urine Ketones Urine Blood Urine Nitrite Urine Bilirubin Urine Urobilinogen Ur Leukocyte Esterase Urine WBC (Auto) Urine RBC (Auto) Urine Casts (Auto) U Epithel Cells (Auto) Urine Bacteria (Auto) Blood Type A POSITIVE Antibody Screen Positive Antibody Identification Lc, e Antigen Identification c Antigen - NEGATIVE Crossmatch See Detail Crossmatch IS Only See Detail 09/25/18 09/25/18 09/25/18 12:30 13:36 18:10 WBC 4.8 7.3 RBC 3.49 L 3.31 L Hgb 10.4 L 9.8 L Hct 30.8 L 29.6 L MCV 88.2 89.3 MCH 29.9 29.7 MCHC 33.9 33.2 RDW 15.4 15.7 H Plt Count 44 L 28 L* D MPV 8.7 D 9.5 Absolute Neuts (auto) 4.6 No Result Required. Total Counted 100 Neutrophils % 94.5 H No Result Required. Neutrophils % (Manual) 69.7 81.0 Band Neutrophils % 7.1 11.0 Lymphocytes % 3.1 L D No Result Required. Lymphocytes % (Manual) 6.1 L D 1.0 L D Monocytes % 1.9 L No Result Required. Monocytes % (Manual) 13 H D 5 Eosinophils % 0.4 D No Result Required. Eosinophils % (Manual) 0.0 Basophils % 0.1 No Result Required. Basophils % (Manual) 0.0 Myelocytes % (Man) 0 Promyelocytes % (Man) 0 Blast Cells % (Manual) 0 Nucleated RBC % 0 0 Metamyelocytes 2 1 D Differential Comment 100 Hypochromia 0 Platelet Estimate Decreased Decreased Platelet Comment Present Polychromasia 0 1+ Poikilocytosis 1+ 1+ Anisocytosis 3+ 1+ Microcytosis 3+ 1+ Macrocytosis 0 1+ Ovalocytes 1+ PT with INR INR PTT (Actin FS) Sodium Potassium Chloride Carbon Dioxide Anion Gap BUN Creatinine Est GFR (CKD-EPI)AfAm Est GFR (CKD-EPI)NonAf Random Glucose Calcium Total Bilirubin AST ALT Alkaline Phosphatase Total Protein Albumin Urine Color Dk yellow Urine Appearance Cloudy Urine pH 5.5 Ur Specific [place] 1.033 Urine Protein 1+ H Urine Glucose (UA) Negative Urine Ketones Negative Urine Blood 3+ H Urine Nitrite Negative Urine Bilirubin Negative Urine Urobilinogen 1.0 Ur Leukocyte Esterase Trace Urine WBC (Auto) 3 Urine RBC (Auto) 430 Urine Casts (Auto) 11 U Epithel Cells (Auto) 2.1 Urine Bacteria (Auto) 4.2 Blood Type Antibody Screen Antibody Identification Antigen Identification Crossmatch Crossmatch IS Only 09/26/18 09/26/18 04:00 04:00 WBC 8.2 RBC 3.00 L Hgb 9.0 L Hct 26.3 L MCV 87.8 MCH 29.9 MCHC 34.0 RDW 15.8 H Plt Count 25 L* MPV 9.9 Absolute Neuts (auto) 6.5 Total Counted 100 Neutrophils % 79.1 Neutrophils % (Manual) 75.0 Band Neutrophils % 7.0 Lymphocytes % 9.3 D Lymphocytes % (Manual) 10.0 D Monocytes % 7.8 D Monocytes % (Manual) 7 Eosinophils % 3.6 D Eosinophils % (Manual) 0.0 Basophils % 0.2 Basophils % (Manual) Myelocytes % (Man) Promyelocytes % (Man) Blast Cells % (Manual) Nucleated RBC % 0 Metamyelocytes 1 Differential Comment Hypochromia 1+ Platelet Estimate Decreased Platelet Comment No clumping noted Polychromasia 1+ Poikilocytosis Anisocytosis Microcytosis Macrocytosis Ovalocytes PT with INR INR PTT (Actin FS) Sodium 141 Potassium 3.2 L Chloride 110 H Carbon Dioxide 28 Anion Gap 4 L BUN 15.5 Creatinine 0.6 Est GFR (CKD-EPI)AfAm 128.48 Est GFR (CKD-EPI)NonAf 110.86 Random Glucose 85 Calcium 7.3 L Total Bilirubin 1.4 H AST 21 ALT 21 Alkaline Phosphatase 78 Total Protein 3.3 L Albumin 1.5 L Urine Color Urine Appearance Urine pH Ur Specific [place] Urine Protein Urine Glucose (UA) Urine Ketones Urine Blood Urine Nitrite Urine Bilirubin Urine Urobilinogen Ur Leukocyte Esterase Urine WBC (Auto) Urine RBC (Auto) Urine Casts (Auto) U Epithel Cells (Auto) Urine Bacteria (Auto) Blood Type Antibody Screen Antibody Identification Antigen Identification Crossmatch Crossmatch IS Only Active Medications Generic Name Dose Route Start Last Admin Trade Name Freq PRN Reason Stop Dose Admin Hydromorphone HCl 10 mg 09/23/18 13:15 09/26/18 01:09 Hydromorphone 10 Mg/50 Ml-Ns CLOTH DYEING RANGE TENDER 09/30/18 13:11 10 mg CLOTH DYEING RANGE TENDER CAROLINE Administration Protocol Piperacillin Sod/Tazobactam 50 mls @ 100 mls/hr 09/23/18 18:00 09/26/18 01:16 Sod 3.375 gm/ Dextrose IVPB 100 mls/hr Q8H-IV CAROLINE Administration Protocol Dextrose/Lactated Ringer's 1,000 mls @ 150 mls/hr 09/24/18 10:15 09/25/18 21: 00 D5-Lr - IV 150 mls/hr ASDIR CAROLINE Administration Caspofungin 50 mg/ Sodium 250 mls @ 250 mls/hr 09/26/18 14:00 Chloride IVPB DAILY@1400 CAROLINE Potassium Chloride 10 meq in 100 mls @ 100 mls/hr 09/26/18 06:00 09/26/18 07: 27 Potassium Chloride 10 Meq Premix Ivpb - IVPB 09/26/18 08:59 100 mls/hr Q60M CAROLINE Administration Ondansetron HCl 4 mg 09/23/18 13:07 09/25/18 21:21 Zofran Injection IVPUSH 4 mg Q4H PRN Administration NAUSEA AND/OR VOMITING Pantoprazole Sodium 40 mg 09/14/18 12:30 09/25/18 21:21 Protonix Iv IVPUSH 40 mg BID CAROLINE Administration Promethazine HCl 12.5 mg 09/22/18 18:36 Phenergan Injection - IVPUSH Q6H PRN NAUSEA-FOR RESCUE AFTER 15 MIN Sucralfate 1 gm 09/14/18 14:00 09/25/18 21:17 Carafate Oral Suspension - PO Not Given QID CAROLINE Sumatriptan Succinate 25 mg 09/14/18 12:41 Imitrex - PO BID PRN MIGRAINE HEADACHE Topiramate 25 mg 09/14/18 22:00 09/25/18 21:17 Topamax - PO Not Given HS [facility] ASSESSMENT/PLAN: Pt is a 42 y/o F with PMH migraine, PUD, SBO 2018, Chronic low back pain, anxiety, Bariatric surgery (Kinza en Y 2003), L4-S1 fusion, C/S x 2 who presented to ICU s/p ex lap procedure #Neuro stable no issues #Cardiovascular patient remains tachycardic in the 120's with MAPS in the 70's -CTA was done yesterday with no signs of PE; likely tachycardic 2/2 sepsis v. blood loss -will continue to monitor -c/w d5LR @150mls/hr #GI patient is POD #4 reversal of gastric bypass/lysis of adhesions/resection of G- J anastomotic ulcer/ -CTA done yesterday which showed 12x9x7 multiloculated retrogastric fluid collection with extravasation of IV contrast; -the splenic artery may have been nicked during procedure; repeat CTA being done today to specifically visualize if splenic artery was nicked- may need embolization -patient needed 9 units of PRBCS; 2 units of FFP; 3 leukoreduced platelet -zofran PRN for nasusea -IV dilaudid PRN for pain -protonix 40 BID -d5LR @150mls/hr -NGT in place at low wall suction #Heme patient lost around 3.5 L of blood; received 9 units of PRBCS; 2 FFPS; 3 leukocreduced platelet and has 2 BON drains -patient is now thrombocytopenic with platelets at 25 -most recent Hgb was 9.0 this AM -CBC's q6H -monitor for signs of bleeding -monitor hemodynamics #ID patient currently started on Zosyn (day 3) and capsofungin (day 2) -blood cx growing gram negative bacilli in both aerobic and anerobic bottles -fluid cx from wound pending -ID on board #Pulmonary patient saturating well on nasal canula though is complaining of slight shortness of breath when the pain occurs -incentive spirometer -duoneb treatment PRN -will monitor O2 saturations #Renal patient was hypokalemic/hypomagnesemic this AM -repleted; will monitor F/E/N D5LR @150mls/hr monitor electrolytes NPO with NGT in place currently dispo: continue ICU monitoring Problem List - Problems (1) Gastrojejunal ulcer Code(s): K28.9 - GASTROJEJUNAL ULCER, UNSP ACUTE OR CHR, W/O HEMOR OR PERF (2) Migraine Code(s): G43.909 - MIGRAINE, UNSP, NOT INTRACTABLE, WITHOUT STATUS MIGRAINOSUS (3) Duodenal anastomotic leak Code(s): K91.89 - OTH POSTPROCEDURAL COMPLICATIONS AND DISORDERS OF DGSTV SYS (4) H/O gastric bypass Code(s): Z98.84 - BARIATRIC SURGERY STATUS (5) S/P small bowel resection Code(s): Z90.49 - ACQUIRED ABSENCE OF OTHER SPECIFIED PARTS OF DIGESTIVE TRACT (6) Status post gastric banding surgery Code(s): Z98.84 - BARIATRIC SURGERY STATUS Visit type - Emergency Visit Emergency Visit: Yes ED Registration Date: 09/14/18 Care time: The patient presented to the Emergency Department on the above date and was hospitalized for further evaluation of their emergent condition. - New Patient This patient is new to me today: No - Critical Care Critical Care patient: Yes Total Critical Care Time (in minutes): 35 Critical Care Statement: The care of this patient involved high complexity decision making to prevent further life threatening deterioration of the patient 's condition and/or to evaluate & treat vital organ system(s) failure or risk of failure.
[2018-09-26 08:17] LABS: BILIRUBIN,DIRECT 1.2 mg/dL (0.0-0.2)
[2018-09-26] MEDS: SUCRALFATE 1 GM/10 ML UNIT DOSE CUPS PO SCH ×4 (09:38→21:39)
[2018-09-26] MEDS: PANTOPRAZOLE SODIUM 40 MG VIAL IVPUSH SCH ×2 (09:47→22:13)
[2018-09-26] MEDS: DEXTROSE 5%-LACTATED RINGERS 1,000 ML IV SCH ×2 (09:48→16:26)
--- NOTE | 2018-09-26 09:58 | PN ---
Progress Note (short form) - Note Progress Note: Anesthesia Pain rounds Continue the FOREST FIRE EQUIPMENT OPERATOR today. Karena Marcial MD
--- NOTE | 2018-09-26 10:37 | EKG ---
Test Reason : Blood Pressure : / mmHG Vent. Rate : 143 BPM Atrial Rate : 143 BPM P-R Int : 144 ms QRS Dur : 080 ms QT Int : 288 ms P-R-T Axes : 051 011 028 degrees QTc Int : 444 ms SINUS TACHYCARDIA LOW VOLTAGE QRS CANNOT RULE OUT ANTERIOR INFARCT , AGE UNDETERMINED ABNORMAL ECG WHEN COMPARED WITH ECG OF 20-SEP-2018 10:22, VENT. RATE HAS INCREASED BY 87 BPM T WAVE VARIATION Confirmed by ASHLEY ROWLAND, JOHN ([id number]) on 09/26/2018 10:37:08 AM Referred By: Belle GARG Confirmed By:JOHN RAMIREZ MD
[2018-09-26 10:47] LABS: INR 1.34 (0.83-1.09); PROTHROMBIN TIME (PATIENT) 15.9 SEC (9.7-13.0)
[2018-09-26 10:50] LABS: ACTIVATED PTT 35.5 SECONDS (25.2-36.5)
--- NOTE | 2018-09-26 11:29 | PN ---
Teaching Attending Note Name of Resident: Kayleen Kevin ATTENDING PHYSICIAN STATEMENT I saw and evaluated the patient. I reviewed the resident's note and discussed the case with the resident. I agree with the resident's findings and plan as documented. SUBJECTIVE: Pt seen and examined in the ICU. Pain controlled with DIRECTOR PROJECT MANAGEMENT pump. Has not required PRBC transfusion but remains thrombocytopenic. CT A/P yesterday showing 12cm fluid/blood collection behind stomach. OBJECTIVE: Vital Signs Period Temp Pulse Resp BP Sys/Lugo Pulse Ox Last 24 Hr 97.5 F-98.6 F 121-146 12-20 85-124/55-86 99-100 Intake & Output 09/23/18 09/24/18 09/25/18 09/26/18 23:59 23:59 23:59 23:59 Intake Total 5278 4800 6170 2240 Output Total 1740 1920 1610 725 Balance 3538 2880 4560 1515 Weight 91.6 kg 100.698 kg 102.013 kg Gen: NAD at rest Heart: RRR Lung: decreased breath sounds at the bases Abd: soft, +BON with serosanguinous fluid Ext: + edema CBC, BMP 09/26/18 04:00 09/26/18 04:00 Active Medications Hydromorphone HCl (Hydromorphone 10 Mg/50 Ml-Ns) 10 mg DIRECTOR PROJECT MANAGEMENT DIRECTOR PROJECT MANAGEMENT CAROLINE; Protocol Stop: 09/30/18 13:11 Last Admin: 09/26/18 01:09 Dose: 10 mg Piperacillin Sod/Tazobactam (Sod 3.375 gm/ Dextrose) 50 mls @ 100 mls/hr IVPB Q8H-IV CAROLINE; Protocol Last Admin: 09/26/18 09:47 Dose: 100 mls/hr Dextrose/Lactated Ringer's (D5-Lr -) 1,000 mls @ 150 mls/hr IV ASDIR CAROLINE Last Admin: 09/26/18 09:48 Dose: 150 mls/hr Caspofungin 50 mg/ Sodium (Chloride) 250 mls @ 250 mls/hr IVPB DAILY@1400 CAROLINE Ondansetron HCl (Zofran Injection) 4 mg IVPUSH Q4H PRN PRN Reason: NAUSEA AND/OR VOMITING Last Admin: 09/25/18 21:21 Dose: 4 mg Pantoprazole Sodium (Protonix Iv) 40 mg IVPUSH BID CAROLINE Last Admin: 09/26/18 09:47 Dose: 40 mg Promethazine HCl (Phenergan Injection -) 12.5 mg IVPUSH Q6H PRN PRN Reason: NAUSEA-FOR RESCUE AFTER 15 MIN Sucralfate (Carafate Oral Suspension -) 1 gm PO QID [facility] Last Admin: 09/26/18 09:38 Dose: Not Given Sumatriptan Succinate (Imitrex -) 25 mg PO BID PRN PRN Reason: MIGRAINE HEADACHE Topiramate (Topamax -) 25 mg PO HS [facility] Last Admin: 09/25/18 21:17 Dose: Not Given ASSESSMENT AND PLAN: s/p Gastro-jejunal Anastamotic Ulcer resection/Gastric Bypass Reversal/IZABEL Acute Blood Loss Anemia Thrombocytopenia Gram Negative Bacteremia h/o Migraines Anxiety - monitor CBC - transfuse as needed - monitor drain output - for CTA A/P - IVF - monitor urine output, creatinine - continue antibiotics per ID - f/u cultures - pain control - incentive spirometry - DVT/GI prophylaxis - continue ICU monitoring critical care time spent in reviewing chart, evaluating patient and formulating plan 35 min
[2018-09-26 11:39] VITALS: BMI 36.1
[2018-09-26] MEDS ORDERED: ALBUTEROL SO4 2.5/IPRATROPIUM 0.5 INH SOL 3 ML VIAL.NEB. NEB ONE (12:41)
[2018-09-26 12:42] LABS: HEMATOCRIT 26.8 % (32.4-45.2); HEMOGLOBIN 9.1 GM/dL (10.7-15.3); MCH 29.9 pg (25.7-33.7); MCHC 33.8 g/dl (32.0-36.0); MEAN CELL VOLUME 88.3 fl (80-96); MEAN PLT VOLUME 10.1 fl (7.5-11.1); RBC 3.03 M/mm3 (3.60-5.2); RDW 16.1 % (11.6-15.6); WHITE BLOOD COUNT 6.8 K/mm3 (4.0-10.0)
[2018-09-26 12:53] LABS: PLATELET COUNT 25 K/MM3 (134-434)
[2018-09-26] MEDS ORDERED: PT OWN MED DRAWER 7, Y5N ONE (13:16)
[2018-09-26] MEDS ORDERED: CASPOFUNGIN ACETATE 50 MG in SODIUM CHLORIDE 250 ML IVPB SCH (14:00)
--- NOTE | 2018-09-26 14:42 | PN ---
Progress Note, Physician History of Present Illness: has remained afebrile was spiking low grade blood cx were send now positive wound cx still pending brandon with serosang drainage - Current Medication List Current Medications: Active Medications Hydromorphone HCl (Hydromorphone 10 Mg/50 Ml-Ns) 10 mg MENTALLY RETARDED TEACHER MENTALLY RETARDED TEACHER [facility]; Protocol Stop: 09/30/18 13:11 Last Admin: 09/26/18 13:11 Dose: Not Given Piperacillin Sod/Tazobactam (Sod 3.375 gm/ Dextrose) 50 mls @ 100 mls/hr IVPB Q8H-IV CAROLINE; Protocol Last Admin: 09/26/18 09:47 Dose: 100 mls/hr Dextrose/Lactated Ringer's (D5-Lr -) 1,000 mls @ 150 mls/hr IV ASDIR [facility] Last Admin: 09/26/18 09:48 Dose: 150 mls/hr Caspofungin 50 mg/ Sodium (Chloride) 250 mls @ 250 mls/hr IVPB DAILY@1400 CAROLINE Last Admin: 09/26/18 14:14 Dose: 250 mls/hr Ondansetron HCl (Zofran Injection) 4 mg IVPUSH Q4H PRN PRN Reason: NAUSEA AND/OR VOMITING Last Admin: 09/25/18 21:21 Dose: 4 mg Pantoprazole Sodium (Protonix Iv) 40 mg IVPUSH BID [facility] Last Admin: 09/26/18 09:47 Dose: 40 mg Promethazine HCl (Phenergan Injection -) 12.5 mg IVPUSH Q6H PRN PRN Reason: NAUSEA-FOR RESCUE AFTER 15 MIN Sucralfate (Carafate Oral Suspension -) 1 gm PO QID [facility] Last Admin: 09/26/18 13:21 Dose: Not Given Sumatriptan Succinate (Imitrex -) 25 mg PO BID PRN PRN Reason: MIGRAINE HEADACHE Topiramate (Topamax -) 25 mg PO HS [facility] Last Admin: 09/25/18 21:17 Dose: Not Given - Objective Vital Signs: Vital Signs Temperature 98.3 F 09/26/18 14:00 Pulse Rate 123 H 09/26/18 14:00 Respiratory Rate 16 09/26/18 14:00 Blood Pressure 91/62 09/26/18 14:00 O2 Sat by Pulse Oximetry (%) 100 09/26/18 13:11 Constitutional: Yes: Calm, Mild Distress Cardiovascular: Yes: S1, S2 Gastrointestinal: Yes: Hypoactive Bowel Sounds, Other (ng tube in place) Musculoskeletal: Yes: WNL Extremities: Yes: WNL Neurological: Yes: Alert, Oriented Psychiatric: Yes: Alert, Oriented Labs: CBC, BMP 09/26/18 12:10 09/26/18 04:00 INR, PTT INR 1.34 (0.83-1.09) H 09/26/18 10:16 Fibrinogen 267.0 mg/dL (238-498) 09/26/18 10:16 Assessment/Plan Resection of Gastro-jejunal anastomotic ulcer. Reversal of Gastric Bypass. Gastro-gastrostomy. Small Bowel Resection. Lysis of Adhesions. Diagnostic Laparoscopy. Control of intra-abdominal hemorrhage Migraines PUD (marginal ulcers at gastroenteric anastamosis) SBO 2018 Chronic low back pain Anxiety Bariatric surgery (Kinza en Y 2003) L4-S1 fusion C/S x 2 Acute blood loss anemia gm negative bacteremia plan continue current mgmt repeat blood cx rest as per icu nutrition close monitoring platelets have dropped will change abx to cefepime cc 40 min
[2018-09-26] MEDS ORDERED: CEFEPIME HCL 1 GM VIAL (RESTRICTED TO ID) ONE ×2 (15:55→20:13)
[2018-09-26] MEDS: CEFEPIME 1 GM in DEXTROSE 5%-WATER - 50 ML IVPB SCH ×2 (15:56→20:16)
--- NOTE | 2018-09-26 16:34 | PN ---
Progress Note, Physician Chief Complaint: AWAKE ALERT IN ICU IN MILD DISTRESS DENIES CHEST PAIN OR SOB NO FEVERS OR CHILLS - Current Medication List Current Medications: Active Medications Hydromorphone HCl (Hydromorphone 10 Mg/50 Ml-Ns) 10 mg DIAMOND FINISHING SUPERVISOR DIAMOND FINISHING SUPERVISOR [facility]; Protocol Stop: 09/30/18 13:11 Last Admin: 09/26/18 13:11 Dose: Not Given Dextrose/Lactated Ringer's (D5-Lr -) 1,000 mls @ 150 mls/hr IV ASDIR [facility] Last Admin: 09/26/18 16:26 Dose: 150 mls/hr Caspofungin 50 mg/ Sodium (Chloride) 250 mls @ 250 mls/hr IVPB DAILY@1400 CAROLINE Last Admin: 09/26/18 14:14 Dose: 250 mls/hr Cefepime HCl 1 gm/ Dextrose 50 mls @ 100 mls/hr IVPB Q8H-IV CAROLINE; Protocol Last Admin: 09/26/18 15:56 Dose: 100 mls/hr Ondansetron HCl (Zofran Injection) 4 mg IVPUSH Q4H PRN PRN Reason: NAUSEA AND/OR VOMITING Last Admin: 09/25/18 21:21 Dose: 4 mg Pantoprazole Sodium (Protonix Iv) 40 mg IVPUSH BID [facility] Last Admin: 09/26/18 09:47 Dose: 40 mg Promethazine HCl (Phenergan Injection -) 12.5 mg IVPUSH Q6H PRN PRN Reason: NAUSEA-FOR RESCUE AFTER 15 MIN Sucralfate (Carafate Oral Suspension -) 1 gm PO QID [facility] Last Admin: 09/26/18 13:21 Dose: Not Given Sumatriptan Succinate (Imitrex -) 25 mg PO BID PRN PRN Reason: MIGRAINE HEADACHE Topiramate (Topamax -) 25 mg PO HS [facility] Last Admin: 09/25/18 21:17 Dose: Not Given - Objective Vital Signs: Vital Signs Temperature 98.4 F 09/26/18 16:00 Pulse Rate 114 H 09/26/18 16:00 Respiratory Rate 15 09/26/18 16:00 Blood Pressure 96/71 09/26/18 16:00 O2 Sat by Pulse Oximetry (%) 100 09/26/18 15:00 Constitutional: Yes: Mild Distress Eyes: Yes: WNL HENT: Yes: WNL Neck: Yes: WNL Cardiovascular: Yes: Tachycardia Respiratory: Yes: CTA Bilaterally, On Nasal O2 Gastrointestinal: Yes: Soft, Other (NGT IN PLACE WITH POSITIVE SECRETIONS BROWN) Genitourinary: Yes: Garcia Present Musculoskeletal: Yes: Muscle Weakness Extremities: Yes: Other Edema: No Neurological: Yes: Other Psychiatric: Yes: Other Labs: CBC, BMP 09/26/18 12:10 09/26/18 04:00 INR, PTT INR 1.34 (0.83-1.09) H 09/26/18 10:16 Fibrinogen 267.0 mg/dL (238-498) 09/26/18 10:16 Problem List - Problems (1) Abdominal pain Code(s): R10.9 - UNSPECIFIED ABDOMINAL PAIN (2) Anemia Code(s): D64.9 - ANEMIA, UNSPECIFIED (3) Peptic ulcer disease Code(s): K27.9 - PEPTIC ULC, SITE UNSP, UNSP AC OR CHR, W/O HEMOR OR PERF (4) Duodenal anastomotic leak Code(s): K91.89 - OTH POSTPROCEDURAL COMPLICATIONS AND DISORDERS OF DGSTV SYS (5) H/O gastric bypass Code(s): Z98.84 - BARIATRIC SURGERY STATUS (6) Anxiety Code(s): F41.9 - ANXIETY DISORDER, UNSPECIFIED (7) Gastrojejunal ulcer Code(s): K28.9 - GASTROJEJUNAL ULCER, UNSP ACUTE OR CHR, W/O HEMOR OR PERF (8) Migraine Code(s): G43.909 - MIGRAINE, UNSP, NOT INTRACTABLE, WITHOUT STATUS MIGRAINOSUS (9) Tachycardia Code(s): R00.0 - TACHYCARDIA, UNSPECIFIED Assessment/Plan AWAITING CT ANGIO ON IVF AND IV PPI NGT TO SUCTION MILD DISTRESS PAIN MEDS PRN SURGERY AND ICU TEAM F/U APPRECIATED DVT PROPHYLAXIS 02 SUPPORT TRANSFUSE PRBC/PLATLETS NEEDED TACHYCARDIA SECONDARY TO GI BLEED? VS ANXIETY, WITH BP MODERATELY LOW CAN NOT GIVE B-BLOCKERS WILL TREAT SINUS TACHY WITH TRANSFUSIONS AND 02 SUPPORT FOR NOW. IF GREATER THAN 150 BEATS/MIN CAN START CARDIZEM LOW DOSE DRIP
[2018-09-26] MEDS ORDERED: ALBUTEROL SO4 2.5/IPRATROPIUM 0.5 INH SOL 3 ML VIAL.NEB. NEB PRN (16:59)
[2018-09-26] MEDS ORDERED: HYDROmorphone *PCA* 10MG/50ML DISP.SYRIN ONE (17:56)
[2018-09-26] MEDS ORDERED: METOPROLOL TARTRATE 5 MG/5 ML VIAL IVPUSH ONE (18:36)
[2018-09-26] MEDS ORDERED: METOPROLOL TARTRATE 5 MG/5 ML VIAL ONE (18:37)
[2018-09-26] MEDS ORDERED: SODIUM CHLORIDE 1,000 ML IV STA (18:37)
[2018-09-26] MEDS ORDERED: SODIUM CHLORIDE 250 ML IV STA (18:52)
--- NOTE | 2018-09-26 19:11 | PN ---
Progress Note (short form) - Note Progress Note: POD#4 Afebrile P-124 most of day, now [address] scan BP- 106/95 saO2-100%ON cpap was 87%on RA WBC-6.8 H/H-9.1/26.8 PLT-25 UO-50 cc/hr P- Hematology consult Trasnsfuse platelets, PRBC, FFP Discussed with VIR. Will perform angio tomorrow if blood products are given and parameters improve Cont ICU supportive care
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
[2018-09-26] MEDS: TOPIRAMATE 25 MG TABLET (FP) PO SCH (21:40)
[2018-09-26] MEDS ORDERED: DEXTROSE 5%-NORMAL SALINE 1,000 ML IV SCH (21:45)
[2018-09-26] MEDS ORDERED: DEXTROSE 5%-LACTATED RINGERS 1,000 ML IV SCH (21:45)
[2018-09-27] MEDS: CEFEPIME 1 GM in DEXTROSE 5%-WATER - 50 ML IVPB SCH ×2 (02:00→09:13)
[2018-09-27] MEDS ORDERED: CEFEPIME HCL 1 GM VIAL (RESTRICTED TO ID) ONE (03:21)
[2018-09-27] MEDS ORDERED: DEXTROSE 5%-WATER - 50 ML IVPB ONE (03:21)
[2018-09-27 06:06] LABS: EOS % 0.3 % (0-4.5); HEMOGLOBIN 8.2 GM/dL (10.7-15.3); LYMPH % 8.8 % (8-40); MCH 29.8 pg (25.7-33.7); MEAN CELL VOLUME 87.5 fl (80-96); MEAN PLT VOLUME 9.8 fl (7.5-11.1); MONO % 7.6 % (3.8-10.2); NEUT % 83.3 % (42.8-82.8); RBC 2.74 M/mm3 (3.60-5.2); RDW 16.5 % (11.6-15.6); WHITE BLOOD COUNT 9.8 K/mm3 (4.0-10.0)
[2018-09-27 06:20] LABS: PLATELET COUNT 35 K/MM3 (134-434)
[2018-09-27 06:32] LABS: INR 1.23 (0.83-1.09); PROTHROMBIN TIME (PATIENT) 14.5 SEC (9.7-13.0)
[2018-09-27 06:35] LABS: ACTIVATED PTT 31.1 SECONDS (25.2-36.5)
[2018-09-27 06:39] LABS: ALBUMIN 1.7 g/dl (3.4-5.0); BILIRUBIN,TOTAL 1.8 mg/dL (0.2-1); BLOOD UREA NITROGEN 13.6 mg/dL (7-18); CALCIUM 7.8 mg/dL (8.5-10.1); CREATININE 0.6 mg/dL (0.55-1.3); MAGNESIUM 1.6 mg/dL (1.8-2.4); PHOSPHOROUS 2.2 mg/dL (2.5-4.9); POTASSIUM 3.3 mmol/L (3.5-5.1); TOT PROT 3.7 g/dl (6.4-8.2)
--- NOTE | 2018-09-27 07:47 | SPA.POSTOP ---
- POST-OP NOTE POD #5 s/p Diagnostic Laparoscopy. Converted to open resection of Gastro- jejunal anastomotic ulcer. Reversal of Gastric Bypass. Gastro-gastrostomy. Small Bowel Resection. Extensive Lysis of Adhesions. Control of intra- abdominal hemorrhage. Pateint remains alert. Responds to questions appropriately. Engaging through exam. Per ICU Resident, patients heart rate elevated to 170s and broke w/ medication. Had a little difficulty breathing and was started on BiPap...recovered. Patient does have bilateral basilar effusions [facility] secondary to thrombocytopenia and recommendations appreciated. Patient received a total of 4 units of PLTs yesterday. Her blood cultures returned w/ G - rods --> bacteremia. Patient's HH cont to drift down. Given nature of surgery with control of intraop hemorrhage still concerning for possible leak. Patient had CTA of her abdomen last night...in conclusive per Radiologist (Shahid), also said he feels that the colon appears thickened. Patient resting comfortably. States today is the best she's felt since surgery. Still c/o incisional tenderness. Adequate pain control via CORPORATE ACCOUNT EXECUTIVE. Garcia remains in place (clear). Attempted to get OOB to chair but too much pain. Denies n/v/f/c, CP, palpitations, SOB or GARCIA. Denies flatus or BM. Denies feeling weak or dizzy. Last Vital Signs Temp Pulse Resp BP Pulse Ox 98.4 F 114 H 16 103/60 98 09/27/18 05:50 09/27/18 06:22 09/27/18 06:22 09/27/18 06:22 09/27/18 06:22 24 Hour Output Trend 09/26/18 09/26/18 09/26/18 09/26/18 09/26/18 09/26/18 09/27/18 09/27/18 05:45 13:21 15:00 18:23 18:58 23:00 05:50 06:50 Left BON 75 80 75 80 Right BON 100 40 NGT 250 150 150 300 Garcia 300 300 CBC, BMP 09/27/18 05:40 09/27/18 05:40 PE General: NAD Cor: Tachy 114 Abd: Midline incision w/ blaire intact. Wound open about 5 cm from proximal pole and extending about 6 cm. (initially due to seropurulent drainage, most likely fat necrosis). Deep fascia intact. No foul odor. BON drains remain on bulb suction (thinning out; more serous) : Garcia to gravity (clear) LE: Soft, non-tender bilat. SCD's bilat. +1 edema. Warm bilat Problem List - Problems (1) Gastrojejunal ulcer Assessment/Plan: POD #5 PLT transfusion --> keep over 80,000 IV ABX as per ID to cover G- rods Strict NPO NGT to intermittent LWCS --> record ouput q Shift Monitor & record BON output q Shift Monitor PT/PTT/fibrinogen Serial H/H Transfuse PRBC to keep H/H 10/30 (need to keep ahead) HemeOnc following due to Thrombocytopenia Garcia to remain until patient OOB and ambulating Correct elytes PRN Tight Glycemic control Incentive Spirometer Nutrition Consult Process to begin looking for Tertiary Facility (Dr. Lehman to speak with Administration this morning...[facility] vs. [place]?) Cont ICU management Above plan discussed with Dr. Lehman and agrees Code(s): K28.9 - GASTROJEJUNAL ULCER, UNSP ACUTE OR CHR, W/O HEMOR OR PERF (2) Abdominal pain Code(s): R10.9 - UNSPECIFIED ABDOMINAL PAIN (3) Anemia Code(s): D64.9 - ANEMIA, UNSPECIFIED (4) H/O gastric bypass Code(s): Z98.84 - BARIATRIC SURGERY STATUS Visit type - Case Type Case Type: ED Admission
[2018-09-27] MEDS: KCL 10 MEQ IVPB 10 MEQ/100 ML INFUS.BAG IVPB SCH ×3 (08:33→10:30)
[2018-09-27] MEDS: SUCRALFATE 1 GM/10 ML UNIT DOSE CUPS PO SCH (09:04)
[2018-09-27] MEDS: PANTOPRAZOLE SODIUM 40 MG VIAL IVPUSH SCH (09:13)
[2018-09-27 10:12] VITALS: TEMP 98
[2018-09-27] MEDS: HYDROmorphone *PCA* 10MG/50ML DISP.SYRIN PCA SCH ×2 (10:13→13:15)
--- NOTE | 2018-09-27 11:05 | PN ---
Progress Note, Physician Chief Complaint: AWAKE ALERT IN BED ICU 4 DENIES CHEST PAIN OR SOB SOME NAUSEA LAST NIGHT RESOLVED WITH ZOFRAN - Current Medication List Current Medications: Active Medications Albuterol/Ipratropium (Duoneb -) 1 amp NEB Q6H PRN PRN Reason: SHORTNESS OF BREATH Hydromorphone HCl (Hydromorphone 10 Mg/50 Ml-Ns) 10 mg DIGITAL MEDIA REPRESENTATIVE DIGITAL MEDIA REPRESENTATIVE [facility]; Protocol Stop: 09/30/18 13:11 Last Admin: 09/27/18 10:13 Dose: 10 mg Caspofungin 50 mg/ Sodium (Chloride) 250 mls @ 250 mls/hr IVPB DAILY@1400 [facility] Last Admin: 09/26/18 14:14 Dose: 250 mls/hr Cefepime HCl 1 gm/ Dextrose 50 mls @ 100 mls/hr IVPB Q8H-IV [facility]; Protocol Last Admin: 09/27/18 09:13 Dose: 100 mls/hr Dextrose/Lactated Ringer's (D5-Lr -) 1,000 mls @ 100 mls/hr IV ASDIR [facility] Last Admin: 09/26/18 22:13 Dose: Not Given Ondansetron HCl (Zofran Injection) 4 mg IVPUSH Q4H PRN PRN Reason: NAUSEA AND/OR VOMITING Last Admin: 09/25/18 21:21 Dose: 4 mg Pantoprazole Sodium (Protonix Iv) 40 mg IVPUSH BID [facility] Last Admin: 09/27/18 09:13 Dose: 40 mg Promethazine HCl (Phenergan Injection -) 12.5 mg IVPUSH Q6H PRN PRN Reason: NAUSEA-FOR RESCUE AFTER 15 MIN Sucralfate (Carafate Oral Suspension -) 1 gm PO QID [facility] Last Admin: 09/27/18 09:04 Dose: Not Given Sumatriptan Succinate (Imitrex -) 25 mg PO BID PRN PRN Reason: MIGRAINE HEADACHE Topiramate (Topamax -) 25 mg PO HS [facility] Last Admin: 09/26/18 21:40 Dose: Not Given - Objective Vital Signs: Vital Signs Temperature 98.0 F 09/27/18 10:00 Pulse Rate 117 H 09/27/18 10:13 Respiratory Rate 17 09/27/18 10:13 Blood Pressure 91/62 09/27/18 10:13 O2 Sat by Pulse Oximetry (%) 100 09/27/18 10:13 Constitutional: Yes: Mild Distress Eyes: Yes: WNL HENT: Yes: WNL Neck: Yes: WNL Cardiovascular: Yes: Regular Rate and Rhythm Respiratory: Yes: Diminished, On Nasal O2 Gastrointestinal: Yes: Soft Genitourinary: Yes: Garcia Present Musculoskeletal: Yes: Muscle Weakness Extremities: Yes: Other Edema: No Peripheral Pulses WNL: Yes Integumentary: Yes: Other Wound/Incision: Yes: Clean/Dry Neurological: Yes: WNL Labs: CBC, BMP 09/27/18 05:40 09/27/18 05:40 INR, PTT INR 1.23 (0.83-1.09) H 09/27/18 05:40 Fibrinogen 276.0 mg/dL (238-498) 09/27/18 05:40 Problem List - Problems (1) Abdominal pain Code(s): R10.9 - UNSPECIFIED ABDOMINAL PAIN (2) Anemia Code(s): D64.9 - ANEMIA, UNSPECIFIED (3) Peptic ulcer disease Code(s): K27.9 - PEPTIC ULC, SITE UNSP, UNSP AC OR CHR, W/O HEMOR OR PERF (4) Duodenal anastomotic leak Code(s): K91.89 - OTH POSTPROCEDURAL COMPLICATIONS AND DISORDERS OF DGSTV SYS (5) H/O gastric bypass Code(s): Z98.84 - BARIATRIC SURGERY STATUS (6) Anxiety Code(s): F41.9 - ANXIETY DISORDER, UNSPECIFIED (7) Gastrojejunal ulcer Code(s): K28.9 - GASTROJEJUNAL ULCER, UNSP ACUTE OR CHR, W/O HEMOR OR PERF (8) Migraine Code(s): G43.909 - MIGRAINE, UNSP, NOT INTRACTABLE, WITHOUT STATUS MIGRAINOSUS (9) Tachycardia Code(s): R00.0 - TACHYCARDIA, UNSPECIFIED Assessment/Plan CT ANGIO RESULTS PENDING NGT TO SUCTION MILD DISTRESS PAIN MEDS PRN SURGERY AND ICU TEAM F/U APPRECIATED DVT PROPHYLAXIS 02 SUPPORT TRANSFUSE PRBC/PLATLETS NEEDED TACHYCARDIA SECONDARY TO GI BLEED? VS ANXIETY, WITH BP MODERATELY LOW CAN NOT GIVE B-BLOCKERS WILL TREAT SINUS TACHY WITH TRANSFUSIONS AND 02 SUPPORT FOR NOW. IF GREATER THAN 150 BEATS/MIN CAN START CARDIZEM LOW DOSE DRIP
--- NOTE | 2018-09-27 11:47 | PN ---
Teaching Attending Note Name of Resident: Kayleen Kevin ATTENDING PHYSICIAN STATEMENT I saw and evaluated the patient. I reviewed the resident's note and discussed the case with the resident. I agree with the resident's findings and plan as documented. SUBJECTIVE: Pt seen and examined in the ICU. Pain better controlled. Remains thrombocytopenic requiring platelet transfusions. H/H trending downward. OBJECTIVE: Vital Signs Period Temp Pulse Resp BP Sys/Lugo Pulse Ox Last 24 Hr 97.9 F-98.9 F 111-173 12-27 87-129/44-97 96-100 Intake & Output 09/24/18 09/25/18 09/26/18 09/27/18 23:59 23:59 23:59 23:59 Intake Total 4800 6170 4594 4293 Output Total 1920 1610 1500 540 Balance 2880 4560 3094 3753 Weight 100.698 kg 102.013 kg 102.013 kg Gen: mildly tachypneic at rest Heart: tachycardic, regular Lung: bibasilar rales Abd: soft, dressings dry, BON with serosanguinous fluid Ext: + edema CBC, BMP 09/27/18 05:40 09/27/18 05:40 Active Medications Albuterol/Ipratropium (Duoneb -) 1 amp NEB Q6H PRN PRN Reason: SHORTNESS OF BREATH Hydromorphone HCl (Hydromorphone 10 Mg/50 Ml-Ns) 10 mg HOME ASSESSMENT NURSE HOME ASSESSMENT NURSE [facility]; Protocol Stop: 09/30/18 13:11 Last Admin: 09/27/18 10:13 Dose: 10 mg Caspofungin 50 mg/ Sodium (Chloride) 250 mls @ 250 mls/hr IVPB DAILY@1400 [facility] Last Admin: 09/26/18 14:14 Dose: 250 mls/hr Cefepime HCl 1 gm/ Dextrose 50 mls @ 100 mls/hr IVPB Q8H-IV [facility]; Protocol Last Admin: 09/27/18 09:13 Dose: 100 mls/hr Dextrose/Lactated Ringer's (D5-Lr -) 1,000 mls @ 100 mls/hr IV ASDIR [facility] Last Admin: 09/26/18 22:13 Dose: Not Given Ondansetron HCl (Zofran Injection) 4 mg IVPUSH Q4H PRN PRN Reason: NAUSEA AND/OR VOMITING Last Admin: 09/25/18 21:21 Dose: 4 mg Pantoprazole Sodium (Protonix Iv) 40 mg IVPUSH BID [facility] Last Admin: 09/27/18 09:13 Dose: 40 mg Promethazine HCl (Phenergan Injection -) 12.5 mg IVPUSH Q6H PRN PRN Reason: NAUSEA-FOR RESCUE AFTER 15 MIN Sucralfate (Carafate Oral Suspension -) 1 gm PO QID [facility] Last Admin: 09/27/18 09:04 Dose: Not Given Sumatriptan Succinate (Imitrex -) 25 mg PO BID PRN PRN Reason: MIGRAINE HEADACHE Topiramate (Topamax -) 25 mg PO HS [facility] Last Admin: 09/26/18 21:40 Dose: Not Given ASSESSMENT AND PLAN: s/p Gastro-jejunal Anastamotic Ulcer resection/Gastric Bypass Reversal/IZABEL Acute Blood Loss Anemia Thrombocytopenia Gram Negative Bacteremia Sepsis Volume Overload h/o Migraines Anxiety - monitor CBC - transfuse as needed - monitor drain output - f/u CTA A/P - monitor urine output, creatinine - will need diuresis when hemodynamically stable - continue antibiotics per ID - f/u cultures - pain control - incentive spirometry - DVT/GI prophylaxis - continue ICU monitoring - for transfer to medical center critical care time spent in reviewing chart, evaluating patient and formulating plan 35 min
--- NOTE | 2018-09-27 11:52 | PN ---
Physical Exam: SUBJECTIVE: Patient seen and examined at bedside- overnight patient did have some pain requiring multiple uses of INSURANCE LAW SPECIALIST overnight- she states that she feels her pain is around a 7/10 but controlled with dilaudid - she needed to use BIPAP until around 10 pm- she denies any CP/SOB/N/V fevers or chills OBJECTIVE: Vital Signs Period Temp Pulse Resp BP Sys/Lugo Pulse Ox Last 24 Hr 97.9 F-98.9 F 111-173 12-27 87-129/44-97 96-100 GENERAL: The patient is awake, alert, and fully oriented, in no acute distress. EYES: PEERLA: EOMI no scleral icterus NECK: no JVD; no lymphadenopathy LUNGS: diminished breath sounds B/L HEART: tachycardic, S1, S2 without murmur, rub or gallop. ABDOMEN: Soft, tender; hypoactive BS; midline dressing intact with 2 BON drains draining serosanginous fluid EXTREMITIES: 2+ pulses, warm, well-perfused, trace edema B/L with SCDS in place. PSYCH: Normal mood, normal affect. SKIN: Warm, dry, normal turgor, no rashes or lesions noted Laboratory Results - last 24 hr 09/24/18 09/26/18 09/27/18 16:10 12:10 05:40 WBC 6.8 9.8 RBC 3.03 L 2.74 L Hgb 9.1 L 8.2 L Hct 26.8 L 24.0 L MCV 88.3 87.5 MCH 29.9 29.8 MCHC 33.8 34.0 RDW 16.1 H 16.5 H Plt Count 25 L* 35 L* D MPV 10.1 9.8 Absolute Neuts (auto) 8.2 H Neutrophils % 83.3 H Lymphocytes % 8.8 Monocytes % 7.6 Eosinophils % 0.3 D Basophils % 0.0 Nucleated RBC % 0 Platelet Comment Dec. PT with INR INR PTT (Actin FS) Fibrinogen Sodium Potassium Chloride Carbon Dioxide Anion Gap BUN Creatinine Est GFR (CKD-EPI)AfAm Est GFR (CKD-EPI)NonAf Random Glucose Calcium Phosphorus Magnesium Total Bilirubin AST ALT Alkaline Phosphatase Total Protein Albumin Crossmatch See Detail 09/27/18 09/27/18 09/27/18 05:40 05:40 05:40 WBC RBC Hgb Hct MCV MCH MCHC RDW Plt Count MPV Absolute Neuts (auto) Neutrophils % Lymphocytes % Monocytes % Eosinophils % Basophils % Nucleated RBC % Platelet Comment PT with INR 14.50 H INR 1.23 H PTT (Actin FS) 31.1 Fibrinogen 276.0 Sodium 143 Potassium 3.3 L Chloride 110 H Carbon Dioxide 29 Anion Gap 4 L BUN 13.6 Creatinine 0.6 Est GFR (CKD-EPI)AfAm 128.48 Est GFR (CKD-EPI)NonAf 110.86 Random Glucose 90 Calcium 7.8 L Phosphorus 2.2 L Magnesium 1.6 L Total Bilirubin 1.8 H AST 18 ALT 16 Alkaline Phosphatase 104 Total Protein 3.7 L Albumin 1.7 L Crossmatch Active Medications Generic Name Dose Route Start Last Admin Trade Name Freq PRN Reason Stop Dose Admin Albuterol/Ipratropium 1 amp 09/26/18 16:59 Duoneb - NEB Q6H PRN SHORTNESS OF BREATH Hydromorphone HCl 10 mg 09/23/18 13:15 09/27/18 10:13 Hydromorphone 10 Mg/50 Ml-Ns INSURANCE LAW SPECIALIST 09/30/18 13:11 10 mg INSURANCE LAW SPECIALIST [facility] Administration Protocol Caspofungin 50 mg/ Sodium 250 mls @ 250 mls/hr 09/26/18 14:00 09/26/18 14:14 Chloride IVPB 250 mls/hr DAILY@1400 [facility] Administration Cefepime HCl 1 gm/ Dextrose 50 mls @ 100 mls/hr 09/26/18 15:00 09/27/18 09:13 IVPB 100 mls/hr Q8H-IV [facility] Administration Protocol Dextrose/Lactated Ringer's 1,000 mls @ 100 mls/hr 09/26/18 21:45 09/26/18 22: 13 D5-Lr - IV Not Given ASDIR [facility] Ondansetron HCl 4 mg 09/23/18 13:07 09/25/18 21:21 Zofran Injection IVPUSH 4 mg Q4H PRN Administration NAUSEA AND/OR VOMITING Pantoprazole Sodium 40 mg 09/14/18 12:30 09/27/18 09:13 Protonix Iv IVPUSH 40 mg BID [facility] Administration Promethazine HCl 12.5 mg 09/22/18 18:36 Phenergan Injection - IVPUSH Q6H PRN NAUSEA-FOR RESCUE AFTER 15 MIN Sucralfate 1 gm 09/14/18 14:00 09/27/18 09:04 Carafate Oral Suspension - PO Not Given QID [facility] Sumatriptan Succinate 25 mg 09/14/18 12:41 Imitrex - PO BID PRN MIGRAINE HEADACHE Topiramate 25 mg 09/14/18 22:00 09/26/18 21:40 Topamax - PO Not Given HS [facility] ASSESSMENT/PLAN: Pt is a 42 y/o F with PMH migraine, PUD, SBO 2018, Chronic low back pain, anxiety, Bariatric surgery (Kinza en Y 2003), L4-S1 fusion, C/S x 2 who presented to ICU s/p ex lap procedure #Neuro stable no issues #Cardiovascular patient had an episode yesterday where her HR was in the 170's - given 5 of lopressor with good response; patients MAPS remain in the 60's-70's -likely 2/2 to sepsis/hypovolemia -will continue to monitor -c/w d5LR @150mls/hr #GI patient is POD #5 reversal of gastric bypass/lysis of adhesions/resection of G- J anastomotic ulcer/ -repeat CTA done which the machine broke before visualization was seem however radiologist thinks there is a splenic artery leak -patient needed 10 units of PRBCS; 2 units of FFP; 7 leukoreduced platelet ( total) -zofran PRN for nasusea -IV dilaudid PRN for pain -protonix 40 BID -d5LR @150mls/hr -NGT in place at low wall suction -patient will be transferred to [facility] with accepting physician Dr. Escobar #Heme patient lost around 3.5 L of blood; received 10 units of PRBCS; 2 FFPS; 7 leukocreduced platelet and has 2 BON drains -patient continued to be thrombocytopenic to 35 this AM; however INR is decreasing and PTT and fibrinogen remain normal -most recent Hgb was 8.2 this AM- transfusing 1 unit of PRBCS -CBC's q6H -monitor for signs of bleeding -monitor hemodynamics #ID patient currently started on cefepime (day 2)and capsofungin (day 3) -blood cx growing gram negative bacilli in both aerobic and anerobic bottles -fluid cx from wound pending -ID on board #Pulmonary patient had some respiratory distress yesterday and required a few hours of BIPAP with improvement -incentive spirometer -duoneb treatment PRN -will monitor O2 saturations #Renal patient was hypokalemic/hypomagnesemic this AM -repleted; will monitor F/E/N D5LR @150mls/hr monitor electrolytes NPO with NGT in place currently dispo: transfer to [facility] Problem List - Problems (1) Gastrojejunal ulcer Code(s): K28.9 - GASTROJEJUNAL ULCER, UNSP ACUTE OR CHR, W/O HEMOR OR PERF (2) Migraine Code(s): G43.909 - MIGRAINE, UNSP, NOT INTRACTABLE, WITHOUT STATUS MIGRAINOSUS (3) Duodenal anastomotic leak Code(s): K91.89 - OTH POSTPROCEDURAL COMPLICATIONS AND DISORDERS OF DGSTV SYS (4) H/O gastric bypass Code(s): Z98.84 - BARIATRIC SURGERY STATUS (5) S/P small bowel resection Code(s): Z90.49 - ACQUIRED ABSENCE OF OTHER SPECIFIED PARTS OF DIGESTIVE TRACT (6) Status post gastric banding surgery Code(s): Z98.84 - BARIATRIC SURGERY STATUS Visit type - Emergency Visit Emergency Visit: Yes ED Registration Date: 09/14/18 Care time: The patient presented to the Emergency Department on the above date and was hospitalized for further evaluation of their emergent condition. - New Patient This patient is new to me today: No - Critical Care Critical Care patient: Yes Total Critical Care Time (in minutes): 35 Critical Care Statement: The care of this patient involved high complexity decision making to prevent further life threatening deterioration of the patient 's condition and/or to evaluate & treat vital organ system(s) failure or risk of failure.
[2018-09-27 12:08] VITALS: BP 103/74
[2018-09-27 12:14] VITALS: PULSE 112
[2018-09-27 12:59] LABS: ANISOCYTOSIS 1+; MACROCYTOSIS 0; PLATELET ESTIMATE DECREASED
--- NOTE | 2018-09-27 16:37 | PATH ---
Surgical Pathology Report Patient Name: CORI KELLEY [facility]. Rec. #: [id number] /Age/Gender: 1975 (Age: 42) / F Account: [id number] Location: ICU MACHINE PLUG SHAPER Taken: 09/22/2018 Received: 09/22/2018 Reported: 09/27/2018 Physicians: Juana Lynn M.D. Specimen(s) Received A: PROXIMAL JEJUNUM B: GASTROJEJUNOSTOMY C: GASTRIC JEJUNOSTOMY ANASTOMOTIC ULCER D: SMALL BOWEL Clinical History Chronic gastric ulcer without hemorrhage, nausea Intraoperative Consult Diagnosis A. Portion of jejunum, intraoperative gross examination: Portion of small intestine. Grossly no tumor identified. No frozen section is performed. B. Gastrojejunostomy, intraoperative gross examination: Portion of small intestine with one focus defect. No frozen section is performed. Oly Ro M.D., 09/22/2018 Final Diagnosis A. PROXIMAL JEJUNUM, RESECTION: SEGMENT OF SMALL BOWEL WITH FOCAL ULCERATION, ACUTE AND CHRONIC INFLAMMATION, GRANULATION TISSUE FORMATION, RECENT HEMORRHAGE, REACTIVE AND REGENERATIVE CHANGES, AND FIBROSIS. VIABLE MARGINS. B. GASTROJEJUNOSTORMY, RESECTION: SEGMENT OF GASTROJEJUNOSTORMY SPECIMEN WITH FOCAL ULCERATION, ACUTE AND CHRONIC INFLAMMATION, RECENT HEMORRHAGE, REACTIVE AND REGENERATIVE CHANGES, AND EXTENSIVE FIBROSIS. FOCAL ACUTE SEROSITIS. C. GASTRIC JEJUNOSTOMY ANASTOMOTIC ULCER, RESECTION: PORTION OF FIBROADIPOSE TISSUE WITH SEVERE ACUTE INFLAMMATION, PRESENT AT THE SURFACE (ACUTE SEROSITIS). D. SMALL BOWEL, RESECTION: SEGMENT OF SMALL BOWEL WITH FOCAL ULCERATION, SEVERE ACUTE AND CHRONIC INFLAMMATION WITH GRANULATION TISSUE FORMATION, RECENT HEMORRHAGE, REACTIVE AND REGENERATIVE CHANGES. Electronically Signed Donna Ro M.D. Gross Description A. Received fresh labeled "proximal jejunum," is a 12 cm in length portion of small bowel with one stapled mucosal margin. The opposing margin appears to have been previously opened and there is a staple line adjacent to the opening. The serosa is roberson-brown with adhesions adjacent to the open mucosal margin. The mucosa adjacent to the open margin appears hemorrhagic. The remaining mucosa is roberson with normal folds. No mucosal masses are identified. No definitive ulceration is identified. Claim Clinician sections are submitted in 10 cassettes as follows: 1-section from closed stapled margin; 2-section from staple line adjacent to open margin; 7-4-sxionolt from hemorrhagic area adjacent to open margin; 10-additional artist's representative small bowel. B. Received in formalin labeled "gastro-jejunostomy rule out ulcer," is a 5.5 cm in length previously opened portion of small bowel. The serosa is roberson-brown with focal adhesions as well as focal discontinuing of the intestinal wall. The mucosa is focally hemorrhagic in the area of the serosal adhesions. The remaining mucosa is roberson with normal folds. No mucosal masses are identified. Claim Clinician sections are submitted in 6 cassettes as follows: 4-5-samukwwq from area of discontinuing wall; 9-1-ahnlxpbi from hemorrhagic mucosa with serosal adhesions; 6-uninvolved small bowel. C. Received fresh labeled "gastric jejunostomy anastomotic ulcer," is a 2.1 x 0.7 x 0.2 cm open portion of small bowel. The serosa is roberson-brown and smooth. The mucosa is roberson and unremarkable. The specimen is serially sectioned and entirely submitted in one cassette. D. Received in formalin labeled "small bowel," is a 3.5 x 2.0 x 1.0 cm opened portion of small bowel with a staple line. The serosa is roberson-brown with adhesions and attached fat. The mucosa is hemorrhagic. No mucosal masses are identified. The staple line is removed and the specimen is sectioned and entirely submitted in 3 cassettes. 09/23/[address] [facility]09/23/2018
== END 2018-09-27 13:24 | disposition short-term general hospital (02) | DRG 326 ==
LOC: J6S 09-14 11:03 → JICU 09-22 18:34
PROVIDERS: ADMIT Family Medicine; ATTEND Family Medicine
PROC: 0DB80ZZ Excision of Small Intestine, Open Approach (ICD-10-PCS; 2018-09-22)
PROC: 0W3F0ZZ Control Bleeding in Abdominal Wall, Open Approach (ICD-10-PCS; 2018-09-22)
PROC: 0WJP0ZZ Inspection of Gastrointestinal Tract, Open Approach (ICD-10-PCS; 2018-09-22)
PROC: 0DNW0ZZ Release Peritoneum, Open Approach (ICD-10-PCS; 2018-09-22)
PROC: 0D9670Z Drainage of Stomach with Drainage Device, Via Natural or Artificial Opening (ICD-10-PCS; 2018-09-22)
PROC: 30233N1 Transfusion of Nonautologous Red Blood Cells into Peripheral Vein, Percutaneous Approach (ICD-10-PCS; 2018-09-22)
PROC: 30233K1 Transfusion of Nonautologous Frozen Plasma into Peripheral Vein, Percutaneous Approach (ICD-10-PCS; 2018-09-22)
PROC: 0DBA0ZZ Excision of Jejunum, Open Approach (ICD-10-PCS; principal; 2018-09-22 08:00)
PROC: 0D160ZA Bypass Stomach to Jejunum, Open Approach (ICD-10-PCS; 2018-09-22 08:00)
PROC: 30233R1 Transfusion of Nonautologous Platelets into Peripheral Vein, Percutaneous Approach (ICD-10-PCS; 2018-09-25)
DX: K28.9 Gastrojejunal ulcer, unspecified as acute or chronic, without hemorrhage or perforation (principal); A41.9 Sepsis, unspecified organism; I97.191 Other postprocedural cardiac functional disturbances following other surgery; D62 Acute posthemorrhagic anemia; K91.89 Other postprocedural complications and disorders of digestive system; K91.840 Postprocedural hemorrhage of a digestive system organ or structure following a digestive system procedure; K91.61 Intraoperative hemorrhage and hematoma of a digestive system organ or structure complicating a digestive system procedure; G43.909 Migraine, unspecified, not intractable, without status migrainosus; M54.5 Low back pain; M48.02 Spinal stenosis, cervical region; E66.9 Obesity, unspecified; Z68.36 Body mass index [BMI] 36.0-36.9, adult; F41.9 Anxiety disorder, unspecified; Z98.84 Bariatric surgery status; R11.10 Vomiting, unspecified; R58 Hemorrhage, not elsewhere classified; K66.0 Peritoneal adhesions (postprocedural) (postinfection); R00.0 Tachycardia, unspecified; Y83.8 Other surgical procedures as the cause of abnormal reaction of the patient, or of later complication, without mention of misadventure at the time of the procedure; T80.89XA Other complications following infusion, transfusion and therapeutic injection, initial encounter; E86.1 Hypovolemia; R50.9 Fever, unspecified; D69.6 Thrombocytopenia, unspecified; R50.82 Postprocedural fever; E87.6 Hypokalemia; E83.42 Hypomagnesemia; B96.1 Klebsiella pneumoniae [K. pneumoniae] as the cause of diseases classified elsewhere; B95.2 Enterococcus as the cause of diseases classified elsewhere; B96.29 Other Escherichia coli [E. coli] as the cause of diseases classified elsewhere; G89.18 Other acute postprocedural pain; Z53.31 Laparoscopic surgical procedure converted to open procedure
CPT/HCPCS: 36415; 36430; 36511; 71046-TC-FY; 71275-TC; 74018-TC-FY; 74175-TC; 74177-TC; 80048; 80053; 81003; 82248; 82607; 82728; 83540; 83550; 83735; 84100; 84439; 84443; 84703; 85025; 85027; 85384; 85610; 85730; 86850; 86870; 86900; 86901; 86902; 86922; 87040; 87070; 87077; 87086; 87186; 87205; 88304-TC; 88307-TC; 93005; 93010; 93306-TC; 94002; 94010; 94640; 94660; J0131; J0637; J7030; P9017; P9034; P9037; P9038; P9058

== ENCOUNTER 2019-03-23 13:41 | Inpatient (IN) | payer BC, OTHER ==
[2019-03-23 13:48] VITALS: BMI 21.4
--- NOTE | 2019-03-23 13:51 | PDOC ---
Rapid Medical Evaluation Chief Complaint: Nausea/Vomiting Time Seen by Provider: 03/23/19 13:46 Medical Evaluation: Allergies Allergy/AdvReac Type Severity Reaction Status Date / Time NSAIDS (Non-Steroidal Allergy Mild Verified 08/18/17 12:25 Anti-Inflamma metoclopramide [From Reglan] AdvReac Severe Verified 08/18/17 12:24 aspirin AdvReac Mild Verified 08/18/17 12:40 03/23/19 13:47 I have performed a brief in-person evaluation of this patient. The patient presents with a chief complaint of:abd pain - seen wednesday and Sat by PMD and told had obstruction. no fevers , chronic back pain with mult meds High doses of Opiods. Pertinent physical exam findings: pale / weak/ , I have ordered the following: CMP/ CBC/ Lipase / UA The patient will proceed to the ED for further evaluation. Discharge Disposition - Diagnosis Abdominal pain - Discharge Dispostion Disposition: HOME Condition at time of disposition: Stable - Referrals - Patient Instructions - Post Discharge Activity
[2019-03-23] MEDS ORDERED: SODIUM CHLORIDE IV ONE (14:25)
[2019-03-23 14:56] LABS: BASO % 0.4 % (0-2.0); EOS % 0.1 % (0-4.5); HEMATOCRIT 27.6 % (32.4-45.2); HEMOGLOBIN 9.2 GM/dL (10.7-15.3); LYMPH % 13.3 % (8-40); MCH 31.6 pg (25.7-33.7); MCHC 33.3 g/dl (32.0-36.0); MEAN PLT VOLUME 9.1 fl (7.5-11.1); MONO % 6.9 % (3.8-10.2); NEUT % 79.3 % (42.8-82.8); PLATELET COUNT 164 K/MM3 (134-434); RBC 2.91 M/mm3 (3.60-5.2); RDW 22.3 % (11.6-15.6); WHITE BLOOD COUNT 9.1 K/mm3 (4.0-10.0)
[2019-03-23 15:19] LABS: INR 1.19 (0.83-1.09); PROTHROMBIN TIME (PATIENT) 14.1 SEC (9.7-13.0)
[2019-03-23] MEDS ORDERED: ACETAMINOPHEN 1000 MG/100 ML VIAL (NON FORMULARY) IVPB ONE (15:20)
[2019-03-23] MEDS ORDERED: ONDANSETRON 4 MG/2 ML VIAL IVPB ONE (15:20)
--- NOTE | 2019-03-23 15:20 | PDOC ---
History of Present Illness - General Chief Complaint: Pain Stated Complaint: SENT BY PCP/ABD PAIN Time Seen by Provider: 03/23/19 13:46 History Source: Patient Exam Limitations: No Limitations - History of Present Illness Initial Comments: 43 y/o F, w/ pmh PUD (marginal ulcers at gastroenteric anastamosis) s/p Bariatric surgery (Kinza en Y 2004), SBO 2018 s/p small bowel resection, Chronic low back pain, anxiety, , L4-S1 fusion, C/S x 2, ex-lap Kinza en Y reversal, adhesion resection presents to the ED today c/o of sharp, diffuse, constant abdominal pain of 1 week duration that has worsened since onset, accompanied by nbnb vomiting and nb diarrhea. Pt reports that she had originally gone to [facility] for the symptoms but chose to come here instead. Pt had recently undergone surgery at [facility] in September [address] Lehman for ex lap Kinza en Y reversal, which required transfer to [facility]. Admits to n/v/d. She denies f/c/chest/sob /back pain, dysuria, melena, hematochezia. 03/23/19 15:29 03/23/19 15:30 Severity: moderate, severe Associated Symptoms: reports: nausea/vomiting. denies: chest pain, cough, diaphoresis, fever/chills, headaches, rash, seizure, shortness of breath Aspirin Received prior to arrival: Yes: no aspirin today Past History - Travel Traveled outside of the country in the last 30 days: No Close contact w/someone who was outside of country & ill: No - Past Medical History Allergies/Adverse Reactions: Allergies Allergy/AdvReac Type Severity Reaction Status Date / Time NSAIDS (Non-Steroidal Allergy Mild Verified 03/23/19 13:50 Anti-Inflamma metoclopramide [From Reglan] AdvReac Severe Verified 03/23/19 13:50 aspirin AdvReac Mild Verified 03/23/19 13:50 Home Medications: Ambulatory Orders Carisoprodol [Soma] 250 mg PO HS 08/18/17 Pantoprazole Sodium [Protonix] 40 mg PO DAILY 08/18/17 Rizatriptan Benzoate [Maxalt] 10 mg PO PRN 08/18/17 oxyCODONE SR [Oxycontin] 20 mg PO BID 08/18/17 Eszopiclone [Lunesta] 3 mg PO HS 08/19/17 Albuterol Sulfate Inhaler - [Ventolin HFA Inhaler -] 2 puff IH Q8H PRN inhaler 09/06/17 Alprazolam [Xanax] 0.25 mg PO BID PRN MDD 3 03/23/19 Clonazepam [Klonopin] 0.5 mg PO HS 03/23/19 Ondansetron Injection [Zofran Injection] 4 mg SL Q4H PRN 03/23/19 Sodium Chloride [Normal Saline -] 250 ml IVPB PRN PRN 03/23/19 Anemia: Yes (required iron transfusions) Asthma: No Cancer: No Cardiac Disorders: No CVA: No COPD: No CHF: No Diabetes: (hypoglycemic) GI Disorders: Yes (PUD, multiple gastric surgeries) Disorders: No HTN: No Hypercholesterolemia: No Liver Disease: No Seizures: No Thyroid Disease: No - Surgical History Abdominal Surgery: Yes (gastric bypass, bowel resection, Kinza en y) Appendectomy: No Cardiac Surgery: No Cholecystectomy: No Lung Surgery: No Neurologic Surgery: No Orthopedic Surgery: No - Psycho Social/Smoking Cessation Hx Smoking History: Never smoked Hx Alcohol Use: Yes (very rarely) Drug/Substance Use Hx: No Substance Use Type: None Hx Substance Use Treatment: No Review of Systems - Review of Systems Able to Perform ROS?: Yes Is the patient limited Hungarian proficient: No Constitutional: Yes: Weight Stable. No: Chills, Diaphoresis, Fever, Loss of Appetite HEENTM: No: Blurred Vision, Nose Congestion, Throat Pain Respiratory: No: Cough, Orthopnea, Shortness of Breath, Wheezing, Productive cough Cardiac (ROS): No: Chest Pain, Chest Tightness ABD/GI: Yes: Diarrhea (watery), Nausea, Vomiting (nbnb). No: Abdominal Distended, Abd. Pain w/ defecation, Blood Streaked Bowels, Constipated : No: Burning, Dysuria, Discharge, Flank Pain Musculoskeletal: No: Back Pain, Muscle Weakness Integumentary: No: Rash Neurological: No: Numbness, Tremors, Dizziness *Physical Exam - Vital Signs Last Vital Signs Temp Pulse Resp BP Pulse Ox 98.3 F 125 H 18 76/55 L 100 03/23/19 13:45 03/23/19 13:45 03/23/19 13:45 03/23/19 13:45 03/23/19 13:45 - Physical Exam General Appearance: Yes: Cachetic, Thin HEENT: positive: EOMI, LYN, Normal ENT Inspection, Pharynx Normal Neck: positive: Trachea midline, Normal Thyroid, Supple Respiratory/Chest: positive: Lungs Clear, Normal Breath Sounds. negative: Accessory Muscle Use, Crackles, Rales, Wheezing Cardiovascular: positive: Regular Rhythm, Regular Rate, S1, S2. negative: Murmur, Gallop/S3, Gallop/S4 Vascular Pulses: Dorsalis-Pedis (R): 2+, Doralis-Pedis (L): 2+ Gastrointestinal/Abdominal: positive: Decreased BS, Guarding, Rebound, Tenderness Musculoskeletal: negative: CVA Tenderness, CVA Tenderness (R) Neurologic: positive: Fully Oriented, Alert ED Treatment Course - LABORATORY CBC & Chemistry Diagram: 03/23/19 14:33 03/23/19 14:33 - ADDITIONAL ORDERS Additional order review: 03/23/19 14:33 RBC 2.91 L MCV 95.0 MCHC 33.3 RDW 22.3 H MPV 9.1 Neutrophils % 79.3 Lymphocytes % 13.3 D Monocytes % 6.9 Eosinophils % 0.1 Basophils % 0.4 D Medical Decision Making - Medical Decision Making 43 y/o F, w/ pmh PUD s/p Bariatric surgery (Kinza en Y 2003), SBO 2018 s/p small bowel resection, adhesion resection presents to the ED today c/o of sharp, diffuse, constant abdominal pain of 1 week duration accompanied by nbnb vomiting and nb diarrhea #Abdominal Pain w/ n/v likely 2/2 SBO, r/o acute abdomen nbnb vomit + nb diarrhea CT w/ IV & oral contrast ordered Tylenol IV given IVF hydration monitor Cre (Cre now 2.4) Abd x ray ordered UA, UCx, BCx lactate ordered 03/23/19 15:56 03/23/19 16:00 Discharge - Discharge Information Problems reviewed: Yes Clinical Impression/Diagnosis: Abdominal pain Condition: Stable Disposition: HOME - Follow up/Referral - Patient Discharge Instructions - Post Discharge Activity
[2019-03-23 15:21] LABS: ACTIVATED PTT 34.4 SECONDS (25.2-36.5)
[2019-03-23 15:34] LABS: ALBUMIN 1.7 g/dl (3.4-5.0); ALK PHOS 154 U/L (45-117); ANION GAP 7 MMOL/L (8-16); BILIRUBIN,TOTAL 0.6 mg/dL (0.2-1); BLOOD UREA NITROGEN 10.9 mg/dL (7-18); CALCIUM 7.7 mg/dL (8.5-10.1); CHLORIDE 98 mmol/L (98-107); CO2 36 mmol/L (21-32); CREATININE 0.6 mg/dL (0.55-1.3); GLUCOSE,RANDOM 93 mg/dL (74-106); LIPASE 36 U/L (73-393); SGOT/AST 18 U/L (15-37); SGPT/ALT 18 U/L (13-61); SODIUM 141 mmol/L (136-145); TOT PROT 5.9 g/dl (6.4-8.2)
[2019-03-23 15:36] LABS: POTASSIUM 2.4 mmol/L (3.5-5.1)
[2019-03-23] MEDS ORDERED: ACETAMINOPHEN INJECTION 100 ML IVPB ONE ×3 (15:45→16:20)
[2019-03-23] MEDS ORDERED: ONDANSETRON 4 MG/2 ML VIAL ONE (16:14)
[2019-03-23 16:16] LABS: ANISOCYTOSIS 3+
--- NOTE | 2019-03-23 16:48 | PDOC ---
Documentation entered by Rohini Apple SCRIBE, acting as scribe for Zheng Pedro MD. Zheng Pedro MD: This documentation has been prepared by the sixtoibeZechariah Lincy, SCRIBE, under my direction and personally reviewed by me in its entirety. I confirm that the documentation accurately reflects all work, treatment, procedures, and medical decision making performed by me. Attending Attestation - Resident Resident Name: Mehdi Chahal - ED Attending Attestation I have performed the following: I have examined & evaluated the patient, The case was reviewed & discussed with the resident, I agree w/resident's findings & plan, Exceptions are as noted - HPI HPI: 03/23/19 15:52 The patient is a 43-year-old female with a past medical history significant for Bariatric surgery s/p bypass reversal, SBO s/p small bowel resection who presents to the emergency department with worsening abdominal pain associated with vomiting and diarrhea. The patient reports several episodes of vomiting and an episode of diarrhea earlier today. The patient states she is able to flatulate. Denies fever or chills. - Physicial Exam PE: 03/23/19 15:23 Vitals: Triage vital signs reviewed General Appearance: No acute distress, well nourished, well developed Cardiac: Regular rate and rhythm, no murmurs, no rubs, no gallops Lungs: Clear to auscultation bilaterally, good air movement bilaterally Abdomen: +diffuse abdominal tenderness. Soft, nondistended. Extremities: Full range of motion to all extremities, no cyanosis, clubbing, or edema Skin: Warm and dry, no rashes or lesions, no rash, no petechiae Psych: Normal mood, normal affect - Medical Decision Making 03/23/19 17:08 43 years old status post bariatric surgery with reversal presents with nausea vomiting abdominal pain diarrhea We will perform CT with oral contrast will consult bariatric surgery Dr. Dao to follow up CT and dispo
[2019-03-23] MEDS ORDERED: KCL 10 MEQ IVPB 40 MEQ/400 ML INFUS.BAG IVPB ONE (16:58)
[2019-03-23] MEDS: POTASSIUM CHLORIDE 20 MEQ PREMIX IVPB 100 ML IVPB ONE ×2 (17:00→17:11)
[2019-03-23] MEDS: KCL 10 MEQ IVPB 10 MEQ/100 ML INFUS.BAG IVPB SCH ×4 (17:00→21:51)
[2019-03-23] MEDS ORDERED: HYDROmorphone HCL CARPU-JECT 2 MG/1 ML DISP.SYRIN IVPUSH ONE ×2 (17:46→20:27)
[2019-03-23] MEDS ORDERED: SODIUM CHLORIDE 0.9% 1000 ML INFUS.BAG IV ONE (17:46)
[2019-03-23] MEDS ORDERED: HYDROmorphone HCl 2 MG/ML VIAL ONE ×3 (18:01→20:36)
--- NOTE | 2019-03-23 19:08 | PDOC ---
*Physical Exam - Vital Signs Last Vital Signs Temp Pulse Resp BP Pulse Ox 98.3 F 107 H 16 89/67 L 98 03/23/19 13:45 03/23/19 15:07 03/23/19 15:07 03/23/19 15:07 03/23/19 15:07 ED Treatment Course - LABORATORY CBC & Chemistry Diagram: 03/26/19 06:02 03/26/19 06:02 - ADDITIONAL ORDERS Additional order review: Laboratory Results 03/23/19 03/23/19 03/23/19 17:37 14:33 14:33 PT with INR 14.10 H INR 1.19 H PTT (Actin FS) 34.4 Sodium 141 Potassium 2.4 L* Chloride 98 Carbon Dioxide 36 H Anion Gap 7 L BUN 10.9 Creatinine 0.6 Est GFR (CKD-EPI)AfAm 127.58 Est GFR (CKD-EPI)NonAf 110.08 Random Glucose 93 Lactic Acid 3.4 H* Calcium 7.7 L Total Bilirubin 0.6 AST 18 ALT 18 Alkaline Phosphatase 154 H Troponin I < 0.02 Total Protein 5.9 L Albumin 1.7 L Lipase 36 L 03/23/19 14:33 RBC 2.91 L MCV 95.0 MCHC 33.3 RDW 22.3 H MPV 9.1 Neutrophils % 79.3 Lymphocytes % 13.3 D Monocytes % 6.9 Eosinophils % 0.1 Basophils % 0.4 D - Medications Given in the ED: ED Medications Discontinued Medications Generic Name Dose Route Start Last Admin Trade Name Dewayneq PRN Reason Stop Dose Admin Acetaminophen 1,000 mg 03/23/19 15:20 03/23/19 16:00 Ofirmev Injection - IVPB 03/23/19 15:21 1,000 mg ONCE ONE Administration Fentanyl 25 mcg 03/23/19 16:46 03/23/19 17:00 Sublimaze Injection - IVPUSH 03/23/19 16:47 25 mcg ONCE ONE Administration Hydromorphone HCl 0.5 mg 03/23/19 17:46 03/23/19 18:10 Dilaudid Injection - IVPUSH 03/23/19 17:47 0.5 mg ONCE ONE Administration Sodium Chloride 1,810 mls @ 905 mls/hr 03/23/19 14:25 03/23/19 14:40 Normal Saline - 30 ml/kg infuse over 2 hr (1810 ml) 03/23/19 16:24 905 mls/ hr IV Administration ONCE ONE Ondansetron HCl 8 mg 03/23/19 15:20 03/23/19 16:30 Zofran Injection IVPB 03/23/19 15:21 8 mg ONCE ONE Administration Potassium Chloride 40 meq 03/23/19 16:44 03/23/19 17:11 Potassium Chloride 20 Meq Premix Ivpb - IVPB 03/23/19 16:45 Not Given ONCE ONE Sodium Chloride 1,000 ml 03/23/19 17:46 03/23/19 18:45 Normal Saline - IV 03/23/19 17:47 1,000 ml ONCE ONE Administration Medical Decision Making - Medical Decision Making 03/23/19 19:06 Sign out received from Dr. Chahal 43F s/p enio-en-y surgery complicated by SBO 2018 p/w nbnb vomiting and nb diarrhea concerned for SBO labs sent pt in CT A/P w/ PO and IV contrast has received fluids, K repletion, pain meds, zofran PCP - Dr. Penn To do: [x] CT read [] rpt K and Lactic [x] Contact Dr. Lehman 03/23/19 19:51 ED team discussed pt w/ Dr. Lehman; note is appreciated // Patient admitted Discharge - Discharge Information Problems reviewed: Yes Clinical Impression/Diagnosis: Abdominal pain Qualifiers: Abdominal location: unspecified location Qualified Code(s): R10.9 - Unspecified abdominal pain Condition: Stable Disposition: HOME - Admission Yes - Follow up/Referral - Patient Discharge Instructions - Post Discharge Activity
--- NOTE | 2019-03-23 19:15 | PDOC ---
*Physical Exam - Vital Signs Last Vital Signs Temp Pulse Resp BP Pulse Ox 98.3 F 107 H 16 89/67 L 98 03/23/19 13:45 03/23/19 15:07 03/23/19 15:07 03/23/19 15:07 03/23/19 15:07 ED Treatment Course - LABORATORY CBC & Chemistry Diagram: 03/28/19 05:32 03/28/19 05:32 - ADDITIONAL ORDERS Additional order review: Laboratory Results 03/23/19 03/23/19 03/23/19 17:37 14:33 14:33 PT with INR 14.10 H INR 1.19 H PTT (Actin FS) 34.4 Sodium 141 Potassium 2.4 L* Chloride 98 Carbon Dioxide 36 H Anion Gap 7 L BUN 10.9 Creatinine 0.6 Est GFR (CKD-EPI)AfAm 127.58 Est GFR (CKD-EPI)NonAf 110.08 Random Glucose 93 Lactic Acid 3.4 H* Calcium 7.7 L Total Bilirubin 0.6 AST 18 ALT 18 Alkaline Phosphatase 154 H Troponin I < 0.02 Total Protein 5.9 L Albumin 1.7 L Lipase 36 L 03/23/19 14:33 RBC 2.91 L MCV 95.0 MCHC 33.3 RDW 22.3 H MPV 9.1 Neutrophils % 79.3 Lymphocytes % 13.3 D Monocytes % 6.9 Eosinophils % 0.1 Basophils % 0.4 D - Medications Given in the ED: ED Medications Discontinued Medications Generic Name Dose Route Start Last Admin Trade Name Dewayneq PRN Reason Stop Dose Admin Acetaminophen 1,000 mg 03/23/19 15:20 03/23/19 16:00 Ofirmev Injection - IVPB 03/23/19 15:21 1,000 mg ONCE ONE Administration Fentanyl 25 mcg 03/23/19 16:46 03/23/19 17:00 Sublimaze Injection - IVPUSH 03/23/19 16:47 25 mcg ONCE ONE Administration Hydromorphone HCl 0.5 mg 03/23/19 17:46 03/23/19 18:10 Dilaudid Injection - IVPUSH 03/23/19 17:47 0.5 mg ONCE ONE Administration Sodium Chloride 1,810 mls @ 905 mls/hr 03/23/19 14:25 03/23/19 14:40 Normal Saline - 30 ml/kg infuse over 2 hr (1810 ml) 03/23/19 16:24 905 mls/ hr IV Administration ONCE ONE Ondansetron HCl 8 mg 03/23/19 15:20 03/23/19 16:30 Zofran Injection IVPB 03/23/19 15:21 8 mg ONCE ONE Administration Potassium Chloride 40 meq 03/23/19 16:44 03/23/19 17:11 Potassium Chloride 20 Meq Premix Ivpb - IVPB 03/23/19 16:45 Not Given ONCE ONE Sodium Chloride 1,000 ml 03/23/19 17:46 03/23/19 18:45 Normal Saline - IV 03/23/19 17:47 1,000 ml ONCE ONE Administration Medical Decision Making - Medical Decision Making 03/23/19 19:13 43 yo F h/o bariatric surgery 15 yrs ago. s/p reversal due to gastric ulcer [address] adams, here today with intractable n/v for one week. pt states she lives [facility], was seen in ED up there found to be dehydrated, hypokalemic wiht partial sbo. was admitted, but left AMA. came to [facility] to seek better care. but went [facility]. pt states since home n/v persisted. no f/c does have intermittent abd pain. pain is severe, no relieving factors. assumed care of pt from day team at 16:30, pending ct a/p. pt being hydrated, states baseline bp is low 70 - 100 sbp. 03/23/19 19:15 potassium found to be low, and is being repleted IVPB. initial lactic is 3.4 will continue hydration and repeat. 03/23/19 19:16 03/23/19 19:[address] Adams in the ED. per Dr adams, pt with h/o prior portal htn and concerns for liver steasis on cT recently obtained while admitted [facility] which his new. has had h/o prior GI bleed while on lovenox for stent placed ( h/o splenic v/a fistula, stented, supposed to be on lovenox but had to discontinue due to GI bleed requiring transfusion) pt hypokalemia has been chronic, unreposonsive to 30 meq daily as outpt. would like pt to be seen by GI and nephrology. Discharge - Discharge Information Problems reviewed: Yes Clinical Impression/Diagnosis: Abdominal pain Qualifiers: Abdominal location: unspecified location Qualified Code(s): R10.9 - Unspecified abdominal pain Condition: Stable Disposition: HOME - Follow up/Referral - Patient Discharge Instructions - Post Discharge Activity
--- NOTE | 2019-03-23 19:49 | PN ---
Progress Note (short form) - Note Progress Note: Bariatric Surgery Consultation: 43 y .o. woman well-known to me who presents with 4-5 day history of vomiting, abdominal pain, and diarrhea. Pt S/P Gastric Bypass reversal 09/2018, then transferred to [facility] for splenic artery stent secondary to fistula between splenic artery and vein. Pt had been well, tolerating PO diet for 3 months. Pt suffers from chronic hypokalemia (2.7-2.9), the etiology of which is unknown. Pt also with frequent episodes of dehydration requiring IV fluid challenge at home thru PICC line. During episodes of dehydration, pulse increases to 120-140 (normal is 92-98) and BP drops to 70/50 (normal is 80-90/60). Pt in [facility] 03/17-03/[address] scan suggested partial obstruction at [place]-jejunostomy, Portal Hypertension with varices, and worsening steatohepatitis. P- 125 on admission , now 107 with hydration BP-79/55 on admission, now 89/67 with hydration P/E- Awake, alert, appears pale, in moderate abdominal pain Abd- non-distended; midline incision well-healed; soft, moderate tenderness on palpation in midline by umbilicus No guarding, no rebound tenderness Ext- no swelling, no edema WBC-9.1 H/H-9.2/27.6 BUN/CR- 10.9/0.6 Lactic Acid-3.4 K+-2.4 I- Abdominal pain with diarrhea Hypokalemia Vomiting Rec- IV fluids Replace K+ Awaiting CT scan results NPO Will follow closely
--- NOTE | 2019-03-23 22:21 | HP ---
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 Was recently hospitalized in [facility] 03/17-03/[address] suggestive of partial obstruction at duodeno-jejunostomy, protal HTN with varices and worsening steatohepatitis. Upon exam patient reports pain improved s/p dilaudid administration and has had no further vomiting. ER course was notable for: (1) CT abd/pel with dilatiation of the duodenal sweep, partially obstructive to level of duodenojejunal junction (2) K 2.4 (3) lactate 3.4 Recent Travel: pt denies PAST MEDICAL HISTORY: SBO, low back pain on chronic opioids, anxiety, migraines PAST SURGICAL HISTORY: Gastric bypass kinza en Y 2003 SB resection, lysis of adhesions, revision of gastric bypass 2017 s/p SBO ex-lap Kinza en Y reversal 2018 L4-S1 fusion x 2 Social History: Smoking: pt denies Alcohol: rarely Drugs: pt denies Allergies NSAIDS (Non-Steroidal Anti-Inflamma Allergy (Mild, Verified 03/23/19 13:50) due to bleeding ulcers metoclopramide [From Reglan] Adverse Reaction (Severe, Verified 03/23/19 13:50) dystonic reaction aspirin Adverse Reaction (Mild, Verified 03/23/19 13:50) due to GI bleed HOME MEDICATIONS: 3 Medication Instructions Recorded Carisoprodol [Soma] 250 mg PO HS 08/18/17 Pantoprazole Sodium [Protonix] 40 mg PO DAILY 08/18/17 Rizatriptan Benzoate [Maxalt] 10 mg PO PRN 08/18/17 Eszopiclone [Lunesta] 3 mg PO HS 08/19/17 Albuterol Sulfate Inhaler - 2 puff IH Q8H PRN inhaler 09/06/17 [Ventolin HFA Inhaler -] Alprazolam [Xanax] 0.25 mg PO BID PRN MDD 3 03/23/19 Clonazepam [Klonopin] 0.5 mg PO HS 03/23/19 Ondansetron Injection [Zofran 4 mg SL Q4H PRN 03/23/19 Injection] Sodium Chloride [Normal Saline -] 250 ml IVPB PRN PRN 03/23/19 Morphine Sulfate [Morphine Sulfate 15 mg PO TID 03/24/19 ER] Oxycodone HCl 20 mg PO TID PRN 03/24/19 REVIEW OF SYSTEMS CONSTITUTIONAL: Absent: fever, chills, diaphoresis, generalized weakness, malaise, loss of appetite, weight change HEENT: Absent: rhinorrhea, nasal congestion, throat pain, throat swelling, difficulty swallowing, mouth swelling, ear pain, eye pain, visual changes CARDIOVASCULAR: Absent: chest pain, syncope, palpitations, irregular heart rate, lightheadedness , peripheral edema RESPIRATORY: Absent: cough, shortness of breath, dyspnea with exertion, orthopnea, wheezing, stridor, hemoptysis GASTROINTESTINAL: Present: abdominal pain, nausea, vomiting, diarrhea Absent: abdominal distension, constipation, melena, hematochezia GENITOURINARY: Absent: dysuria, frequency, urgency, hesitancy, hematuria, flank pain, genital pain MUSCULOSKELETAL: Absent: myalgia, arthralgia, joint swelling, back pain, neck pain SKIN: Absent: rash, itching, pallor HEMATOLOGIC/IMMUNOLOGIC: Absent: easy bleeding, easy bruising, lymphadenopathy, frequent infections ENDOCRINE: Absent: unexplained weight gain, unexplained weight loss, heat intolerance, cold intolerance NEUROLOGIC: Absent: headache, focal weakness or paresthesias, dizziness, unsteady gait, seizure, mental status changes, bladder or bowel incontinence PSYCHIATRIC: Absent: anxiety, depression, suicidal or homicidal ideation, hallucinations. PHYSICAL EXAMINATION Vital Signs - 24 hr 3 03/23/19 03/23/19 13:45 15:07 Temperature 98.3 F Pulse Rate 125 H Pulse Rate [ 107 H Right] Respiratory 18 16 Rate Blood Pressure 76/55 L Blood Pressure 89/67 L [Left Arm] O2 Sat by Pulse 100 98 Oximetry (%) GENERAL: Awake, alert, and fully oriented, in no acute distress. HEAD: Normal with no signs of trauma. EYES: Pupils equal, round and reactive to light, extraocular movements intact, sclera anicteric, conjunctiva clear. No lid lag. EARS, NOSE, THROAT: Ears normal, nares patent, oropharynx clear without exudates. Moist mucous membranes. NECK: Normal range of motion, supple without lymphadenopathy, JVD, or masses. LUNGS: Breath sounds equal, clear to auscultation bilaterally. No wheezes, and no crackles. No accessory muscle use. HEART: Regular rate and rhythm, normal S1 and S2 without murmur, rub or gallop. ABDOMEN: Soft, tender midline to deep palpation, not distended, no guarding, no rebound, no masses. MUSCULOSKELETAL: Normal range of motion at all joints. No bony deformities or tenderness. No CVA tenderness. UPPER EXTREMITIES: 2+ pulses, warm, well-perfused. No cyanosis. No clubbing. No peripheral edema. LOWER EXTREMITIES: 2+ pulses, warm, well-perfused. No calf tenderness. No peripheral edema. NEUROLOGICAL: Cranial nerves II-XII intact. Normal speech. PSYCHIATRIC: Cooperative. Good eye contact. Appropriate mood and affect. SKIN: Warm, dry, normal turgor, no rashes or lesions noted, normal capillary refill. Laboratory Results - last 24 hr 3 03/23/19 03/23/19 03/23/19 03/23/19 14:33 14:33 14:33 17:37 WBC 9.1 RBC 2.91 L Hgb 9.2 L Hct 27.6 L MCV 95.0 MCH 31.6 MCHC 33.3 RDW 22.3 H Plt Count 164 D MPV 9.1 Absolute Neuts (auto) 7.2 Neutrophils % 79.3 Lymphocytes % 13.3 D Monocytes % 6.9 Eosinophils % 0.1 Basophils % 0.4 D Nucleated RBC % 0 Hypochromia 1+ Anisocytosis 3+ PT with INR 14.10 H INR 1.19 H PTT (Actin FS) 34.4 Sodium 141 Potassium 2.4 L* Chloride 98 Carbon Dioxide 36 H Anion Gap 7 L BUN 10.9 Creatinine 0.6 Est GFR (CKD-EPI)AfAm 127.58 Est GFR (CKD-EPI)NonAf 110.08 Random Glucose 93 Lactic Acid 3.4 H* Calcium 7.7 L Total Bilirubin 0.6 AST 18 ALT 18 Alkaline Phosphatase 154 H Troponin I < 0.02 Total Protein 5.9 L Albumin 1.7 L [address] Abd/Pelvis IMPRESSION: Small left pleural effusion. Small patchy bilateral lower lung field opacities which may be on the basis of infiltrates and/or atelectasis. In comparison to CT exam of 09/26/2018 and 09/25/2018 interval development of at least moderate dilatation of the duodenal sweep is noted which appears partially obstructive in nature to the level of the duodenojejunal junction - ? possible stricture. Several punctate densities are seen adjacent to the duodenal jejunal junction possibly representing surgical/hemostatic clips. Interval resolution/evacuation of a large retrogastric hemorrhagic fluid collection is noted. Interval placement of a stent graft is noted which appears to be within the proximal aspect of the splenic artery. Interval dilatation of the left main renal vein is seen which could be on the basis of a splenorenal shunt. There is no longer definite visualization of the splenic vein which may be due to interval occlusion/ligation. Note is again made of a small to moderate amount of free fluid within the pelvis. Extensive concentric subcutaneous edema is again seen as well as mesenteric edema. Several large and small bowel loops demonstrate full thickening which could be on the basis of radiology such as ascites or hypoproteinemia. Clinical/ laboratory correlation is suggested. Note is again made of severe diffuse hepatic steatosis. Mild splenomegaly is again seen. 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 Moderate chronic stable L1 vertebral body compression fracture. Reported By: Shant Marquez MD 03/23/192015 ASSESSMENT/PLAN: 43yF with PMH SBO s/p resection, multiple abdominal surgeries presented to the ED with abdominal pain, N/V/D. SBO - conservative management - NPO except ice chips and meds - hold on NGT for now - surgical consult appreciated - cont dilaudid for pain, likely will have high requirements as in on chronic opioid therapy at home, 135 morphine milligram equivalents - cont IVF - repeat lactic acid hypokalemia - repleted with 40meQ IV, repeat BMP, further repletion as indicated - check mag and phos anxiety - cont home benzodiazepines FEN - D5NS+40mEq KCl @100cc/hr - BMP now with magnesium - NPO except meds and ice chips DVT PPX - heparin 5000u SC bid Dispo: pt currently requires continued inpatient mangement of her emergent condition. Family Medical History Family Hx Coronary Artery Disease: Mother ( [place] age 64) Visit type - Emergency Visit Emergency Visit: Yes ED Registration Date: 03/23/19 Care time: The patient presented to the Emergency Department on the above date and was hospitalized for further evaluation of their emergent condition. - New Patient This patient is new to me today: Yes Date on this admission: 03/23/19 - Critical Care Critical Care patient: No
[2019-03-23] MEDS ORDERED: PANTOPRAZOLE SODIUM 40 MG VIAL IVPUSH SCH (22:31)
[2019-03-23] MEDS ORDERED: clonazePAM 0.5 MG TABLET PO SCH (22:45)
[2019-03-23 23:10] LABS: VENOUS PC02 32.6 mmHg (38-52); VENOUS PH 7.59 (7.31-7.41)
[2019-03-23 23:59] LABS: BLOOD UREA NITROGEN 10.1 mg/dL (7-18); CREATININE 0.4 mg/dL (0.55-1.3)
[2019-03-24 00:17] LABS: CALCIUM 6.9 mg/dL (8.5-10.1)
[2019-03-24] MEDS ORDERED: PANTOPRAZOLE SODIUM 40 MG VIAL ONE (00:24)
[2019-03-24 00:25] LABS: MAGNESIUM 1.4 mg/dL (1.8-2.4)
[2019-03-24] MEDS ORDERED: HYDROmorphone HCl 2 MG/ML VIAL ONE ×3 (00:34→08:55)
[2019-03-24] MEDS: D5-NS + 40 MEQ KCL - 40 MEQ/1,000 ML INFUS.BAG IV SCH ×2 (00:46→09:16)
[2019-03-24] MEDS: HYDROmorphone HCl 2 MG/ML VIAL IVPUSH PRN ×4 (00:47→20:53)
[2019-03-24] MEDS ORDERED: ALPRAZolam 0.25 MG TABLET ONE (00:50)
[2019-03-24] MEDS: ALPRAZolam 0.25 MG TABLET PO PRN (00:52)
[2019-03-24] MEDS ORDERED: MAGNESIUM SULF 50% (8.12 MEQ/2 ML-1 GM VIAL) IVPB ONE (01:10)
[2019-03-24] MEDS ORDERED: MAGNESIUM 1GM/D5W - 1 GM/100 ML IVPB IVPB ONE (01:39)
[2019-03-24] MEDS ORDERED: KCL 10 MEQ IVPB 30 MEQ/300 ML INFUS.BAG IVPB ONE (02:46)
[2019-03-24] MEDS: KCL 10 MEQ IVPB 10 MEQ/100 ML INFUS.BAG IVPB SCH ×3 (03:00→04:56)
[2019-03-24 06:18] LABS: BASO % 0.9 % (0-2.0); EOS % 2.2 % (0-4.5); LYMPH % 23.7 % (8-40); MCH 32.4 pg (25.7-33.7); MCHC 34.2 g/dl (32.0-36.0); MEAN CELL VOLUME 94.6 fl (80-96); MEAN PLT VOLUME 8.4 fl (7.5-11.1); MONO % 9.2 % (3.8-10.2); PLATELET COUNT 130 K/MM3 (134-434); RDW 22.4 % (11.6-15.6); WHITE BLOOD COUNT 3.3 K/mm3 (4.0-10.0)
[2019-03-24 06:48] LABS: BLOOD UREA NITROGEN 9.4 mg/dL (7-18)
[2019-03-24 06:49] LABS: CREATININE 0.5 mg/dL (0.55-1.3); POTASSIUM 4.1 mmol/L (3.5-5.1)
[2019-03-24 07:06] LABS: CALCIUM 6.9 mg/dL (8.5-10.1)
[2019-03-24 07:35] LABS: HEMOGLOBIN 5.8 GM/dL (10.7-15.3)
--- NOTE | 2019-03-24 09:03 | PN ---
Progress Note, Physician - Current Medication List Current Medications: Active Medications Alprazolam (Xanax -) 0.25 mg PO BID PRN PRN Reason: ANXIETY Last Admin: 03/24/19 00:52 Dose: 0.25 mg Chlorhexidine Gluconate (Hibiclens For Decolonization -) 1 applic TP HS CAROLINE Clonazepam (Klonopin -) 0.5 mg PO HS CAROLINE Heparin Sodium (Porcine) (Heparin -) 5,000 unit SQ BID COUNT INCLUDES THE [facility] Hydromorphone HCl (Dilaudid Vial -) 0.6 mg IVPUSH Q4H PRN PRN Reason: PAIN LEVEL 6-10 Last Admin: 03/24/19 04:46 Dose: 0.6 mg Dextrose/Sodium Chloride (Dextrose 5%-Normal Saline+40 Meq Kcl -) 40 meq in 1, 000 mls @ 100 mls/hr IV Q10H COUNT INCLUDES THE [facility] Last Admin: 03/24/19 00:46 Dose: 100 mls/hr Mupirocin (Bactroban Ointment (For Decolonization) -) 1 applic NS BID COUNT INCLUDES THE [facility] Stop: 03/29/19 09:59 Ondansetron HCl (Zofran Injection) 4 mg IVPUSH Q6H PRN PRN Reason: NAUSEA Pantoprazole Sodium (Protonix Iv) 40 mg IVPUSH DAILY COUNT INCLUDES THE [facility] Last Admin: 03/24/19 00:46 Dose: 40 mg - Objective Vital Signs: Vital Signs Temperature 97.7 F 03/24/19 08:38 Pulse Rate 85 03/24/19 08:38 Respiratory Rate 18 03/24/19 08:38 Blood Pressure 86/59 L 03/24/19 08:38 O2 Sat by Pulse Oximetry (%) 100 03/24/19 08:38 Cardiovascular: Yes: S1, S2 Respiratory: Yes: Regular, CTA Bilaterally Gastrointestinal: Yes: Normal Bowel Sounds, Soft, Tenderness Edema: No Neurological: Yes: Alert, Oriented Labs: CBC, BMP 03/24/19 06:07 03/24/19 06:07 INR, PTT INR 1.19 (0.83-1.09) H 03/23/19 14:33 Problem List - Problems (1) Abdominal pain Assessment/Plan: - NPO except ice chips and meds - surgical consult appreciated - cont dilaudid for pain - cont IVF - repeat lactic acid normal Code(s): R10.9 - UNSPECIFIED ABDOMINAL PAIN (2) Anemia Assessment/Plan: probably due to upper gi bleed and hydration npo ivf transfuse prbc stat icu care gi consult Laboratory Tests 03/23/19 03/23/19 03/23/19 14:33 14:33 22:58 Hgb 9.2 L Potassium 2.4 L* 3.0 L 03/24/19 03/24/19 06:07 06:07 Hgb 5.8 L* Potassium 4.1 Code(s): D64.9 - ANEMIA, UNSPECIFIED (3) H/O gastric bypass Assessment/Plan: per dr adams Code(s): Z98.84 - BARIATRIC SURGERY STATUS (4) Hypokalemia Assessment/Plan: Laboratory Tests 03/23/19 03/23/19 03/23/19 14:33 14:33 22:58 Hgb 9.2 L Potassium 2.4 L* 3.0 L 03/24/19 03/24/19 06:07 06:07 Hgb 5.8 L* Potassium 4.1 - repleted with 40meQ IV, repeat BMP, further repletion as indicated - mag low and replaced - D5NS+40mEq KCl @100cc/hr - BMP with magnesium - Renal consult Code(s): E87.6 - HYPOKALEMIA (5) Hypomagnesemia Code(s): E83.42 - HYPOMAGNESEMIA
[2019-03-24] MEDS ORDERED: PANTOPRAZOLE SODIUM 80 MG in SODIUM CHLORIDE 100 ML IVPB SCH (09:15)
[2019-03-24] MEDS ORDERED: HEPARIN NA (PORCINE) 5,000 UNITS/ML 1ML VIAL SQ SCH (10:00)
[2019-03-24] MEDS ORDERED: POTASSIUM PHOSPHATE 15 MM in DEXTROSE 5%-WATER - 250 ML IVPB ONE (10:10)
--- NOTE | 2019-03-24 10:10 | CONSULT ---
Consult - text type - Consultation Consultation Note: Renal consult for electrolyte disturbances This is a 43 year old woman with history of Morbid obesity s/p gastric bypass in 2004 and reversal in 2019, chronic hypokalemia who presented from home with abdominal pain with vomiting and diarrhea and noted to have multiple electrolyte abnormalities. Seen and examined in the ER. Reports pain is improved s/p pain medication. No N/V/D now. Currently NPO. Was on Potassium 10meq TID at home. No fevers, chills. Oral intake has been poor the last few days but prior was normal. No leg swelling. No chest pain or shortness of breath. No skin rash. No diuretics use at home. PMhx: as above Allergies: as listed in EMR Family Hx: NC Social Hx: No T/A/D ROS: as per HPI, all other pertinent ros negative Home Medications Medication Instructions Recorded Carisoprodol [Soma] 250 mg PO HS 08/18/17 Pantoprazole Sodium [Protonix] 40 mg PO DAILY 08/18/17 Rizatriptan Benzoate [Maxalt] 10 mg PO PRN 08/18/17 Eszopiclone [Lunesta] 3 mg PO HS 08/19/17 Albuterol Sulfate Inhaler - 2 puff IH Q8H PRN inhaler 09/06/17 [Ventolin HFA Inhaler -] Alprazolam [Xanax] 0.25 mg PO BID PRN MDD 3 03/23/19 Clonazepam [Klonopin] 0.5 mg PO HS 03/23/19 Ondansetron Injection [Zofran 4 mg SL Q4H PRN 03/23/19 Injection] Sodium Chloride [Normal Saline -] 250 ml IVPB PRN PRN 03/23/19 Morphine Sulfate [Morphine Sulfate 15 mg PO TID 03/24/19 ER] Oxycodone HCl 20 mg PO TID PRN 03/24/19 Vital Signs Temperature 97.7 F 03/24/19 08:38 Pulse Rate 85 03/24/19 08:38 Respiratory Rate 18 03/24/19 08:38 Blood Pressure 86/59 L 03/24/19 08:38 O2 Sat by Pulse Oximetry (%) 100 03/24/19 08:38 Intake & Output 03/21/19 03/22/19 03/23/19 03/24/19 23:59 23:59 23:59 23:59 Weight 60.328 kg NAD awake and alert neck supple RRR CTA soft NT/ND no LE edema, clubbing or cyanosis no bladder distension CBC, BMP 03/24/19 06:07 03/24/19 06:07 Current Medications Alprazolam (Xanax -) 0.25 mg PO BID PRN PRN Reason: ANXIETY Last Admin: 03/24/19 00:52 Dose: 0.25 mg Chlorhexidine Gluconate (Hibiclens For Decolonization -) 1 applic TP HS [facility] Clonazepam (Klonopin -) 0.5 mg PO HS [facility]INE Heparin Sodium (Porcine) (Heparin -) 5,000 unit SQ BID [facility] Hydromorphone HCl (Dilaudid Vial -) 0.6 mg IVPUSH Q4H PRN PRN Reason: PAIN LEVEL 6-10 Last Admin: 03/24/19 09:15 Dose: 0.6 mg Dextrose/Sodium Chloride (Dextrose 5%-Normal Saline+40 Meq Kcl -) 40 meq in 1, 000 mls @ 100 mls/hr IV Q10H [facility] Last Admin: 03/24/19 09:16 Dose: 100 mls/hr Pantoprazole Sodium 80 mg/ (Sodium Chloride) 100 mls @ 10 mls/hr IVPB Q10H [facility] Mupirocin (Bactroban Ointment (For Decolonization) -) 1 applic NS BID [facility] Stop: 03/29/19 09:59 Ondansetron HCl (Zofran Injection) 4 mg IVPUSH Q6H PRN PRN Reason: NAUSEA 43 year old woman with history of Morbid obesity s/p gastric bypass in 2004 and reversal in 2019, chronic hypokalemia who presented from home with abdominal pain with vomiting and diarrhea and noted to have multiple electrolyte abnormalities. 1. Hypokalemia 2. Hypophosphatemia 3. Pseudohypocalcemia 4. Lactic acidosis 5. Abdominal pain with N/V 6. Acute on chronic anemia K is improved s/p supplementation Give IV K-phos as pt is NPO corrected Ca is WNL Continue isotonic fluid to maintain MAP > 70 transfuse PRBC Surgical evaluation ICU evaluation Trend electrolytes BID Thank you Reinier Turcios DO
[2019-03-24 10:58] LABS: HEMATOCRIT 19.5 % (32.4-45.2); MCH 32.2 pg (25.7-33.7); MCHC 33.5 g/dl (32.0-36.0); MEAN CELL VOLUME 96.1 fl (80-96); MEAN PLT VOLUME 8.5 fl (7.5-11.1); PLATELET COUNT 182 K/MM3 (134-434); RBC 2.03 M/mm3 (3.60-5.2); RDW 22.1 % (11.6-15.6); WHITE BLOOD COUNT 4.4 K/mm3 (4.0-10.0)
[2019-03-24 11:03] LABS: HEMOGLOBIN 6.6 GM/dL (10.7-15.3)
--- NOTE | 2019-03-24 11:04 | CONSULT ---
Consultation: REQUESTING PROVIDER: Dr. Penn CONSULT REQUEST: We have been asked to medically evaluate this patient for persistent hypotension despite fluid resuscitation. 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 Pt states she went to another hospital last , was hospitalized for severe hypokalemia and later returned home a day later. Her GI symptoms persisted after her discharge. Reports b/l lower abd pain which is not associated with food. States she has normal bowel movements, denies bloody or melanotic stools; last BM yesterday. Also admits to nausea/vomiting; last episode of NBNB vomiting was yesterday after eating yogurt. States she follows with GI, last endoscopy this past December and was advised to repeat it again, but was not able to do so due to scheduling issues. Per patient, the reason for reversal of her Kinza-en-Y gastric bypass surgery last September 2018 was because she had a large non-healing gastric ulcer - after thorough evaluation of this finding, it was agreed upon by her surgeon to reverse it. She presented to the ED last night, found to be hypokalemic at 2.4, given IV KCl with improvement to 4.1. She was also found to be hypotensive persistently in the 80s-low 90s systolic, 50s diastolic despite 1L bolus of NS. Of note, per surg, pt has frequent episodes of dehydration requiring IV fluid challenge at home thru PICC line. During episodes of dehydration, pulse increases to 120-140 (normal is 92-98) and BP drops to 70/50 (normal is 80-90/60). Additionally, her Hgb was found to be 5.8 - 2U pRBCs ordered stat. CTAP w/ contrast imaging showed mod dilatation of duodenal sweep which appears partially obstructive in nature to level of duodenojejunal junction - ? possible stricture. Surg and GI were both consulted for further evaluation. REVIEW OF SYSTEMS: CONSTITUTIONAL: Absent: fever, chills, diaphoresis, generalized weakness, malaise, loss of appetite, weight change HEENT: Absent: rhinorrhea, nasal congestion, throat pain, throat swelling, difficulty swallowing, mouth swelling, ear pain, eye pain, visual changes CARDIOVASCULAR: Absent: chest pain, syncope, palpitations, irregular heart rate, lightheadedness , peripheral edema RESPIRATORY: Absent: cough, shortness of breath, dyspnea with exertion, orthopnea, wheezing, stridor, hemoptysis GASTROINTESTINAL: abdominal pain, nausea, vomiting Absent: abdominal distension, diarrhea, constipation, melena, hematochezia GENITOURINARY: Absent: dysuria, frequency, urgency, hesitancy, hematuria, flank pain, genital pain MUSCULOSKELETAL: Chronic back pain/neck pain Absent: myalgia, arthralgia, joint swelling SKIN: Absent: rash, itching, pallor HEMATOLOGIC/IMMUNOLOGIC: Absent: easy bleeding, easy bruising, lymphadenopathy, frequent infections ENDOCRINE: Absent: unexplained weight gain, unexplained weight loss, heat intolerance, cold intolerance NEUROLOGIC: Absent: headache, focal weakness or paresthesias, dizziness, unsteady gait, seizure, mental status changes, bladder or bowel incontinence PSYCHIATRIC: Absent: anxiety, depression, suicidal or homicidal ideation, hallucinations. PHYSICAL EXAMINATION Vital Signs - 24 hr 03/23/19 03/23/19 03/24/19 13:45 15:07 07:02 Temperature 98.3 F Pulse Rate 125 H Pulse Rate [ 107 H 81 Right] Respiratory 18 16 16 Rate Blood Pressure 76/55 L Blood Pressure 89/67 L 76/53 L [Left Arm] O2 Sat by Pulse 100 98 97 Oximetry (%) 03/24/19 08:38 Temperature 97.7 F Pulse Rate Pulse Rate [ 85 Right] Respiratory 18 Rate Blood Pressure Blood Pressure 86/59 L [Left Arm] O2 Sat by Pulse 100 Oximetry (%) GENERAL: Awake, alert, and fully oriented, in no acute distress. HEENT: AT/NC. EOMI. Dry mucus membranes. Pale. NECK: Normal range of motion, supple without lymphadenopathy, JVD, or masses. LUNGS: Breath sounds equal, clear to auscultation bilaterally. No wheezes, and no crackles. No accessory muscle use. HEART: Regular rate and rhythm, normal S1 and S2 without murmur, rub or gallop. ABDOMEN: Soft, tender to deep palpation in b/l lower quadrants. Normoactive bowel sounds. No rebound tenderness/guarding. Midline abd scar, dressing in placed, c/d/i. MUSCULOSKELETAL: Normal range of motion at all joints. No bony deformities or tenderness. No CVA tenderness. UPPER EXTREMITIES: 2+ pulses, warm, well-perfused. No cyanosis. No clubbing. Cap refill <2 seconds. No peripheral edema. LOWER EXTREMITIES: 2+ pulses, warm, well-perfused. No calf tenderness. No peripheral edema. NEUROLOGICAL: Cranial nerves II-XII intact. Normal speech. PSYCHIATRIC: Cooperative. Good eye contact. Appropriate mood and affect. SKIN: Warm, dry, normal turgor, no rashes or lesions noted. CBCD WBC 4.4 K/mm3 (4.0-10.0) 03/24/19 10:25 RBC 2.03 M/mm3 (3.60-5.2) L 03/24/19 10:25 Hgb 6.6 GM/dL (10.7-15.3) L* 03/24/19 10:25 Hct 19.5 % (32.4-45.2) L 03/24/19 10:25 MCV 96.1 fl (80-96) H 03/24/19 10:25 MCHC 33.5 g/dl (32.0-36.0) 03/24/19 10:25 RDW 22.1 % (11.6-15.6) H 03/24/19 10:25 Plt Count 182 K/MM3 (134-434) D 03/24/19 10:25 MPV 8.5 fl (7.5-11.1) 03/24/19 10:25 CMP Sodium 136 mmol/L (136-145) 03/24/19 06:07 Potassium 4.1 mmol/L (3.5-5.1) 03/24/19 06:07 Chloride 102 mmol/L (98-107) 03/24/19 06:07 Carbon Dioxide 31 mmol/L (21-32) 03/24/19 06:07 Anion Gap 3 MMOL/L (8-16) L 03/24/19 06:07 BUN 9.4 mg/dL (7-18) 03/24/19 06:07 Creatinine 0.5 mg/dL (0.55-1.3) L 03/24/19 06:07 Calcium 6.9 mg/dL (8.5-10.1) L* 03/24/19 06:07 Total Bilirubin 0.6 mg/dL (0.2-1) 03/23/19 14:33 AST 18 U/L (15-37) 03/23/19 14:33 ALT 18 U/L (13-61) 03/23/19 14:33 Alkaline Phosphatase 154 U/L (45-117) H 03/23/19 14:33 Total Protein 5.9 g/dl (6.4-8.2) L 03/23/19 14:33 Albumin 1.7 g/dl (3.4-5.0) L 03/23/19 14:33 Active Medications Alprazolam (Xanax -) 0.25 mg PO BID PRN PRN Reason: ANXIETY Last Admin: 03/24/19 00:52 Dose: 0.25 mg Chlorhexidine Gluconate (Hibiclens For Decolonization -) 1 applic TP HS CAROLINE Clonazepam (Klonopin -) 0.5 mg PO HS CAROLINE Hydromorphone HCl (Dilaudid Vial -) 0.6 mg IVPUSH Q4H PRN PRN Reason: PAIN LEVEL 6-10 Last Admin: 03/24/19 09:15 Dose: 0.6 mg Dextrose/Sodium Chloride (Dextrose 5%-Normal Saline+40 Meq Kcl -) 40 meq in 1, 000 mls @ 100 mls/hr IV Q10H [facility] Last Admin: 03/24/19 09:16 Dose: 100 mls/hr Pantoprazole Sodium 80 mg/ (Sodium Chloride) 100 mls @ 10 mls/hr IVPB Q10H [facility] Last Admin: 03/24/19 10:40 Dose: 10 mls/hr Potassium Phosphate 15 mm/ (Dextrose) 255 mls @ 62.5 mls/hr IVPB ONCE ONE Stop: 03/24/19 14:14 Mupirocin (Bactroban Ointment (For Decolonization) -) 1 applic NS BID [facility] Stop: 03/29/19 09:59 Ondansetron HCl (Zofran Injection) 4 mg IVPUSH Q6H PRN PRN Reason: NAUSEA ASSESSMENT/PLAN: 43F w/ pmhx gastric bypass (Kinza en Y) 2003 s/p reversal 09/2018 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 Neuro Stable. AAOx3. Pulm Stable on room air. CV Hypotension Anemia -Hgb 5.8, repeat 6.6 with no transfusion -2U pRBC ordered; trend CBC -Pt has home infusions of IV fluids for hypotension; will start on maintenance IVf and continue to monitor BP. Will bolus if continued hypotension. GI SBO - CTAP showed partially obstructive at level of duodenojejunal jxn; ? possible stricture S/p Reversal of gastric bypass (Kinza en Y) - 2003 Splenic artery/vein fistula, s/p splenic artery stent placement -NPO -GI consulted; no emergent endoscopy to be done at this time. -Surg following (Dr. Lehman); recommend CLD, advance to soft diet if tolerating well. If pt cannot tolerate, may need EGD to assess duodeno-jejunostomy anastomosis. -Protonix 40 IVP QD ID GPC Bacteremia; may be due to PICC-related infection vs. abd wound source -ID consulted; Vanc/Meropenem -BCx pending; currently showing GPC clusters -Repeat Bcx pending -Contact precautions -Remove PICC line FEN -D5-LR -recheck lytes in AM (K+) -CLD, adv as tolerated Prophylaxis DVT: SCDs, hold AC in setting of anemia GI: Protonix 40 IVP Dispo: Will continue to follow patient with close hemodynamic monitoring given significant hx of hypotension in setting of sepsis. Thank you for this consultative opportunity. Visit type - Emergency Visit Emergency Visit: Yes ED Registration Date: 03/23/19 Care time: The patient presented to the Emergency Department on the above date and was hospitalized for further evaluation of their emergent condition. - New Patient This patient is new to me today: Yes Date on this admission: 03/24/19 - Critical Care Critical Care patient: Yes Total Critical Care Time (in minutes): 45 Critical Care Statement: The care of this patient involved high complexity decision making to prevent further life threatening deterioration of the patient 's condition and/or to evaluate & treat vital organ system(s) failure or risk of failure. ATTENDING PHYSICIAN STATEMENT I saw and evaluated the patient. I reviewed the resident's note and discussed the case with the resident. I agree with the resident's findings and plan as documented. SUBJECTIVE: OBJECTIVE: ASSESSMENT AND PLAN:
--- NOTE | 2019-03-24 11:10 | EKG ---
Test Reason : Blood Pressure : / mmHG Vent. Rate : 092 BPM Atrial Rate : 092 BPM P-R Int : 136 ms QRS Dur : 080 ms QT Int : 348 ms P-R-T Axes : 077 085 -67 degrees QTc Int : 430 ms NORMAL SINUS RHYTHM ABNORMAL ECG Confirmed by MICHELLE SMITH MD ([id number]) on 03/24/2019 11:10:47 AM Referred By: Confirmed By:MICHELLE SMITH MD
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
--- NOTE | 2019-03-24 14:24 | PN ---
Teaching Attending Note Name of Resident: Jenna Barney ATTENDING PHYSICIAN STATEMENT I saw and evaluated the patient. I reviewed the resident's note and discussed the case with the resident. I agree with the resident's findings and plan as documented. SUBJECTIVE: 43 F, known to me from a previous admission. 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 Admitted due to 1 week of nausea, vomiting, and abdominal pain. She was recently admitted to another hospital for severe hypokalemia and was discharged home the next day. No travel history or sick contacts. No occult bleeding has been noted. No travel history or sick contacts. Intake & Output 03/21/19 03/22/19 03/23/19 03/24/19 23:59 23:59 23:59 23:59 Weight 133 lb 133 lb Last Vital Signs Temp Pulse Resp BP Pulse Ox 97.7 F 75 106 H 72/47 L 99 03/24/19 14:00 03/24/19 14:00 03/24/19 12:04 03/24/19 14:00 03/24/19 11:00 Active Medications Alprazolam (Xanax -) 0.25 mg PO BID PRN PRN Reason: ANXIETY Last Admin: 03/24/19 00:52 Dose: 0.25 mg Chlorhexidine Gluconate (Hibiclens For Decolonization -) 1 applic TP HS CAROLINE Clonazepam (Klonopin -) 0.5 mg PO HS CAROLINE Hydromorphone HCl (Dilaudid Vial -) 0.5 mg IVPUSH Q4H PRN PRN Reason: PAIN LEVEL 6-10 Dextrose/Sodium Chloride (Dextrose 5%-Normal Saline+40 Meq Kcl -) 40 meq in 1, 000 mls @ 100 mls/hr IV Q10H [facility]INE Last Admin: 03/24/19 09:16 Dose: 100 mls/hr Pantoprazole Sodium 80 mg/ (Sodium Chloride) 100 mls @ 10 mls/hr IVPB Q10H [facility] Last Admin: 03/24/19 10:40 Dose: 10 mls/hr Sodium Chloride (Normal Saline -) 1,000 mls @ 100 mls/hr IV ASDIR CAROLINE Mupirocin (Bactroban Ointment (For Decolonization) -) 1 applic NS BID [facility]INE Stop: 03/29/19 09:59 Ondansetron HCl (Zofran Injection) 4 mg IVPUSH Q6H PRN PRN Reason: NAUSEA GENERAL: Pale, awake, alert, and oriented, in no acute distress. HEENT: AT/NC. EOMI. Dry mucus membranes. Pale. NECK: Normal range of motion, supple without lymphadenopathy, JVD, or masses. LUNGS: Breath sounds equal, clear to auscultation bilaterally. No wheezes, and no crackles. No accessory muscle use. HEART: Regular rate and rhythm, normal S1 and S2 without murmur, rub or gallop. ABDOMEN: Soft, tender to deep palpation in b/l lower quadrants. (+) bowel sounds. No rebound tenderness/guarding. Midline abd scar, dressing in placed. MUSCULOSKELETAL: Normal range of motion at all joints. No bony deformities or tenderness. No CVA tenderness. UPPER EXTREMITIES: 2+ pulses, warm, well-perfused. No cyanosis. No clubbing. Cap refill <2 seconds. No peripheral edema. LOWER EXTREMITIES: 2+ pulses, warm, well-perfused. No calf tenderness. No peripheral edema. NEUROLOGICAL: Non-focal. Normal speech. PSYCHIATRIC: Cooperative. Good eye contact. Appropriate mood and affect. SKIN: Warm, dry, normal turgor, no rashes or lesions noted. CBCD WBC 4.4 K/mm3 (4.0-10.0) 03/24/19 10:25 RBC 2.03 M/mm3 (3.60-5.2) L 03/24/19 10:25 Hgb 6.6 GM/dL (10.7-15.3) L* 03/24/19 10:25 Hct 19.5 % (32.4-45.2) L 03/24/19 10:25 MCV 96.1 fl (80-96) H 03/24/19 10:25 MCHC 33.5 g/dl (32.0-36.0) 03/24/19 10:25 RDW 22.1 % (11.6-15.6) H 03/24/19 10:25 Plt Count 182 K/MM3 (134-434) D 03/24/19 10:25 MPV 8.5 fl (7.5-11.1) 03/24/19 10:25 CMP Sodium 136 mmol/L (136-145) 03/24/19 06:07 Potassium 4.1 mmol/L (3.5-5.1) 03/24/19 06:07 Chloride 102 mmol/L (98-107) 03/24/19 06:07 Carbon Dioxide 31 mmol/L (21-32) 03/24/19 06:07 Anion Gap 3 MMOL/L (8-16) L 03/24/19 06:07 BUN 9.4 mg/dL (7-18) 03/24/19 06:07 Creatinine 0.5 mg/dL (0.55-1.3) L 03/24/19 06:07 Calcium 6.9 mg/dL (8.5-10.1) L* 03/24/19 06:07 Total Bilirubin 0.6 mg/dL (0.2-1) 03/23/19 14:33 AST 18 U/L (15-37) 03/23/19 14:33 ALT 18 U/L (13-61) 03/23/19 14:33 Alkaline Phosphatase 154 U/L (45-117) H 03/23/19 14:33 Total Protein 5.9 g/dl (6.4-8.2) L 03/23/19 14:33 Albumin 1.7 g/dl (3.4-5.0) L 03/23/19 14:33 ASSESSMENT/PLAN: R/O SBO (duodenaljejunal junction) Severe / Symptomatic Anemia S/P gastric bypass (Kinza en Y) in 2003 with reversal 09/2018 c/b splenic artery/ vein fistula requiring splenic artery stent placement Chronic hypokalemia Apparent history of chronic Hypotension Chronic diarrhea Chronic back/neck pain (s/p lumbar surgery) Despite Risks and Benefits being extensively explained, the patient has refused NGT placement O2 as needed Surgical Follow up GI evaluation noted Transfusional support Normal transfusion thresholds IVF resuscitation VTE prophylaxis NPO for now ICU monitoring Dr Escobar Critical care time spent in reviewing chart, evaluating patient and formulating plan - 36 minutes.
[2019-03-24] MEDS ORDERED: SODIUM CHLORIDE 1,000 ML IV SCH (14:30)
--- NOTE | 2019-03-24 15:48 | PN ---
Progress Note (short form) - Note Progress Note: ID CONSULT DICTATED +BC GPCCL MULTIPLE BOTTLES R/O STAPH BACTEREMIA/ SEPSIS ? PICC RELATED INFECTION (PICC IN PLACE SINCE 12/22) ? ABDOMINAL WOUND SOURCE R/O PARTIAL BOWEL OBSTRUCTION HYPOTENSION ? SECONDARY TO SEPSIS ANEMIA/ LEUKOPENIA ATELECTASIS R/O PNEUMONIA HX ESBL REMOVE PICC REPEAT BC X 2 EMPIRIC VANCO/ MEROPENEM AWAIT C/S CONTACT PRECAUTIONS CRITICAL CARE TIME 35MIN
[2019-03-24] MEDS ORDERED: MEROPENEM 1 GM VIAL (RESTRICTED TO ID) IVPB ONE (17:12)
[2019-03-24] MEDS ORDERED: DEXTROSE 5%-WATER 100 ML IVPB ONE (17:12)
[2019-03-24] MEDS: MEROPENEM 1 GM in DEXTROSE 5%-WATER 100 ML IVPB SCH (17:19)
[2019-03-24] MEDS: MUPIROCIN 2% TOPICAL OINTMENT FOR DECOLONIZATION NS SCH ×2 (17:19→21:11)
--- NOTE | 2019-03-24 18:07 | PN ---
Progress Note (short form) - Note Progress Note: Bariatric Surgery Multiple consults noted Pt doing better No N/V No diarrhea BP-80-90 systolic (near baseline) P-75-86 P/E- Pt pale (Hgb-6.6) Tongue- moist Abd- soft, mild tenderness on palpation in midline Ext- no swelling, no cellulitis K+-4.1 Lactid Acid- 1.7 (decreased from 3.4) WBC-4.4 Rec- Will start clear liquids, advance to PO soft in AM if doing well Agree with removing PICC line Transfuse PRBC, continue IV hydration Moniter labs, K+, H/H closely Will attempt to slowly advance PO diet as tolerated to regular food. If can't tolerate may need EGGD to assess duodeno-jejunostomy anastomosis
[2019-03-24] MEDS: VANCOMYCIN 1 GRAM (PRE-DOCKED) 1,000 MG/250 ML BAG IVPB SCH (18:34)
[2019-03-24] MEDS ORDERED: DEXTROSE 5%-LACTATED RINGERS 1,000 ML IV SCH (19:00)
[2019-03-24 20:42] LABS: BLOOD UREA NITROGEN 8.2 mg/dL (7-18); CALCIUM 7.1 mg/dL (8.5-10.1); CREATININE 0.6 mg/dL (0.55-1.3); PHOSPHOROUS 2.7 mg/dL (2.5-4.9); POTASSIUM 3.1 mmol/L (3.5-5.1)
[2019-03-24] MEDS: clonazePAM 0.5 MG TABLET PO SCH (21:10)
[2019-03-24] MEDS: CHLORHEXIDINE GLUCONATE 4% CLEANSER FOR DECOLONIZATION TP SCH (21:10)
[2019-03-24] MEDS: POTASSIUM CHLORIDE IVPB SCH (22:00)
[2019-03-24] MEDS: LACTATED RINGERS IVPB SCH (22:00)
[2019-03-24] MEDS ORDERED: PATIENT'S OWN MEDICATION (NON-FORMULARY) (Clonazepam [Klonopin] 0.5 MG) PO SCH (22:00)
[2019-03-24] MEDS: DEXTROSE 5% IVPB SCH (22:00)
[2019-03-24 23:21] LABS: URINE APPEARANCE CLEAR; URINE COLOR DK YELLOW; URINE GLUCOSE (UA) NEGATIVE (NEGATIVE)
[2019-03-24 23:22] LABS: PH,URINE 5.5 (5.0-8.0); URINE BILIRUBIN 1+ (NEGATIVE); URINE KETONE NEGATIVE (NEGATIVE); URINE LEUK ESTERASE NEGATIVE (NEGATIVE); URINE NITRITE NEGATIVE (NEGATIVE); URINE PROTEIN 1+ (NEGATIVE)
[2019-03-25] MEDS ORDERED: MEROPENEM 1 GM VIAL (RESTRICTED TO ID) IVPB ONE ×2 (01:24→08:52)
[2019-03-25] MEDS ORDERED: DEXTROSE 5%-WATER 100 ML IVPB ONE ×2 (01:24→08:52)
[2019-03-25] MEDS: HYDROmorphone HCl 2 MG/ML VIAL IVPUSH PRN ×6 (01:31→22:33)
[2019-03-25] MEDS: MEROPENEM 1 GM in DEXTROSE 5%-WATER 100 ML IVPB SCH ×2 (01:31→09:21)
[2019-03-25] MEDS: VANCOMYCIN 1 GRAM (PRE-DOCKED) 1,000 MG/250 ML BAG IVPB SCH ×2 (03:06→16:07)
[2019-03-25] MEDS: ALPRAZolam 0.25 MG TABLET PO PRN (04:49)
[2019-03-25] MEDS: POTASSIUM CHLORIDE IVPB SCH ×2 (09:00→18:25)
[2019-03-25] MEDS: LACTATED RINGERS IVPB SCH ×2 (09:00→18:25)
[2019-03-25] MEDS: DEXTROSE 5% IVPB SCH ×2 (09:00→18:25)
[2019-03-25] MEDS ORDERED: PANTOPRAZOLE SODIUM 40 MG VIAL IVPUSH SCH (10:00)
[2019-03-25] MEDS: MUPIROCIN 2% TOPICAL OINTMENT FOR DECOLONIZATION NS SCH ×2 (10:18→22:11)
[2019-03-25 11:48] LABS: BASO % 0.6 % (0-2.0); EOS % 4.2 % (0-4.5); HEMATOCRIT 31.7 % (32.4-45.2); HEMOGLOBIN 10.7 GM/dL (10.7-15.3); LYMPH % 14.9 % (8-40); MCH 31.3 pg (25.7-33.7); MCHC 33.6 g/dl (32.0-36.0); MEAN PLT VOLUME 8.9 fl (7.5-11.1); NEUT % 70.3 % (42.8-82.8); PLATELET COUNT 160 K/MM3 (134-434); RBC 3.41 M/mm3 (3.60-5.2); RDW 18.9 % (11.6-15.6); WHITE BLOOD COUNT 4.3 K/mm3 (4.0-10.0)
[2019-03-25 11:55] LABS: ALBUMIN 1.3 g/dl (3.4-5.0); BILIRUBIN,TOTAL 0.6 mg/dL (0.2-1); BLOOD UREA NITROGEN 6.2 mg/dL (7-18); CALCIUM 7.3 mg/dL (8.5-10.1); CREATININE 0.4 mg/dL (0.55-1.3); MAGNESIUM 1.8 mg/dL (1.8-2.4); PHOSPHOROUS 2.9 mg/dL (2.5-4.9); TOT PROT 4.7 g/dl (6.4-8.2)
--- NOTE | 2019-03-25 12:02 | PN ---
Progress Note, Physician History of Present Illness: AWAKE, ALERT NO C/O ABDOMINAL PAIN, N/V + LOOSE BM YESTERDAY AFEBRILE BC PRELIM MSSA - Current Medication List Current Medications: Active Medications Alprazolam (Xanax -) 0.25 mg PO BID PRN PRN Reason: ANXIETY Last Admin: 03/25/19 04:49 Dose: 0.25 mg Chlorhexidine Gluconate (Hibiclens For Decolonization -) 1 applic TP HS [facility] Last Admin: 03/24/19 21:10 Dose: Not Given Clonazepam (Klonopin -) 0.5 mg PO HS [facility] Last Admin: 03/24/19 21:10 Dose: 0.5 mg Hydromorphone HCl (Dilaudid Vial -) 0.5 mg IVPUSH Q4H PRN PRN Reason: PAIN LEVEL 6-10 Last Admin: 03/25/19 10:15 Dose: 0.5 mg Vancomycin HCl (Vancomycin (Pre-Docked)) 1,000 mg in 250 mls @ 166.667 mls/hr IVPB Q12H [facility]; Protocol Last Admin: 03/25/19 03:06 Dose: 166.667 mls/hr Meropenem 1 gm/ Dextrose 100 mls @ 200 mls/hr IVPB Q8H-IV [facility] Last Admin: 03/25/19 09:21 Dose: 200 mls/hr Potassium Chloride 30 meq/ (Dextrose/Lactated Ringer's) 1,015 mls @ 100 mls/hr IVPB Q10H [facility] Last Admin: 03/25/19 09:00 Dose: 100 mls/hr Mupirocin (Bactroban Ointment (For Decolonization) -) 1 applic NS BID [facility] Stop: 03/29/19 09:59 Last Admin: 03/25/19 10:18 Dose: Not Given Ondansetron HCl (Zofran Injection) 4 mg IVPUSH Q6H PRN PRN Reason: NAUSEA Pantoprazole Sodium (Protonix Iv) 40 mg IVPUSH DAILY [facility] Last Admin: 03/25/19 09:21 Dose: 40 mg - Objective Vital Signs: Vital Signs Temperature 98.3 F 03/25/19 10:00 Pulse Rate 74 03/25/19 10:00 Respiratory Rate 16 03/25/19 10:00 Blood Pressure 107/78 03/25/19 10:00 O2 Sat by Pulse Oximetry (%) 99 03/25/19 10:00 Constitutional: Yes: Pallor Cardiovascular: Yes: Regular Rate and Rhythm, S1, S2 Respiratory: Yes: CTA Bilaterally Gastrointestinal: Yes: Normal Bowel Sounds, Soft, Other (+ ABDOMINAL WOUND SL ERYTHEMA NO DRAINAGE) Edema: No Labs: CBC, BMP 03/25/19 06:00 INR, PTT INR 1.19 (0.83-1.09) H 03/23/19 14:33 Assessment/Plan STAPH BACTEREMIA ? PICC SOURCE(REMOVED) ? ABDO WOUND R/O PARTIAL BOWEL OBSTRUCTION HYPOTENSION ANEMIA AWAIT FINAL BC RESULTS REPEAT BC OBTAINED CONTINUE VANCOMYCIN PENDING C/S OBTAIN ECHO
--- NOTE | 2019-03-25 12:05 | PN ---
Teaching Attending Note Name of Resident: Katt Murray ATTENDING PHYSICIAN STATEMENT I saw and evaluated the patient. I reviewed the resident's note and discussed the case with the resident. I agree with the resident's findings and plan as documented. SUBJECTIVE: Pt seen and examined in the ICU. Transfused 2 units PRBC this AM. Tolerating PO. OBJECTIVE: Vital Signs Period Temp Pulse Resp BP Sys/Lugo Pulse Ox Last 24 Hr 97.7 F-98.4 F 18-93 11-106 72-169/47-85 99-99 Intake & Output 03/22/19 03/23/19 03/24/19 03/25/19 23:59 23:59 23:59 23:59 Intake Total 1950 Balance 1950 Weight 60.328 kg 60.328 kg Gen: NAD at rest Heart: RRR Lung: decreased breath sounds at the bases Abd: soft, nontender Ext: no edema CBC, BMP 03/25/19 06:00 Active Medications Alprazolam (Xanax -) 0.25 mg PO BID PRN PRN Reason: ANXIETY Last Admin: 03/25/19 04:49 Dose: 0.25 mg Chlorhexidine Gluconate (Hibiclens For Decolonization -) 1 applic TP HS [facility] Last Admin: 03/24/19 21:10 Dose: Not Given Clonazepam (Klonopin -) 0.5 mg PO HS [facility] Last Admin: 03/24/19 21:10 Dose: 0.5 mg Hydromorphone HCl (Dilaudid Vial -) 0.5 mg IVPUSH Q4H PRN PRN Reason: PAIN LEVEL 6-10 Last Admin: 03/25/19 10:15 Dose: 0.5 mg Vancomycin HCl (Vancomycin (Pre-Docked)) 1,000 mg in 250 mls @ 166.667 mls/hr IVPB Q12H [facility]; Protocol Last Admin: 03/25/19 03:06 Dose: 166.667 mls/hr Potassium Chloride 30 meq/ (Dextrose/Lactated Ringer's) 1,015 mls @ 100 mls/hr IVPB Q10H [facility] Last Admin: 03/25/19 09:00 Dose: 100 mls/hr Mupirocin (Bactroban Ointment (For Decolonization) -) 1 applic NS BID [facility] Stop: 03/29/19 09:59 Last Admin: 03/25/19 10:18 Dose: Not Given Ondansetron HCl (Zofran Injection) 4 mg IVPUSH Q6H PRN PRN Reason: NAUSEA Pantoprazole Sodium (Protonix Iv) 40 mg IVPUSH DAILY [facility] Last Admin: 03/25/19 09:21 Dose: 40 mg ASSESSMENT AND PLAN: r/o Small Bowel Obstruction Severe / Symptomatic Anemia Staph Bacteremia 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
--- NOTE | 2019-03-25 14:09 | PN ---
Physical Exam: SUBJECTIVE: Patient seen this morning and symptoms greatly improved. Receiving transfusion OBJECTIVE: Vital Signs Period Temp Pulse Resp BP Sys/Lugo Pulse Ox Last 24 Hr 97.7 F-98.4 F 66-93 11-106 72-169/47-85 99-99 GENERAL: The patient is awake, alert, and fully oriented, in no acute distress. EYES: PERRL, extraocular movements intact, LUNGS: Breath sounds equal, clear to auscultation bilaterally, no wheezes, no crackles, no accessory muscle use. HEART: Regular rate and rhythm, S1, S2 without murmur, rub or gallop. ABDOMEN:tenderness to lower quadrant palpation EXTREMITIES: 2+ pulses, warm, well-perfused, no edema. SKIN: Warm, dry, normal turgor, no rashes or lesions noted CBC, BMP 03/25/19 11:00 03/25/19 06:00 Active Medications Alprazolam (Xanax -) 0.25 mg PO BID PRN PRN Reason: ANXIETY Last Admin: 03/25/19 04:49 Dose: 0.25 mg Chlorhexidine Gluconate (Hibiclens For Decolonization -) 1 applic TP HS [facility] Last Admin: 03/24/19 21:10 Dose: Not Given Clonazepam (Klonopin -) 0.5 mg PO HS [facility] Last Admin: 03/24/19 21:10 Dose: 0.5 mg Hydromorphone HCl (Dilaudid Vial -) 0.5 mg IVPUSH Q4H PRN PRN Reason: PAIN LEVEL 6-10 Last Admin: 03/25/19 10:15 Dose: 0.5 mg Vancomycin HCl (Vancomycin (Pre-Docked)) 1,000 mg in 250 mls @ 166.667 mls/hr IVPB Q12H [facility]; Protocol Last Admin: 03/25/19 03:06 Dose: 166.667 mls/hr Potassium Chloride 30 meq/ (Dextrose/Lactated Ringer's) 1,015 mls @ 100 mls/hr IVPB Q10H [facility] Last Admin: 03/25/19 09:00 Dose: 100 mls/hr Mupirocin (Bactroban Ointment (For Decolonization) -) 1 applic NS BID [facility] Stop: 03/29/19 09:59 Last Admin: 03/25/19 10:18 Dose: Not Given Ondansetron HCl (Zofran Injection) 4 mg IVPUSH Q6H PRN PRN Reason: NAUSEA Pantoprazole Sodium (Protonix Iv) 40 mg IVPUSH DAILY [facility] Last Admin: 03/25/19 09:21 Dose: 40 mg ASSESSMENT/PLAN: Patient is a 43 y/o female with a history of gastric bypass, splenic artery/ vein fistula, chronic hypokalemia who is admitted for SBO. Neuro - A& O x3 - monitor for any changes in mentation Pulm - baseline, O2 > 90 - stable on room air Cardio - pressures stable - continue to monitor GI - SBO resolving, patient tolerating soft diet - CT scan with moderate dilatation of the duodenum, partially obstructed vs stricture - protonix daily, zofran for nausea - followed by GI, will continue to observe patient and avoid any further invasive testing or imaging as per patients wishes ID - bacteremia 2/2 to PICC line placement - Vancomycin 1 gm daily , Meropenem - culture growing MSSA - followed by ID Heme - received 2 units with appropriate rise in Hgb - monitor hgb daily FEN: soft diet and advance as tolerated Dispo: patient stable for med/surg, discuss with Primary team Visit type - Emergency Visit Emergency Visit: No - New Patient This patient is new to me today: Yes Date on this admission: 03/25/19 - Critical Care Critical Care patient: Yes Total Critical Care Time (in minutes): 40 Critical Care Statement: The care of this patient involved high complexity decision making to prevent further life threatening deterioration of the patient 's condition and/or to evaluate & treat vital organ system(s) failure or risk of failure. ATTENDING PHYSICIAN STATEMENT I saw and evaluated the patient. I reviewed the resident's note and discussed the case with the resident. I agree with the resident's findings and plan as documented. SUBJECTIVE: OBJECTIVE: ASSESSMENT AND PLAN:
[2019-03-25] MEDS: ONDANSETRON 4 MG/2 ML VIAL IVPUSH PRN ×2 (14:11→21:58)
--- NOTE | 2019-03-25 15:31 | PN ---
Progress Note, Physician Chief Complaint: Bacteremia Anemia SBO History of Present Illness: NAD in bed denies any pain at this time - Current Medication List Current Medications: Active Medications Alprazolam (Xanax -) 0.25 mg PO BID PRN PRN Reason: ANXIETY Last Admin: 03/25/19 04:49 Dose: 0.25 mg Chlorhexidine Gluconate (Hibiclens For Decolonization -) 1 applic TP HS [facility] Last Admin: 03/24/19 21:10 Dose: Not Given Clonazepam (Klonopin -) 0.5 mg PO HS [facility] Last Admin: 03/24/19 21:10 Dose: 0.5 mg Hydromorphone HCl (Dilaudid Vial -) 0.5 mg IVPUSH Q4H PRN PRN Reason: PAIN LEVEL 6-10 Last Admin: 03/25/19 14:12 Dose: 0.5 mg Vancomycin HCl (Vancomycin (Pre-Docked)) 1,000 mg in 250 mls @ 166.667 mls/hr IVPB Q12H [facility]; Protocol Last Admin: 03/25/19 03:06 Dose: 166.667 mls/hr Potassium Chloride 30 meq/ (Dextrose/Lactated Ringer's) 1,015 mls @ 100 mls/hr IVPB Q10H [facility] Last Admin: 03/25/19 09:00 Dose: 100 mls/hr Mupirocin (Bactroban Ointment (For Decolonization) -) 1 applic NS BID [facility] Stop: 03/29/19 09:59 Last Admin: 03/25/19 10:18 Dose: Not Given Ondansetron HCl (Zofran Injection) 4 mg IVPUSH Q6H PRN PRN Reason: NAUSEA Last Admin: 03/25/19 14:11 Dose: 4 mg Pantoprazole Sodium (Protonix Iv) 40 mg IVPUSH DAILY [facility] Last Admin: 03/25/19 09:21 Dose: 40 mg - Objective Vital Signs: Vital Signs Temperature 98.2 F 03/25/19 14:00 Pulse Rate 74 03/25/19 14:00 Respiratory Rate 16 03/25/19 14:00 Blood Pressure 99/75 03/25/19 14:00 O2 Sat by Pulse Oximetry (%) 99 03/25/19 10:00 Constitutional: Yes: Well Nourished, No Distress, Calm Cardiovascular: Yes: Regular Rate and Rhythm Respiratory: Yes: Regular Gastrointestinal: Yes: Normal Bowel Sounds, Soft Genitourinary: Yes: WNL Musculoskeletal: Yes: Muscle Weakness Extremities: Yes: WNL Edema: No Peripheral Pulses WNL: Yes Neurological: Yes: Alert, Oriented Psychiatric: Yes: Alert, Oriented Labs: CBC, BMP 03/25/19 11:00 03/25/19 06:00 INR, PTT INR 1.19 (0.83-1.09) H 03/23/19 14:33 Problem List - Problems (1) Abdominal pain Assessment/Plan: -Tolerating PO intake -surgical consult appreciated -cont dilaudid for pain -cont IVF -repeat lactic acid normal Code(s): R10.9 - UNSPECIFIED ABDOMINAL PAIN (2) Hypokalemia Assessment/Plan: -Monitor and replete -mag low and replaced -D5LR+30mEq KCl @100cc/hr -Nephrology consult Problems reviewed: Yes Code(s): E87.6 - HYPOKALEMIA (3) Hypomagnesemia Assessment/Plan: -replaced Problems reviewed: Yes Code(s): E83.42 - HYPOMAGNESEMIA (4) Small bowel obstruction Assessment/Plan: -SBO resolving, patient tolerating soft diet -CT scan with moderate dilatation of the duodenum, partially obstructed vs stricture -PPI -zofran PRN for nausea Problems reviewed: Yes Code(s): K56.609 - UNSP INTESTNL OBST, UNSP TO PARTIAL VERSUS COMPLETE OBST (5) Anemia Assessment/Plan: -received PRBC 2 units -H/H improved -Monitor trend -multifactorial Problems reviewed: Yes Code(s): D64.9 - ANEMIA, UNSPECIFIED (6) Bacteremia Assessment/Plan: -2/2 to PICC line, which is now removed -Micro: Microbiology 03/23/19 17:37 Blood - Peripheral Venous Blood Culture - Preliminary Presumptive Mssa (Pbp2a Neg) 03/23/19 17:37 Blood - Peripheral Venous Blood Culture - Preliminary Pending Organism Pending Organism#2 -IV abx -ID consult -afebrile -no leukocytosis -repeat BC pending Problems reviewed: Yes Code(s): R78.81 - BACTEREMIA Assessment/Plan see problem list
--- NOTE | 2019-03-25 17:00 | PN.GI ---
GI Progress Note Subjective: GI NOte: Started on solid diet and tolerated lunch. No vomiting today. Senses gastric gurgling but no pain. BC are growing g positive cocci . No overt bleeding - Objective Vital Signs: Vital Signs Temperature 98.2 F 03/25/19 14:00 Pulse Rate 74 03/25/19 14:00 Respiratory Rate 16 03/25/19 14:00 Blood Pressure 99/75 03/25/19 14:00 O2 Sat by Pulse Oximetry (%) 99 03/25/19 10:00 Laboratory Tests 03/23/19 03/24/19 03/24/19 14:33 06:07 06:07 Hgb 9.2 L 5.8 L* Iron 47 L TIBC 49 L Iron Saturation 95 H Unsaturated IBC 2 L Ferritin 471.0 H Albumin 03/24/19 03/25/19 03/25/19 10:25 06:00 11:00 Hgb 6.6 L* 10.7 Iron TIBC Iron Saturation Unsaturated IBC Ferritin Albumin 1.3 L Constitutional: Calm Gastrointestinal Inspection: Yes: Scars (long vertical midline incision) ...Auscultate: Yes: Hyperactive Bowel Sounds ...Palpate: Yes: Soft, Other (nontender) Labs: CBC, BMP 03/25/19 11:00 03/25/19 06:00 INR, PTT INR 1.19 (0.83-1.09) H 03/23/19 14:33 Assessment/Plan Assessment - 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 She has h/o previous gastric bypass anastomotic ulceration requiring it's take down and revisional surgery Plan: - I have discussed EGD for the purpose of confirming or excluding anastomotic ulceration and stricturing. I informed her of the risks of such a procedure that include perforation and hemorrhage. She is in a position to make an informed consent. She wants to avoid it however so will observe her ability to tolerate this diet and follow her CBC closely. Problem List - Problems (1) Anastomotic stricture of duodenum Code(s): K92.9 - DISEASE OF DIGESTIVE SYSTEM, UNSPECIFIED; K31.5 - OBSTRUCTION OF DUODENUM (2) Abdominal pain Code(s): R10.9 - UNSPECIFIED ABDOMINAL PAIN (3) Vomiting Code(s): R11.10 - VOMITING, UNSPECIFIED (4) Fistula, arteriovenous, acquired Code(s): I77.0 - ARTERIOVENOUS FISTULA, ACQUIRED (5) Bacteremia Code(s): R78.81 - BACTEREMIA (6) Hypokalemia Code(s): E87.6 - HYPOKALEMIA (7) Hypomagnesemia Code(s): E83.42 - HYPOMAGNESEMIA (8) Small bowel obstruction Code(s): K56.609 - UNSP INTESTNL OBST, UNSP TO PARTIAL VERSUS COMPLETE OBST (9) Anemia Code(s): D64.9 - ANEMIA, UNSPECIFIED (10) Gastrojejunal ulcer Code(s): K28.9 - GASTROJEJUNAL ULCER, UNSP ACUTE OR CHR, W/O HEMOR OR PERF (11) H/O gastric bypass Code(s): Z98.84 - BARIATRIC SURGERY STATUS
--- NOTE | 2019-03-25 17:36 | PN ---
Progress Note (short form) - Note Progress Note: Problems 1. Hypokalemia 2. Hypophosphatemia 3. Pseudohypocalcemia 4. Lactic acidosis 5. Abdominal pain with N/V 6. Acute on chronic anemia Current Medications Alprazolam (Xanax -) 0.25 mg PO BID PRN PRN Reason: ANXIETY Last Admin: 03/25/19 04:49 Dose: 0.25 mg Chlorhexidine Gluconate (Hibiclens For Decolonization -) 1 applic TP HS [facility] Last Admin: 03/24/19 21:10 Dose: Not Given Clonazepam (Klonopin -) 0.5 mg PO HS [facility] Last Admin: 03/24/19 21:10 Dose: 0.5 mg Hydromorphone HCl (Dilaudid Vial -) 0.5 mg IVPUSH Q4H PRN PRN Reason: PAIN LEVEL 6-10 Last Admin: 03/25/19 14:12 Dose: 0.5 mg Vancomycin HCl (Vancomycin (Pre-Docked)) 1,000 mg in 250 mls @ 166.667 mls/hr IVPB Q12H [facility]; Protocol Last Admin: 03/25/19 16:07 Dose: 166.667 mls/hr Potassium Chloride 30 meq/ (Dextrose/Lactated Ringer's) 1,015 mls @ 100 mls/hr IVPB Q10H [facility] Last Admin: 03/25/19 09:00 Dose: 100 mls/hr Mupirocin (Bactroban Ointment (For Decolonization) -) 1 applic NS BID [facility] Stop: 03/29/19 09:59 Last Admin: 03/25/19 10:18 Dose: Not Given Ondansetron HCl (Zofran Injection) 4 mg IVPUSH Q6H PRN PRN Reason: NAUSEA Last Admin: 03/25/19 14:11 Dose: 4 mg Pantoprazole Sodium (Protonix Iv) 40 mg IVPUSH DAILY [facility] Last Admin: 03/25/19 09:21 Dose: 40 mg Last Vital Signs Temp Pulse Resp BP Pulse Ox 98.2 F 74 16 99/75 99 03/25/19 14:00 03/25/19 14:00 03/25/19 14:00 03/25/19 14:00 03/25/19 10:00 Lungs clear Heart reg Abd soft nontender Ext CBC, BMP 12/21/19 11:00 03/25/19 06:00
[2019-03-25] MEDS: clonazePAM 0.5 MG TABLET PO SCH (21:54)
[2019-03-25] MEDS: CHLORHEXIDINE GLUCONATE 4% CLEANSER FOR DECOLONIZATION TP SCH (22:11)
[2019-03-26] MEDS ORDERED: oxyCODONE HCL 5 MG TABLET PO ONE (01:15)
[2019-03-26] MEDS: VANCOMYCIN 1 GRAM (PRE-DOCKED) 1,000 MG/250 ML BAG IVPB SCH ×2 (03:53→17:12)
[2019-03-26] MEDS: POTASSIUM CHLORIDE IVPB SCH ×2 (03:54→17:56)
[2019-03-26] MEDS: LACTATED RINGERS IVPB SCH ×2 (03:54→17:56)
[2019-03-26] MEDS: DEXTROSE 5% IVPB SCH ×2 (03:54→17:56)
[2019-03-26] MEDS: HYDROmorphone HCl 2 MG/ML VIAL IVPUSH PRN ×5 (03:54→20:48)
[2019-03-26 07:39] LABS: BASO % 0.4 % (0-2.0); EOS % 1.4 % (0-4.5); HEMATOCRIT 34.9 % (32.4-45.2); HEMOGLOBIN 11.9 GM/dL (10.7-15.3); LYMPH % 21.7 % (8-40); MCH 31.7 pg (25.7-33.7); MCHC 34.1 g/dl (32.0-36.0); MEAN CELL VOLUME 92.9 fl (80-96); MONO % 8.8 % (3.8-10.2); NEUT % 67.7 % (42.8-82.8); PLATELET COUNT 169 K/MM3 (134-434); RBC 3.76 M/mm3 (3.60-5.2); RDW 18.9 % (11.6-15.6); RETICULOCYTES 2.65 % (0.5-1.5); WHITE BLOOD COUNT 4.2 K/mm3 (4.0-10.0)
[2019-03-26 07:49] LABS: ALBUMIN 1.4 g/dl (3.4-5.0); BILIRUBIN,TOTAL 0.5 mg/dL (0.2-1); BLOOD UREA NITROGEN 5.7 mg/dL (7-18); CALCIUM 7.4 mg/dL (8.5-10.1); CREATININE 0.5 mg/dL (0.55-1.3); MAGNESIUM 1.6 mg/dL (1.8-2.4); PHOSPHOROUS 2.5 mg/dL (2.5-4.9); POTASSIUM 4.1 mmol/L (3.5-5.1); TOT PROT 5.2 g/dl (6.4-8.2)
[2019-03-26] MEDS: ALPRAZolam 0.25 MG TABLET PO PRN ×2 (09:16→21:23)
[2019-03-26] MEDS: ONDANSETRON 4 MG/2 ML VIAL IVPUSH PRN ×3 (09:16→22:36)
[2019-03-26] MEDS: MUPIROCIN 2% TOPICAL OINTMENT FOR DECOLONIZATION NS SCH ×2 (11:03→22:30)
[2019-03-26] MEDS: PANTOPRAZOLE SODIUM 40 MG VIAL IVPUSH SCH (11:03)
--- NOTE | 2019-03-26 11:13 | PN.GI ---
GI Progress Note Subjective: GI NOteL Eating small amounts but so far is tolerating solids. No vomiting so far. Denies pain or bloating. Had a formed BM. 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 She has h/o previous gastric bypass anastomotic ulceration requiring it's take down and revisional surgery Plan: - Add dietary supplement. Advised to fractionate caloric intake into multiple small meals - Will reserve EGD for recurrent vomiting or bleeding. She is in a position to make an informed consent. Problem List - Problems (1) Anastomotic stricture of duodenum Code(s): K92.9 - DISEASE OF DIGESTIVE SYSTEM, UNSPECIFIED; K31.5 - OBSTRUCTION OF DUODENUM (2) Abdominal pain Code(s): R10.9 - UNSPECIFIED ABDOMINAL PAIN (3) Vomiting Code(s): R11.10 - VOMITING, UNSPECIFIED (4) Fistula, arteriovenous, acquired Code(s): I77.0 - ARTERIOVENOUS FISTULA, ACQUIRED (5) Bacteremia Code(s): R78.81 - BACTEREMIA (6) Hypokalemia Code(s): E87.6 - HYPOKALEMIA (7) Hypomagnesemia Code(s): E83.42 - HYPOMAGNESEMIA (8) Small bowel obstruction Code(s): K56.609 - UNSP INTESTNL OBST, UNSP TO PARTIAL VERSUS COMPLETE OBST (9) Anemia Code(s): D64.9 - ANEMIA, UNSPECIFIED (10) Gastrojejunal ulcer Code(s): K28.9 - GASTROJEJUNAL ULCER, UNSP ACUTE OR CHR, W/O HEMOR OR PERF (11) H/O gastric bypass Code(s): Z98.84 - BARIATRIC SURGERY STATUS
--- NOTE | 2019-03-26 12:03 | PN ---
Progress Note, Physician History of Present Illness: AWAKE, ALERT SEATED IN BED NO C/O ABDOMINAL PAIN, N/V + BM AFEBRILE BC PRELIM MSSA URINE C/S GNR DENIES DYSURIA - Current Medication List Current Medications: Active Medications Alprazolam (Xanax -) 0.25 mg PO BID PRN PRN Reason: ANXIETY Last Admin: 03/26/19 09:16 Dose: 0.25 mg Chlorhexidine Gluconate (Hibiclens For Decolonization -) 1 applic TP HS [facility] Clonazepam (Klonopin -) 0.5 mg PO HS [facility] Hydromorphone HCl (Dilaudid Vial -) 0.5 mg IVPUSH Q4H PRN PRN Reason: PAIN LEVEL 6-10 Last Admin: 03/26/19 09:16 Dose: 0.5 mg Potassium Chloride 30 meq/ (Dextrose/Lactated Ringer's) 1,015 mls @ 100 mls/hr IVPB Q10H [facility] Last Admin: 03/26/19 03:54 Dose: 100 mls/hr Vancomycin HCl (Vancomycin (Pre-Docked)) 1,000 mg in 250 mls @ 166.667 mls/hr IVPB Q12H [facility]; Protocol Last Admin: 03/26/19 03:53 Dose: 166.667 mls/hr Mupirocin (Bactroban Ointment (For Decolonization) -) 1 applic NS BID [facility] Stop: 03/29/19 09:59 Last Admin: 03/26/19 11:03 Dose: Not Given Ondansetron HCl (Zofran Injection) 4 mg IVPUSH Q6H PRN PRN Reason: NAUSEA Last Admin: 03/26/19 09:16 Dose: 4 mg Pantoprazole Sodium (Protonix Iv) 40 mg IVPUSH DAILY [facility] Last Admin: 03/26/19 11:03 Dose: 40 mg - Objective Vital Signs: Vital Signs Temperature 98.4 F 03/25/19 22:00 Pulse Rate 86 03/25/19 22:00 Respiratory Rate 12 03/25/19 22:00 Blood Pressure 107/82 03/25/19 22:00 O2 Sat by Pulse Oximetry (%) 99 03/25/19 21:00 Constitutional: Yes: No Distress Eyes: Yes: Conjunctiva Clear Cardiovascular: Yes: Regular Rate and Rhythm, S1, S2 Respiratory: Yes: CTA Bilaterally Gastrointestinal: Yes: Normal Bowel Sounds, Soft, Other (ABDOMINAL WOUND NO ERYTHEMA/ DRAINAGE) Labs: CBC, BMP 03/26/19 06:02 03/26/19 06:02 INR, PTT INR 1.19 (0.83-1.09) H 03/23/19 14:33 Assessment/Plan STAPH BACTEREMIA ? PICC SOURCE(REMOVED) ? ABDO WOUND R/O PARTIAL BOWEL OBSTRUCTION HYPOTENSION ANEMIA AWAIT FINAL BC RESULTS REPEAT BC NO GROWTH CONTINUE VANCOMYCIN PENDING C/S OBTAIN ECHO NO TREATMENT FOR ASYMPTOMATIC BACTERURIA
--- NOTE | 2019-03-26 13:16 | PN ---
Progress Note, Physician Chief Complaint: Bacteremia Anemia SBO History of Present Illness: NAD in bed c/o abd pain at this time 8/10 On IV abx HCS history as following: Long history of narcotic dependency Others' Prescriptions Patient Name: Rachel Fernandez Date: 1975 Address: [address] [place] [address] Sex: Female Rx Written Rx Dispensed Drug Quantity Days Supply Prescriber Name 03/18/2019 03/18/2019 hydromorphone 4 mg tablet 30 7 Atif Lehman MD 11/03/2018 11/04/2018 oxycontin er 10 mg tablet 20 10 Kathy Trung 11/03/2018 11/04/2018 hydromorphone 4 mg tablet 20 3 Picano, Trung Patient Name: Rachel Fernandez Date: 1975 Address: [address] [place] [address] Sex: Female Rx Written Rx Dispensed Drug Quantity Days Supply Prescriber Name 11/10/2018 03/13/2019 eszopiclone 3 mg tablet 14 14 Seamus Cox MD 03/07/2019 03/13/2019 clonazepam 0.5 mg tablet 30 30 Seamus Cox MD 03/07/2019 03/13/2019 alprazolam 0.25 mg tablet 60 30 Seamus Cox MD 03/01/2019 03/04/2019 morphine sulf er 15 mg tablet 90 30 Seamus Cox MD 03/01/2019 03/04/2019 oxycodone hcl 20 mg tablet 90 30 Seamus Cox MD 02/28/2019 03/01/2019 carisoprodol 250 mg tablet 90 30 Seamus Cox MD 11/10/2018 02/13/2019 eszopiclone 3 mg tablet 23 23 Seamus Cox MD 02/13/2019 02/13/2019 carisoprodol 250 mg tablet 30 10 Seamus Cox MD 02/13/2019 02/13/2019 alprazolam 0.25 mg tablet 60 30 Seamus Cox MD 02/13/2019 02/13/2019 clonazepam 0.5 mg tablet 30 30 Seamus Cox MD 01/31/2019 02/03/2019 carisoprodol 350 mg tablet 90 30 KarinaSeamus braun MD 01/31/2019 01/31/2019 oxycodone hcl 20 mg tablet 90 30 Seamus Cox MD 01/31/2019 01/31/2019 morphine sulf er 15 mg tablet 90 30 YossismitaSeamus braun MD 11/10/2018 01/16/2019 eszopiclone 3 mg tablet 23 23 Seamus Cox MD 01/06/2019 01/06/2019 alprazolam 0.25 mg tablet 30 30 YossiSeamus mccormick MD 01/06/2019 01/06/2019 oxycodone hcl 20 mg tablet 75 25 Seamus Cox MD 01/06/2019 01/06/2019 carisoprodol 350 mg tablet 90 30 KarinaSeamus braun MD 01/06/2019 01/06/2019 morphine sulf er 15 mg tablet 80 27 Seamus Cox MD 11/10/2018 12/13/2018 eszopiclone 3 mg tablet 30 30 Seamus Cox MD 12/08/2018 12/09/2018 carisoprodol 350 mg tablet 90 30 Seamus Cox MD 12/08/2018 12/09/2018 oxycodone hcl 20 mg tablet 90 30 YossicherSeamus braun MD 12/08/2018 12/08/2018 morphine sulf er 15 mg tablet 90 30 YossismitaSeamus braun MD 11/10/2018 11/15/2018 eszopiclone 3 mg tablet 30 30 Seamus Cox MD 11/10/2018 11/11/2018 oxycodone hcl 20 mg tablet 90 30 Seamus Cox MD 11/10/2018 11/11/2018 carisoprodol 350 mg tablet 90 30 Seamus Cox MD 11/10/2018 11/10/2018 morphine sulf er 15 mg tablet 90 30 Seamus Cox MD 11/07/2018 11/07/2018 eszopiclone 3 mg tablet 7 7 Seamus Cox MD 11/07/2018 11/07/2018 morphine sulf er 15 mg tablet 10 5 Seamus Cox MD 11/07/2018 11/07/2018 oxycodone hcl 20 mg tablet 15 5 Seamus Cox MD 07/18/2018 09/19/2018 eszopiclone 3 mg tablet 30 30 Seamus Cox MD - Current Medication List Current Medications: Active Medications Alprazolam (Xanax -) 0.25 mg PO BID PRN PRN Reason: ANXIETY Last Admin: 03/26/19 09:16 Dose: 0.25 mg Chlorhexidine Gluconate (Hibiclens For Decolonization -) 1 applic TP HS [facility] Clonazepam (Klonopin -) 0.5 mg PO HS [facility] Hydromorphone HCl (Dilaudid Vial -) 0.5 mg IVPUSH Q4H PRN PRN Reason: PAIN LEVEL 6-10 Last Admin: 03/26/19 09:16 Dose: 0.5 mg Potassium Chloride 30 meq/ (Dextrose/Lactated Ringer's) 1,015 mls @ 100 mls/hr IVPB Q10H REPLACED BY [facility] Last Admin: 03/26/19 03:54 Dose: 100 mls/hr Vancomycin HCl (Vancomycin (Pre-Docked)) 1,000 mg in 250 mls @ 166.667 mls/hr IVPB Q12H REPLACED BY [facility]; Protocol Last Admin: 03/26/19 03:53 Dose: 166.667 mls/hr Mupirocin (Bactroban Ointment (For Decolonization) -) 1 applic NS BID REPLACED BY [facility] Stop: 03/29/19 09:59 Last Admin: 03/26/19 11:03 Dose: Not Given Ondansetron HCl (Zofran Injection) 4 mg IVPUSH Q6H PRN PRN Reason: NAUSEA Last Admin: 03/26/19 09:16 Dose: 4 mg Pantoprazole Sodium (Protonix Iv) 40 mg IVPUSH DAILY REPLACED BY [facility] Last Admin: 03/26/19 11:03 Dose: 40 mg - Objective Vital Signs: Vital Signs Temperature 98.4 F 03/25/19 22:00 Pulse Rate 86 03/25/19 22:00 Respiratory Rate 12 03/25/19 22:00 Blood Pressure 107/82 03/25/19 22:00 O2 Sat by Pulse Oximetry (%) 99 03/25/19 21:00 Constitutional: Yes: Well Nourished, No Distress, Calm Cardiovascular: Yes: Regular Rate and Rhythm Respiratory: Yes: Regular Gastrointestinal: Yes: Normal Bowel Sounds, Soft, Tenderness (diffuse) Genitourinary: Yes: WNL Musculoskeletal: Yes: WNL Extremities: Yes: WNL Edema: No Peripheral Pulses WNL: Yes Neurological: Yes: Alert, Oriented Psychiatric: Yes: Alert, Oriented Labs: CBC, BMP 03/26/19 06:02 03/26/19 06:02 INR, PTT INR 1.19 (0.83-1.09) H 03/23/19 14:33 Problem List - Problems (1) Abdominal pain Assessment/Plan: -Tolerating PO intake -surgical consult appreciated -cont dilaudid for pain---> change to PO -cont IVF -repeat lactic acid normal Problems reviewed: Yes Code(s): R10.9 - UNSPECIFIED ABDOMINAL PAIN (2) Hypokalemia Assessment/Plan: -Monitor and replete -mag low and replaced -D5LR+30mEq KCl @100cc/hr -Nephrology consult Problems reviewed: Yes Code(s): E87.6 - HYPOKALEMIA (3) Hypomagnesemia Assessment/Plan: -replaced Problems reviewed: Yes Code(s): E83.42 - HYPOMAGNESEMIA (4) Small bowel obstruction Assessment/Plan: -SBO resolving, patient tolerating soft diet -CT scan with moderate dilatation of the duodenum, partially obstructed vs stricture -PPI -zofran PRN for nausea Problems reviewed: Yes Code(s): K56.609 - UNSP INTESTNL OBST, UNSP TO PARTIAL VERSUS COMPLETE OBST (5) Anemia Assessment/Plan: -received PRBC 2 units -H/H improved -Monitor trend -multifactorial Problems reviewed: Yes Code(s): D64.9 - ANEMIA, UNSPECIFIED (6) Bacteremia Assessment/Plan: -2/2 to PICC line, which is now removed -Micro: Microbiology 03/23/19 17:37 Blood - Peripheral Venous Blood Culture - Preliminary Presumptive Mssa (Pbp2a Neg) 03/23/19 17:37 Blood - Peripheral Venous Blood Culture - Preliminary Pending Organism Pending Organism#2 -IV abx -ID consult -afebrile -no leukocytosis -repeat BC pending Problems reviewed: Yes Code(s): R78.81 - BACTEREMIA Assessment/Plan see problem list
--- NOTE | 2019-03-26 13:40 | PN ---
Progress Note (short form) - Note Progress Note: PULMONARY Tolerating PO. No fevers or chills. Vital Signs Period Temp Pulse Resp BP Sys/Lugo Pulse Ox Last 24 Hr 98.2 F-98.4 F 74-88 12-17 95-107/71-82 99-99 Gen: NAD at rest Heart: RRR Lung: decreased breath sounds at the bases Abd: soft, nontender Ext: no edema CBC, BMP 03/26/19 06:02 03/26/19 06:02 Active Medications Alprazolam (Xanax -) 0.25 mg PO BID PRN PRN Reason: ANXIETY Last Admin: 03/26/19 09:16 Dose: 0.25 mg Chlorhexidine Gluconate (Hibiclens For Decolonization -) 1 applic TP HS [facility] Clonazepam (Klonopin -) 0.5 mg PO HS [facility] Hydromorphone HCl (Dilaudid Vial -) 0.5 mg IVPUSH Q4H PRN PRN Reason: PAIN LEVEL 6-10 Last Admin: 03/26/19 09:16 Dose: 0.5 mg Potassium Chloride 30 meq/ (Dextrose/Lactated Ringer's) 1,015 mls @ 100 mls/hr IVPB Q10H [facility] Last Admin: 03/26/19 03:54 Dose: 100 mls/hr Vancomycin HCl (Vancomycin (Pre-Docked)) 1,000 mg in 250 mls @ 166.667 mls/hr IVPB Q12H [facility]; Protocol Last Admin: 03/26/19 03:53 Dose: 166.667 mls/hr Mupirocin (Bactroban Ointment (For Decolonization) -) 1 applic NS BID [facility] Stop: 03/29/19 09:59 Last Admin: 03/26/19 11:03 Dose: Not Given Ondansetron HCl (Zofran Injection) 4 mg IVPUSH Q6H PRN PRN Reason: NAUSEA Last Admin: 03/26/19 09:16 Dose: 4 mg Pantoprazole Sodium (Protonix Iv) 40 mg IVPUSH DAILY [facility] Last Admin: 03/26/19 11:03 Dose: 40 mg A/P r/o Small Bowel Obstruction Anemia Staph Bacteremia S/P gastric bypass (Kinza en Y) in 2003 with 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
--- NOTE | 2019-03-26 16:43 | PN ---
Progress Note (short form) - Note Progress Note: Problems 1. Hypokalemia 2. Hypophosphatemia 3. Pseudohypocalcemia 4. Lactic acidosis 5. Abdominal pain with N/V 6. Acute on chronic anemia Current Medications Alprazolam (Xanax -) 0.25 mg PO BID PRN PRN Reason: ANXIETY Last Admin: 03/26/19 09:16 Dose: 0.25 mg Chlorhexidine Gluconate (Hibiclens For Decolonization -) 1 applic TP HS [facility] Clonazepam (Klonopin -) 0.5 mg PO HS [facility] Hydromorphone HCl (Dilaudid Vial -) 0.5 mg IVPUSH Q4H PRN PRN Reason: PAIN LEVEL 6-10 Last Admin: 03/26/19 13:45 Dose: 0.5 mg Potassium Chloride 30 meq/ (Dextrose/Lactated Ringer's) 1,015 mls @ 100 mls/hr IVPB Q10H [facility] Last Admin: 03/26/19 03:54 Dose: 100 mls/hr Vancomycin HCl (Vancomycin (Pre-Docked)) 1,000 mg in 250 mls @ 166.667 mls/hr IVPB Q12H [facility]; Protocol Last Admin: 03/26/19 03:53 Dose: 166.667 mls/hr Mupirocin (Bactroban Ointment (For Decolonization) -) 1 applic NS BID [facility] Stop: 03/29/19 09:59 Last Admin: 03/26/19 11:03 Dose: Not Given Ondansetron HCl (Zofran Injection) 4 mg IVPUSH Q6H PRN PRN Reason: NAUSEA Last Admin: 03/26/19 09:16 Dose: 4 mg Pantoprazole Sodium (Protonix Iv) 40 mg IVPUSH DAILY [facility] Last Admin: 03/26/19 11:03 Dose: 40 mg Last Vital Signs Temp Pulse Resp BP Pulse Ox 98.7 F 92 H 16 98/69 99 03/26/19 14:00 03/26/19 14:00 03/26/19 14:00 03/26/19 14:00 03/26/19 10:00 Lungs clear Heart reg Abd soft nontender Ext CBC, BMP 03/26/19 06:02 03/26/19 06:02 CBC, BMP 03/25/19 11:00 03/25/19 06:00 IMP- labs electrolytes, phos improved mag low again
[2019-03-26] MEDS ORDERED: MAGNESIUM SULF 50% (8.12 MEQ/2 ML-1 GM VIAL) IVPB ONE (16:45)
[2019-03-26] MEDS ORDERED: HYDROmorphone HCl 2 MG/ML VIAL IVPUSH ONE (17:13)
--- NOTE | 2019-03-26 17:14 | HOSP ---
Subjective - Review of Symptoms Gastrointestinal: Yes: Abdominal Pain (generalized pain) Physical Examination Vital Signs: Vital Signs Temperature 98.7 F 03/26/19 14:00 Pulse Rate 92 H 03/26/19 14:00 Respiratory Rate 16 03/26/19 14:00 Blood Pressure 98/69 03/26/19 14:00 O2 Sat by Pulse Oximetry (%) 99 03/26/19 10:00 Gastrointestinal: Yes: WNL, Soft, Hypoactive Bowel Sounds, Tenderness ( generalized) Labs: CBC, BMP 03/26/19 06:02 03/26/19 06:02 Hospitalist Encounter Assessment: Called to ICU by RN for uncontrolled pain. Pt with long standing history of opioid use and ileus and bowel obstructions. Dilaudid decreased from 1.0 mg IVP q4 H to 0.5mg today. Will given additional dose of dilaudid 0.5mg and have Dr Lui make decision to increase dose back. Given history of ilues/partial small bowel obstruction I would recommend start relisitor while in patiient and then send home on Movantik. Critical Care Total Critical Care Time (in minutes): 15
[2019-03-26] MEDS ORDERED: HYDROmorphone HCl 2 MG/ML VIAL IVPUSH PRN (17:59)
--- NOTE | 2019-03-26 18:49 | PN ---
Progress Note (short form) - Note Progress Note: Bariatric Surgery Afebrile; VSS GI, ID, Medical notes reviewed Pt doing better Tolerating PO regular diet No N/V +BM (no diarrhea) Abdominal pain/ disciomfort less than previously P/E-Abd- soft , no guarding mildly tender on palpation WBC-4.2 (stable) H/H-11.9/34.9 (stable) K=-4.1 (stable) Alb-1.3 (decreased) Mg-1.6 (being replaced) P- PO as tolerated Agree with GI- Questionable stricture at duodeno-jejunostomy does not need to be investigated at this time unless pt experiences vomiting or abdominal pain, can be outpatient procedure. Moniter K+, must decide on amount to take daily as outpatient and check regularly as outpatient When discharged, will go home with Zofran, Protonix, pain meds, antibiotics (? ID to decide) I will continue to follow
[2019-03-26] MEDS: clonazePAM 0.5 MG TABLET PO SCH (21:23)
[2019-03-26] MEDS: CHLORHEXIDINE GLUCONATE 4% CLEANSER FOR DECOLONIZATION TP SCH (22:30)
[2019-03-27] MEDS: DEXTROSE 5% IVPB SCH ×2 (00:16→05:11)
[2019-03-27] MEDS: POTASSIUM CHLORIDE IVPB SCH ×2 (00:16→05:11)
[2019-03-27] MEDS: LACTATED RINGERS IVPB SCH ×2 (00:16→05:11)
[2019-03-27] MEDS: HYDROmorphone HCl 2 MG/ML VIAL IVPUSH PRN (00:40)
[2019-03-27] MEDS: VANCOMYCIN 1 GRAM (PRE-DOCKED) 1,000 MG/250 ML BAG IVPB SCH ×2 (03:09→17:20)
[2019-03-27 06:27] LABS: BASO % 0.6 % (0-2.0); EOS % 1.4 % (0-4.5); HEMATOCRIT 34.5 % (32.4-45.2); HEMOGLOBIN 11.6 GM/dL (10.7-15.3); LYMPH % 13.9 % (8-40); MCH 31.4 pg (25.7-33.7); MCHC 33.5 g/dl (32.0-36.0); MEAN CELL VOLUME 93.7 fl (80-96); MEAN PLT VOLUME 8.6 fl (7.5-11.1); MONO % 10.2 % (3.8-10.2); NEUT % 73.9 % (42.8-82.8); PLATELET COUNT 188 K/MM3 (134-434); RBC 3.68 M/mm3 (3.60-5.2); RDW 18.8 % (11.6-15.6); RETICULOCYTES 3.25 % (0.5-1.5); WHITE BLOOD COUNT 6.7 K/mm3 (4.0-10.0)
[2019-03-27 06:54] LABS: BLOOD UREA NITROGEN 4.3 mg/dL (7-18); CALCIUM 7.7 mg/dL (8.5-10.1); CREATININE 0.5 mg/dL (0.55-1.3); POTASSIUM 5.2 mmol/L (3.5-5.1)
--- NOTE | 2019-03-27 09:23 | PN.GI ---
GI Progress Note Subjective: GI NOte; Had recurrence of pain but Rachel explains that this was due to conversion from parenteral to oral analgesics for chronic abdominal pain. She is pain free at present and eating breakfast. Tolerated all meals yesterday. Although iron saturation and ferritin are elevated her serum iron is below 50. Will give venofer. Potassium replacement stopped as it hit 5.2. - Objective Vital Signs: Vital Signs Temperature 98.4 F 03/27/19 04:30 Pulse Rate 87 03/27/19 04:30 Respiratory Rate 16 03/27/19 08:00 Blood Pressure 98/74 03/27/19 08:00 O2 Sat by Pulse Oximetry (%) 98 03/26/19 21:07 Laboratory Tests 03/26/19 03/27/19 03/27/19 06:02 05:35 06:00 Hgb 11.9 11.6 Retic Count 3.25 H D Potassium 5.2 H C-Reactive Protein 0.9 H Laboratory Tests 09/15/18 03/24/19 06:35 06:07 Iron 33 47 L TIBC 49 L Iron Saturation 95 H Unsaturated IBC 2 L Ferritin 471.0 H Laboratory Tests 09/15/18 03/24/19 06:35 06:07 Ferritin 57.6 471.0 H Constitutional: Calm ...Auscultate: Yes: Normoactive Bowel Sounds ...Palpate: Yes: Soft, Other (nontender) Labs: CBC, BMP 03/27/19 05:35 03/27/19 06:00 INR, PTT INR 1.19 (0.83-1.09) H 03/23/19 14:33 Assessment/Plan Assessment - 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 She has h/o previous gastric bypass anastomotic ulceration requiring it's take down and revisional surgery Plan: - Stop potassium -- Venofer IVPB -- No GI objections to discharge Problem List - Problems (1) Anastomotic stricture of duodenum Code(s): K92.9 - DISEASE OF DIGESTIVE SYSTEM, UNSPECIFIED; K31.5 - OBSTRUCTION OF DUODENUM (2) Abdominal pain Code(s): R10.9 - UNSPECIFIED ABDOMINAL PAIN Qualifiers: Abdominal location: unspecified location Qualified Code(s): R10.9 - Unspecified abdominal pain (3) Vomiting Code(s): R11.10 - VOMITING, UNSPECIFIED (4) Fistula, arteriovenous, acquired Code(s): I77.0 - ARTERIOVENOUS FISTULA, ACQUIRED (5) Bacteremia Code(s): R78.81 - BACTEREMIA (6) Hypokalemia Code(s): E87.6 - HYPOKALEMIA (7) Hypomagnesemia Code(s): E83.42 - HYPOMAGNESEMIA (8) Small bowel obstruction Code(s): K56.609 - UNSP INTESTNL OBST, UNSP TO PARTIAL VERSUS COMPLETE OBST (9) Anemia Code(s): D64.9 - ANEMIA, UNSPECIFIED (10) Gastrojejunal ulcer Code(s): K28.9 - GASTROJEJUNAL ULCER, UNSP ACUTE OR CHR, W/O HEMOR OR PERF (11) H/O gastric bypass Code(s): Z98.84 - BARIATRIC SURGERY STATUS
[2019-03-27] MEDS: PANTOPRAZOLE SODIUM 40 MG VIAL IVPUSH SCH (09:43)
--- NOTE | 2019-03-27 09:56 | PN ---
Progress Note, Physician - Current Medication List Current Medications: Active Medications Chlorhexidine Gluconate (Hibiclens For Decolonization -) 1 applic TP HS [facility] Last Admin: 03/26/19 22:30 Dose: 1 applic Clonazepam (Klonopin -) 0.5 mg PO HS [facility] Last Admin: 03/26/19 21:23 Dose: 0.5 mg Hydromorphone HCl (Dilaudid -) 4 mg PO Q4H PRN PRN Reason: PAIN LEVEL 6-10 Last Admin: 03/27/19 06:55 Dose: 4 mg Vancomycin HCl (Vancomycin (Pre-Docked)) 1,000 mg in 250 mls @ 166.667 mls/hr IVPB Q12H [facility]; Protocol Last Admin: 03/27/19 03:09 Dose: 166.667 mls/hr Iron Sucrose 100 mg/ Sodium (Chloride) 100 mls @ 200 mls/hr IVPB ONCE ONE Stop: 03/27/19 10:29 Mupirocin (Bactroban Ointment (For Decolonization) -) 1 applic NS BID [facility] Stop: 03/29/19 09:59 Last Admin: 03/26/19 22:30 Dose: Not Given Ondansetron HCl (Zofran Injection) 4 mg IVPUSH Q6H PRN PRN Reason: NAUSEA Last Admin: 03/26/19 22:36 Dose: 4 mg Pantoprazole Sodium (Protonix -) 40 mg PO BID [facility] - Objective Vital Signs: Vital Signs Temperature 98.4 F 03/27/19 04:30 Pulse Rate 87 03/27/19 04:30 Respiratory Rate 16 03/27/19 08:00 Blood Pressure 98/74 03/27/19 08:00 O2 Sat by Pulse Oximetry (%) 98 03/26/19 21:07 Cardiovascular: Yes: Regular Rate and Rhythm Respiratory: Yes: Regular, CTA Bilaterally Gastrointestinal: Yes: Normal Bowel Sounds, Soft, Tenderness, Epigastrium Labs: CBC, BMP 03/27/19 05:35 03/27/19 06:00 INR, PTT INR 1.19 (0.83-1.09) H 03/23/19 14:33 Problem List - Problems (1) Abdominal pain Code(s): R10.9 - UNSPECIFIED ABDOMINAL PAIN Qualifiers: Abdominal location: unspecified location Qualified Code(s): R10.9 - Unspecified abdominal pain (2) Anemia Code(s): D64.9 - ANEMIA, UNSPECIFIED (3) H/O gastric bypass Code(s): Z98.84 - BARIATRIC SURGERY STATUS (4) Hypokalemia Code(s): E87.6 - HYPOKALEMIA (5) Hypomagnesemia Code(s): E83.42 - HYPOMAGNESEMIA Assessment/Plan - Problems (1) Abdominal pain Assessment/Plan: -Tolerating PO intake -surgical consult appreciated -cont dilaudid for pain---> change to PO -DC IVF -repeat lactic acid normal Problems reviewed: Yes Code(s): R10.9 - UNSPECIFIED ABDOMINAL PAIN (2) Hypokalemia Assessment/Plan: -Monitor and replete -mag low and replaced -dc IVF -Nephrology consult Problems reviewed: Yes Code(s): E87.6 - HYPOKALEMIA (3) Hypomagnesemia Assessment/Plan: -replaced Problems reviewed: Yes Code(s): E83.42 - HYPOMAGNESEMIA (4) Small bowel obstruction Assessment/Plan: -SBO resolving, patient tolerating soft diet -CT scan with moderate dilatation of the duodenum, partially obstructed vs stricture -PPI -zofran PRN for nausea Problems reviewed: Yes Code(s): K56.609 - UNSP INTESTNL OBST, UNSP TO PARTIAL VERSUS COMPLETE OBST (5) Anemia Assessment/Plan: -received PRBC 2 units -H/H improved -Monitor trend -multifactorial Problems reviewed: Yes Code(s): D64.9 - ANEMIA, UNSPECIFIED (6) Bacteremia Assessment/Plan: -2/2 to PICC line, which is now removed -Micro: Microbiology 03/23/19 17:37 Blood - Peripheral Venous Blood Culture - Preliminary Presumptive Mssa (Pbp2a Neg) 03/23/19 17:37 Blood - Peripheral Venous Blood Culture - Preliminary Pending Organism Pending Organism#2 -IV abx PER ID -ID consult -afebrile -no leukocytosis -repeat BC pending Problems reviewed: Yes Code(s): R78.81 - BACTEREMIA
[2019-03-27] MEDS ORDERED: IRON SUCROSE INJECTION 100 MG in SODIUM CHLORIDE 95 ML IVPB ONE (10:00)
[2019-03-27 10:18] LABS: MAGNESIUM 2.1 mg/dL (1.8-2.4)
[2019-03-27] MEDS: MUPIROCIN 2% TOPICAL OINTMENT FOR DECOLONIZATION NS SCH ×2 (10:41→23:20)
[2019-03-27] MEDS: PANTOPRAZOLE 40 MG TABLET (FP) PO SCH ×2 (10:42→23:20)
[2019-03-27] MEDS ORDERED: PT OWN MED DRAWER 7, Y5N ONE (10:45)
--- NOTE | 2019-03-27 11:53 | PN ---
Progress Note (short form) - Note Progress Note: PULMONARY Tolerating PO. No fevers or chills. Wants to go home. Vital Signs Period Temp Pulse Resp BP Sys/Lugo Pulse Ox Last 24 Hr 98.2 F-98.7 F 83-97 15-17 92-104/61-78 98-98 Gen: NAD at rest Heart: RRR Lung: decreased breath sounds at the bases Abd: soft, nontender Ext: no edema CBC, BMP 03/27/19 05:35 03/27/19 06:00 Active Medications Chlorhexidine Gluconate (Hibiclens For Decolonization -) 1 applic TP HS [facility] Last Admin: 03/26/19 22:30 Dose: 1 applic Clonazepam (Klonopin -) 0.5 mg PO HS [facility] Last Admin: 03/26/19 21:23 Dose: 0.5 mg Hydromorphone HCl (Dilaudid -) 4 mg PO Q4H PRN PRN Reason: PAIN LEVEL 6-10 Last Admin: 03/27/19 06:55 Dose: 4 mg Vancomycin HCl (Vancomycin (Pre-Docked)) 1,000 mg in 250 mls @ 166.667 mls/hr IVPB Q12H [facility]; Protocol Last Admin: 03/27/19 03:09 Dose: 166.667 mls/hr Mupirocin (Bactroban Ointment (For Decolonization) -) 1 applic NS BID [facility] Stop: 03/29/19 09:59 Last Admin: 03/27/19 10:41 Dose: Not Given Ondansetron HCl (Zofran Injection) 4 mg IVPUSH Q6H PRN PRN Reason: NAUSEA Last Admin: 03/26/19 22:36 Dose: 4 mg Pantoprazole Sodium (Protonix -) 40 mg PO BID [facility] Last Admin: 03/27/19 10:42 Dose: Not Given A/P r/o Small Bowel Obstruction Anemia Staph Bacteremia S/P gastric bypass (Kinza en Y) in 2003 with reversal 09/2018 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
--- NOTE | 2019-03-27 12:43 | PN ---
Progress Note (short form) - Note Progress Note: Renal follow up for electrolyte abnormalities Seen and examined at the bedside awake and alert offers no acute complaints no N/V or diarrhea Vital Signs Temperature 98.4 F 03/27/19 04:30 Pulse Rate 87 03/27/19 04:30 Respiratory Rate 16 03/27/19 10:00 Blood Pressure 98/74 03/27/19 08:00 O2 Sat by Pulse Oximetry (%) 98 03/27/19 10:00 Intake & Output 03/24/19 03/25/19 03/26/19 03/27/19 23:59 23:59 23:59 23:59 Intake Total 3670 3650 1050 Balance 3670 3650 1050 Weight 60.328 kg 60.328 kg NAD RRR CTA soft NT/ND no LE edema, clubbing or cyanosis no bladder distension CBC, BMP 03/27/19 05:35 03/27/19 06:00 Current Medications Chlorhexidine Gluconate (Hibiclens For Decolonization -) 1 applic TP HS [facility] Last Admin: 03/26/19 22:30 Dose: 1 applic Clonazepam (Klonopin -) 0.5 mg PO HS [facility] Last Admin: 03/26/19 21:23 Dose: 0.5 mg Hydromorphone HCl (Dilaudid -) 4 mg PO Q4H PRN PRN Reason: PAIN LEVEL 6-10 Last Admin: 03/27/19 06:55 Dose: 4 mg Vancomycin HCl (Vancomycin (Pre-Docked)) 1,000 mg in 250 mls @ 166.667 mls/hr IVPB Q12H [facility]; Protocol Last Admin: 03/27/19 03:09 Dose: 166.667 mls/hr Mupirocin (Bactroban Ointment (For Decolonization) -) 1 applic NS BID [facility] Stop: 03/29/19 09:59 Last Admin: 03/27/19 10:41 Dose: Not Given Ondansetron HCl (Zofran Injection) 4 mg IVPUSH Q6H PRN PRN Reason: NAUSEA Last Admin: 03/26/19 22:36 Dose: 4 mg Pantoprazole Sodium (Protonix -) 40 mg PO BID [facility] Last Admin: 03/27/19 10:42 Dose: Not Given 43 year old woman with history of Morbid obesity s/p gastric bypass in 2004 and reversal in 2019, chronic hypokalemia who presented from home with abdominal pain with vomiting and diarrhea and noted to have multiple electrolyte abnormalities. 1. Hypokalemia 2. Hypophosphatemia 3. Pseudohypocalcemia 4. Lactic acidosis 5. Abdominal pain with N/V 6. Acute on chronic anemia K is improved, slightly high today likely due to IV supplementation would not give K binding resins upon discharge would maintain on KCL 40meq BID and Mg oxide 128mg PO daily stable for discharge from my perspective Thank you Reinier Turcios DO
--- NOTE | 2019-03-27 16:05 | ECHO ---
Name: CORI KELLEY Exam:Adult Echocardiogram Study Date: 03/27/2019 12:39 PM Age: 43 yrs Reason For Study: arrhythmia Height: 66 in Weight: 133 lb BSA: 1.7 m2 MMode/2D Measurements & Calculations IVSd: 0.67 cm Ao root diam: 3.7 cm LVIDd: 4.2 cm LA dimension: 4.0 cm LVIDs: 2.3 cm ACS: 2.1 cm LVPWd: 0.79 cm IVSs: 0.95 cm LVPWs: 1.2 cm EDV(Teich): 80.6 ml ESV(Teich): 17.9 ml Doppler Measurements & Calculations MV E max ruddy: 87.1 cm/sec Ao V2 max: 136.8 cm/sec MV A max ruddy: 67.1 cm/sec Ao max P.5 mmHg MV E/A: 1.3 Ao V2 mean: 97.2 cm/sec Ao mean P.3 mmHg Ao V2 VTI: 25.3 cm MR max ruddy: 398.5 cm/sec TR max ruddy: 248.0 cm/sec MR max P.5 mmHg TR max P.6 mmHg Med Peak E' Ruddy: 10.4 cm/sec Med E/e': 8.4 Lat Peak E' Ruddy: 11.7 cm/sec Lat E/e': 7.4 Procedure Technically limited study. Left Ventricle The left ventricle is normal in size. Left ventricular systolic function is normal. Ejection Fraction = 60- 65%. No regional wall motion abnormalities noted. Right Ventricle The right ventricle is normal size. The right ventricular systolic function is normal. Atria The left atrial size is normal. Right atrial size is normal. Mitral Valve The mitral valve is normal in structure and function. There is mild mitral regurgitation. Tricuspid Valve The tricuspid valve is normal in structure and function. There is mild tricuspid regurgitation. Pulmo nary artery systolic pressure is at least 30 mmHg if RA pressure is assumed 3 mmHg (IVC not clearly visual ized to assess RA pressure). Aortic Valve There is mild aortic sclerosis.;. No aortic regurgitation is present. Pulmonic Valve The pulmonic valve is not well visualized. Trace pulmonic valvular regurgitation. Great Vessels The aortic root is normal size. Pericardium/Pleura There is no pericardial effusion. Interpretation Summary The left ventricle is normal in size. Left ventricular systolic function is normal. No regional wall motion abnormalities noted. Ejection Fraction = 60-65%. The right ventricular systolic function is normal. The left atrial size is normal. Right atrial size is normal. There is mild mitral regurgitation. There is mild tricuspid regurgitation. Pulmonary artery systolic pressure is at least 30 mmHg if RA pressure is assumed 3 mmHg (IVC not janice rly visualized to assess RA pressure) There is mild aortic sclerosis. Trace pulmonic valvular regurgitation. There is no pericardial effusion. Nick Caban MD 03/27/2019 04:04 PM
--- NOTE | 2019-03-27 16:46 | PN ---
Progress Note (short form) - Note Progress Note: Bariatric Surgery Afebrile; VSS Pt slightly better Tolerating PO regular diet No N/V +BM States abdominal/epigastric pain present (no major change) P/E- Gen- Awake, alert, Good skin color Abd- soft, mild tenderness upon palpation No rebound, no guarding WBC-6.7 H/H-11.6/34.5 K+-5.2 Mg- 2.1 As per ID- + BC for MRSA pt to have PICC line inserted 03/28 and receive IV antibiotics at home Rec- Continue PO regular diet as tolerated Check labs in AM PICC line in AM Antibiotics as per ID
[2019-03-27 17:47] VITALS: TEMP 99
[2019-03-27] MEDS ORDERED: MEPERIDINE HCL 25 MG/ML VIAL IM PRN (20:35)
[2019-03-27] MEDS: clonazePAM 0.5 MG TABLET PO SCH (23:20)
[2019-03-27] MEDS: CHLORHEXIDINE GLUCONATE 4% CLEANSER FOR DECOLONIZATION TP SCH (23:20)
[2019-03-28] MEDS: MEPERIDINE HCL 25 MG/ML VIAL IM PRN ×2 (05:43→09:44)
[2019-03-28] MEDS: VANCOMYCIN 1 GRAM (PRE-DOCKED) 1,000 MG/250 ML BAG IVPB SCH (05:45)
[2019-03-28 06:55] LABS: BASO % 0.5 % (0-2.0); EOS % 1.1 % (0-4.5); HEMOGLOBIN 11.2 GM/dL (10.7-15.3); LYMPH % 13.8 % (8-40); MCH 31.7 pg (25.7-33.7); MCHC 33.8 g/dl (32.0-36.0); MEAN CELL VOLUME 93.6 fl (80-96); MEAN PLT VOLUME 8.6 fl (7.5-11.1); MONO % 7.8 % (3.8-10.2); NEUT % 76.8 % (42.8-82.8); PLATELET COUNT 190 K/MM3 (134-434); RBC 3.52 M/mm3 (3.60-5.2); RDW 18.8 % (11.6-15.6); WHITE BLOOD COUNT 5.6 K/mm3 (4.0-10.0)
[2019-03-28 07:14] LABS: ALBUMIN 1.4 g/dl (3.4-5.0); BILIRUBIN,TOTAL 0.6 mg/dL (0.2-1); BLOOD UREA NITROGEN 4.9 mg/dL (7-18); CALCIUM 7.6 mg/dL (8.5-10.1); CREATININE 0.5 mg/dL (0.55-1.3); MAGNESIUM 1.9 mg/dL (1.8-2.4); POTASSIUM 4.5 mmol/L (3.5-5.1); TOT PROT 5.2 g/dl (6.4-8.2)
[2019-03-28 08:07] VITALS: BP 111/76; PULSE 84
--- NOTE | 2019-03-28 09:41 | DS ---
Physical Examination Vital Signs: Vital Signs Temperature 99 F 03/27/19 16:00 Pulse Rate 84 03/28/19 08:06 Respiratory Rate 14 03/28/19 08:06 Blood Pressure 111/76 03/28/19 08:06 O2 Sat by Pulse Oximetry (%) 98 03/27/19 10:00 Cardiovascular: Yes: S1, S2 Respiratory: Yes: Regular, CTA Bilaterally Gastrointestinal: Yes: Normal Bowel Sounds, Soft. No: Tenderness Labs: CBC, BMP 03/28/19 05:32 03/28/19 05:32 Discharge Summary Problems reviewed: Yes Reason For Visit: SMALL BOWEL OBSTRUCTION Current Active Problems Abdominal pain (Acute) Anastomotic stricture of duodenum (Acute) Bacteremia (Acute) Fistula, arteriovenous, acquired (Acute) Hypokalemia (Acute) Hypomagnesemia (Acute) Small bowel obstruction (Acute) Vomiting (Acute) Hospital Course: - Problems (1) Abdominal pain Assessment/Plan: -Tolerating PO intake -surgical consult appreciated -cont dilaudid for pain---> change to PO -DC IVF -repeat lactic acid normal Problems reviewed: Yes Code(s): R10.9 - UNSPECIFIED ABDOMINAL PAIN (2) Hypokalemia Assessment/Plan: -Monitor and replete -mag low and replaced -dc IVF -Nephrology consult Problems reviewed: Yes Code(s): E87.6 - HYPOKALEMIA (3) Hypomagnesemia Assessment/Plan: -replaced Problems reviewed: Yes Code(s): E83.42 - HYPOMAGNESEMIA (4) Small bowel obstruction Assessment/Plan: -SBO resolving, patient tolerating soft diet -CT scan with moderate dilatation of the duodenum, partially obstructed vs stricture -PPI -zofran PRN for nausea Problems reviewed: Yes Code(s): K56.609 - UNSP INTESTNL OBST, UNSP TO PARTIAL VERSUS COMPLETE OBST (5) Anemia Assessment/Plan: -received PRBC 2 units -H/H improved -Monitor trend -multifactorial Problems reviewed: Yes Code(s): D64.9 - ANEMIA, UNSPECIFIED (6) Bacteremia Assessment/Plan: -2/2 to PICC line, which is now removed -Micro:MRSA--IV abx --picc line 4 weeks -IV abx PER ID -ID consult -afebrile -no leukocytosis -repeat BC pending Problems reviewed: Yes Code(s): R78.81 - BACTEREMIA Condition: Stable - Instructions Diet, Activity, Other Instructions: Must see md for blood test on Wednesday or Wednesday to check potassium and magnesium level Vancomycin 1 gram twice a day Disposition: VNS/HOME HEALTH CARE - Home Medications Comprehensive Discharge Medication List: Ambulatory Orders Rizatriptan Benzoate [Maxalt] 10 mg PO PRN 08/18/17 Eszopiclone [Lunesta] 3 mg PO HS 08/19/17 Albuterol Sulfate Inhaler - [Ventolin HFA Inhaler -] 2 puff IH Q8H PRN inhaler 09/06/17 Clonazepam [Klonopin] 0.5 mg PO HS 03/23/19 Ondansetron Injection [Zofran Injection] 4 mg SL Q4H PRN 03/23/19 Morphine Sulfate [Morphine Sulfate ER] 15 mg PO TID 03/24/19 Oxycodone HCl 20 mg PO TID PRN 03/24/19 Magnesium Oxide [Mag-Ox -] 400 mg PO BID #30 tablet 03/28/19 Pantoprazole Sodium [Protonix -] 40 mg PO BID tablet.ec 03/28/19 Potassium Chloride [K-Dur -] 40 meq PO BID #240 tablet.er 03/28/19
[2019-03-28] MEDS: MUPIROCIN 2% TOPICAL OINTMENT FOR DECOLONIZATION NS SCH (09:45)
[2019-03-28] MEDS: PANTOPRAZOLE 40 MG TABLET (FP) PO SCH (09:45)
--- NOTE | 2019-03-28 13:30 | PN ---
Progress Note (short form) - Note Progress Note: Bariatric Surgery Pt ready for discharge Afebrile; VSS Tolerating PO diet No N/V WBC-5.6 (stable) H/H-11.2/33 (stable) K+- 4.5 P- D/C home PO regular diet as tolerated K+ replacement PO at home Outpatient Upper endoscopy
--- NOTE | 2019-03-31 18:59 | CONS ---
DATE OF CONSULTATION: DATE OF DICTATION: 02/22/2019 INFECTIOUS DISEASE CONSULTATION HISTORY OF PRESENT ILLNESS: The patient is a 43-year-old female with a long and complicated GI history. She had undergone bariatric surgery in 2004 and did well up until 2018. She was admitted to the hospital for abdominal pain and found to have small bowel intussusception. She underwent small bowel resection and reconstruction of a necrotic biliary limb. She had repair of multiple internal hernias. Postoperatively, she developed a fistula. She was ultimately transferred to [facility], where she was treated conservatively. She was readmitted in September 2018 again for abdominal pain. She had had resection of a gastrojejunal anastomotic ulcer and reversal of the bypass. She was again transferred to [facility] and underwent additional surgery. She had a prolonged hospitalization. In November of this year, she was admitted to [facility] for treatment of a PICC line infection. It is unclear whether or not the PICC line was replaced at that time. She now is admitted with recurrent abdominal pain for the past 1 week, associated with nausea, vomiting, and loose bowel movements. CAT scan of the abdomen and pelvis showed evidence of bibasilar atelectasis versus infiltrates as well as dilatation of the duodenum possibly secondary to stricture or partial obstruction. Her course has now been complicated by hypotension and positive blood cultures. She was noted to have a systolic blood pressure in the 70s. Blood cultures are now positive, 3 out of 4 bottles, for gram-positive cocci in clusters. She is awake and alert, supine in bed. She has no complaints of abdominal pain at the present time. She reports the nausea and vomiting has resolved. She has had soft bowel movement one day, yesterday. She is passing flatus. Of note, the PICC line has been in place since December 2018. She said it was used for hyperalimentation and is used intermittently for IV fluid hydration. She denies any pain at the site, no erythema or purulent drainage at the site. In addition, she has a chronic abdominal wound which she reports scratching. It is reddened. There was some drainage noted on the dressing; however, she denies any purulent drainage. She denies any fever or chills. PAST MEDICAL HISTORY: As per HPI. PAST SURGICAL HISTORY: Status post bariatric surgery with bypass and reversal, history of small bowel obstruction, chronic low back pain, L4-S1 laminectomy, section. ALLERGIES: NSAIDS and REGLAN. MEDICATION: Include Xanax, Klonopin, hydromorphone, Protonix. SOCIAL HISTORY: She resides in the community. Nonsmoker. Occasional ETOH. SYSTEMS REVIEW: Neurologic: No loss of consciousness, seizure activity, focal weakness. Cardiac: Negative for chest pain or palpitations. Respiratory: Negative for cough or sputum production. Gastrointestinal: As per HPI. Genitourinary: Negative for urinary tract infection. LABORATORY DATA: White count 4.4, 64 neutrophils, 23 lymphocytes, 9 monocytes, hematocrit 19.5, platelets 185, creatinine 0.5. BUN 9, creatinine 0.5. Blood cultures: gram-positive cocci in clusters in 3 out of 4 bottles. PHYSICAL EXAMINATION: General: On physical examination, she is chronically ill appearing and pale, supine in bed, in no acute distress. Not acutely toxic appearing. Vital signs: Temperature 97.7, blood pressure 72/47, pulse 75 regular, respirations 18 per minute. HEENT: Sclerae anicteric. Cardiovascular: Heart sounds S1, S2. Lungs: Diminished breath sounds at the bases bilaterally. Abdomen: Soft, no tenderness elicited. There is a healed surgical scar as well as excoriated lesions noted in the mid abdomen. No purulent drainage is expressible. Extremities: Positive for pedal edema. A PICC line is in place in the right upper extremity. There is no erythema or tenderness at the site. IMPRESSION: 1. Positive blood cultures, gram-positive cocci in clusters multiple bottles, rule out staphylococcus infection/sepsis. 2. Possible PICC related bacteremia. 3. Possible bacteremia secondary to abdominal wound. 4. Rule out partial bowel obstruction. 5. Hypotension, multifactorial. 6. Anemia/leukopenia. 7. Atelectasis, rule out pneumonia. 8. History of extended-spectrum beta-lactamases from abdominal wound and blood (September 2018). Would remove PICC line, as it has been in place for the past 3 months and may be the source of her bacteremia. Repeat blood cultures, empiric antibiotic coverage with vancomycin and meropenem pending sepsis workup. Await cultures. Contact precautions. Hypotension likely multifactorial, cannot rule out sepsis. The patient is severely anemic. This is superimposed on baseline low blood pressure. Will follow. Thank you for the kind referral. Critical care time spent 35 minutes. MICHELLE LARSEN M.D. [id number]
== END 2019-03-28 13:30 | disposition home health service (06) | DRG 389 ==
LOC: JER 13:41 → JERBED 20:49 → JICU 03-24 11:52 → J2W 03-25 20:44
PROVIDERS: ADMIT Internal Medicine; ATTEND Family Medicine
PROC: 30233N1 Transfusion of Nonautologous Red Blood Cells into Peripheral Vein, Percutaneous Approach (ICD-10-PCS; principal; 2019-03-25)
PROC: 02HV33Z Insertion of Infusion Device into Superior Vena Cava, Percutaneous Approach (ICD-10-PCS; 2019-03-28)
PROC: B518ZZA Fluoroscopy of Superior Vena Cava, Guidance (ICD-10-PCS; 2019-03-28)
DX: K56.609 Unspecified intestinal obstruction, unspecified as to partial versus complete obstruction (principal); E87.2 Acidosis; J98.11 Atelectasis; R78.81 Bacteremia; Z98.84 Bariatric surgery status; E87.6 Hypokalemia; R11.2 Nausea with vomiting, unspecified; F41.9 Anxiety disorder, unspecified; R10.9 Unspecified abdominal pain; D64.9 Anemia, unspecified; E83.39 Other disorders of phosphorus metabolism; E83.51 Hypocalcemia; K28.9 Gastrojejunal ulcer, unspecified as acute or chronic, without hemorrhage or perforation; I77.0 Arteriovenous fistula, acquired; R19.7 Diarrhea, unspecified; E83.42 Hypomagnesemia; I95.9 Hypotension, unspecified; M54.9 Dorsalgia, unspecified; M54.2 Cervicalgia; G43.909 Migraine, unspecified, not intractable, without status migrainosus; D72.819 Decreased white blood cell count, unspecified; M48.02 Spinal stenosis, cervical region; E66.9 Obesity, unspecified; Z68.21 Body mass index [BMI] 21.0-21.9, adult; Z87.11 Personal history of peptic ulcer disease; B95.7 Other staphylococcus as the cause of diseases classified elsewhere; K92.9 Disease of digestive system, unspecified
CPT/HCPCS: 36415; 36430; 36569; 71045-TC-FY; 74177-TC; 77001-TC-FY; 80048; 80053; 81003; 82150; 82607; 82728; 82803; 83540; 83550; 83605; 83690; 83735; 84100; 84484; 85025; 85027; 85044; 85610; 85730; 86140; 86850; 86870; 86880; 86900; 86901; 86902; 86922; 87040; 87070; 87086; 87186; 93005; 93010; 93306-TC; 99284-25; C1751; J0131; J1644; J1756; J7030; P9058; Q9967

== ENCOUNTER 2019-04-24 23:03 | Inpatient (IN) | payer BC, OTHER ==
--- NOTE | 2019-04-25 00:02 | PDOC ---
Attending Attestation - Resident Resident Name: AgustinOswaldo - ED Attending Attestation I have performed the following: I have examined & evaluated the patient, The case was reviewed & discussed with the resident, I agree w/resident's findings & plan - HPI HPI: 04/25/19 20:18 see resident hpi - Physicial Exam PE: 04/25/19 20:19 agree with resident exam - Medical Decision Making 04/25/19 20:19 43-year-old female with history of multiple abdominal surgeries now with abdominal pain and distention CT scan of the abdomen shows possible suture line dehiscence and abscess formation Case discussed with patient's surgeon Patient to be admitted for further management Zosyn administered in the ED
[2019-04-25] MEDS ORDERED: LACTATED RINGERS SOLUTION 1000 ML INFUS.BAG IV ONE ×2 (01:15→05:08)
[2019-04-25] MEDS ORDERED: morphine CARPU-JECT 4 MG/1 ML DISP.SYRIN IVPUSH ONE ×2 (01:15→04:56)
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
[2019-04-25 01:46] LABS: ALBUMIN 1.8 g/dl (3.4-5.0); BILIRUBIN,TOTAL 0.6 mg/dL (0.2-1); BLOOD UREA NITROGEN 5.8 mg/dL (7-18); CALCIUM 7.9 mg/dL (8.5-10.1); CREATININE 0.7 mg/dL (0.55-1.3); PHOSPHOROUS 2.4 mg/dL (2.5-4.9); POTASSIUM 3.9 mmol/L (3.5-5.1); TOT PROT 6.7 g/dl (6.4-8.2)
[2019-04-25] MEDS ORDERED: morphine SULFATE 4 MG/ML VIAL ONE ×3 (02:40→16:34)
[2019-04-25 04:18] LABS: BASO % 0.4 % (0-2.0); EOS % 0.2 % (0-4.5); HEMATOCRIT 29.1 % (32.4-45.2); HEMOGLOBIN 9.8 GM/dL (10.7-15.3); LYMPH % 22.4 % (8-40); MCH 31.9 pg (25.7-33.7); MCHC 33.8 g/dl (32.0-36.0); MEAN CELL VOLUME 94.4 fl (80-96); MEAN PLT VOLUME 9.4 fl (7.5-11.1); PLATELET COUNT 126 K/MM3 (134-434); RBC 3.09 M/mm3 (3.60-5.2); RDW 18.9 % (11.6-15.6); WHITE BLOOD COUNT 4.8 K/mm3 (4.0-10.0)
[2019-04-25 04:30] LABS: INR 1.08 (0.83-1.09); PROTHROMBIN TIME (PATIENT) 12.8 SEC (9.7-13.0)
[2019-04-25 04:32] LABS: ACTIVATED PTT 34.4 SECONDS (25.2-36.5)
[2019-04-25] MEDS ORDERED: ACETAMINOPHEN 1000 MG/100 ML VIAL (NON FORMULARY) IVPB ONE (04:56)
[2019-04-25] MEDS ORDERED: MORPHINE SULFATE 2 MG/ML VIAL ONE (05:19)
[2019-04-25] MEDS ORDERED: ACETAMINOPHEN INJECTION 100 ML IVPB ONE (05:20)
[2019-04-25] MEDS ORDERED: PIPERACILLIN/TAZOB 4.5 GM 4.5 GM in DEXTROSE 5%-WATER 100 ML IVPB ONE (05:30)
[2019-04-25] MEDS ORDERED: LACTATED RINGERS SOLUTION 1,000 ML/1,000 ML INFUS.BAG IV SCH (05:45)
[2019-04-25] MEDS ORDERED: PIPERACILLIN/TAZOB 4.5 GM 4.5 GM/100 ML BAG IVPB ONE (06:54)
[2019-04-25] MEDS ORDERED: morphine CARPU-JECT 2 MG/1 ML DISP.SYRIN IVPUSH PRN (07:15)
[2019-04-25] MEDS ORDERED: MORPHINE SULFATE 2 MG/ML VIAL IVPUSH PRN (07:47)
[2019-04-25] MEDS ORDERED: PANTOPRAZOLE SODIUM 40 MG VIAL ONE (09:31)
[2019-04-25] MEDS: PANTOPRAZOLE SODIUM 40 MG VIAL IVPUSH SCH (09:33)
[2019-04-25] MEDS: morphine SULFATE 4 MG/ML VIAL IVPUSH PRN ×3 (10:08→22:46)
--- NOTE | 2019-04-25 11:28 | EKG ---
Test Reason : Blood Pressure : / mmHG Vent. Rate : 082 BPM Atrial Rate : 082 BPM P-R Int : 122 ms QRS Dur : 076 ms QT Int : 392 ms P-R-T Axes : 064 080 075 degrees QTc Int : 457 ms NORMAL SINUS RHYTHM NORMAL ECG WHEN COMPARED WITH ECG OF 23-MAR-2019 15:02, T WAVE INVERSION NO LONGER EVIDENT IN INFERIOR LEADS T WAVE INVERSION NO LONGER EVIDENT IN LATERAL LEADS Confirmed by Jacob Hernandez MD ([id number]) on 04/25/2019 11:28:25 AM Referred By: Confirmed By:Jacob Hernandez MD
[2019-04-25 13:17] LABS: ALBUMIN 1.2 g/dl (3.4-5.0); BILIRUBIN,TOTAL 0.5 mg/dL (0.2-1); BLOOD UREA NITROGEN 5.5 mg/dL (7-18); CALCIUM 7.3 mg/dL (8.5-10.1); CREATININE 0.7 mg/dL (0.55-1.3); MAGNESIUM 1.9 mg/dL (1.8-2.4); POTASSIUM 3.7 mmol/L (3.5-5.1); TOT PROT 4.7 g/dl (6.4-8.2)
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
[2019-04-25] MEDS ORDERED: ALBUTEROL SO4 HFA INHALER IH PRN (13:35)
--- NOTE | 2019-04-25 16:13 | PN ---
Progress Note (short form) - Note Progress Note: ID CONSULT DICTATED COLITIS ? INFECTIOUS INTRA ABDOMINAL AIR/FLUID COLLECTION LACTIC ACIDOSIS OBTAIN C/S STOOL STUDIES SURGICAL/ ?IR EVALUATION ABDOMINAL COLLECTION EMPIRIC CEFTRIAXONE/ FLAGYL
[2019-04-25] MEDS ORDERED: CEFTRIAXONE 2 GM/100 ML BAG IVPB ONE (16:34)
[2019-04-25] MEDS: CEFTRIAXONE 2 GM in DEXTROSE 5%-WATER 100 ML IVPB SCH (16:41)
--- NOTE | 2019-04-25 16:59 | CONS ---
INFECTIOUS DISEASE CONSULTATION DATE OF CONSULTATION: DATE OF DICTATION: 04/25/2019 HISTORY: The patient is a 43-year-old female with a complex past gastrointestinal history evaluated for colitis and intra-abdominal fluid collection. She was admitted to the hospital through the emergency room with complaints of worsening abdominal distention, diffuse abdominal pain, nausea, vomiting, and diarrhea. The patient was hospitalized at [facility] in March of last year for suspected partial-bowel obstruction. Her course at that time was complicated by MRSA bacteremia, which was felt to be either secondary to a PICC line, which had been in place for the last 3 months or a cutaneous abdominal wound. She completed a 4-week course of vancomycin. Last week she had developed worsening, diffuse abdominal pain associated with vomiting and diarrhea. She was admitted to [facility] on April 18. She reports being discharged on April 21. At that time, a CAT scan revealed evidence of diffuse colitis. She was seen in consultation by her criminal profiler and was treated for infectious colitis. According to the patient, she was tested for C. difficile, and it was negative x2. She was discharged on oral ciprofloxacin and Flagyl. Post discharge, she developed recurrent and more severe, diffuse abdominal pain, bloating, vomiting, and diarrhea. She initially was instructed to go to [facility] by her criminal profiler; however, due to the excessive waiting time, she left and came to [facility]. Here at [facility], a CAT scan of the abdomen and pelvis shows bilateral pleural effusions as well as extensive postoperative changes and bowel dilatation as well as continued evidence of colitis. She denies any rectal bleeding. No vomiting or noemi red blood or hematemesis. No fever or chills. PAST MEDICAL HISTORY: Extensive. She is status post Kinza-en-Y in 2003. Her postoperative course was complicated by small-bowel obstruction. She underwent a Kinza-en-Y reversal. She had multiple complicated hospital admissions and had been transferred to [facility] for further intervention. Past medical history also includes peptic ulcer at the anastomotic site as well as L4-S1 fusion. ALLERGIES: NSAIDS, METOCLOPRAMIDE, ASPIRIN. MEDICATIONS: At the present time include Tylenol, Ventolin, Klonopin, morphine, Protonix. SOCIAL HISTORY: She resides at home with her significant other. Nonsmoker, nondrinker. LABORATORY DATA: White count 4.8, hematocrit 29.1, platelet count 126, creatinine 0.7, lactic acid 2.4. PHYSICAL EXAMINATION: General: She is chronically ill-appearing. She appears weak, supine in bed in the emergency room. Vital Signs: Temperature 97.8, blood pressure 103/70, pulse 80 regular, respirations 16 per minute. HEENT: Sclerae anicteric. Heart: Sounds S1, S2. Lungs: Clear. Abdomen: Grossly distended and tense with mild, diffuse tenderness. Extremities: 2+ lower extremity edema. There is a healed midline abdominal wound. No drainage is noted. IMPRESSION: 1. Colitis, rule out infectious colitis. 2. Intra-abdominal air and fluid collection of uncertain significance. 3. Lactic acidosis. PLAN: Obtain blood cultures. Stool for culture and sensitivity, ova and parasites, and C. difficile. Empiric antibiotic coverage with ceftriaxone and Flagyl. Surgical evaluation and follow up. Consider IR evaluation for possible percutaneous drainage of abdominal collection, GI evaluation. Case discussed with patient's present at the time. Thank you for the kind referral. MICHELLE LARSEN M.D. [id number]
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
--- NOTE | 2019-04-25 18:36 | CONSULT ---
Consult - text type - Consultation Consultation Note: Bariatric Surgery 43 y. o. female well known to me who presents with 1 week hx of abdominal pain and bloating. Pt denies N/V, states has 2 BM's per day, sometimes formed and sometimes loose Pt states appetite is very good, eating most foods Pt in [facility] 04/18-04/[address] scan there showed pancolitis Pt also with low potassium despite PO K+ at home Pt's recent surgical history includes repair of Jejuno-jejunostomy intussuception in September,. Pt transferred post-op to [facility] for abdominal abscess. Pt underwent Reversal of Gastric Bypass in September, secondary to non- responding Gastro-jejunal ulcers. Pt developed Splenic artery/vein fistula and transferred to [facility] for VIR treatment which included stent placements. In Dec/Jan pt developed gastric bleeding and was transfused and underwent endoscopic control of stomach bleeding. She also had + blood infection secondary to infected PICC line, through which she was receiving TPN. P/E- Gen- awake alert, appears pale c/o generalized abdominal pain Abd- + swelling; slightly tense, tender on palpation in all quadrants Ext- 2+ pitting edema in lower extremities WBC-4.8 H/H-9.8/29.1 (in normal range for pt) K=-3.7 Alb-1.2 Lactic acid-2.4 (decreased from 3.1) Ct Scan- bilateral pleural effusions abdominal ascites ? abscess/ fluid collection anterior to stomach Pancolitis I- Abd pain- secondary to ?pancolitis, ?abscess Bilateral pleural effusions (?secondary to hypoalbuminemia) Rec- C/S as per ID Antibiotics as per ID Appreciate GI assessment and guidance Agree with clear liquids, advance slowly as tolerated
[2019-04-25] MEDS: HYDROmorphone HCl 2 MG/ML VIAL IVPB PRN (19:46)
[2019-04-25] MEDS ORDERED: PANTOPRAZOLE 40 MG TABLET PO SCH (22:00)
[2019-04-25] MEDS: POTASSIUM CHLORIDE TABS 20 MEQ TABLET.ER (FP) PO SCH (22:14)
[2019-04-25] MEDS: SPIRONOLACTONE 25 MG TABLET (FP) PO SCH (22:15)
[2019-04-25] MEDS: clonazePAM 0.5 MG TABLET PO SCH (22:15)
[2019-04-25] MEDS: HEPARIN NA (PORCINE) 5,000 UNITS/ML 1ML VIAL SQ SCH (22:15)
[2019-04-25] MEDS: MAGNESIUM OXIDE 400 MG TABLET (FP) PO SCH (22:15)
[2019-04-26] MEDS: HYDROmorphone HCl 2 MG/ML VIAL IVPB PRN ×4 (01:56→20:02)
[2019-04-26] MEDS: morphine SULFATE 4 MG/ML VIAL IVPUSH PRN ×3 (05:18→22:38)
[2019-04-26] MEDS ORDERED: DEXTROSE 50%-WATER - 25 GM/50 ML VIAL IVPUSH ONE (06:33)
[2019-04-26] MEDS ORDERED: DEXTROSE 50%-WATER 25 GM/50 ML DISP.SYRIN IVPUSH ONE (06:45)
[2019-04-26] MEDS ORDERED: DEXTROSE 50%-WATER 25 GM/50 ML DISP.SYRIN ONE (06:46)
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
[2019-04-26] MEDS ORDERED: DEXTROSE 5%-WATER 100 ML IVPB ONE (10:16)
[2019-04-26] MEDS: HEPARIN NA (PORCINE) 5,000 UNITS/ML 1ML VIAL SQ SCH ×2 (10:20→21:30)
[2019-04-26] MEDS: CEFTRIAXONE 2 GM in DEXTROSE 5%-WATER 100 ML IVPB SCH (10:22)
[2019-04-26] MEDS: PANTOPRAZOLE SODIUM 40 MG VIAL IVPUSH SCH (10:22)
--- NOTE | 2019-04-26 10:22 | PN ---
Progress Note, Physician Chief Complaint: AWAKE ALERT EVENTS REVIEWED DENIES CP SOME SOB - Current Medication List Current Medications: Active Medications Albuterol Sulfate (Ventolin Hfa Inhaler -) 2 puff IH Q8H PRN PRN Reason: SHORTNESS OF BREATH Clonazepam (Klonopin -) 0.5 mg PO HS [facility] Last Admin: 04/25/19 22:15 Dose: 0.5 mg Heparin Sodium (Porcine) (Heparin -) 5,000 unit SQ BID [facility] Last Admin: 04/25/19 22:15 Dose: 5,000 unit Hydromorphone HCl (Dilaudid Vial -) 2 mg IVPB Q4H PRN PRN Reason: PAIN LEVEL 4 - 6 Last Admin: 04/26/19 01:56 Dose: 2 mg Ceftriaxone Sodium 2 gm/ (Dextrose) 100 mls @ 200 mls/hr IVPB DAILY [facility]; Protocol Last Admin: 04/25/19 16:41 Dose: 200 mls/hr Metronidazole (Flagyl 500mg Premixed Ivpb -) 500 mg in 100 mls @ 100 mls/hr IVPB Q8H-IV [facility] Last Admin: 04/26/19 01:31 Dose: 100 mls/hr Magnesium Oxide (Mag-Ox -) 400 mg PO BID [facility] Last Admin: 04/25/19 22:15 Dose: 400 mg Morphine Sulfate (Morphine Sulfate) 4 mg IVPUSH Q6H PRN PRN Reason: PAIN LEVEL 7 - 10 Last Admin: 04/26/19 05:18 Dose: 4 mg Ondansetron HCl (Zofran -) 4 mg PO QID PRN PRN Reason: NAUSEA AND/OR VOMITING Pantoprazole Sodium (Protonix Iv) 40 mg IVPUSH DAILY [facility] Last Admin: 04/25/19 09:33 Dose: 40 mg Potassium Chloride (K-Dur -) 40 meq PO BID [facility] Last Admin: 04/25/19 22:14 Dose: 40 meq Spironolactone (Aldactone -) 25 mg PO BID [facility] Last Admin: 04/25/19 22:15 Dose: 25 mg Zolpidem Tartrate (Ambien -) 10 mg PO HS PRN PRN Reason: INSOMNIA - Objective Vital Signs: Vital Signs Temperature 97.8 F 04/26/19 05:37 Pulse Rate 75 04/26/19 05:37 Respiratory Rate 20 04/26/19 05:37 Blood Pressure 106/79 04/26/19 05:37 O2 Sat by Pulse Oximetry (%) 97 04/25/19 21:00 Constitutional: Yes: Mild Distress Cardiovascular: Yes: Regular Rate and Rhythm Respiratory: Yes: Diminished, On Nasal O2, Wheezes Gastrointestinal: Yes: Soft Genitourinary: Yes: WNL Extremities: Yes: Other (LEFT ARM DRESSING FOR A FISTULA CLEAN) Edema: Yes Edema: LLE: 2+, RLE: 2+ Neurological: Yes: Other Labs: CBC, BMP 04/25/19 04:01 04/25/19 12:05 INR, PTT INR 1.08 (0.83-1.09) 04/25/19 04:01 Problem List - Problems (1) Anasarca Code(s): R60.1 - GENERALIZED EDEMA (2) Ascites Code(s): R18.8 - OTHER ASCITES (3) Bilateral pleural effusion Code(s): J90 - PLEURAL EFFUSION, NOT ELSEWHERE CLASSIFIED (4) Generalized abdominal pain Code(s): R10.84 - GENERALIZED ABDOMINAL PAIN (5) Intra-abdominal abscess Code(s): K65.1 - PERITONEAL ABSCESS (6) Pleural effusion Code(s): J90 - PLEURAL EFFUSION, NOT ELSEWHERE CLASSIFIED (7) Anemia Code(s): D64.9 - ANEMIA, UNSPECIFIED (8) Anxiety Code(s): F41.9 - ANXIETY DISORDER, UNSPECIFIED (9) Fistula, arteriovenous, acquired Code(s): I77.0 - ARTERIOVENOUS FISTULA, ACQUIRED (10) H/O gastric bypass Code(s): Z98.84 - BARIATRIC SURGERY STATUS Assessment/Plan IV ABX PER ID LASIX FOR VOLUME OVERLOAD AND PLEURAL EFFUSSIONS 02 SUPPORT NEBS MONITOR LABS PT EVAL KLONIPIN PRN ANXIETY
[2019-04-26] MEDS: POTASSIUM CHLORIDE TABS 20 MEQ TABLET.ER (FP) PO SCH ×2 (10:23→21:29)
[2019-04-26] MEDS ORDERED: FUROSEMIDE 40 MG/4 ML INJECTABLE VIAL IVPUSH ONE (10:23)
[2019-04-26] MEDS: MAGNESIUM OXIDE 400 MG TABLET (FP) PO SCH ×2 (10:23→21:29)
[2019-04-26] MEDS: SPIRONOLACTONE 25 MG TABLET (FP) PO SCH ×2 (10:24→21:29)
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
[2019-04-26] MEDS ORDERED: FUROSEMIDE 40 MG/4 ML INJECTABLE VIAL ONE (14:41)
[2019-04-26] MEDS ORDERED: ONDANSETRON 4 MG/2 ML VIAL IVPUSH ONE (17:39)
--- NOTE | 2019-04-26 19:13 | PN.GI ---
GI Progress Note Subjective: GI Note: Tolerating solids, No vomiting. 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 Positive cultures would dictate otherwise Plan: -- Echocardiogram to exclude right heart failure and pericardial effusion pending -- Doppler to exclude Budd Chiari dine but not read -- Stool for fat collection and elastase and screen for infectious colitis -- Will start Lasix and follow potassium daily and weights The situation was discussed with Dr. Garcia from [facility] who is willing to accept her as an outpatient to work her up for SIBO and if necessary to transfer her. Discussed this with Rachel, her and daughter. Problem List - Problems (1) Malabsorption Code(s): K90.9 - INTESTINAL MALABSORPTION, UNSPECIFIED (2) Anasarca Code(s): R60.1 - GENERALIZED EDEMA (3) Hypoalbuminemia due to protein-calorie malnutrition Code(s): E46 - UNSPECIFIED PROTEIN-CALORIE MALNUTRITION (4) Ascites Code(s): R18.8 - OTHER ASCITES (5) Pleural effusion Code(s): J90 - PLEURAL EFFUSION, NOT ELSEWHERE CLASSIFIED (6) Abdominal pain Code(s): R10.9 - UNSPECIFIED ABDOMINAL PAIN Qualifiers: Abdominal location: unspecified location Qualified Code(s): R10.9 - Unspecified abdominal pain (7) Duodenal anastomotic leak Code(s): K91.89 - OTH POSTPROCEDURAL COMPLICATIONS AND DISORDERS OF DGSTV SYS (8) Fistula, arteriovenous, acquired Code(s): I77.0 - ARTERIOVENOUS FISTULA, ACQUIRED (9) Gastrojejunal ulcer Code(s): K28.9 - GASTROJEJUNAL ULCER, UNSP ACUTE OR CHR, W/O HEMOR OR PERF (10) H/O gastric bypass Code(s): Z98.84 - BARIATRIC SURGERY STATUS (11) Intussusception of small intestine Code(s): K56.1 - INTUSSUSCEPTION (12) Ischemic necrosis of small bowel Code(s): K55.029 - ACUTE INFARCTION OF SMALL INTESTINE, EXTENT UNSPECIFIED (13) S/P small bowel resection Code(s): Z90.49 - ACQUIRED ABSENCE OF OTHER SPECIFIED PARTS OF DIGESTIVE TRACT
[2019-04-26] MEDS: clonazePAM 0.5 MG TABLET PO SCH (21:30)
--- NOTE | 2019-04-26 22:19 | PN ---
Progress Note, Physician - Current Medication List Current Medications: Active Medications Albuterol Sulfate (Ventolin Hfa Inhaler -) 2 puff IH Q8H PRN PRN Reason: SHORTNESS OF BREATH Clonazepam (Klonopin -) 0.5 mg PO HS [facility] Last Admin: 04/26/19 21:30 Dose: 0.5 mg Furosemide (Lasix Injection -) 40 mg IVPUSH DAILY [facility] Heparin Sodium (Porcine) (Heparin -) 5,000 unit SQ BID [facility] Last Admin: 04/26/19 21:30 Dose: 5,000 unit Hydromorphone HCl (Dilaudid Vial -) 2 mg IVPB Q4H PRN PRN Reason: PAIN LEVEL 4 - 6 Last Admin: 04/26/19 20:02 Dose: 2 mg Ceftriaxone Sodium 2 gm/ (Dextrose) 100 mls @ 200 mls/hr IVPB DAILY [facility]; Protocol Last Admin: 04/26/19 10:22 Dose: 200 mls/hr Metronidazole (Flagyl 500mg Premixed Ivpb -) 500 mg in 100 mls @ 100 mls/hr IVPB Q8H-IV [facility] Last Admin: 04/26/19 17:21 Dose: 100 mls/hr Magnesium Oxide (Mag-Ox -) 400 mg PO BID [facility] Last Admin: 04/26/19 21:29 Dose: 400 mg Morphine Sulfate (Morphine Sulfate) 4 mg IVPUSH Q6H PRN PRN Reason: PAIN LEVEL 7 - 10 Last Admin: 04/26/19 13:27 Dose: 4 mg Ondansetron HCl (Zofran -) 4 mg PO QID PRN PRN Reason: NAUSEA AND/OR VOMITING Pantoprazole Sodium (Protonix Iv) 40 mg IVPUSH DAILY [facility] Last Admin: 04/26/19 10:22 Dose: 40 mg Potassium Chloride (K-Dur -) 40 meq PO BID [facility] Last Admin: 04/26/19 21:29 Dose: 40 meq Spironolactone (Aldactone -) 25 mg PO BID [facility] Last Admin: 04/26/19 21:29 Dose: 25 mg Zolpidem Tartrate (Ambien -) 10 mg PO HS PRN PRN Reason: INSOMNIA - Objective Vital Signs: Vital Signs Temperature 98 F 04/26/19 21:42 Pulse Rate 95 H 04/26/19 21:42 Respiratory Rate 20 04/26/19 21:42 Blood Pressure 103/56 L 04/26/19 21:42 O2 Sat by Pulse Oximetry (%) 97 04/26/19 09:00 Labs: CBC, BMP 04/25/19 04:01 04/25/19 12:05 INR, PTT INR 1.08 (0.83-1.09) 04/25/19 04:01
[2019-04-27] MEDS: HYDROmorphone HCl 2 MG/ML VIAL IVPB PRN ×2 (00:56→06:45)
[2019-04-27] MEDS: morphine SULFATE 4 MG/ML VIAL IVPUSH PRN ×3 (05:04→21:19)
[2019-04-27] MEDS: ONDANSETRON 4 MG TABLET PO PRN (05:04)
[2019-04-27 08:15] LABS: HEMATOCRIT 21.7 % (32.4-45.2); HEMOGLOBIN 7.4 GM/dL (10.7-15.3); MCH 31.9 pg (25.7-33.7); MCHC 33.9 g/dl (32.0-36.0); MEAN CELL VOLUME 94.1 fl (80-96); PLATELET COUNT 136 K/MM3 (134-434); RBC 2.31 M/mm3 (3.60-5.2); RDW 18.5 % (11.6-15.6); WHITE BLOOD COUNT 4.4 K/mm3 (4.0-10.0)
[2019-04-27 09:04] LABS: ALBUMIN 1.3 g/dl (3.4-5.0); BILIRUBIN,TOTAL 0.9 mg/dL (0.2-1); BLOOD UREA NITROGEN 5.5 mg/dL (7-18); CALCIUM 7.6 mg/dL (8.5-10.1); CREATININE 0.7 mg/dL (0.55-1.3); MAGNESIUM 1.8 mg/dL (1.8-2.4); POTASSIUM 4.4 mmol/L (3.5-5.1); TOT PROT 4.7 g/dl (6.4-8.2)
--- NOTE | 2019-04-27 09:08 | PN ---
Progress Note (short form) - Note Progress Note: Clinically looks better today. Eating breakfast on RA in NAD. (+) diuresis with Spironolactone Intake & Output 04/24/19 04/25/19 04/26/19 04/27/19 23:59 23:59 23:59 23:59 Intake Total 1875 1150 400 Balance 1875 1150 400 Weight 135 lb 135 lb 179 lb 11.2 oz 174 lb Last Vital Signs Temp Pulse Resp BP Pulse Ox 98 F 91 H 20 92/66 97 04/27/19 05:36 04/27/19 05:36 04/27/19 05:36 04/27/19 05:36 04/26/19 21:00 Active Medications Albuterol Sulfate (Ventolin Hfa Inhaler -) 2 puff IH Q8H PRN PRN Reason: SHORTNESS OF BREATH Last Admin: 04/26/19 22:40 Dose: 2 puff Clonazepam (Klonopin -) 0.5 mg PO HS [facility] Last Admin: 04/26/19 21:30 Dose: 0.5 mg Furosemide (Lasix Injection -) 40 mg IVPUSH DAILY [facility] Heparin Sodium (Porcine) (Heparin -) 5,000 unit SQ BID [facility] Last Admin: 04/26/19 21:30 Dose: 5,000 unit Hydromorphone HCl (Dilaudid Vial -) 2 mg IVPB Q4H PRN PRN Reason: PAIN LEVEL 4 - 6 Last Admin: 04/27/19 06:45 Dose: 2 mg Ceftriaxone Sodium 2 gm/ (Dextrose) 100 mls @ 200 mls/hr IVPB DAILY [facility]; Protocol Last Admin: 04/26/19 10:22 Dose: 200 mls/hr Metronidazole (Flagyl 500mg Premixed Ivpb -) 500 mg in 100 mls @ 100 mls/hr IVPB Q8H-IV [facility] Last Admin: 04/27/19 01:44 Dose: 100 mls/hr Magnesium Oxide (Mag-Ox -) 400 mg PO BID [facility] Last Admin: 04/26/19 21:29 Dose: 400 mg Morphine Sulfate (Morphine Sulfate) 4 mg IVPUSH Q6H PRN PRN Reason: PAIN LEVEL 7 - 10 Last Admin: 04/27/19 05:04 Dose: 4 mg Ondansetron HCl (Zofran -) 4 mg PO QID PRN PRN Reason: NAUSEA AND/OR VOMITING Last Admin: 04/27/19 05:04 Dose: 4 mg Pantoprazole Sodium (Protonix Iv) 40 mg IVPUSH DAILY [facility] Last Admin: 04/26/19 10:22 Dose: 40 mg Potassium Chloride (K-Dur -) 40 meq PO BID [facility] Last Admin: 04/26/19 21:29 Dose: 40 meq Spironolactone (Aldactone -) 25 mg PO BID [facility] Last Admin: 04/26/19 21:29 Dose: 25 mg Zolpidem Tartrate (Ambien -) 10 mg PO HS PRN PRN Reason: INSOMNIA Constitutional: Yes: No Distress Eyes: Yes: Conjunctiva Clear, EOM Intact HENT: Yes: Atraumatic, Normocephalic Neck: Yes: Supple, Trachea Midline Cardiovascular: Yes: Regular Rate and Rhythm Respiratory: Yes: Diminished, Rhonchi. No: Accessory Muscle Use, On Nasal O2, Rales, SOB, SOB on Exertion, Stridor, Tachypnea, Wheezes ...Inspection: Yes: WNL ...Clubbing: No Gastrointestinal: Yes: Normal Bowel Sounds, Soft, Ascites. No: Pulsatile Mass Musculoskeletal: Yes: WNL Extremities: Yes: WNL Edema: Yes Peripheral Pulses WNL: Yes Integumentary: Yes: WNL Neurological: Yes: WNL, Alert, Oriented ...Motor Strength: WNL Psychiatric: Yes: WNL, Alert, Oriented Labs: Laboratory Results - last 24 hr 04/26/19 04/26/19 04/26/19 11:39 17:00 21:25 WBC RBC Hgb Hct MCV MCH MCHC RDW Plt Count MPV Sodium Potassium Chloride Carbon Dioxide Anion Gap BUN Creatinine Est GFR (CKD-EPI)AfAm Est GFR (CKD-EPI)NonAf POC Glucometer 62 71 91 Random Glucose Calcium Magnesium Total Bilirubin AST ALT Alkaline Phosphatase Total Protein Albumin 04/27/19 04/27/19 04/27/19 05:08 06:35 06:35 WBC 4.4 RBC 2.31 L Hgb 7.4 L Hct 21.7 L D MCV 94.1 MCH 31.9 MCHC 33.9 RDW 18.5 H Plt Count 136 MPV 9.0 Sodium 137 Potassium 4.4 Chloride 102 Carbon Dioxide 29 Anion Gap 5 L BUN 5.5 L Creatinine 0.7 Est GFR (CKD-EPI)AfAm 121.27 Est GFR (CKD-EPI)NonAf 104.64 POC Glucometer 60 Random Glucose 73 L Calcium 7.6 L Magnesium 1.8 Total Bilirubin 0.9 AST 37 ALT 18 Alkaline Phosphatase 152 H Total Protein 4.7 L Albumin 1.3 L 04/27/19 06:39 WBC RBC Hgb Hct MCV MCH MCHC RDW Plt Count MPV Sodium Potassium Chloride Carbon Dioxide Anion Gap BUN Creatinine Est GFR (CKD-EPI)AfAm Est GFR (CKD-EPI)NonAf POC Glucometer 72 Random Glucose Calcium Magnesium Total Bilirubin AST ALT Alkaline Phosphatase Total Protein Albumin Problem List - Problems (1) Bilateral pleural effusion Code(s): J90 - PLEURAL EFFUSION, NOT ELSEWHERE CLASSIFIED (2) Atelectasis of both lungs Code(s): J98.11 - ATELECTASIS (3) Anasarca Code(s): R60.1 - GENERALIZED EDEMA (4) Ascites Code(s): R18.8 - OTHER ASCITES (5) Generalized abdominal pain Code(s): R10.84 - GENERALIZED ABDOMINAL PAIN (6) Hypoalbuminemia due to protein-calorie malnutrition Code(s): E46 - UNSPECIFIED PROTEIN-CALORIE MALNUTRITION (7) Malabsorption Code(s): K90.9 - INTESTINAL MALABSORPTION, UNSPECIFIED (8) Pleural effusion Code(s): J90 - PLEURAL EFFUSION, NOT ELSEWHERE CLASSIFIED (9) Anemia Code(s): D64.9 - ANEMIA, UNSPECIFIED (10) Anxiety Code(s): F41.9 - ANXIETY DISORDER, UNSPECIFIED (11) H/O gastric bypass Code(s): Z98.84 - BARIATRIC SURGERY STATUS (12) Migraine Code(s): G43.909 - MIGRAINE, UNSP, NOT INTRACTABLE, WITHOUT STATUS MIGRAINOSUS (13) Peptic ulcer disease Code(s): K27.9 - PEPTIC ULC, SITE UNSP, UNSP AC OR CHR, W/O HEMOR OR PERF (14) S/P small bowel resection Code(s): Z90.49 - ACQUIRED ABSENCE OF OTHER SPECIFIED PARTS OF DIGESTIVE TRACT (15) Status post gastric banding surgery Code(s): Z98.84 - BARIATRIC SURGERY STATUS Assessment/Plan IMP: Bilateral pleural effusions due to hypoalbuminemia and malnutrition Thoracentesis not indicated at this time Aldactone Nutritional support ABX per ID Supplemental O2 as needed Incentive Spirometry Dr Escobar Problem List - Problems (1) Bilateral pleural effusion Code(s): J90 - PLEURAL EFFUSION, NOT ELSEWHERE CLASSIFIED (2) Atelectasis of both lungs Code(s): J98.11 - ATELECTASIS (3) Anasarca Code(s): R60.1 - GENERALIZED EDEMA (4) Ascites Code(s): R18.8 - OTHER ASCITES (5) Generalized abdominal pain Code(s): R10.84 - GENERALIZED ABDOMINAL PAIN (6) Hypoalbuminemia due to protein-calorie malnutrition Code(s): E46 - UNSPECIFIED PROTEIN-CALORIE MALNUTRITION (7) Malabsorption Code(s): K90.9 - INTESTINAL MALABSORPTION, UNSPECIFIED (8) Pleural effusion Code(s): J90 - PLEURAL EFFUSION, NOT ELSEWHERE CLASSIFIED (9) Anemia Code(s): D64.9 - ANEMIA, UNSPECIFIED (10) Anxiety Code(s): F41.9 - ANXIETY DISORDER, UNSPECIFIED (11) H/O gastric bypass Code(s): Z98.84 - BARIATRIC SURGERY STATUS (12) Migraine Code(s): G43.909 - MIGRAINE, UNSP, NOT INTRACTABLE, WITHOUT STATUS MIGRAINOSUS (13) Peptic ulcer disease Code(s): K27.9 - PEPTIC ULC, SITE UNSP, UNSP AC OR CHR, W/O HEMOR OR PERF (14) S/P small bowel resection Code(s): Z90.49 - ACQUIRED ABSENCE OF OTHER SPECIFIED PARTS OF DIGESTIVE TRACT (15) Status post gastric banding surgery Code(s): Z98.84 - BARIATRIC SURGERY STATUS
[2019-04-27] MEDS ORDERED: DEXTROSE 5%-WATER 100 ML IVPB ONE (09:27)
[2019-04-27] MEDS: CEFTRIAXONE 2 GM in DEXTROSE 5%-WATER 100 ML IVPB SCH (10:19)
[2019-04-27] MEDS: PANTOPRAZOLE SODIUM 40 MG VIAL IVPUSH SCH (10:20)
[2019-04-27] MEDS: FUROSEMIDE 40 MG/4 ML INJECTABLE VIAL IVPUSH SCH (10:20)
[2019-04-27] MEDS: MAGNESIUM OXIDE 400 MG TABLET (FP) PO SCH ×2 (10:20→21:23)
[2019-04-27] MEDS: SPIRONOLACTONE 25 MG TABLET (FP) PO SCH ×2 (10:20→21:23)
[2019-04-27] MEDS: HEPARIN NA (PORCINE) 5,000 UNITS/ML 1ML VIAL SQ SCH ×2 (10:20→21:35)
[2019-04-27] MEDS: POTASSIUM CHLORIDE TABS 20 MEQ TABLET.ER (FP) PO SCH ×2 (10:20→21:34)
[2019-04-27] MEDS ORDERED: IRON SUCROSE INJECTION 300 MG in SODIUM CHLORIDE 250 ML IVPB ONE ×2 (11:27→17:45)
--- NOTE | 2019-04-27 11:29 | PN ---
Progress Note, Physician Chief Complaint: AWAKE C/O ABDOMINAL PAIN TOLERATING PO DIET - Current Medication List Current Medications: Active Medications Albuterol Sulfate (Ventolin Hfa Inhaler -) 2 puff IH Q8H PRN PRN Reason: SHORTNESS OF BREATH Last Admin: 04/26/19 22:40 Dose: 2 puff Clonazepam (Klonopin -) 0.5 mg PO HS [facility] Last Admin: 04/26/19 21:30 Dose: 0.5 mg Diphenhydramine HCl (Benadryl Injection -) 12.5 mg IVPUSH Q4H PRN PRN Reason: FOR ITCHING Furosemide (Lasix Injection -) 40 mg IVPUSH DAILY [facility] Last Admin: 04/27/19 10:20 Dose: 40 mg Heparin Sodium (Porcine) (Heparin -) 5,000 unit SQ BID [facility] Last Admin: 04/27/19 10:20 Dose: 5,000 unit Hydromorphone HCl (Dilaudid Vial -) 2 mg IVPB Q4H PRN PRN Reason: PAIN LEVEL 4 - 6 Last Admin: 04/27/19 06:45 Dose: 2 mg Ceftriaxone Sodium 2 gm/ (Dextrose) 100 mls @ 200 mls/hr IVPB DAILY [facility]; Protocol Last Admin: 04/27/19 10:19 Dose: 200 mls/hr Metronidazole (Flagyl 500mg Premixed Ivpb -) 500 mg in 100 mls @ 100 mls/hr IVPB Q8H-IV [facility] Last Admin: 04/27/19 11:17 Dose: 100 mls/hr Iron Sucrose 300 mg/ Sodium (Chloride) 250 mls @ 250 mls/hr IVPB ONCE ONE Stop: 04/27/19 12:26 Magnesium Oxide (Mag-Ox -) 400 mg PO BID [facility] Last Admin: 04/27/19 10:20 Dose: 400 mg Morphine Sulfate (Morphine Sulfate) 4 mg IVPUSH Q6H PRN PRN Reason: PAIN LEVEL 7 - 10 Last Admin: 04/27/19 10:20 Dose: 4 mg Ondansetron HCl (Zofran -) 4 mg PO QID PRN PRN Reason: NAUSEA AND/OR VOMITING Last Admin: 04/27/19 05:04 Dose: 4 mg Pantoprazole Sodium (Protonix Iv) 40 mg IVPUSH DAILY [facility] Last Admin: 04/27/19 10:20 Dose: 40 mg Potassium Chloride (K-Dur -) 40 meq PO BID [facility] Last Admin: 04/27/19 10:20 Dose: 40 meq Spironolactone (Aldactone -) 25 mg PO BID [facility] Last Admin: 04/27/19 10:20 Dose: 25 mg Zolpidem Tartrate (Ambien -) 10 mg PO HS PRN PRN Reason: INSOMNIA - Objective Vital Signs: Vital Signs Temperature 98 F 04/27/19 05:36 Pulse Rate 91 H 04/27/19 05:36 Respiratory Rate 04/27/19 05:36 Blood Pressure 92/66 04/27/19 05:36 O2 Sat by Pulse Oximetry (%) 97 04/26/19 21:00 Constitutional: Yes: Mild Distress Cardiovascular: Yes: Regular Rate and Rhythm Respiratory: Yes: WNL Gastrointestinal: Yes: Tenderness Edema: Yes Psychiatric: Yes: Other (ANXIOUS) Labs: CBC, BMP 04/27/19 06:35 04/27/19 06:35 INR, PTT INR 1.08 (0.83-1.09) 04/25/19 04:01 Problem List - Problems (1) Anasarca Code(s): R60.1 - GENERALIZED EDEMA (2) Ascites Code(s): R18.8 - OTHER ASCITES (3) Bilateral pleural effusion Code(s): J90 - PLEURAL EFFUSION, NOT ELSEWHERE CLASSIFIED (4) Generalized abdominal pain Code(s): R10.84 - GENERALIZED ABDOMINAL PAIN (5) Intra-abdominal abscess Code(s): K65.1 - PERITONEAL ABSCESS (6) Pleural effusion Code(s): J90 - PLEURAL EFFUSION, NOT ELSEWHERE CLASSIFIED (7) Anemia Code(s): D64.9 - ANEMIA, UNSPECIFIED (8) Anxiety Code(s): F41.9 - ANXIETY DISORDER, UNSPECIFIED (9) Fistula, arteriovenous, acquired Code(s): I77.0 - ARTERIOVENOUS FISTULA, ACQUIRED (10) H/O gastric bypass Code(s): Z98.84 - BARIATRIC SURGERY STATUS (11) IBS (irritable bowel syndrome) Code(s): K58.9 - IRRITABLE BOWEL SYNDROME WITHOUT DIARRHEA Assessment/Plan TAPER OFF PAIN MEDS START AMITRYPTALINE QHS FODMAP DIET REVIEWED IV ABX CONTINUE GI FOLLOW UP DC PLANNING TOMORROW
[2019-04-27] MEDS ORDERED: ACETAMINOPHEN 325 MG TABLET (FP) PO PRN (15:51)
--- NOTE | 2019-04-27 16:10 | ECHO ---
Name: IZAIAHCORI CARVER Exam:Adult Echocardiogram Study Date: 04/27/2019 01:23 PM Age: 43 yrs Height: 66 in Weight: 135 lb BSA: 1.7 m2 MMode/2D Measurements & Calculations LVOT diam: 1.8 cm LVLd ap4: 7.5 cm EDV(MOD-sp4): 64.0 ml LVLs ap4: 6.9 cm ESV(MOD-sp4): 28.0 ml SV(MOD-sp4): 36.0 ml LAV (MOD-bp): 47.0 ml TAPSE: 2.7 cm RV S Ruddy: 12.8 cm/sec Doppler Measurements & Calculations MV E max ruddy: 68.6 cm/sec Ao V2 max: 117.9 cm/sec MV A max ruddy: 83.4 cm/sec Ao max P.6 mmHg MV E/A: 0.82 MV dec time: 0.12 sec YANIQUE(V,D): 2.6 cm2 LV V1 max P.6 mmHg Med Peak E' Ruddy: 8.1 cm/sec LV V1 max: 118.5 cm/sec Med E/e': 8.5 Lat Peak E' Ruddy: 20.0 cm/sec Lat E/e': 3.4 Procedure A complete two-dimensional transthoracic echocardiogram was performed (2D, M-mode, Doppler and color flow Doppler). The study was technically difficult with many images being suboptimal in quality. Left Ventricle The left ventricular size, thickness and function are normal. The left ventricular ejection fraction is normal. Ejection Fraction = 60-65%. The left ventricular wall motion is normal. Right Ventricle The right ventricle is normal in size and function. Atria Normal left and right atrial size and function. Mitral Valve There is no mitral regurgitation noted. Tricuspid Valve There is trace tricuspid regurgitation. There was insufficient TR detected to calculate RV systolic p ressure. Aortic Valve No hemodynamically significant valvular aortic stenosis. No aortic regurgitation is present. Pulmonic Valve The pulmonic valve is not well visualized. Great Vessels The aortic root is not well visualized. Pericardium/Pleura There is no pericardial effusion. Interpretation Summary The study was technically difficult with many images being suboptimal in quality. The left ventricular size, thickness and function are normal The right ventricle is normal in size and function. There is trace tricuspid regurgitation. MD Zheng Boyer 04/27/2019 04:10 PM
[2019-04-27] MEDS ORDERED: HYDROmorphone HCl 2 MG/ML VIAL IVPUSH ONE (16:31)
[2019-04-27] MEDS: ACETAMINOPHEN 1000 MG/100 ML VIAL (NON FORMULARY) IVPB PRN (16:35)
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
[2019-04-27] MEDS: clonazePAM 0.5 MG TABLET PO SCH (21:23)
[2019-04-27] MEDS: AMITRIPTYLINE HCL 10 MG TABLET PO SCH (21:23)
[2019-04-27] MEDS: ZOLPIDEM TARTRATE 5 MG TABLET PO PRN (21:26)
--- NOTE | 2019-04-27 21:37 | PN.GI ---
GI Progress Note Subjective: GI NOte: Feeling better with less abdominal and leg edema tension after 5 lbs weight loss. Not clear why her Hb dropped. She has a light brown BM. No large contusions. Denies back pain but will stop heparin. If Hb continues to drop will get CT to exclude a retroperitoneal bleed. She has no hematomas on her back or abdomen visible. Will also stop oral KCL and watch whether the Aldactone will be adequate. Sonogram excludes Budd Chiari Syndrome,. The echocardiogram reveals no effusion or LV dysfunction. - Objective Vital Signs: Vital Signs Temperature 98.5 F 04/27/19 17:18 Pulse Rate 87 04/27/19 17:18 Respiratory Rate 20 04/27/19 17:18 Blood Pressure 91/57 L 04/27/19 17:18 O2 Sat by Pulse Oximetry (%) 99 04/27/19 09:00 Laboratory Tests 04/25/19 04/27/19 04/27/19 04:01 06:35 06:35 Hgb 9.8 L 7.4 L Potassium 4.4 BUN 5.5 L Creatinine 0.7 Iron 60 TIBC 49 L Iron Saturation 122 H Ferritin 873.7 H Albumin 1.3 L Constitutional: Calm Gastrointestinal Inspection: Yes: Distention (less), Other (no hematomas on abdomen, back buttocks or extremities) ...Auscultate: Yes: Normoactive Bowel Sounds ...Palpate: Yes: Soft, Other (nontender) Labs: CBC, BMP 04/27/19 06:35 04/27/19 06:35 INR, PTT INR 1.08 (0.83-1.09) 04/25/19 04:01 Assessment/Plan Assessment: - Puzzling Hb drop. Given the heparin a retroperitoneal bleed cannot be excluded. - I suspect small bowel malabsorption due to SIBO but await other studies. No Budd Chiari or CHF - Personal h/o gastric bypass complicated by intussusception and ulceration resulting in it's reversal - I do not think that she has an abdominal abscess and would not aspirate the collection at this time. Cultures are negative Plan: -- Daily CBCs -- Stop heparin and KCL -- If Hb drops further will get CT -- Continue Lasix and Aldactone and follow potassium daily and weights The situation was discussed with Rachel, including the potential need for a CT Problem List - Problems (1) Malabsorption Code(s): K90.9 - INTESTINAL MALABSORPTION, UNSPECIFIED (2) Anasarca Code(s): R60.1 - GENERALIZED EDEMA (3) Hypoalbuminemia due to protein-calorie malnutrition Code(s): E46 - UNSPECIFIED PROTEIN-CALORIE MALNUTRITION (4) Ascites Code(s): R18.8 - OTHER ASCITES (5) Pleural effusion Code(s): J90 - PLEURAL EFFUSION, NOT ELSEWHERE CLASSIFIED (6) Abdominal pain Code(s): R10.9 - UNSPECIFIED ABDOMINAL PAIN Qualifiers: Abdominal location: unspecified location Qualified Code(s): R10.9 - Unspecified abdominal pain (7) Duodenal anastomotic leak Code(s): K91.89 - OTH POSTPROCEDURAL COMPLICATIONS AND DISORDERS OF DGSTV SYS (8) Fistula, arteriovenous, acquired Code(s): I77.0 - ARTERIOVENOUS FISTULA, ACQUIRED (9) Gastrojejunal ulcer Code(s): K28.9 - GASTROJEJUNAL ULCER, UNSP ACUTE OR CHR, W/O HEMOR OR PERF (10) H/O gastric bypass Code(s): Z98.84 - BARIATRIC SURGERY STATUS (11) Intussusception of small intestine Code(s): K56.1 - INTUSSUSCEPTION (12) Ischemic necrosis of small bowel Code(s): K55.029 - ACUTE INFARCTION OF SMALL INTESTINE, EXTENT UNSPECIFIED (13) S/P small bowel resection Code(s): Z90.49 - ACQUIRED ABSENCE OF OTHER SPECIFIED PARTS OF DIGESTIVE TRACT (14) Anemia Code(s): D64.9 - ANEMIA, UNSPECIFIED
--- NOTE | 2019-04-27 22:41 | PN ---
Progress Note, Physician History of Present Illness: FEELING BETTER NO C/O PAIN AFTER MEDICATION NO DIARRHEA TOLERATING SOLID DIET NO FEVER/ LEUKOCYTOSIS GI FOLLOW UP APPRECIATED STOOL STUDIES UNREVEALING - Current Medication List Current Medications: Active Medications Acetaminophen (Ofirmev Injection -) 1,000 mg IVPB Q6H PRN PRN Reason: PAIN LEVEL 6-10 Stop: 04/28/19 16:25 Last Admin: 04/27/19 16:35 Dose: 1,000 mg Albuterol Sulfate (Ventolin Hfa Inhaler -) 2 puff IH Q8H PRN PRN Reason: SHORTNESS OF BREATH Last Admin: 04/26/19 22:40 Dose: 2 puff Amitriptyline HCl (Elavil -) 10 mg PO HS [facility] Last Admin: 04/27/19 21:23 Dose: 10 mg Clonazepam (Klonopin -) 0.5 mg PO HS [facility] Last Admin: 04/27/19 21:23 Dose: 0.5 mg Diphenhydramine HCl (Benadryl Injection -) 12.5 mg IVPUSH Q4H PRN PRN Reason: FOR ITCHING Furosemide (Lasix Injection -) 40 mg IVPUSH DAILY [facility] Last Admin: 04/27/19 10:20 Dose: 40 mg Ceftriaxone Sodium 2 gm/ (Dextrose) 100 mls @ 200 mls/hr IVPB DAILY [facility]; Protocol Last Admin: 04/27/19 10:19 Dose: 200 mls/hr Metronidazole (Flagyl 500mg Premixed Ivpb -) 500 mg in 100 mls @ 100 mls/hr IVPB Q8H-IV [facility] Last Admin: 04/27/19 17:40 Dose: 100 mls/hr Magnesium Oxide (Mag-Ox -) 400 mg PO BID [facility] Last Admin: 04/27/19 21:23 Dose: 400 mg Morphine Sulfate (Morphine Sulfate) 4 mg IVPUSH Q6H PRN PRN Reason: PAIN LEVEL 7 - 10 Last Admin: 04/27/19 21:19 Dose: 4 mg Ondansetron HCl (Zofran -) 4 mg PO QID PRN PRN Reason: NAUSEA AND/OR VOMITING Last Admin: 04/27/19 05:04 Dose: 4 mg Pantoprazole Sodium (Protonix Iv) 40 mg IVPUSH DAILY [facility] Last Admin: 04/27/19 10:20 Dose: 40 mg Spironolactone (Aldactone -) 25 mg PO BID [facility] Last Admin: 04/27/19 21:23 Dose: 25 mg Zolpidem Tartrate (Ambien -) 10 mg PO HS PRN PRN Reason: INSOMNIA Last Admin: 04/27/19 21:26 Dose: 10 mg - Objective Vital Signs: Vital Signs Temperature 98.7 F 04/27/19 22:00 Pulse Rate 85 04/27/19 22:00 Respiratory Rate 20 04/27/19 22:00 Blood Pressure 101/55 L 04/27/19 22:00 O2 Sat by Pulse Oximetry (%) 99 04/27/19 21:00 Constitutional: Yes: No Distress Cardiovascular: Yes: Regular Rate and Rhythm, S1, S2 Respiratory: Yes: CTA Bilaterally Gastrointestinal: Yes: Normal Bowel Sounds, Soft, Other (LESS DISTENDED NO TENDERNESS) Edema: Yes (DECREASED LE EDEMA) Labs: CBC, BMP 04/27/19 06:35 04/27/19 06:35 INR, PTT INR 1.08 (0.83-1.09) 04/25/19 04:01 Assessment/Plan COLITIS IMPROVED LACTIC ACIDOSIS DIARRHEA RESOLVED NO TREATMENT FOR YEAST IN URINE IF STABLE SUBSTITUTE PO CIPRO/FLAGYL ADDITIONAL 7D
[2019-04-28] MEDS: morphine SULFATE 4 MG/ML VIAL IVPUSH PRN (06:39)
[2019-04-28 06:53] LABS: HEMATOCRIT 22.3 % (32.4-45.2); HEMOGLOBIN 7.7 GM/dL (10.7-15.3); MCH 32.4 pg (25.7-33.7); MCHC 34.6 g/dl (32.0-36.0); MEAN CELL VOLUME 93.8 fl (80-96); MEAN PLT VOLUME 8.7 fl (7.5-11.1); PLATELET COUNT 162 K/MM3 (134-434); RBC 2.37 M/mm3 (3.60-5.2); RDW 19.2 % (11.6-15.6); WHITE BLOOD COUNT 4.9 K/mm3 (4.0-10.0)
[2019-04-28 07:27] LABS: ALBUMIN 1.3 g/dl (3.4-5.0); BILIRUBIN,TOTAL 0.5 mg/dL (0.2-1); BLOOD UREA NITROGEN 5.4 mg/dL (7-18); CALCIUM 7.9 mg/dL (8.5-10.1); CREATININE 0.7 mg/dL (0.55-1.3); POTASSIUM 4.5 mmol/L (3.5-5.1)
[2019-04-28 07:49] LABS: LDH 199 U/L (84-246)
[2019-04-28] MEDS: ACETAMINOPHEN 1000 MG/100 ML VIAL (NON FORMULARY) IVPB PRN (08:11)
[2019-04-28] MEDS: ONDANSETRON 4 MG TABLET PO PRN (08:11)
--- NOTE | 2019-04-28 09:20 | PN ---
Progress Note, Physician - Current Medication List Current Medications: Active Medications Acetaminophen (Ofirmev Injection -) 1,000 mg IVPB Q6H PRN PRN Reason: PAIN LEVEL 6-10 Stop: 04/28/19 16:25 Last Admin: 04/28/19 08:11 Dose: 1,000 mg Albuterol Sulfate (Ventolin Hfa Inhaler -) 2 puff IH Q8H PRN PRN Reason: SHORTNESS OF BREATH Last Admin: 04/26/19 22:40 Dose: 2 puff Amitriptyline HCl (Elavil -) 10 mg PO HS [facility] Last Admin: 04/27/19 21:23 Dose: 10 mg Clonazepam (Klonopin -) 0.5 mg PO HS [facility] Last Admin: 04/27/19 21:23 Dose: 0.5 mg Diphenhydramine HCl (Benadryl Injection -) 12.5 mg IVPUSH Q4H PRN PRN Reason: FOR ITCHING Furosemide (Lasix Injection -) 40 mg IVPUSH DAILY [facility] Last Admin: 04/27/19 10:20 Dose: 40 mg Ceftriaxone Sodium 2 gm/ (Dextrose) 100 mls @ 200 mls/hr IVPB DAILY [facility]; Protocol Last Admin: 04/27/19 10:19 Dose: 200 mls/hr Metronidazole (Flagyl 500mg Premixed Ivpb -) 500 mg in 100 mls @ 100 mls/hr IVPB Q8H-IV [facility] Last Admin: 04/28/19 02:46 Dose: 100 mls/hr Magnesium Oxide (Mag-Ox -) 400 mg PO BID [facility] Last Admin: 04/27/19 21:23 Dose: 400 mg Morphine Sulfate (Morphine Sulfate) 4 mg IVPUSH Q6H PRN PRN Reason: PAIN LEVEL 7 - 10 Last Admin: 04/28/19 06:39 Dose: 4 mg Ondansetron HCl (Zofran -) 4 mg PO QID PRN PRN Reason: NAUSEA AND/OR VOMITING Last Admin: 04/28/19 08:11 Dose: 4 mg Pantoprazole Sodium (Protonix Iv) 40 mg IVPUSH DAILY [facility] Last Admin: 04/27/19 10:20 Dose: 40 mg Spironolactone (Aldactone -) 25 mg PO BID [facility] Last Admin: 04/27/19 21:23 Dose: 25 mg Zolpidem Tartrate (Ambien -) 10 mg PO HS PRN PRN Reason: INSOMNIA Last Admin: 04/27/19 21:26 Dose: 10 mg - Objective Vital Signs: Vital Signs Temperature 98.5 F 04/28/19 06:17 Pulse Rate 96 H 04/28/19 06:17 Respiratory Rate 20 04/28/19 06:17 Blood Pressure 93/57 L 04/28/19 06:17 O2 Sat by Pulse Oximetry (%) 99 04/27/19 21:00 Cardiovascular: Yes: S1, S2 Respiratory: Yes: Regular, CTA Bilaterally Gastrointestinal: Yes: Normal Bowel Sounds, Soft, Ascites Labs: CBC, BMP 04/28/19 06:30 04/28/19 06:30 INR, PTT INR 1.08 (0.83-1.09) 04/25/19 04:01 Problem List - Problems (1) Anasarca Assessment/Plan: -Albumin and lasix increase oral protein intake monitor labs Code(s): R60.1 - GENERALIZED EDEMA (2) Bilateral pleural effusion Assessment/Plan: as above Code(s): J90 - PLEURAL EFFUSION, NOT ELSEWHERE CLASSIFIED (3) Hypoalbuminemia due to protein-calorie malnutrition Assessment/Plan: Albumin and lasix Code(s): E46 - UNSPECIFIED PROTEIN-CALORIE MALNUTRITION (4) H/O gastric bypass Assessment/Plan: seen by surgery Code(s): Z98.84 - BARIATRIC SURGERY STATUS (5) Abdominal pain Assessment/Plan: -CTAP in ER shows moderate bilateral pleural effusion, left greater than right with bilateral lobe atelectasis, moderate ascites and anasarca, hepatomegaly and severe diffuse fatty infiltration of liver, sp gastric surgery with dilatation of the distal stomach and proximal duodenum, suspected small abscess anterior LUQ, thickening and irregularity of the colon pancolitis suspected -GI on board -component is chronic--po dilauded -pantoprazole -zofran prn Code(s): R10.9 - UNSPECIFIED ABDOMINAL PAIN Qualifiers: Abdominal location: unspecified location Qualified Code(s): R10.9 - Unspecified abdominal pain (6) Anemia Assessment/Plan: hgb 7.7 may need blood follow up labs Code(s): D64.9 - ANEMIA, UNSPECIFIED
[2019-04-28] MEDS ORDERED: DEXTROSE 5%-WATER 100 ML IVPB ONE (09:37)
[2019-04-28] MEDS: PANTOPRAZOLE SODIUM 40 MG VIAL IVPUSH SCH (10:52)
[2019-04-28] MEDS: MAGNESIUM OXIDE 400 MG TABLET (FP) PO SCH ×2 (10:52→22:37)
[2019-04-28] MEDS: CEFTRIAXONE 2 GM in DEXTROSE 5%-WATER 100 ML IVPB SCH (10:52)
[2019-04-28] MEDS: SPIRONOLACTONE 25 MG TABLET (FP) PO SCH ×2 (10:52→22:37)
[2019-04-28] MEDS ORDERED: PT OWN MED DRAWER 7, Y5N ONE ×2 (11:07→22:40)
[2019-04-28] MEDS ORDERED: ONDANSETRON 4 MG/2 ML VIAL IVPB PRN (12:17)
--- NOTE | 2019-04-28 12:23 | PN.GI ---
GI Progress Note Subjective: GI NOte: Developed nausea and vomiting. The vomitus is nonbloody. NO melena. The Hb has not dropped further. She fells that she ate sometning last night that has disagreed with her. She wasn't eating vegetables at home. - Objective Vital Signs: Vital Signs Temperature 98.5 F 04/28/19 06:17 Pulse Rate 96 H 04/28/19 06:17 Respiratory Rate 20 04/28/19 06:17 Blood Pressure 93/57 L 04/28/19 06:17 O2 Sat by Pulse Oximetry (%) 99 04/27/19 21:00 Laboratory Tests 04/27/19 04/28/19 04/28/19 06:35 06:30 06:30 Hgb 7.4 L 7.7 L Retic Count Haptoglobin Potassium 4.5 BUN 5.4 L Creatinine 0.7 Ferritin LD Total Vitamin B12 04/28/19 04/28/19 04/28/19 06:30 06:30 06:30 Hgb Retic Count 2.81 H D Haptoglobin Potassium BUN Creatinine Ferritin 1101.6 H LD Total 199 Vitamin B12 1301 H 04/28/19 06:30 Hgb Retic Count Haptoglobin Pending Potassium BUN Creatinine Ferritin LD Total Vitamin B12 Constitutional: Anxious ...Auscultate: Yes: Normoactive Bowel Sounds ...Palpate: Yes: Soft, Other (nontender) ...Percussion: Yes: Tympanitic Labs: CBC, BMP 04/28/19 06:30 04/28/19 06:30 INR, PTT INR 1.08 (0.83-1.09) 04/25/19 04:01 Assessment/Plan Assessment: - Vomiting may reflect partail anastomotic stricturing that cannot manage high fiber. - Puzzling Hb drop. It has stabilized. - I suspect small bowel malabsorption due to SIBO but await other studies. No Budd Chiari or CHF - Personal h/o gastric bypass complicated by intussusception and ulceration resulting in it's reversal - I do not think that she has an abdominal abscess and would not aspirate the collection at this time. Cultures are negative Plan: -- Clear liquids -- Zofran IV -- If vomitng persists will do an imaging -- Daily CBCs -- If Hb drops further will get CT -- Continue Lasix and Aldactone and follow potassium daily and weights The situation was discussed with Rachel and her Problem List - Problems (1) Vomiting Code(s): R11.10 - VOMITING, UNSPECIFIED (2) Malabsorption Code(s): K90.9 - INTESTINAL MALABSORPTION, UNSPECIFIED (3) Anasarca Code(s): R60.1 - GENERALIZED EDEMA (4) Hypoalbuminemia due to protein-calorie malnutrition Code(s): E46 - UNSPECIFIED PROTEIN-CALORIE MALNUTRITION (5) Ascites Code(s): R18.8 - OTHER ASCITES (6) Pleural effusion Code(s): J90 - PLEURAL EFFUSION, NOT ELSEWHERE CLASSIFIED (7) Abdominal pain Code(s): R10.9 - UNSPECIFIED ABDOMINAL PAIN Qualifiers: Abdominal location: unspecified location Qualified Code(s): R10.9 - Unspecified abdominal pain (8) Duodenal anastomotic leak Code(s): K91.89 - OTH POSTPROCEDURAL COMPLICATIONS AND DISORDERS OF DGSTV SYS (9) Fistula, arteriovenous, acquired Code(s): I77.0 - ARTERIOVENOUS FISTULA, ACQUIRED (10) Gastrojejunal ulcer Code(s): K28.9 - GASTROJEJUNAL ULCER, UNSP ACUTE OR CHR, W/O HEMOR OR PERF (11) H/O gastric bypass Code(s): Z98.84 - BARIATRIC SURGERY STATUS (12) Intussusception of small intestine Code(s): K56.1 - INTUSSUSCEPTION (13) Ischemic necrosis of small bowel Code(s): K55.029 - ACUTE INFARCTION OF SMALL INTESTINE, EXTENT UNSPECIFIED (14) S/P small bowel resection Code(s): Z90.49 - ACQUIRED ABSENCE OF OTHER SPECIFIED PARTS OF DIGESTIVE TRACT (15) Anemia Code(s): D64.9 - ANEMIA, UNSPECIFIED
[2019-04-28] MEDS: FUROSEMIDE 40 MG/4 ML INJECTABLE VIAL IVPUSH SCH ×2 (12:42→23:27)
[2019-04-28] MEDS: ALBUMIN HUMAN 25% 100 ML VIAL IVPB SCH ×2 (12:42→22:35)
--- NOTE | 2019-04-28 12:45 | PN ---
Progress Note (short form) - Note Progress Note: PULMONARY OFFERS NO COMPLAINTS VSS/AFEBRILE Constitutional: Yes: No Distress Eyes: Yes: Conjunctiva Clear, EOM Intact HENT: Yes: Atraumatic, Normocephalic Neck: Yes: Supple, Trachea Midline Cardiovascular: Yes: Regular Rate and Rhythm Respiratory: Yes: Diminished, Rhonchi. No: Accessory Muscle Use, On Nasal O2, Rales, SOB, SOB on Exertion, Stridor, Tachypnea, Wheezes ...Inspection: Yes: WNL ...Clubbing: No Gastrointestinal: Yes: Normal Bowel Sounds, Soft, Ascites. No: Pulsatile Mass Musculoskeletal: Yes: WNL Extremities: Yes: WNL Edema: Yes Peripheral Pulses WNL: Yes Integumentary: Yes: WNL Neurological: Yes: WNL, Alert, Oriented ...Motor Strength: WNL Psychiatric: Yes: WNL, Alert, Oriented LABS/:RADIOLOGY / REVIEWED (1) Bilateral pleural effusion Code(s): J90 - PLEURAL EFFUSION, NOT ELSEWHERE CLASSIFIED (2) Atelectasis of both lungs Code(s): J98.11 - ATELECTASIS (3) Anasarca Code(s): R60.1 - GENERALIZED EDEMA (4) Ascites Code(s): R18.8 - OTHER ASCITES (5) Generalized abdominal pain Code(s): R10.84 - GENERALIZED ABDOMINAL PAIN (6) Hypoalbuminemia due to protein-calorie malnutrition Code(s): E46 - UNSPECIFIED PROTEIN-CALORIE MALNUTRITION (7) Malabsorption Code(s): K90.9 - INTESTINAL MALABSORPTION, UNSPECIFIED (8) Pleural effusion Code(s): J90 - PLEURAL EFFUSION, NOT ELSEWHERE CLASSIFIED (9) Anemia Code(s): D64.9 - ANEMIA, UNSPECIFIED (10) Anxiety Code(s): F41.9 - ANXIETY DISORDER, UNSPECIFIED (11) H/O gastric bypass Code(s): Z98.84 - BARIATRIC SURGERY STATUS (12) Migraine Code(s): G43.909 - MIGRAINE, UNSP, NOT INTRACTABLE, WITHOUT STATUS MIGRAINOSUS (13) Peptic ulcer disease Code(s): K27.9 - PEPTIC ULC, SITE UNSP, UNSP AC OR CHR, W/O HEMOR OR PERF (14) S/P small bowel resection Code(s): Z90.49 - ACQUIRED ABSENCE OF OTHER SPECIFIED PARTS OF DIGESTIVE TRACT (15) Status post gastric banding surgery Code(s): Z98.84 - BARIATRIC SURGERY STATUS Assessment/Plan IMP: Bilateral pleural effusions due to hypoalbuminemia and malnutrition Thoracentesis not indicated at this time Aldactone Nutritional support ABX per ID Supplemental O2 as needed Incentive Spirometry Lola GREENWOOD MD
--- NOTE | 2019-04-28 12:47 | PN ---
Progress Note (short form) - Note Progress Note: Patient seen and examined Discussed with Dr. Dupont Recent fall in Hct. Perhaps initial Hct is reflective of dehydration on admission and subsequent fall is less thannoted. LdH normal against hemolysis Last Vital Signs Temp Pulse Resp BP Pulse Ox 98.1 F 96 H 18 102/59 L 99 04/28/19 10:00 04/28/19 10:00 04/28/19 10:00 04/28/19 10:00 04/27/19 21:00 HEENT: KESHA, EOM Intact Oropharynx: No thrush, No mucositis,dentures Cor: RSR, No murmurs, No gallops Lungs: diminished breath sounds bilaterally Abd:tender , bowel sounds active Ext:LE edema Skin: No rashes, Integument intact CBC, BMP 04/28/19 06:30 04/28/19 06:30 Current Medications Generic Name Dose Route Start Last Admin Trade Name Freq PRN Reason Stop Dose Admin Acetaminophen 1,000 mg 04/27/19 16:25 04/28/19 08:11 Ofirmev Injection - IVPB 04/28/19 16:25 1,000 mg Q6H PRN Administration PAIN LEVEL 6-10 Albumin Human 12.5 gm 04/28/19 10:00 04/28/19 12:42 Albumin Human 25% - IVPB 04/29/19 22:01 12.5 gm BID [facility] Administration Albuterol Sulfate 2 puff 04/25/19 13:35 04/26/19 22:40 Ventolin Hfa Inhaler - IH 2 puff Q8H PRN Administration SHORTNESS OF BREATH Amitriptyline HCl 10 mg 04/27/19 22:00 04/27/19 21:23 Elavil - PO 10 mg HS [facility] Administration Clonazepam 0.5 mg 04/25/19 22:00 04/27/19 21:23 Klonopin - PO 0.5 mg HS [facility] Administration Diphenhydramine HCl 12.5 mg 04/27/19 11:27 Benadryl Injection - IVPUSH Q4H PRN FOR ITCHING Furosemide 40 mg 04/28/19 10:00 04/28/19 12:42 Lasix Injection - IVPUSH 40 mg BID [facility] Administration Hydromorphone HCl 2 mg 04/28/19 09:20 Dilaudid - PO Q6H PRN PAIN LEVEL 6-10 Ceftriaxone Sodium 2 gm/ 100 mls @ 200 mls/hr 04/25/19 16:30 04/28/19 10:52 Dextrose IVPB 200 mls/hr DAILY [facility] Administration Protocol Metronidazole 500 mg in 100 mls @ 100 mls/hr 04/25/19 18:00 04/28/19 11:34 Flagyl 500mg Premixed Ivpb - IVPB 100 mls/hr Q8H-IV [facility] Administration Magnesium Oxide 400 mg 04/25/19 22:00 04/28/19 10:52 Mag-Ox - PO 400 mg BID [facility] Administration Ondansetron HCl 8 mg 04/28/19 12:17 Zofran Injection IVPB Q6H PRN [facility] Pantoprazole Sodium 40 mg 04/25/19 10:00 04/28/19 10:52 Protonix Iv IVPUSH 40 mg DAILY [facility] Administration Spironolactone 25 mg 04/25/19 22:00 04/28/19 10:52 Aldactone - PO 25 mg BID [facility] Administration Zolpidem Tartrate 10 mg 04/25/19 22:00 04/27/19 21:26 Ambien - PO 10 mg HS PRN Administration INSOMNIA Impression: Anemia- chronic disease - FE++-60, TIBC-49 , Ferritin-1101 Fall in Hct - being monitored Per GI ? need for f/u CT Hypoalbuminemia with pleural effusions and ascites ? malabsorption.
[2019-04-28] MEDS: HYDROmorphone HCL 2 MG TABLET PO PRN ×2 (12:52→18:33)
--- NOTE | 2019-04-28 17:12 | PN ---
Progress Note (short form) - Note Progress Note: Afebrile P- 103 (slightly increased) BP-97/58 Pt c/o pain in abdomen Had nausea/vomiting earlier No c/o SOB P/E- Gen- awake, alert, appears pale, mild discomfort secondary to abdominal pain Abd- soft, mild diffuse tenderness on palpation Ext- decreased pitting edema of lower extremities WBC-4.9 H/H-7.7/22.3 BUN/CR-5.4/0.7 Rec- Agree with present regimen. Would continue diuretics and increasing oncotic pressure to treat pleural effusions Would follow abdominal collection near stomach (normal WBC count and fever) PO diet as tolerated Follow H/H, labs closely Will follow
[2019-04-28] MEDS: ZOLPIDEM TARTRATE 5 MG TABLET PO PRN (22:37)
[2019-04-28] MEDS: clonazePAM 0.5 MG TABLET PO SCH (22:38)
[2019-04-28] MEDS: AMITRIPTYLINE HCL 10 MG TABLET PO SCH (22:45)
[2019-04-29 07:23] LABS: BASO % 0.3 % (0-2.0); EOS % 0.5 % (0-4.5); HEMATOCRIT 22.4 % (32.4-45.2); HEMOGLOBIN 7.8 GM/dL (10.7-15.3); LYMPH % 16.2 % (8-40); MCH 32.3 pg (25.7-33.7); MCHC 34.8 g/dl (32.0-36.0); MEAN CELL VOLUME 92.9 fl (80-96); MEAN PLT VOLUME 8.9 fl (7.5-11.1); MONO % 8.4 % (3.8-10.2); NEUT % 74.6 % (42.8-82.8); PLATELET COUNT 139 K/MM3 (134-434); RBC 2.42 M/mm3 (3.60-5.2); RDW 17.5 % (11.6-15.6); WHITE BLOOD COUNT 4.8 K/mm3 (4.0-10.0)
[2019-04-29 07:42] LABS: ALBUMIN 1.4 g/dl (3.4-5.0); BILIRUBIN,TOTAL 0.6 mg/dL (0.2-1); CALCIUM 7.8 mg/dL (8.5-10.1); CREATININE 0.8 mg/dL (0.55-1.3); POTASSIUM 3.3 mmol/L (3.5-5.1); TOT PROT 4.5 g/dl (6.4-8.2)
[2019-04-29] MEDS ORDERED: DEXTROSE 5%-WATER 100 ML IVPB ONE (09:09)
[2019-04-29] MEDS ORDERED: POTASSIUM CHLORIDE TABS 10 MEQ TABLET.ER (FP) PO ONE (10:10)
--- NOTE | 2019-04-29 10:16 | PN ---
Progress Note, Physician Chief Complaint: AWAKE ALERT C/O PAIN? PATIENT WOULD LIKE IV PAIN MEDS SPECIFICALLY DILAUDID. I EXPLAINED TO HER WE ARE TRYING TO TAPER HER OFF THE IV MEDS B/C IT WILL BE DIFFICULT TO GET HER OFF SUCH A STRONG OPIOD B/C OF ITS ADDICTIVE PROPERTY. SHE HAS AGREED TO TRY PILL FORMS FOR RELIEF. C/O 1 EPISODE OF VOMITING NON-BLOODY - Current Medication List Current Medications: Active Medications Albumin Human (Albumin Human 25% -) 12.5 gm IVPB BID [facility] Stop: 04/29/19 22:01 Last Admin: 04/28/19 22:35 Dose: 12.5 gm Albuterol Sulfate (Ventolin Hfa Inhaler -) 2 puff IH Q8H PRN PRN Reason: SHORTNESS OF BREATH Last Admin: 04/26/19 22:40 Dose: 2 puff Amitriptyline HCl (Elavil -) 10 mg PO HS [facility] Last Admin: 04/28/19 22:45 Dose: 10 mg Clonazepam (Klonopin -) 0.5 mg PO [facility] Last Admin: 04/28/19 22:38 Dose: 0.5 mg Diphenhydramine HCl (Benadryl Injection -) 12.5 mg IVPUSH Q4H PRN PRN Reason: FOR ITCHING Furosemide (Lasix Injection -) 40 mg IVPUSH BID [facility] Last Admin: 04/28/19 23:27 Dose: 40 mg Hydromorphone HCl (Dilaudid -) 2 mg PO Q6H PRN PRN Reason: PAIN LEVEL 6-10 Last Admin: 04/28/19 18:33 Dose: 2 mg Ceftriaxone Sodium 2 gm/ (Dextrose) 100 mls @ 200 mls/hr IVPB DAILY [facility]; Protocol Last Admin: 04/28/19 10:52 Dose: 200 mls/hr Metronidazole (Flagyl 500mg Premixed Ivpb -) 500 mg in 100 mls @ 100 mls/hr IVPB Q8H-IV [facility] Last Admin: 04/29/19 03:18 Dose: 100 mls/hr Magnesium Oxide (Mag-Ox -) 400 mg PO BID [facility] Last Admin: 04/28/19 22:37 Dose: 400 mg Ondansetron HCl (Zofran Injection) 8 mg IVPB Q6H PRN PRN Reason: NAUSEA Pantoprazole Sodium (Protonix Iv) 40 mg IVPUSH DAILY [facility] Last Admin: 04/28/19 10:52 Dose: 40 mg Spironolactone (Aldactone -) 25 mg PO BID [facility] Last Admin: 04/28/19 22:37 Dose: 25 mg Zolpidem Tartrate (Ambien -) 10 mg PO HS PRN PRN Reason: INSOMNIA Last Admin: 04/28/19 22:37 Dose: 10 mg - Objective Vital Signs: Vital Signs Temperature 98.2 F 04/28/19 22:00 Pulse Rate 104 H 04/28/19 22:00 Respiratory Rate 04/28/19 22:00 Blood Pressure 97/61 04/28/19 22:00 O2 Sat by Pulse Oximetry (%) 95 04/28/19 21:00 Constitutional: Yes: Mild Distress Cardiovascular: Yes: Regular Rate and Rhythm Respiratory: Yes: Regular Gastrointestinal: Yes: Soft, Other (MILD TENDERNESS) Genitourinary: Yes: Other Musculoskeletal: Yes: Muscle Weakness Edema: Yes Edema: LLE: Trace, RLE: Trace Integumentary: Yes: WNL Wound/Incision: Yes: Clean/Dry Neurological: Yes: Other Psychiatric: Yes: Other Labs: CBC, BMP 04/29/19 06:20 04/29/19 06:20 INR, PTT INR 1.08 (0.83-1.09) 04/25/19 04:01 Problem List - Problems (1) Anasarca Code(s): R60.1 - GENERALIZED EDEMA (2) Ascites Code(s): R18.8 - OTHER ASCITES (3) Bilateral pleural effusion Code(s): J90 - PLEURAL EFFUSION, NOT ELSEWHERE CLASSIFIED (4) Generalized abdominal pain Code(s): R10.84 - GENERALIZED ABDOMINAL PAIN (5) Intra-abdominal abscess Code(s): K65.1 - PERITONEAL ABSCESS (6) Pleural effusion Code(s): J90 - PLEURAL EFFUSION, NOT ELSEWHERE CLASSIFIED (7) Anemia Code(s): D64.9 - ANEMIA, UNSPECIFIED (8) Anxiety Code(s): F41.9 - ANXIETY DISORDER, UNSPECIFIED (9) Fistula, arteriovenous, acquired Code(s): I77.0 - ARTERIOVENOUS FISTULA, ACQUIRED (10) H/O gastric bypass Code(s): Z98.84 - BARIATRIC SURGERY STATUS (11) IBS (irritable bowel syndrome) Code(s): K58.9 - IRRITABLE BOWEL SYNDROME WITHOUT DIARRHEA Assessment/Plan TAPER OFF PAIN MEDS START AMITRYPTALINE QHS IRON SUCROSE GIVEN X 1 H/H HOLDING WILL GIVE 1 UNIT PRBC HEME/ONC CONSULT APPRECIATED FODMAP DIET REVIEWED IV ABX CONTINUE GI FOLLOW UP NO NEED TO PURSUE QUESTIONABLE POCKET OF FLUID IN GASTRIC AREA. NO FEVERS, NEGATIVE BLOOD CULTURES OOB TO CHAIR PSYCHIATRY EVAL MAY BENEFIT DC PLANNING
[2019-04-29] MEDS: HYDROmorphone HCL 2 MG TABLET PO PRN (10:48)
[2019-04-29] MEDS: CEFTRIAXONE 2 GM in DEXTROSE 5%-WATER 100 ML IVPB SCH (10:49)
[2019-04-29] MEDS: PANTOPRAZOLE SODIUM 40 MG VIAL IVPUSH SCH (10:49)
[2019-04-29] MEDS: MAGNESIUM OXIDE 400 MG TABLET (FP) PO SCH ×2 (10:49→22:05)
[2019-04-29] MEDS: SPIRONOLACTONE 25 MG TABLET (FP) PO SCH ×2 (10:49→22:05)
[2019-04-29] MEDS ORDERED: morphine CARPU-JECT 4 MG/1 ML DISP.SYRIN IVPUSH PRN (11:10)
[2019-04-29] MEDS ORDERED: morphine SULFATE 4 MG/ML VIAL IVPUSH PRN (11:17)
[2019-04-29] MEDS ORDERED: ONDANSETRON *ODT* 4 MG TABLET SL PRN (11:18)
--- NOTE | 2019-04-29 11:21 | PN ---
Progress Note (short form) - Note Progress Note: PATIENT'S HAS BEEN CALLING ME ASKING ME TO GIVE HIS MORE PAIN MEDS. I EXPLAINED THE BEST TREATMENT AT THIS TIME IS TO GIVE PILL FORM PAIN MEDS B/C OF THE ADDICTIVE PROPERTY THE IV DILAUDID HAS. I HAVE OFFERED P.O. MEDS , PAIN MEDICINE CONSULT AND STOP ALL IV MEDICATIONS. PATIENT DOES NOT HAVE A ELEVATED WBC COUNT AND NO SURGICAL PROCEDURE INDICATED. WILL CHANGE TO PO AUGMENTIN STOP THE IV ABX WELL. I HAVE DISCUSSED WITH DR PHILIP FROM SURGERY. Problem List - Problems (1) Anasarca Code(s): R60.1 - GENERALIZED EDEMA (2) Ascites Code(s): R18.8 - OTHER ASCITES (3) Bilateral pleural effusion Code(s): J90 - PLEURAL EFFUSION, NOT ELSEWHERE CLASSIFIED (4) Generalized abdominal pain Code(s): R10.84 - GENERALIZED ABDOMINAL PAIN (5) Intra-abdominal abscess Code(s): K65.1 - PERITONEAL ABSCESS (6) Pleural effusion Code(s): J90 - PLEURAL EFFUSION, NOT ELSEWHERE CLASSIFIED (7) Anemia Code(s): D64.9 - ANEMIA, UNSPECIFIED (8) Anxiety Code(s): F41.9 - ANXIETY DISORDER, UNSPECIFIED (9) Fistula, arteriovenous, acquired Code(s): I77.0 - ARTERIOVENOUS FISTULA, ACQUIRED (10) H/O gastric bypass Code(s): Z98.84 - BARIATRIC SURGERY STATUS (11) IBS (irritable bowel syndrome) Code(s): K58.9 - IRRITABLE BOWEL SYNDROME WITHOUT DIARRHEA
--- NOTE | 2019-04-29 11:25 | PN ---
Progress Note (short form) - Note Progress Note: I HAVE SIGNED OFF THIS CASE THE IS HOSTILE WITH ME. I SPOKE WITH DR CUMMINGS [facility] WHO IS COVERING FROM THIS POINT ONWARD. Problem List - Problems (1) Anasarca Code(s): R60.1 - GENERALIZED EDEMA (2) Ascites Code(s): R18.8 - OTHER ASCITES (3) Bilateral pleural effusion Code(s): J90 - PLEURAL EFFUSION, NOT ELSEWHERE CLASSIFIED (4) Generalized abdominal pain Code(s): R10.84 - GENERALIZED ABDOMINAL PAIN (5) Intra-abdominal abscess Code(s): K65.1 - PERITONEAL ABSCESS (6) Pleural effusion Code(s): J90 - PLEURAL EFFUSION, NOT ELSEWHERE CLASSIFIED (7) Anemia Code(s): D64.9 - ANEMIA, UNSPECIFIED (8) Anxiety Code(s): F41.9 - ANXIETY DISORDER, UNSPECIFIED (9) Fistula, arteriovenous, acquired Code(s): I77.0 - ARTERIOVENOUS FISTULA, ACQUIRED (10) H/O gastric bypass Code(s): Z98.84 - BARIATRIC SURGERY STATUS (11) IBS (irritable bowel syndrome) Code(s): K58.9 - IRRITABLE BOWEL SYNDROME WITHOUT DIARRHEA
[2019-04-29 12:51] VITALS: BMI 25.0
[2019-04-29] MEDS: ALBUMIN HUMAN 25% 100 ML VIAL IVPB SCH ×2 (13:31→22:06)
[2019-04-29] MEDS: FUROSEMIDE 40 MG/4 ML INJECTABLE VIAL IVPUSH SCH ×2 (13:32→13:41)
[2019-04-29] MEDS ORDERED: metroNIDAZOLE 250 MG TABLET PO SCH (14:00)
--- NOTE | 2019-04-29 15:37 | PN.GI ---
GI Progress Note Subjective: GI Note: Feels much better and is hungry for real food. Weight is down to 155 lbs and she is able to move about. Potassium is dropping so woll increase Aldactone. If it drop further I will need to resume KCL - Objective Vital Signs: Vital Signs Temperature 98.1 F 04/29/19 13:55 Pulse Rate 96 H 04/29/19 13:55 Respiratory Rate 20 04/29/19 13:55 Blood Pressure 104/72 04/29/19 13:55 O2 Sat by Pulse Oximetry (%) 95 04/28/19 21:00 Laboratory Tests 04/29/19 04/29/19 06:20 06:20 Hgb 7.8 L Potassium 3.3 L Albumin 1.4 L Constitutional: Calm ...Auscultate: Yes: Normoactive Bowel Sounds ...Palpate: Yes: Soft, Other (nontender) Edema: LLE: 2+, RLE: 2+ Labs: CBC, BMP 04/29/19 06:20 04/29/19 06:20 INR, PTT INR 1.08 (0.83-1.09) 04/25/19 04:01 Assessment/Plan Assessment: - Vomiting resolved. - Puzzling Hb drop. It has stabilized. I believe that this is her true Hb - I suspect small bowel malabsorption due to SIBO but await other studies. No Budd Chiari or CHF - Personal h/o gastric bypass complicated by intussusception and ulceration resulting in it's reversal - I do not think that she has an abdominal abscess and would not aspirate the collection at this time. Cultures are negative Plan: -- Soft diet -- Increase Aldactone -- Switch to oral lasix -- Daily CBCs The situation was discussed with Rachel Problem List - Problems (1) Vomiting Code(s): R11.10 - VOMITING, UNSPECIFIED (2) Malabsorption Code(s): K90.9 - INTESTINAL MALABSORPTION, UNSPECIFIED (3) Anasarca Code(s): R60.1 - GENERALIZED EDEMA (4) Hypoalbuminemia due to protein-calorie malnutrition Code(s): E46 - UNSPECIFIED PROTEIN-CALORIE MALNUTRITION (5) Ascites Code(s): R18.8 - OTHER ASCITES (6) Pleural effusion Code(s): J90 - PLEURAL EFFUSION, NOT ELSEWHERE CLASSIFIED (7) Abdominal pain Code(s): R10.9 - UNSPECIFIED ABDOMINAL PAIN Qualifiers: Abdominal location: unspecified location Qualified Code(s): R10.9 - Unspecified abdominal pain (8) Duodenal anastomotic leak Code(s): K91.89 - OTH POSTPROCEDURAL COMPLICATIONS AND DISORDERS OF DGSTV SYS (9) Fistula, arteriovenous, acquired Code(s): I77.0 - ARTERIOVENOUS FISTULA, ACQUIRED (10) Gastrojejunal ulcer Code(s): K28.9 - GASTROJEJUNAL ULCER, UNSP ACUTE OR CHR, W/O HEMOR OR PERF (11) H/O gastric bypass Code(s): Z98.84 - BARIATRIC SURGERY STATUS (12) Intussusception of small intestine Code(s): K56.1 - INTUSSUSCEPTION (13) Ischemic necrosis of small bowel Code(s): K55.029 - ACUTE INFARCTION OF SMALL INTESTINE, EXTENT UNSPECIFIED (14) S/P small bowel resection Code(s): Z90.49 - ACQUIRED ABSENCE OF OTHER SPECIFIED PARTS OF DIGESTIVE TRACT (15) Anemia Code(s): D64.9 - ANEMIA, UNSPECIFIED
[2019-04-29] MEDS: metroNIDAZOLE 250 MG TABLET PO SCH ×2 (16:09→22:05)
[2019-04-29] MEDS ORDERED: SPIRONOLACTONE 25 MG TABLET (FP) PO SCH (16:30)
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
[2019-04-29] MEDS ORDERED: HYDROmorphone HCl 2 MG/ML VIAL IVPB PRN (17:36)
[2019-04-29] MEDS ORDERED: HYDROmorphone HCL CARPU-JECT 2 MG/1 ML DISP.SYRIN IVPB PRN (17:41)
[2019-04-29] MEDS ORDERED: GABAPENTIN 100 MG CAPSULE PO SCH (17:45)
[2019-04-29] MEDS: GABAPENTIN 100 MG CAPSULE PO SCH ×2 (18:15→22:06)
[2019-04-29] MEDS: HYDROmorphone HCl 2 MG/ML VIAL IVPB PRN (18:15)
[2019-04-29] MEDS: AMOX TR/POT CLAV 500MG/125MG TABLETS (FP) PO SCH (18:16)
--- NOTE | 2019-04-29 21:13 | PN ---
Progress Note (short form) - Note Progress Note: Afebrile; VSS Pt weight-155 pounds (decreased from 167.5 previously) Pt feels well Decreased abdominal pain Vomited X1 Given 1 unit PRBC- feels more energy OOB-ambulates to bathroom P/E- Gen- awake, alert, less pale, NAD Abd- soft, mild tenderness on palpation Ext- minimal pitting edema of lower extremity (1/2 +) WBC-4.8 H/H-7.8/22.4 K+-3.3 BUN/CR-5.0/0.8 ALB-1.4 P- PO soft diet as tolerated with clear protein shakes Continue to diuresis check H/H, labs in AM Follow K+ Pain control as per Dr Santillan
[2019-04-29] MEDS ORDERED: PT OWN MED DRAWER 7, Y5N ONE (21:44)
[2019-04-29] MEDS: AMITRIPTYLINE HCL 10 MG TABLET PO SCH (22:06)
[2019-04-29] MEDS: clonazePAM 0.5 MG TABLET PO SCH (22:06)
[2019-04-29] MEDS: ZOLPIDEM TARTRATE 5 MG TABLET PO PRN (22:40)
[2019-04-30] MEDS: HYDROmorphone HCl 2 MG/ML VIAL IVPB PRN ×4 (01:04→18:14)
[2019-04-30] MEDS: metroNIDAZOLE 250 MG TABLET PO SCH ×3 (05:50→22:47)
[2019-04-30 07:02] LABS: BASO % 0.4 % (0-2.0); EOS % 0.9 % (0-4.5); HEMATOCRIT 24.8 % (32.4-45.2); HEMOGLOBIN 8.6 GM/dL (10.7-15.3); LYMPH % 18.6 % (8-40); MCH 32.5 pg (25.7-33.7); MCHC 34.8 g/dl (32.0-36.0); MEAN CELL VOLUME 93.2 fl (80-96); MEAN PLT VOLUME 8.7 fl (7.5-11.1); MONO % 9.7 % (3.8-10.2); NEUT % 70.4 % (42.8-82.8); PLATELET COUNT 120 K/MM3 (134-434); RBC 2.66 M/mm3 (3.60-5.2); WHITE BLOOD COUNT 3.4 K/mm3 (4.0-10.0)
[2019-04-30 07:31] LABS: BLOOD UREA NITROGEN 6.1 mg/dL (7-18); CALCIUM 7.1 mg/dL (8.5-10.1); CREATININE 0.7 mg/dL (0.55-1.3)
[2019-04-30 08:37] LABS: POTASSIUM 2.9 mmol/L (3.5-5.1)
[2019-04-30] MEDS: AMOX TR/POT CLAV 500MG/125MG TABLETS (FP) PO SCH ×2 (09:28→17:09)
[2019-04-30] MEDS: PANTOPRAZOLE 40 MG TABLET PO SCH (09:29)
[2019-04-30] MEDS: FUROSEMIDE 40 MG TABLET (FP) PO SCH (09:29)
[2019-04-30] MEDS: SPIRONOLACTONE 25 MG TABLET (FP) PO SCH ×2 (09:29→22:48)
[2019-04-30] MEDS: GABAPENTIN 100 MG CAPSULE PO SCH ×2 (09:29→22:48)
[2019-04-30] MEDS: MAGNESIUM OXIDE 400 MG TABLET (FP) PO SCH ×2 (09:29→22:47)
[2019-04-30] MEDS ORDERED: POTASSIUM CHLORIDE TABS 20 MEQ TABLET.ER (FP) PO ONE (10:18)
[2019-04-30] MEDS: KCL 10 MEQ IVPB 10 MEQ/100 ML INFUS.BAG IVPB SCH ×2 (13:01→15:21)
--- NOTE | 2019-04-30 15:43 | PN ---
Progress Note, Physician Chief Complaint: abdominal pain History of Present Illness: feeling better, abdominal pain improved, moving bowels. Patient transferred to hospitalist service per Dr. Lui request - Current Medication List Current Medications: Active Medications Albuterol Sulfate (Ventolin Hfa Inhaler -) 2 puff IH Q8H PRN PRN Reason: SHORTNESS OF BREATH Last Admin: 04/26/19 22:40 Dose: 2 puff Amitriptyline HCl (Elavil -) 10 mg PO HS [facility] Last Admin: 04/29/19 22:06 Dose: 10 mg Amoxicillin/Clavulanate Potassium (Augmentin - 500mg Tablet) 1 tab PO BID@0800, 1730 [facility] Last Admin: 04/30/19 09:28 Dose: 1 tab Clonazepam (Klonopin -) 0.5 mg PO [facility] Last Admin: 04/29/19 22:06 Dose: 0.5 mg Diphenhydramine HCl (Benadryl Injection -) 12.5 mg IVPUSH Q4H PRN PRN Reason: FOR ITCHING Furosemide (Lasix -) 40 mg PO DAILY [facility] Last Admin: 04/30/19 09:29 Dose: 40 mg Gabapentin (Neurontin -) 100 mg PO BID [facility] Last Admin: 04/30/19 09:29 Dose: 100 mg Hydromorphone HCl (Dilaudid Vial -) 2 mg IVPB Q6H PRN PRN Reason: PAIN LEVEL 7 - 10 Last Admin: 04/30/19 12:23 Dose: 2 mg Magnesium Oxide (Mag-Ox -) 400 mg PO BID [facility] Last Admin: 04/30/19 09:29 Dose: 400 mg Metronidazole (Flagyl -) 500 mg PO TID [facility] Last Admin: 04/30/19 13:02 Dose: 500 mg Ondansetron HCl (Zofran Odt -) 4 mg SL Q6H PRN PRN Reason: NAUSEA AND/OR VOMITING Pantoprazole Sodium (Protonix -) 40 mg PO DAILY [facility] Last Admin: 04/30/19 09:29 Dose: 40 mg Spironolactone (Aldactone -) 50 mg PO BID [facility] Last Admin: 04/30/19 09:29 Dose: 50 mg Zolpidem Tartrate (Ambien -) 10 mg PO HS PRN PRN Reason: INSOMNIA Last Admin: 04/29/19 22:40 Dose: 10 mg - Objective Vital Signs: Vital Signs Temperature 98.8 F 04/30/19 13:57 Pulse Rate 96 H 04/30/19 13:57 Respiratory Rate 20 04/30/19 13:57 Blood Pressure 105/70 04/30/19 13:57 O2 Sat by Pulse Oximetry (%) 98 04/30/19 09:00 Constitutional: Yes: No Distress, Calm Cardiovascular: Yes: Regular Rate and Rhythm Respiratory: Yes: Regular, CTA Bilaterally. No: Accessory Muscle Use Gastrointestinal: Yes: Normal Bowel Sounds, Soft, Tenderness (to deep palpation epigastric region) Edema: Yes Edema: LLE: 2+, RLE: 2+ Labs: CBC, BMP 04/30/19 06:25 04/30/19 06:25 INR, PTT INR 1.08 (0.83-1.09) 04/25/19 04:01 Problem List - Problems (1) Anasarca Code(s): R60.1 - GENERALIZED EDEMA (2) Ascites Code(s): R18.8 - OTHER ASCITES (3) Atelectasis of both lungs Code(s): J98.11 - ATELECTASIS (4) Bilateral pleural effusion Code(s): J90 - PLEURAL EFFUSION, NOT ELSEWHERE CLASSIFIED (5) Generalized abdominal pain Code(s): R10.84 - GENERALIZED ABDOMINAL PAIN (6) Hypoalbuminemia due to protein-calorie malnutrition Code(s): E46 - UNSPECIFIED PROTEIN-CALORIE MALNUTRITION (7) IBS (irritable bowel syndrome) Code(s): K58.9 - IRRITABLE BOWEL SYNDROME WITHOUT DIARRHEA (8) Intra-abdominal abscess Code(s): K65.1 - PERITONEAL ABSCESS (9) Malabsorption Code(s): K90.9 - INTESTINAL MALABSORPTION, UNSPECIFIED (10) Anemia Code(s): D64.9 - ANEMIA, UNSPECIFIED (11) Anxiety Code(s): F41.9 - ANXIETY DISORDER, UNSPECIFIED (12) H/O gastric bypass Code(s): Z98.84 - BARIATRIC SURGERY STATUS (13) Hypokalemia Code(s): E87.6 - HYPOKALEMIA (14) Hypomagnesemia Code(s): E83.42 - HYPOMAGNESEMIA Assessment/Plan Assessment: Anasarca Bilateral Pleural effusions Intra-abdominal abscess Anemia Hypokalemia IBS Anxiety Chronic Opiate use H/O gastric bypass Plan: -patient with likely malabsorption, with history of gastric bypass -tolerating soft diet -cultures negative -patient on PO lasix and aldactone -hypokalemia, check mag, replete and monitor -patient cleared for DC per GI -on PO augmentin/flagyl, 5 more days -pain mngmt consulted due to patients request for dilaudid -please see note -need to wean off IV opioids in anticipation of DC in next 24-48 hours -cw current mngmt
--- NOTE | 2019-04-30 15:45 | PN.GI ---
GI Progress Note Subjective: GI NOte: Tolerating solids again. Potassium has dropped and was replaced. Wt is down to 151 lbs - Objective Vital Signs: Vital Signs Temperature 98.8 F 04/30/19 13:57 Pulse Rate 96 H 04/30/19 13:57 Respiratory Rate 20 04/30/19 13:57 Blood Pressure 105/70 04/30/19 13:57 O2 Sat by Pulse Oximetry (%) 98 04/30/19 09:00 Laboratory Tests 04/28/19 04/28/19 04/28/19 06:30 06:30 06:30 Hgb 7.7 L Haptoglobin 43 Potassium LD Total 199 04/29/19 04/30/19 04/30/19 06:20 06:25 06:25 Hgb 7.8 L 8.6 L Haptoglobin Potassium 2.9 L* LD Total Constitutional: Calm ...Auscultate: Yes: Normoactive Bowel Sounds ...Palpate: Yes: Soft, Other (nontender) Labs: CBC, BMP 04/30/19 06:25 04/30/19 06:25 INR, PTT INR 1.08 (0.83-1.09) 04/25/19 04:01 Assessment/Plan Assessment: - I suspect small bowel malabsorption due to SIBO leading to anasarca. No Budd Chiari or CHF - Personal h/o gastric bypass complicated by intussusception and ulceration resulting in it's reversal - I do not think that she has an abdominal abscess and would not aspirate the collection at this time. Cultures are negative Plan: -- Continue soft diet -- Resume KCL replacement -- Continue lasix & aldactone -- No GI objections to discharge with the plan to followup with Dr Garcia at [facility] The situation was discussed with Rachel Problem List - Problems (1) Vomiting Code(s): R11.10 - VOMITING, UNSPECIFIED (2) Malabsorption Code(s): K90.9 - INTESTINAL MALABSORPTION, UNSPECIFIED (3) Anasarca Code(s): R60.1 - GENERALIZED EDEMA (4) Hypoalbuminemia due to protein-calorie malnutrition Code(s): E46 - UNSPECIFIED PROTEIN-CALORIE MALNUTRITION (5) Ascites Code(s): R18.8 - OTHER ASCITES (6) Pleural effusion Code(s): J90 - PLEURAL EFFUSION, NOT ELSEWHERE CLASSIFIED (7) Abdominal pain Code(s): R10.9 - UNSPECIFIED ABDOMINAL PAIN Qualifiers: Abdominal location: unspecified location Qualified Code(s): R10.9 - Unspecified abdominal pain (8) Duodenal anastomotic leak Code(s): K91.89 - OTH POSTPROCEDURAL COMPLICATIONS AND DISORDERS OF DGSTV SYS (9) Fistula, arteriovenous, acquired Code(s): I77.0 - ARTERIOVENOUS FISTULA, ACQUIRED (10) Gastrojejunal ulcer Code(s): K28.9 - GASTROJEJUNAL ULCER, UNSP ACUTE OR CHR, W/O HEMOR OR PERF (11) H/O gastric bypass Code(s): Z98.84 - BARIATRIC SURGERY STATUS (12) Intussusception of small intestine Code(s): K56.1 - INTUSSUSCEPTION (13) Ischemic necrosis of small bowel Code(s): K55.029 - ACUTE INFARCTION OF SMALL INTESTINE, EXTENT UNSPECIFIED (14) S/P small bowel resection Code(s): Z90.49 - ACQUIRED ABSENCE OF OTHER SPECIFIED PARTS OF DIGESTIVE TRACT (15) Anemia Code(s): D64.9 - ANEMIA, UNSPECIFIED
[2019-04-30] MEDS: AMITRIPTYLINE HCL 10 MG TABLET PO SCH (22:47)
[2019-04-30] MEDS: clonazePAM 0.5 MG TABLET PO SCH (22:48)
[2019-04-30] MEDS: ZOLPIDEM TARTRATE 5 MG TABLET PO PRN (22:48)
[2019-05-01] MEDS: HYDROmorphone HCl 2 MG/ML VIAL IVPB PRN ×2 (00:19→06:25)
[2019-05-01] MEDS: metroNIDAZOLE 250 MG TABLET PO SCH (06:25)
[2019-05-01 07:45] LABS: BASO % 0.9 % (0-2.0); EOS % 0.9 % (0-4.5); HEMOGLOBIN 8.7 GM/dL (10.7-15.3); LYMPH % 19.7 % (8-40); MCH 31.9 pg (25.7-33.7); MCHC 33.4 g/dl (32.0-36.0); MEAN CELL VOLUME 95.4 fl (80-96); MEAN PLT VOLUME 8.6 fl (7.5-11.1); MONO % 10.9 % (3.8-10.2); NEUT % 67.6 % (42.8-82.8); PLATELET COUNT 123 K/MM3 (134-434); RBC 2.73 M/mm3 (3.60-5.2); WHITE BLOOD COUNT 3.3 K/mm3 (4.0-10.0)
[2019-05-01 08:17] LABS: BLOOD UREA NITROGEN 5.9 mg/dL (7-18); CALCIUM 7.4 mg/dL (8.5-10.1); CREATININE 0.6 mg/dL (0.55-1.3); MAGNESIUM 1.6 mg/dL (1.8-2.4); POTASSIUM 3.5 mmol/L (3.5-5.1)
[2019-05-01] MEDS: AMOX TR/POT CLAV 500MG/125MG TABLETS (FP) PO SCH (09:00)
[2019-05-01] MEDS: PANTOPRAZOLE 40 MG TABLET PO SCH (09:08)
[2019-05-01] MEDS: GABAPENTIN 100 MG CAPSULE PO SCH (09:09)
[2019-05-01] MEDS: MAGNESIUM OXIDE 400 MG TABLET (FP) PO SCH (09:09)
[2019-05-01] MEDS: FUROSEMIDE 40 MG TABLET (FP) PO SCH (09:09)
[2019-05-01] MEDS: SPIRONOLACTONE 25 MG TABLET (FP) PO SCH (09:10)
[2019-05-01] MEDS ORDERED: POTASSIUM CHLORIDE ORAL LIQUID 20 MEQ/15 ML PO SCH (10:00)
[2019-05-01] MEDS ORDERED: MAGNESIUM SULF 50% (8.12 MEQ/2 ML-1 GM VIAL) IVPB ONE (10:30)
--- NOTE | 2019-05-01 11:13 | PN ---
Progress Note (short form) - Note Progress Note: PULMONARY Denies shortness of breath, chest discomfort. No fevers. Vital Signs Period Temp Pulse Resp BP Sys/Lugo Pulse Ox Last 24 Hr 97.4 F-98.8 F 90-96 18-20 97-115/65-78 97 Gen: NAD at rest Heart: RRR Lung: decreased breath sounds at the bases Abd: soft, nontender Ext: no edema CBC, BMP 05/01/19 07:32 05/01/19 07:32 Active Medications Albuterol Sulfate (Ventolin Hfa Inhaler -) 2 puff IH Q8H PRN PRN Reason: SHORTNESS OF BREATH Last Admin: 04/26/19 22:40 Dose: 2 puff Amitriptyline HCl (Elavil -) 10 mg PO [facility] Last Admin: 04/30/19 22:47 Dose: 10 mg Amoxicillin/Clavulanate Potassium (Augmentin - 500mg Tablet) 1 tab PO BID@0800, 1730 [facility] Last Admin: 05/01/19 09:00 Dose: 1 tab Clonazepam (Klonopin -) 0.5 mg PO [facility] Last Admin: 04/30/19 22:48 Dose: 0.5 mg Diphenhydramine HCl (Benadryl Injection -) 12.5 mg IVPUSH Q4H PRN PRN Reason: FOR ITCHING Furosemide (Lasix -) 40 mg PO DAILY [facility] Last Admin: 05/01/19 09:09 Dose: 40 mg Gabapentin (Neurontin -) 100 mg PO BID [facility] Last Admin: 05/01/19 09:09 Dose: 100 mg Hydromorphone HCl (Dilaudid Vial -) 2 mg IVPB Q6H PRN PRN Reason: PAIN LEVEL 7 - 10 Last Admin: 05/01/19 06:25 Dose: 2 mg Magnesium Oxide (Mag-Ox -) 400 mg PO BID [facility] Last Admin: 05/01/19 09:09 Dose: 400 mg Metronidazole (Flagyl -) 500 mg PO TID [facility] Last Admin: 05/01/19 06:25 Dose: 500 mg Ondansetron HCl (Zofran Odt -) 4 mg SL Q6H PRN PRN Reason: NAUSEA AND/OR VOMITING Last Admin: 04/30/19 22:48 Dose: 4 mg Pantoprazole Sodium (Protonix -) 40 mg PO DAILY [facility] Last Admin: 05/01/19 09:08 Dose: 40 mg Spironolactone (Aldactone -) 50 mg PO BID [facility] Last Admin: 05/01/19 09:10 Dose: 50 mg Zolpidem Tartrate (Ambien -) 10 mg PO HS PRN PRN Reason: INSOMNIA Last Admin: 04/30/19 22:48 Dose: 10 mg A/P Malabsorption Anasarca Bilateral Pleural Effusions Ascites h/o Gastric Bypass Opiate Dependence IBS Anxiety - continue lasix, aldactone - monitor lytes - O2 to keep Spo2>90% - protein supplementation - DVT prophylaxis
--- NOTE | 2019-05-01 11:59 | PN ---
Physical Exam: SUBJECTIVE: Patient seen and examined. no events overnight. no complaints this morning. OBJECTIVE: Vital Signs Period Temp Pulse Resp BP Sys/Lugo Pulse Ox Last 24 Hr 97.4 F-98.8 F 90-96 18-20 97-115/65-78 97 GENERAL: a/o x 3 EYES: PERRL, conjunctiva clear. No ptosis. ENT: oropharynx clear without exudates NECK: supple. LUNGS: decreased bs HEART: RRR, no murmurs appreciated ABDOMEN: Soft, nontender, no TTP EXTREMITIES: + edema Laboratory Results - last 24 hr 04/30/19 04/30/19 04/30/19 15:20 17:13 22:45 WBC RBC Hgb Hct MCV MCH MCHC RDW Plt Count MPV Absolute Neuts (auto) Neutrophils % Lymphocytes % Monocytes % Eosinophils % Basophils % Nucleated RBC % Sodium Potassium Chloride Carbon Dioxide Anion Gap BUN Creatinine Est GFR (CKD-EPI)AfAm Est GFR (CKD-EPI)NonAf POC Glucometer 76 96 Random Glucose Calcium Magnesium Stool Occult Blood Negative 05/01/19 05/01/19 05/01/19 06:28 07:32 07:32 WBC 3.3 L RBC 2.73 L Hgb 8.7 L Hct 26.0 L MCV 95.4 MCH 31.9 MCHC 33.4 RDW 17.0 H Plt Count 123 L MPV 8.6 Absolute Neuts (auto) 2.3 Neutrophils % 67.6 Lymphocytes % 19.7 Monocytes % 10.9 H Eosinophils % 0.9 Basophils % 0.9 Nucleated RBC % 0 Sodium 135 L Potassium 3.5 Chloride 98 Carbon Dioxide 31 Anion Gap 6 L BUN 5.9 L Creatinine 0.6 Est GFR (CKD-EPI)AfAm 127.58 Est GFR (CKD-EPI)NonAf 110.08 POC Glucometer 76 Random Glucose 86 Calcium 7.4 L Magnesium 1.6 L Stool Occult Blood Active Medications Generic Name Dose Route Start Last Admin Trade Name Freq PRN Reason Stop Dose Admin Albuterol Sulfate 2 puff 04/25/19 13:35 04/26/19 22:40 Ventolin Hfa Inhaler - IH 2 puff Q8H PRN Administration SHORTNESS OF BREATH Amitriptyline HCl 10 mg 04/27/19 22:00 04/30/19 22:47 Elavil - PO 10 mg HS CAROLINE Administration Amoxicillin/Clavulanate Potassium 1 tab 04/29/19 17:30 05/01/19 09:00 Augmentin - 500mg Tablet PO 1 tab BID@0800,1730 CAROLINE Administration Clonazepam 0.5 mg 04/25/19 22:00 04/30/19 22:48 Klonopin - PO 0.5 mg HS CAROLINE Administration Diphenhydramine HCl 12.5 mg 04/27/19 11:27 Benadryl Injection - IVPUSH Q4H PRN FOR ITCHING Furosemide 40 mg 04/30/19 10:00 05/01/19 09:09 Lasix - PO 40 mg DAILY CAROLINE Administration Gabapentin 100 mg 04/29/19 17:45 05/01/19 09:09 Neurontin - PO 100 mg BID CAROLINE Administration Hydromorphone HCl 2 mg 04/29/19 18:09 05/01/19 06:25 Dilaudid Vial - IVPB 2 mg Q6H PRN Administration PAIN LEVEL 7 - 10 Magnesium Oxide 400 mg 04/25/19 22:00 05/01/19 09:09 Mag-Ox - PO 400 mg BID CAROLINE Administration Metronidazole 500 mg 04/29/19 15:00 05/01/19 06:25 Flagyl - PO 500 mg TID CAROLINE Administration Ondansetron HCl 4 mg 04/29/19 11:18 04/30/19 22:48 Zofran Odt - SL 4 mg Q6H PRN Administration NAUSEA AND/OR VOMITING Pantoprazole Sodium 40 mg 04/30/19 10:00 05/01/19 09:08 Protonix - PO 40 mg DAILY CAROLINE Administration Spironolactone 50 mg 04/29/19 22:00 05/01/19 09:10 Aldactone - PO 50 mg BID CAROLINE Administration Zolpidem Tartrate 10 mg 04/25/19 22:00 04/30/19 22:48 Ambien - PO 10 mg HS PRN Administration INSOMNIA ASSESSMENT/PLAN: #Anasarca #Bilateral Pleural effusions #Intra-abdominal abscess #Anemia #Hypokalemia #IBS #Anxiety #Chronic Opiate use #H/O gastric bypass Plan: -patient with likely malabsorption, with history of gastric bypass -tolerating soft diet -cultures negative -patient on PO lasix and aldactone -hypokalemia, check mag, replete and monitor -patient cleared for DC per GI -on PO augmentin/flagyl, 4 more days on discharge -discussed with pain management Dr. Santillan, he said its ok to dc dilaudid and patient can be discharged from pain perspective. Patient in agreement to follow up with her primary care doctor and GI doctor within 1 week. Visit type - Emergency Visit Emergency Visit: Yes ED Registration Date: 04/25/19 Care time: The patient presented to the Emergency Department on the above date and was hospitalized for further evaluation of their emergent condition. - New Patient This patient is new to me today: Yes Date on this admission: 05/01/19 - Critical Care Critical Care patient: No ATTENDING PHYSICIAN STATEMENT I saw and evaluated the patient. I reviewed the resident's note and discussed the case with the resident. I agree with the resident's findings and plan as documented. SUBJECTIVE: OBJECTIVE: ASSESSMENT AND PLAN:
--- NOTE | 2019-05-01 12:20 | PN ---
Teaching Attending Note Name of Resident: Swapna Hidalgo ATTENDING PHYSICIAN STATEMENT I saw and evaluated the patient. I reviewed the resident's note and discussed the case with the resident. I agree with the resident's findings and plan as documented. SUBJECTIVE: Patient feels improved, tolerating p.o., denies any abdominal pain wants to go home diarrhea is improving OBJECTIVE: Vital Signs Temperature 97.4 F L 05/01/19 06:09 Pulse Rate 96 H 05/01/19 06:09 Respiratory Rate 20 05/01/19 06:09 Blood Pressure 115/78 05/01/19 06:09 O2 Sat by Pulse Oximetry (%) 97 04/30/19 21:00 General: Young female comfortable, not in distress HEENT; mucous membranes moist, mild anemia, no jaundice, PERRLA, no nystagmus Neck: No JVD, supple, no bruit, thyroid palpably normal, normal carotid pulsations. Chest: Nontender, bilateral basal rales. CVS: S1-S2 regular/i no murmur/gallop/rub Abdomen: Nondistended, soft, bowel sounds present. Extremities: + edema., No cough tenderness, pulses present MEDICAL EDITOR: AO X3 , no gross motor sensory deficit CBC, BMP 05/01/19 07:32 05/01/19 07:32 Magnesium 1.7 Serum albumin 1.7 Active Medications Albuterol Sulfate (Ventolin Hfa Inhaler -) 2 puff IH Q8H PRN PRN Reason: SHORTNESS OF BREATH Last Admin: 04/26/19 22:40 Dose: 2 puff Amitriptyline HCl (Elavil -) 10 mg PO [facility] Last Admin: 04/30/19 22:47 Dose: 10 mg Amoxicillin/Clavulanate Potassium (Augmentin - 500mg Tablet) 1 tab PO BID@0800, 1730 [facility] Last Admin: 05/01/19 09:00 Dose: 1 tab Clonazepam (Klonopin -) 0.5 mg PO [facility] Last Admin: 04/30/19 22:48 Dose: 0.5 mg Diphenhydramine HCl (Benadryl Injection -) 12.5 mg IVPUSH Q4H PRN PRN Reason: FOR ITCHING Furosemide (Lasix -) 40 mg PO DAILY [facility] Last Admin: 05/01/19 09:09 Dose: 40 mg Gabapentin (Neurontin -) 100 mg PO BID [facility] Last Admin: 05/01/19 09:09 Dose: 100 mg Hydromorphone HCl (Dilaudid Vial -) 2 mg IVPB Q6H PRN PRN Reason: PAIN LEVEL 7 - 10 Last Admin: 05/01/19 06:25 Dose: 2 mg Magnesium Oxide (Mag-Ox -) 400 mg PO BID [facility] Last Admin: 05/01/19 09:09 Dose: 400 mg Metronidazole (Flagyl -) 500 mg PO TID [facility] Last Admin: 05/01/19 06:25 Dose: 500 mg Ondansetron HCl (Zofran Odt -) 4 mg SL Q6H PRN PRN Reason: NAUSEA AND/OR VOMITING Last Admin: 04/30/19 22:48 Dose: 4 mg Pantoprazole Sodium (Protonix -) 40 mg PO DAILY [facility] Last Admin: 05/01/19 09:08 Dose: 40 mg Spironolactone (Aldactone -) 50 mg PO BID [facility] Last Admin: 05/01/19 09:10 Dose: 50 mg Zolpidem Tartrate (Ambien -) 10 mg PO HS PRN PRN Reason: INSOMNIA Last Admin: 04/30/19 22:48 Dose: 10 mg ASSESSMENT AND PLAN: 33 years old female history of PAD status post bariatric surgery in 2004 (Kinza en Y 2004), SBO 2018 s/p small bowel resection, chronic lower back pain, anxiety, L4-S1 fusion, ex-lap Kinza en Y reversal. Multiple hospitalization to various hospitals, on narcotic pain medication, patient [place] in [facility] near [facility] was admitted on April 25, [address] Lui service, with c/o pain is worsening and legs continue to swell. CTAP in ER shows moderate bilateral pleural effusion, left greater than right with bilateral lobe atelectasis, moderate ascites and anasarca, hepatomegaly and severe diffuse fatty infiltration of liver, sp gastric surgery with dilatation of the distal stomach and proximal duodenum, suspected small abscess anterior LUQ, thickening and irregularity of the colon pancolitis suspected. Evaluated and treated by multiple providers including infectious disease, cardiology, gastroenterology, certified flex endoscope reprocessor, pain management, as per GI primary cause for edema is malnutrition C. Hypoalbuminemia leads to bilateral pulmonary effusion unlikely active intra-abdominal abscess, ID agrees with the plan is recommended discharge home on p.o. amoxicillin patient has all her home medications will provide p.o. antibiotic patient will follow up with his fibre technologist at [facility] and primary care [place]. Plan: Patient can be DC home. Problem List - Problems (1) Anasarca Code(s): R60.1 - GENERALIZED EDEMA (2) IBS (irritable bowel syndrome) Code(s): K58.9 - IRRITABLE BOWEL SYNDROME WITHOUT DIARRHEA (3) Pleural effusion Code(s): J90 - PLEURAL EFFUSION, NOT ELSEWHERE CLASSIFIED (4) H/O gastric bypass Code(s): Z98.84 - BARIATRIC SURGERY STATUS (5) Hypokalemia Code(s): E87.6 - HYPOKALEMIA (6) Peptic ulcer disease Code(s): K27.9 - PEPTIC ULC, SITE UNSP, UNSP AC OR CHR, W/O HEMOR OR PERF
[2019-05-01 12:25] VITALS: BP 97/66; PULSE 95; TEMP 98.4
== END 2019-05-01 13:02 | disposition home health service (06) | DRG 372 ==
LOC: JER 23:03 → JERBED 04-25 05:43 → J7W 04-25 17:38
PROVIDERS: ADMIT Internal Medicine; ATTEND Internal Medicine
PROC: 30233N1 Transfusion of Nonautologous Red Blood Cells into Peripheral Vein, Percutaneous Approach (ICD-10-PCS; principal; 2019-04-28)
DX: K65.1 Peritoneal abscess (principal); R18.8 Other ascites; F11.20 Opioid dependence, uncomplicated; E46 Unspecified protein-calorie malnutrition; R64 Cachexia; J98.11 Atelectasis; E87.2 Acidosis; J90 Pleural effusion, not elsewhere classified; D64.9 Anemia, unspecified; E87.6 Hypokalemia; K58.9 Irritable bowel syndrome, unspecified; F41.9 Anxiety disorder, unspecified; E83.42 Hypomagnesemia; E88.09 Other disorders of plasma-protein metabolism, not elsewhere classified; Z68.24 Body mass index [BMI] 24.0-24.9, adult; E86.0 Dehydration; R19.7 Diarrhea, unspecified; E87.70 Fluid overload, unspecified; K27.9 Peptic ulcer, site unspecified, unspecified as acute or chronic, without hemorrhage or perforation; K76.0 Fatty (change of) liver, not elsewhere classified; R11.10 Vomiting, unspecified; R62.7 Adult failure to thrive
CPT/HCPCS: 36415; 36430; 36511; 71045-TC-FY; 74177-TC; 80048; 80053; 82272; 82436; 82525; 82607; 82728; 82747; 82962; 83010; 83540; 83550; 83605; 83615; 83690; 83735; 84100; 84133; 84300; 84703; 85014; 85025; 85027; 85044; 85610; 85730; 86850; 86870; 86900; 86901; 86902; 86922; 87040; 87045; 87046; 87077; 87081; 87177; 87205; 87209; 87324; 87449; 93005; 93010; 93306-TC; 93976; 94010; 97116-GP; 97162-GP; 99284-25; J0131; J1644; J1756; P9038; P9058; Q0162; Q9967

== ENCOUNTER 2019-11-05 09:07 | Emergency (ER) | payer BC, OTHER ==
[2019-11-05 09:29] VITALS: BMI 21.9
[2019-11-05] MEDS ORDERED: AZITHROMYCIN 500 MG TABLET PO ONE (09:59)
[2019-11-05] MEDS ORDERED: SODIUM CHLORIDE 1,000 ML IV STA (10:32)
[2019-11-05] MEDS ORDERED: morphine CARPU-JECT 4 MG/1 ML DISP.SYRIN IVPUSH ONE (10:32)
[2019-11-05 10:47] LABS: BASO % 0.3 % (0-2.0); EOS % 0.1 % (0-4.5); HEMATOCRIT 22.4 % (32.4-45.2); HEMOGLOBIN 7.1 GM/dL (10.7-15.3); LYMPH % 7.4 % (8-40); MCH 26.8 pg (25.7-33.7); MCHC 31.9 g/dl (32.0-36.0); MEAN PLT VOLUME 7.8 fl (7.5-11.1); MONO % 6.9 % (3.8-10.2); NEUT % 85.3 % (42.8-82.8); PLATELET COUNT 680 K/MM3 (134-434); RBC 2.67 M/mm3 (3.60-5.2); RDW 18.8 % (11.6-15.6); WHITE BLOOD COUNT 17.4 K/mm3 (4.0-10.0)
--- NOTE | 2019-11-05 10:53 | PDOC ---
History of Present Illness - General Chief Complaint: Pain Stated Complaint: ABD PAIN Time Seen by Provider: 11/05/19 10:16 - History of Present Illness Initial Comments: 44 yo female with PMH of SBO, Intussusception, gastric bypass surgery with reversal, intestinal resection presents with 4 day hx of lower back pain. Pain is 8/10 sharp cramp that radiates to bilateral flanks. She endorses nausea. Denies fevers, chills, vomiting, diarrhea, constipation, cp, sob, bloody stool, dysuria, Past History - Medical History Allergies/Adverse Reactions: Allergies Allergy/AdvReac Type Severity Reaction Status Date / Time NSAIDS (Non-Steroidal Allergy Mild Verified 11/05/19 09:29 Anti-Inflamma metoclopramide [From Reglan] AdvReac Severe Verified 11/05/19 09:29 aspirin AdvReac Mild Verified 11/05/19 09:29 Home Medications: Ambulatory Orders Rizatriptan Benzoate [Maxalt] 10 mg PO PRN 08/18/17 Eszopiclone [Lunesta] 3 mg PO HS 08/19/17 Clonazepam [Klonopin] 0.5 mg PO HS 03/23/19 Carisoprodol [Soma] 250 mg PO TID 11/05/19 Pantoprazole Sodium [Protonix -] 40 mg PO DAILY 11/05/19 Potassium Chloride [K-Dur -] 40 meq PO DAILY 11/05/19 Anemia: Yes (required iron transfusions) Asthma: No Cancer: No Cardiac Disorders: No CVA: No COPD: No CHF: No Dementia: No Diabetes: (hypoglycemic) GI Disorders: Yes (PUD, multiple gastric surgeries) Disorders: No HTN: No Hypercholesterolemia: No Liver Disease: No Seizures: No Thyroid Disease: No - Surgical History Abdominal Surgery: Yes (gastric bypass, bowel resection, Kinza en y) Appendectomy: No Cardiac Surgery: No Cholecystectomy: No Lung Surgery: No Neurologic Surgery: No Orthopedic Surgery: No - Psycho-Social/Smoking History Smoking History: Never smoked Have you smoked in the past 12 months: No Number of Cigarettes Smoked Daily: 0 - Substance Abuse Hx (Audit-C & DAST Scrn) How often the patient has a drink containing alcohol: Never Score: In Men: 4 or > Positive; In Women: 3 or > Positive: 0 Screen Result (Pos requires Nsg. Audit-10AR): Negative Review of Systems - Review of Systems Able to Perform ROS?: Yes Constitutional: No: Chills, Diaphoresis, Fever HEENTM: No: Recent change in vision, Double Vision Respiratory: No: Cough, Shortness of Breath Cardiac (ROS): No: Chest Pain, Lightheadedness, Palpitations ABD/GI: Yes: Nausea. No: Blood Streaked Bowels, Constipated, Diarrhea, Rectal Bleeding, Vomiting : Yes: Flank Pain. No: Burning, Dysuria Musculoskeletal: Yes: Back Pain. No: Joint Pain, Muscle Weakness Integumentary: No: Dryness, Erythema, Flushing Neurological: No: Headache, Seizure, Tremors Psychiatric: No: Anxiety, Depression, Mood Swings Endocrine: No: Intolerance to Cold, Intolerance to Heat *Physical Exam - Vital Signs Last Vital Signs Temp Pulse Resp BP Pulse Ox 97 F L 97 H 17 98/68 99 11/05/19 09:25 11/05/19 09:25 11/05/19 10:48 11/05/19 10:48 11/05/19 10:48 - Physical Exam General Appearance: Yes: Appropriately Dressed, Apparent Distress HEENT: positive: EOMI, Normal Voice Respiratory/Chest: positive: Lungs Clear, Normal Breath Sounds. negative: Chest Tender, Respiratory Distress Cardiovascular: positive: Regular Rhythm, Regular Rate, S1, S2 Gastrointestinal/Abdominal: positive: Normal Bowel Sounds, Tender (left lower quadrant), Flat, Guarding, Other (midline scar) Musculoskeletal: positive: CVA Tenderness (L) Extremity: positive: Normal Capillary Refill, Normal Inspection, Normal Range of Motion Integumentary: positive: Normal Color, Dry, Warm Neurologic: positive: Fully Oriented, Alert, Normal Mood/Affect ED Treatment Course - LABORATORY CBC & Chemistry Diagram: 11/05/19 10:03 11/05/19 17:10 - ADDITIONAL ORDERS Additional order review: 11/05/19 10:03 RBC 2.67 L MCV 84.0 MCHC 31.9 L RDW 18.8 H MPV 7.8 Neutrophils % 85.3 H D Lymphocytes % 7.4 L D Monocytes % 6.9 Eosinophils % 0.1 D Basophils % 0.3 - Medications Given in the ED: ED Medications Discontinued Medications Generic Name Dose Route Start Last Admin Trade Name Freq PRN Reason Stop Dose Admin Azithromycin 1,000 mg 11/05/19 09:59 11/05/19 10:26 Zithromax PO 11/05/19 10:00 Not Given ONCE ONE Ceftriaxone Sodium 250 mg 11/05/19 09:59 11/05/19 10:26 Rocephin - IM 11/05/19 10:00 Not Given ONCE ONE Fentanyl 50 mcg 11/05/19 10:33 11/05/19 10:48 Sublimaze Injection - IVPUSH 11/05/19 10:34 50 mcg ONCE ONE Administration Morphine Sulfate 4 mg 11/05/19 10:32 11/05/19 10:37 Morphine Injection - IVPUSH 11/05/19 10:33 Not Given ONCE ONE Medical Decision Making - Medical Decision Making 44 yo female with PMH of SBO, Intussusception, gastric bypass surgery with reversal, intestinal resection presents with 4 day hx of lower back pain with flank pain. Pt is febrile and hypotensive with an elevated WBC. Treated with Zosyn, Azithromycin, Ceftriaxone. Treated with 30cc/kg fluids Pt has a K of 2.5. Treated with K replacement First CT scan identified GI fluid collection but is unable to differentiate between duodenal or jejunal fluid Second CT scan ordered and is pending Pt is transferred to [facility] under Dr. Meadows (ED) and Dr. Palmer (Gen Surg) 11/05/19 18:55 Discharge - Discharge Information Problems reviewed: Yes Clinical Impression/Diagnosis: Abdominal pain, History of Kinza-en-Y gastric bypass Condition: Stable Disposition: TRANSFER ACUTE CARE/OTHER HOSP - Follow up/Referral Referrals: ON STAFF,NOT [Non Staff, Medical] - - Patient Discharge Instructions - Post Discharge Activity
[2019-11-05 11:09] LABS: ALBUMIN 2.1 g/dl (3.4-5.0); ALK PHOS 113 U/L (45-117); BILIRUBIN,TOTAL 0.8 mg/dL (0.2-1); BLOOD UREA NITROGEN 12.2 mg/dL (7-18); CALCIUM 7.7 mg/dL (8.5-10.1); CHLORIDE 86 mmol/L (98-107); CO2 32 mmol/L (21-32); CREATININE 0.8 mg/dL (0.55-1.3); GLUCOSE,RANDOM 95 mg/dL (74-106); MAGNESIUM 1.9 mg/dL (1.8-2.4); SGOT/AST 36 U/L (15-37); SGPT/ALT 20 U/L (13-61); SODIUM 130 mmol/L (136-145); TOT PROT 6.8 g/dl (6.4-8.2)
[2019-11-05] MEDS ORDERED: PIPERACILLIN/TAZOB 4.5 GM 4.5 GM in DEXTROSE 5%-WATER 100 ML IVPB ONE (11:10)
[2019-11-05 11:12] LABS: ANION GAP 12 MMOL/L (8-16)
[2019-11-05 11:14] LABS: POTASSIUM 2.5 mmol/L (3.5-5.1)
[2019-11-05] MEDS ORDERED: PIPERACILLIN/TAZOB 4.5 GM 4.5 GM/100 ML BAG IVPB ONE (11:18)
[2019-11-05] MEDS ORDERED: ACETAMINOPHEN INJECTION 100 ML IVPB ONE ×2 (11:18→16:43)
--- NOTE | 2019-11-05 11:19 | PDOC ---
Documentation entered by Leah Gross SCRIBE, acting as scribe for Zheng Pedro MD. Zheng Pedro MD: This documentation has been prepared by the Ginny lima Xhesika, SCRIBE, under my direction and personally reviewed by me in its entirety. I confirm that the documentation accurately reflects all work, treatment, procedures, and medical decision making performed by me. Attending Attestation - Resident Resident Name: [email or web address] - ED Attending Attestation I have performed the following: I have examined & evaluated the patient, The case was reviewed & discussed with the resident, I agree w/resident's findings & plan, Exceptions are as noted - HPI HPI: 11/05/19 10:15 The patient is a 44-year-old female with a past medical history significant for Bariatric surgery s/p bypass reversal, SBO s/p small bowel resection who presents to the emergency department with 4-5 days of sudden onset midline back pain. Pt states her pain radiates to bilateral flanks and into her abdomen. Pt states her symptoms are progressively worsening. Pt states she and her were on a vacation at the [facility] [place] when her symptoms started. Allergies: NSAIDS PCP: Beth Goldberg GI: Dr. Jose Oconnell - Physicial Exam PE: 11/05/19 11:20 Vitals: Triage Vital signs reviewed walk desat and COVID 12 CBT talk to his PCP for follow-up and I gave him my pulmonary General Appearance: No acute distress, well nourished well developed, Head: Atraumatic, Chest Wall: Nontender Cardiac: Regular rate and rhythym, no murmurs, no rubs, no gallops, Lungs: Clear to auscultation bilateral, good air movement bilaterally, Abdomen: Soft, non distended, normal bowel sounds, non tender to palpation diffusely tender to palpation Extremities: Full range of motion to all extremities, no cyanosis, clubbing, or edema Skin: Warm and dry, no rashes or lesions, no rash, no petechiae Psych: Normal mood, normal affect - Critical Care Time Total Critical Care Time: 35 Critical Care Statement: The care of this patient involved high complexity decision making to prevent further life threatening deterioration of the patien t's condition and/or to evaluate & treat vital organ system(s) failure or risk of failure. - Medical Decision Making 11/05/19 11:20 Multiple abdominal surgeries now with fever and abdominal pain sepsis order set initiated once rectal temperature obtained at 11:15 AM We will cover with broad-spectrum antibiotics CAT scan with oral and IV contrast IV fluids IV Tylenol observe and reassess 44 years old very complicated abdominal surgical history including Kinza-en-Y gastric bypass reversal with complication of splenic bleed requiring splenic arterial stent presents to the ED with fever elevated white blood cell count and abdominal pain Abdominal CT with oral and IV contrast demonstrates either a large fluid collection in the left upper quadrant versus very distended duodenum. Unfortunately the oral contrast had progressed past the upper small bowel and is difficult for the radiologist to differentiate Patient and family had spoken to their bariatric surgeon Dr. Lehman who has recommended transfer to [facility] We will initiate transfer and page Dr. Lehman <Zheng Pedro - Last Filed: 11/07/19 16:54> Discharge - Discharge Information Problems reviewed: Yes <Isabel Chahal - Last Filed: 11/05/19 19:54> <Zheng Pedro - Last Filed: 11/07/19 16:54> - Discharge Information Clinical Impression/Diagnosis: Abdominal pain, History of Kinza-en-Y gastric bypass Condition: Stable Disposition: TRANSFER ACUTE CARE/OTHER HOSP - Follow up/Referral Referrals: ON STAFF,NOT [Non Staff, Medical] -
[2019-11-05] MEDS ORDERED: SODIUM CHLORIDE IV ONE (11:33)
[2019-11-05] MEDS ORDERED: POTASSIUM CHLORIDE TABS 10 MEQ TABLET.ER (FP) PO ONE (11:33)
[2019-11-05 11:36] LABS: INR 1.34 (0.83-1.09); PROTHROMBIN TIME (PATIENT) 15.9 SEC (9.7-13.0)
[2019-11-05 11:39] LABS: ACTIVATED PTT 30.2 SECONDS (25.2-36.5)
[2019-11-05] MEDS ORDERED: KCL 10 MEQ IVPB 30 MEQ/300 ML INFUS.BAG IVPB ONE (11:53)
[2019-11-05] MEDS ORDERED: ACETAMINOPHEN 325 MG TABLET (FP) ONE (11:58)
[2019-11-05] MEDS ORDERED: ACETAMINOPHEN 325 MG TABLET (FP) PO ONE (11:58)
[2019-11-05 11:59] LABS: EPI CELLS >36 /uL (0-25.1); HYALINE CASTS 2 /uL (0-3.1); URINE APPEARANCE CLEAR; URINE BACTERIA 241 /uL (0-1359); URINE BILIRUBIN NEGATIVE (NEGATIVE); URINE COLOR YELLOW; URINE GLUCOSE (UA) NEGATIVE (NEGATIVE); URINE KETONE NEGATIVE (NEGATIVE); URINE LEUK ESTERASE NEGATIVE (NEGATIVE); URINE NITRITE NEGATIVE (NEGATIVE); URINE PROTEIN 1+ (NEGATIVE); URINE RBC 14 /uL (0-23.9); URINE WBC 22 /uL (0-25.8)
[2019-11-05] MEDS ORDERED: POTASSIUM CHLORIDE TABS 10 MEQ TABLET.ER (FP) ONE (12:02)
[2019-11-05 12:18] LABS: URINE CRYSTALS NON SEEN /hpf
[2019-11-05] MEDS: KCL 10 MEQ IVPB 10 MEQ/100 ML INFUS.BAG IVPB SCH ×3 (12:33→15:26)
[2019-11-05 16:30] LABS: YEAST NEGATIVE (NEGATIVE)
[2019-11-05] MEDS ORDERED: ACETAMINOPHEN 1000 MG/100 ML VIAL (NON FORMULARY) IVPB ONE ×2 (16:40→19:40)
[2019-11-05 17:28] VITALS: TEMP 98.9
[2019-11-05 18:10] LABS: BLOOD UREA NITROGEN 12.7 mg/dL (7-18); CALCIUM 7.8 mg/dL (8.5-10.1); CREATININE 0.8 mg/dL (0.55-1.3); MAGNESIUM 1.8 mg/dL (1.8-2.4)
[2019-11-05 19:32] VITALS: BP 85/61; PULSE 63
== END 2019-11-05 19:55 | disposition short-term general hospital (02) ==
LOC: JER 09:07 → SUPCPDRO 09:07 → JER 19:54
DX: R10.9 Unspecified abdominal pain (principal); Z98.84 Bariatric surgery status
CPT/HCPCS: 36415; 71275-TC; 74150-TC; 74174-TC; 80048; 80053; 81003; 83605; 83735; 84484; 84703; 85025; 85610; 85730; 86850; 86870; 86900; 86901; 86902; 87040; 87086; 99291; J0131; Q9967; U0003